=== PATIENT | female | born 1935 | race Caucasian/White ===

== ENCOUNTER → 2016-08-14 | Outpatient (CLI) | payer BC ==
[~2016-08-14] MED LIST: AMLH/550 PO; ASPEC81 PO; ATEN-173 PO; ATOR-22 PO; CYNI1000 IM; ENAL10TA88 PO; FLV1 PO; MAGN400C3 PO; OMEP10CA2 PO; PRM/625 PO
[2016-08-14 10:45] LABS: BASO % 0.5 %; BASO ABS # 0.03 K/uL (0-0.2); COMPLETE YES; HEMATOCRIT 36.3 % (37-47); IG% 0.9 %; LYMPH % 26.2 %; LYMPH ABS # 1.66 K/uL (1.2-3.4); MEAN CELL VOLUME 97.1 fL (80-100); MEAN CORPUSCULAR HEMOGLOBIN 34.2 pg (25-34); MEAN CORPUSCULAR HGB CONC 35.3 g/dl (32-36); MEAN PLATELET VOLUME 8.7 fL (7.4-10.4); MONO % 8.5 %; NEUT % 60.9 %; PLATELET COUNT 318 K/uL (130-400); RED BLOOD COUNT 3.74 M/uL (4.2-5.4); WHITE BLOOD COUNT 6.33 K/uL (4.8-10.8)
[2016-08-14 11:29] LABS: CHOLESTEROL/HDL RATIO 1.7
== END | disposition home or self-care (01) ==
LOC: C.LAB1850 09:52
PROVIDERS: ATTEND Internal Medicine
DX: G30.0 Alzheimer's disease with early onset (principal)

== ENCOUNTER → 2016-12-11 | Outpatient (CLI) | payer BC ==
[2016-12-11 09:39] LABS: BASO % 0.6 %; BASO ABS # 0.03 K/uL (0-0.2); COMPLETE YES; EOS % 6.3 %; HEMATOCRIT 34.9 % (37-47); IG% 0.4 %; LYMPH % 35.3 %; LYMPH ABS # 1.79 K/uL (1.2-3.4); MEAN CELL VOLUME 95.1 fL (80-100); MEAN CORPUSCULAR HEMOGLOBIN 32.7 pg (25-34); MEAN CORPUSCULAR HGB CONC 34.4 g/dl (32-36); MEAN PLATELET VOLUME 8.7 fL (7.4-10.4); MONO % 9.1 %; NEUT % 48.3 %; PLATELET COUNT 321 K/uL (130-400); RED BLOOD COUNT 3.67 M/uL (4.2-5.4); WHITE BLOOD COUNT 5.07 K/uL (4.8-10.8)
[2016-12-11 10:05] LABS: ESTIMATED AVERAGE GLUCOSE 111 mg/dl; HA1C FLAG Normal (Normal)
[2016-12-11 10:43] LABS: ALT/SGPT 18 U/L (12-78); AST/SGOT 16 U/L (15-37); BLOOD UREA NITROGEN 24 mg/dl (7-18); BUN/CREATININE RATIO 19.9 (10-20); CALCIUM 9.1 mg/dl (8.5-10.1); CARBON DIOXIDE 23 mmol/L (21-32); CHLORIDE 103 mmol/L (98-107); CHOLESTEROL 201 mg/dl (0-200); CHOLESTEROL/HDL RATIO 2.5; GLUCOSE 92 mg/dl (70-99); HDL CHOLESTEROL 80 mg/dl; LDL CHOLESTEROL CALCULATED 82 mg/dl; POTASSIUM 4.2 mmol/L (3.5-5.1); SODIUM 135 mmol/L (136-145); TRIGLYCERIDES 197 mg/dl (0-150); VERY LOW DENSITY LIPOPROT CALC 39 mg/dl
--- NOTE | 2016-12-16 12:14 | CODING QUERY MEDICAL NECESSITY ---
CQSUPPORTING DIAGNOSIS NEEDED A supporting diagnosis is required for the test/procedure performed on this patient in order for us to be reimbursed by the patient's insurance. Please provide a supporting diagnosis for the following test/procedure listed below next to the test name along with your signature. *If there is no additional diagnosis for this patient that would support the following test/procedure please document that below next to the test/procedure. Test(s)/Procedure(s) that require a supporting diagnosis: DOS 12/11/16 GLYCATED HEMOGLOBIN Provider Signature: Date: Thank you Diana Auguste [employer] Once completed, please kindly fax back to [phone] For questions please call [phone]
== END | disposition home or self-care (01) ==
LOC: C.LAB1850 07:16
PROVIDERS: ATTEND Internal Medicine
DX: E78.00 Pure hypercholesterolemia, unspecified (principal); E74.39 Other disorders of intestinal carbohydrate absorption

== ENCOUNTER 2017-02-07 09:30 | Inpatient (IN) | payer BC, OTHER ==
[~2017-02-07] VITALS: Ht 160 cm; Wt 54.2 kg
[~2017-02-07 09:30] MED LIST changes: -ASPEC81 PO; -ATOR-22 PO; -CYNI1000 IM; -FLV1 PO; -MAGN400C3 PO
[2017-02-07] MEDS ORDERED: SODIUM CHLORIDE 0.9% 1000ML 1,000 ML IV STA (09:40)
[2017-02-07 10:05] LABS: BASO % 0.5 %; BASO ABS # 0.02 K/uL (0-0.2); COMPLETE YES; EOS % 2.3 %; HEMATOCRIT 37.8 % (37-47); IG% 0.5 %; LYMPH % 31.4 %; LYMPH ABS # 1.25 K/uL (1.2-3.4); MEAN CELL VOLUME 89.2 fL (80-100); MEAN CORPUSCULAR HEMOGLOBIN 31.4 pg (25-34); MEAN CORPUSCULAR HGB CONC 35.2 g/dl (32-36); MEAN PLATELET VOLUME 8.6 fL (7.4-10.4); NEUT % 58.3 %; PLATELET COUNT 306 K/uL (130-400); RED BLOOD COUNT 4.24 M/uL (4.2-5.4); WHITE BLOOD COUNT 3.98 K/uL (4.8-10.8)
[2017-02-07] MEDS ORDERED: ATOR-22 PO (10:09)
--- NOTE | 2017-02-07 10:10 | DIAGNOSTIC IMAGING REPORT ---
CHEST ONE VIEW PORTABLE HISTORY:81 yearsFemaleEVALUATE ALTERED MENTAL STATUS/WEAKNESS COMPARISON: None available. TECHNIQUE: Portable upright AP view of the chest. FINDINGS: Cardiomediastinal and hilar silhouettes are within normal limits. There is no pneumothorax, pleural effusion or focal airspace consolidation. No overt pulmonary edema. Bones are grossly intact. IMPRESSION: No acute cardiopulmonary process. The above report was generated using voice recognition software. It may contain grammatical, syntax or spelling errors. Electronically signed by: Aron Mejia 02/07/2017 10:09 AM Dictated Date/Time: 02/07/2017 10:08 AM
[2017-02-07 10:14] LABS: INR 0.9 (0.9-1.1); PARTIAL THROMBOPLASTIN RATIO 0.9; PROTHROMBIN TIME (PATIENT) 9.8 SECONDS (9.0-12.0)
[2017-02-07 10:17] LABS: URINE APPEARANCE CLEAR (CLEAR); URINE BILIRUBIN NEG (NEG); URINE COLOR YELLOW; URINE EPITHELIAL CELL AUTO >30 /lpf (0-5); URINE NITRITE NEG (NEG); URINE SPECIFIC GRAVITY 1.023 (1.000-1.030); UROBILINOGEN NEG (NEG); ZZURINE CULT IF INDIC CATH NO
[2017-02-07 10:18] LABS: ALT/SGPT 18 U/L (12-78); BLOOD UREA NITROGEN 29 mg/dl (7-18); BUN/CREATININE RATIO 22.3 (10-20); CALCIUM 9.3 mg/dl (8.5-10.1); CARBON DIOXIDE 23 mmol/L (21-32); CHLORIDE 104 mmol/L (98-107); GLUCOSE 92 mg/dl (70-99); MAGNESIUM 1.6 mg/dl (1.8-2.4); POTASSIUM 3.7 mmol/L (3.5-5.1); SODIUM 136 mmol/L (136-145)
[2017-02-07 10:18] LABS: MANUAL MICROSCOPIC REQUIRED? NO; REVIEW REQ? YES
[2017-02-07 10:26] LABS: ALKALINE PHOSPHATASE 92 U/L (45-117); AST/SGOT 15 U/L (15-37); CKMB/CK RATIO 2.9 (0-3.0)
--- NOTE | 2017-02-07 10:28 | DIAGNOSTIC IMAGING REPORT ---
HEAD CT NONCONTRAST CT DOSE: 537.48 mGy.cm HISTORY: Mental status change EVALUATE ALTERED MENTAL STATUS/WEAKNESS TECHNIQUE: Multiaxial CT images of the head were performed without the use of intravenous contrast. Comparison: 02/04/2016 Findings: The paranasal sinuses and mastoid air cells are clear. The calvarium and skull base are intact. The ventricles and sulci are within normal limits. There is no mass, hematoma, midline shift, or acute infarct. Age-related atrophy. Mild chronic small vessel change. Impression: No acute intracranial abnormality. Age-related change Electronically signed by: Pavan Schulz M.D. 02/07/2017 10:26 AM Dictated Date/Time: 02/07/2017 10:25 AM
--- NOTE | 2017-02-07 12:14 | EMERGENCY ROOM VISIT NOTE ---
History Report prepared by Yaelibmarcel: Karen Vargas Under the Supervision of: Dr. eVrnon Azevedo D.O. First contact with patient: 09:34 Stated Complaint: UNRESPONSIVE History of Present Illness The patient is a 77 year old who presents to the Emergency Room with complaints of resolved unresponsiveness occurring about an hour and a half ago. The patient woke up at 4 am and had a conversation as normal with her . Around 8 am, the patient normally wakes up but kept on sleeping which was unusual for her. She was unresponsive for her . As per EMS, the patient continued to not respond to questions that were asked in route to the Emergency Room. Her blood sugar was 93. A few minutes ago, the patient started responding to questions again. She denies any pain but complains of generalized weakness. As per , the patient has been complaining of confusion occurring for the past few days. She does not have a history of diabetes or stroke. She denies any recent illnesses, headache, fevers, chills, chest pain, nausea, vomiting, abdominal pain, or any other complaints. Source of History: patient, spouse/significant other Onset: about an hour and a half ago Position: other (global) Symptom Intensity: No pain Quality: other (unresponsiveness) Timing: resolved Associated Symptoms: + weakness, No fevers, No chills, No headache, No chest pain, No nausea, No vomiting, No abdominal pain Review of Systems See HPI for pertinent positives & negatives. A total of 10 systems reviewed and were otherwise negative. Past Medical & Surgical Medical Problems: (1) Rheumatoid arthritis Family History Patient reports no known family medical history. Social History Smoking Status: Never Smoker Drug Use: none Marital Status: Housing Status: lives with significant other Current/Historical Medications Scheduled Amiloride/Hctz (Amiloride/Hydrochlorothia 5-50 mg), 1 TAB PO DAILY Atenolol (Tenormin), 25 MG PO DAILY Atorvastatin (Lipitor), 20 MG PO DAILY Enalapril (Vasotec), 10 MG PO DAILY Estrogens, Conjugated (Premarin), 0.625 MG PO DAILY Omeprazole (Prilosec), Unknown Dose PO DAILY Allergies Coded Allergies: No Known Allergies (Unverified , 02/09/16) Physical Exam Vital Signs Date Time Temp Pulse Resp B/P (MAP) Pulse Ox O2 Delivery O2 Flow Rate FiO2 02/07/17 11:35 69 16 122/80 97 Room Air 02/07/17 10:23 72 16 124/79 100 Room Air 02/07/17 09:38 79 02/07/17 09:38 36.6 80 16 128/81 100 Room Air Physical Exam CONSTITUTIONAL/VITAL SIGNS: Reviewed / noted above. GENERAL: Non-toxic in appearance. INTEGUMENTARY: Warm, dry, and [place]. HEAD: Normocephalic. EYES: without scleral icterus or trauma. ENT/OROPHARYNX: clear and moist. LYMPHADENOPATHY/NECK: Is supple without lymphadenopathy or meningismus. RESPIRATORY: Lungs clear and equal. CARDIOVASCULAR: Regular rate and rhythm. GI/ABDOMEN: Soft and nontender. No organomegaly or pulsatile mass. No rebound or guarding. Normal bowel sounds. EXTREMITIES: Warm and well perfused. BACK: No CVA tenderness. NEUROLOGICAL: Intact without focal deficits. PSYCHIATRIC: normal affect. MUSCULOSKELETAL: Normally developed with good muscle tone. Medical Decision & Procedures ER Provider Diagnostic Interpretation: X ray results and stated below per my interpretation and radiology interpretation. CHEST ONE VIEW PORTABLE HISTORY:81 yearsFemaleEVALUATE ALTERED MENTAL STATUS/WEAKNESS COMPARISON: None available. TECHNIQUE: Portable upright AP view of the chest. FINDINGS: Cardiomediastinal and hilar silhouettes are within normal limits. There is no pneumothorax, pleural effusion or focal airspace consolidation. No overt pulmonary edema. Bones are grossly intact. IMPRESSION: No acute cardiopulmonary process. The above report was generated using voice recognition software. It may contain grammatical, syntax or spelling errors. Electronically signed by: Aron Mejia 02/07/2017 10:09 AM Dictated Date/Time: 02/07/2017 10:[address] results as stated below per my review and radiologist interpretation: HEAD CT NONCONTRAST CT DOSE: 537.48 mGy.cm HISTORY: Mental status change EVALUATE ALTERED MENTAL STATUS/WEAKNESS TECHNIQUE: Multiaxial CT images of the head were performed without the use of intravenous contrast. Comparison: 02/04/2016 Findings: The paranasal sinuses and mastoid air cells are clear. The calvarium and skull base are intact. The ventricles and sulci are within normal limits. There is no mass, hematoma, midline shift, or acute infarct. Age-related atrophy. Mild chronic small vessel change. Impression: No acute intracranial abnormality. Age-related change Electronically signed by: Pavan Schulz M.D. 02/07/2017 10:26 AM Dictated Date/Time: 02/07/2017 10:25 AM Laboratory Results 02/07/17 09:45 Red Blood Count 4.24, Mean Corpuscular Volume 89.2, Mean Corpuscular Hemoglobin 31.4, Mean Corpuscular Hemoglobin Concent 35.2, Mean Platelet Volume 8.6, Neutrophils (%) (Auto) 58.3, Lymphocytes (%) (Auto) 31.4, Monocytes (%) (Auto) 7.0, Eosinophils (%) (Auto) 2.3, Basophils (%) (Auto) 0.5, Neutrophils # (Auto) 2.32, Lymphocytes # (Auto) 1.25, Monocytes # (Auto) 0.28, Eosinophils # (Auto) 0.09, Basophils # (Auto) 0.02 02/07/17 09:45 Test 02/07/17 09:45 02/07/17 10:00 White Blood Count 3.98 K/uL (4.8-10.8) Red Blood Count 4.24 M/uL (4.2-5.4) Hemoglobin 13.3 g/dL (12.0-16.0) Hematocrit 37.8 % (37-47) Mean Corpuscular Volume 89.2 fL (80-100) Mean Corpuscular Hemoglobin 31.4 pg (25-34) Mean Corpuscular Hemoglobin Concent 35.2 g/dl (32-36) Platelet Count 306 K/uL (130-400) Mean Platelet Volume 8.6 fL (7.4-10.4) Neutrophils (%) (Auto) 58.3 % Lymphocytes (%) (Auto) 31.4 % Monocytes (%) (Auto) 7.0 % Eosinophils (%) (Auto) 2.3 % Basophils (%) (Auto) 0.5 % Neutrophils # (Auto) 2.32 K/uL (1.4-6.5) Lymphocytes # (Auto) 1.25 K/uL (1.2-3.4) Monocytes # (Auto) 0.28 K/uL (0.11-0.59) Eosinophils # (Auto) 0.09 K/uL (0-0.5) Basophils # (Auto) 0.02 K/uL (0-0.2) RDW Standard Deviation 39.2 fL (36.4-46.3) RDW Coefficient of Variation 12.1 % (11.5-14.5) Immature Granulocyte % (Auto) 0.5 % Immature Granulocyte # (Auto) 0.02 K/uL (0.00-0.02) Prothrombin Time 9.8 SECONDS (9.0-12.0) Prothromb Time International Ratio 0.9 (0.9-1.1) Activated Partial Thromboplast Time 22.8 SECONDS (21.0-31.0) Partial Thromboplastin Ratio 0.9 Anion Gap 9.0 mmol/L (3-11) Est Creatinine Clear Calc Drug Dose 28.8 ml/min Estimated GFR () 45.2 Estimated GFR (Non- 39.0 BUN/Creatinine Ratio 22.3 (10-20) Calcium Level 9.3 mg/dl (8.5-10.1) Magnesium Level 1.6 mg/dl (1.8-2.4) Total Bilirubin 0.4 mg/dl (0.2-1) Direct Bilirubin 0.1 mg/dl (0-0.2) Aspartate Amino Transf (AST/SGOT) 15 U/L (15-37) Alanine Aminotransferase (ALT/SGPT) 18 U/L (12-78) Alkaline Phosphatase 92 U/L (45-117) Total Creatine Kinase 24 U/L (26-192) Creatine Kinase MB 0.7 ng/ml (0.5-3.6) Creatine Kinase MB Ratio 2.9 (0-3.0) Troponin I < 0.015 ng/ml (0-0.045) Total Protein 7.5 gm/dl (6.4-8.2) Albumin 3.4 gm/dl (3.4-5.0) Lipase 466 U/L (73-393) Thyroid Stimulating Hormone (TSH) 1.810 uIu/ml (0.300-4.500) Urine Color YELLOW Urine Appearance CLEAR (CLEAR) Urine pH 5.0 (4.5-7.5) Urine Specific [place] 1.023 (1.000-1.030) Urine Protein NEG (NEG) Urine Glucose (UA) NEG (NEG) Urine Ketones NEG (NEG) Urine Occult Blood NEG (NEG) Urine Nitrite NEG (NEG) Urine Bilirubin NEG (NEG) Urine Urobilinogen NEG (NEG) Urine Leukocyte Esterase NEG (NEG) Urine WBC (Auto) 1-5 /hpf (0-5) Urine RBC (Auto) 0-4 /hpf (0-4) Urine Epithelial Cells (Auto) >30 /lpf (0-5) Urine Bacteria (Auto) NEG (NEG) Urine Pathogenic Casts /lpf (0) Laboratory results as stated above per my review. Medications Administered Medications (Trade) Dose Ordered Sig/Carroll Route Start Time Stop Time Status Last Admin Dose Admin Sodium Chloride 1,000 ml @ 250 mls/hr Q4H STAT IV 02/07/17 09:40 02/07/17 13:39 02/07/17 10:20 250 MLS/HR ECG Indication: other (Unresponsive) Rate (beats per minute): 80 Rhythm: normal sinus Findings: T-wave inversion (anterior, lateral) Comparison ECG Date: no prior available ED Course 0934: Previous medical records were reviewed. The patient was evaluated in room A12B. A complete history and physical examination was performed. 0940: Sodium Chloride 1000 ml @ 250 mls/hr IV 1144: On reevaluation, the patient is resting comfortably. I discussed the results and findings with the patient and her . They verbalized agreement of the treatment plan. The patient will be evaluated for further management and care by [facility]. 1159: I discussed the patient's case with Dr. Garrett, medical transcription supervisor with [facility]. Medical Decision Medication Reconciliation: I attest that I have personally reviewed the patient' s current medication list. Blood pressure Screening: Patient was found to have normal blood pressure on screening and does not require follow-up. Differential includes acute coronary syndrome, myocardial infarction, CVA, TIA, anemia, infection, pneumonia, UTI, pyelonephritis, poor nutrition, dehydration, electrolyte disturbance,hypoglycemia. This a 81-year-old female who presents to the ED with a chief complaint of fatigue and an unresponsive episode this morning. The patient's reports that she was unable to arouse this morning. EMS found her to have a blood sugar of 93. She did not verbally respond to them but seemed to be somewhat aware of her surroundings. Her vital signs were normal. Her physical exam for me revealed a fatigued-appearing female who was answering questions although she was somewhat slow to respond. She did respond to questions appropriately and follows basic commands. She denied any specific complaint other than feeling fatigued and tired. Her EKG shows a normal sinus rhythm at a rate of 80 with some T-wave inversions anterolateral. CT scan of the brain and chest x-ray were negative for acute disease. CBC was normal. The BUN is 29 and the creatinine is 1.3. Magnesium was 1.6. TSH was normal. Urine did not show infection. Troponin was negative. The patient was hydrated with IV fluids. Because of her continuance of symptoms, she will be seen by the hospitalist for further observation. I did speak with Dr. Garrett and the hospitalist about this patient. Consults Time Called: 1155 Consulting Physician: Dr. Garrett, medical transcription supervisor with [facility] Returned Call: [phone] I discussed the patient's case with Dr. Garrett, medical transcription supervisor with [facility]. Impression Primary Impression: Unresponsive episode Additional Impressions: Dehydration Weak Abnormal EKG Scribe Attestation The scribe's documentation has been prepared under my direction and personally reviewed by me in its entirety. I confirm that the note above accurately reflects all work, treatment, procedures, and medical decision making performed by me. Departure Information Dispostion Being Evaluated By Hospitalist Gurjit Quick M.D. (PCP) Problem Qualifiers
[2017-02-07 13:49] VITALS: O2SAT 99; Ht 160 cm; Wt 54.2 kg
[2017-02-07] MEDS ORDERED: ONDANSETRON INJ 2 MG/ML 2 ML VIAL IV PRN (14:00)
[2017-02-07] MEDS ORDERED: NITROGLYCERIN 0.4 MG SL PER TAB CHARGE SL PRN (14:00)
[2017-02-07] MEDS ORDERED: PHARMACIST DISCHARGE MED REC CONSULT PRN (14:00)
--- NOTE | 2017-02-07 14:50 | Medical Student: [facility] ---
Med Student History & Physical Date & Time of Service: Feb 07, 2017 at 14:23 Chief Complaint: Unresponsive Primary Care Physician: Gurjit Garrett M.D. History of Present Illness Source: patient, family ( ) Mrs. Dudley is a 81 year old female with a PMH significant for RA, OA, macular degeneration, dementia of unknown etiology, HTN, and hypercholesterolemia who presents today with altered mental status/unresponsiveness. This morning her woke up at 8 am and could not wake up the patient. He denies observing any jerking movements, incontinence, or diaphoresis. He notes that at 4 am, he woke up and had a coherent conversation with the patient. Patient denies fevers , chills, ROSS, chest pain, SOB, or abdominal pain last night or this morning. She has no recent history of changes to medications or recent illnesses. According to the , the patient has generalized weakness and confusion/ short term-memory loss. Her memory loss began about 6 months ago, but significantly worsened within the last week. Her confusion at bedside is no worse than this past week. Additionally, the patient has had decreased appetite over the past couple months with no weight loss. Her vision has been worsening over the past couple months as well and her 's history indicates she has illusions of shadows on the wall, believing they are hands. He attributes her worsening visions to progressive macular degeneration. She follows with Dr. Herrera and Dr. Guzman for her macular degeneration. She has abnormal gait, but does not use any assistance walking. She has osteoarthritis and severe pain in her right hip and knee. Orthopedics follows with her, but patient desires no intervention. She was in the ED about a year ago for a fall. At the time, head CT was negative. On arrival to the ED today, she was afebrile, normal HR of 80 , normotensive at 128/81 and sating well at 100% on RA. Cr was elevated at 1.3 and she was thus given an 250 cc NS. Past Medical/Surgical History 1) Macular Degeneration 2) Dementia of unknown etiology 3) RA 4) OA 5) HTN 6) Hypercholesterolemia Family History Father: at 64 of [place] Mother: at 90, kidney problem Brother: at 50 of [place] Social History Smoking Status: Former Smoker (3 cigarettes/week ) Alcohol Use: none Drug Use: none Marital Status: Housing status: lives with family ( ) Allergies Coded Allergies: No Known Allergies (Unverified , 02/09/16) Medications Amiloride/Hctz (Amiloride/Hydrochlorothia 5-50 mg), 1 TAB PO DAILY Atenolol (Tenormin), 25 MG PO DAILY Atorvastatin (Lipitor), 20 MG PO DAILY Enalapril (Vasotec), 10 MG PO DAILY Estrogens, Conjugated (Premarin), 0.625 MG PO DAILY Omeprazole (Prilosec), Unknown Dose PO DAILY Review of Systems Constitutional: No fever, No chills, No weight loss Eyes: + worsening of vision ENT: No hearing loss Respiratory: No cough, No sputum, No wheezing, No shortness of breath Cardiovascular: No chest pain, No edema, No palpitations Abdomen: No pain, No nausea, No vomiting, No diarrhea, No constipation Musculoskeletal: + joint pain (right hip and right knee ) Genitourinary - Female: No dysuria, No urinary frequency, No urinary urgency, No urinary incontinence Neurologic: + memory loss (short term ), + weakness (generalized ) Endocrine: + fatigue Physical Exam Vital Signs (24 Hours) Date Time Temp Pulse Resp B/P (MAP) Pulse Ox O2 Delivery O2 Flow Rate FiO2 02/07/17 13:49 99 Room Air 02/07/17 13:34 74 16 125/76 99 Room Air 02/07/17 13:01 68 02/07/17 11:35 69 16 122/80 97 Room Air 02/07/17 10:23 72 16 124/79 100 Room Air 02/07/17 09:38 79 02/07/17 09:38 36.6 80 16 128/81 100 Room Air General Appearance: WD/WN, no apparent distress Head: normocephalic, atraumatic Eyes: PERRL, EOMI ENT: normal ENT inspection, pharynx normal Neck: supple, no adenopathy, thyroid normal, no JVD Respiratory/Chest: chest non-tender, lungs clear, normal breath sounds, no respiratory distress Cardiovascular: regular rate, rhythm, no edema, no gallop, no JVD, no murmur Abdomen/GI: normal bowel sounds, non tender, soft, no organomegaly Extremities/Musculoskelatal: no calf tenderness, normal capillary refill, no pedal edema, + pertinent finding (severe degenerative changes in right wrist, ulnar deviation b/l ) Neurologic/Psych: alert, + abnormal spice mixer II-XII (CN II-IV & V-XII intact, CN V2 & V3 decreased sensation left side ), + sensory deficit (decreased sensation of left lower extremity ), + pertinent finding (strength 5/5 b/l upper and lower extremities ) Skin: normal color, warm/dry Lymphatic: no adenopathy Diagnostics Laboratory Results Results Past 24 Hours Test 02/07/17 09:45 02/07/17 10:00 02/07/17 13:50 Range/Units White Blood Count 3.98 4.8-10.8 K/uL Red Blood Count 4.24 4.2-5.4 M/uL Hemoglobin 13.3 12.0-16.0 g/dL Hematocrit 37.8 37-47 % Mean Corpuscular Volume 89.2 80-100 fL Mean Corpuscular Hemoglobin 31.4 25-34 pg Mean Corpuscular Hemoglobin Concent 35.2 32-36 g/dl Platelet Count 306 130-400 K/uL Mean Platelet Volume 8.6 7.4-10.4 fL Neutrophils (%) (Auto) 58.3 % Lymphocytes (%) (Auto) 31.4 % Monocytes (%) (Auto) 7.0 % Eosinophils (%) (Auto) 2.3 % Basophils (%) (Auto) 0.5 % Neutrophils # (Auto) 2.32 1.4-6.5 K/uL Lymphocytes # (Auto) 1.25 1.2-3.4 K/uL Monocytes # (Auto) 0.28 0.11-0.59 K/uL Eosinophils # (Auto) 0.09 0-0.5 K/uL Basophils # (Auto) 0.02 0-0.2 K/uL RDW Standard Deviation 39.2 36.4-46.3 fL RDW Coefficient of Variation 12.1 11.5-14.5 % Immature Granulocyte % (Auto) 0.5 % Immature Granulocyte # (Auto) 0.02 0.00-0.02 K/uL Prothrombin Time 9.8 9.0-12.0 SECONDS Prothromb Time International Ratio 0.9 0.9-1.1 Activated Partial Thromboplast Time 22.8 21.0-31.0 SECONDS Partial Thromboplastin Ratio 0.9 Sodium Level 136 136-145 mmol/L Potassium Level 3.7 3.5-5.1 mmol/L Chloride Level 104 98-107 mmol/L Carbon Dioxide Level 23 21-32 mmol/L Anion Gap 9.0 3-11 mmol/L Blood Urea Nitrogen 29 7-18 mg/dl Creatinine 1.30 0.60-1.20 mg/dl Est Creatinine Clear Calc Drug Dose 28.8 ml/min Estimated GFR () 45.2 Estimated GFR (Non- 39.0 BUN/Creatinine Ratio 22.3 10-20 Random Glucose 92 70-99 mg/dl Calcium Level 9.3 8.5-10.1 mg/dl Magnesium Level 1.6 1.8-2.4 mg/dl Total Bilirubin 0.4 0.2-1 mg/dl Direct Bilirubin 0.1 0-0.2 mg/dl Aspartate Amino Transf (AST/SGOT) 15 15-37 U/L Alanine Aminotransferase (ALT/SGPT) 18 12-78 U/L Alkaline Phosphatase 92 45-117 U/L Total Creatine Kinase 24 26-192 U/L Creatine Kinase MB 0.7 0.5-3.6 ng/ml Creatine Kinase MB Ratio 2.9 0-3.0 Troponin I < 0.015 0-0.045 ng/ml Total Protein 7.5 6.4-8.2 gm/dl Albumin 3.4 3.4-5.0 gm/dl Lipase 466 73-393 U/L Thyroid Stimulating Hormone (TSH) 1.810 0.300-4.500 uIu/ml Urine Color YELLOW Urine Appearance CLEAR CLEAR Urine pH 5.0 4.5-7.5 Urine Specific [place] 1.023 1.000-1.030 Urine Protein NEG NEG Urine Glucose (UA) NEG NEG Urine Ketones NEG NEG Urine Occult Blood NEG NEG Urine Nitrite NEG NEG Urine Bilirubin NEG NEG Urine Urobilinogen NEG NEG Urine Leukocyte Esterase NEG NEG Urine WBC (Auto) 1-5 0-5 /hpf Urine RBC (Auto) 0-4 0-4 /hpf Urine Epithelial Cells (Auto) >30 0-5 /lpf Urine Bacteria (Auto) NEG NEG Urine Pathogenic Casts 0 /lpf Diagnostic Radiology Head CT 02/07/[address] DOSE: 537.48 mGy.cm HISTORY: Mental status change EVALUATE ALTERED MENTAL STATUS/WEAKNESS TECHNIQUE: Multiaxial CT images of the head were performed without the use of intravenous contrast. Comparison: 02/04/2016 Findings: The paranasal sinuses and mastoid air cells are clear. The calvarium and skull base are intact. The ventricles and sulci are within normal limits. There is no mass, hematoma, midline shift, or acute infarct. Age-related atrophy. Mild chronic small vessel change. Impression: No acute intracranial abnormality. Age-related change CXR 02/07/2017 CHEST ONE VIEW PORTABLE HISTORY:81 yearsFemaleEVALUATE ALTERED MENTAL STATUS/WEAKNESS COMPARISON: None available. TECHNIQUE: Portable upright AP view of the chest. FINDINGS: Cardiomediastinal and hilar silhouettes are within normal limits. There is no pneumothorax, pleural effusion or focal airspace consolidation. No overt pulmonary edema. Bones are grossly intact. IMPRESSION: No acute cardiopulmonary process. The above report was generated using voice recognition software. It may contain grammatical, syntax or spelling errors. Impression Assessment and Plan Assessment: Mrs. Dudley is a 81 year old female with a PMH significant for RA, OA , macular degeneration, dementia of unknown etiology, HTN, and hypercholesterolemia who presents today with altered mental status/ unresponsiveness. She was not arousable to wake around 0800 this morning. Differential diagnosis for unresponsiveness of this nature includes OH, arrhythmia, TIA, stroke, or seizure. Head CT was negative for acute intracranial pathology. Initial EKG at [address] depressions in the anterolateral leads with T wave inversions, but repeat EKG at 1214 showed improving depressions. Troponin was negative. CXR was negative. UA was negative for infection. Blood sugar was 93. Cr was elevated at 1.3 (baseline 1.1-1.2). OH or arrhythmia is unlikely the cause as EKG findings are improving, cardiac enzymes are normal, and the patient has no complains or palpitations or chest pain. Stroke or TIA is more likely considering recent hx of dementia (possibly vascular dementia), acute unresponsiveness, and left-sided hypoesthesia. Lipase was also found to be elevated at 466. Plan: Altered mental status/unresponsiveness/hx of dementia of unknown etiology - patient has recent hx (6 months) of short term memory loss which may be vascular in nature. Patient certainly has risk factors (HTN, hypercholesterolemia, hx of smoking). Also patient is taking Premarin, which could attribute to hypercoagulable state. -Head CT negative for intracranial pathology -MRA head & neck -brain MRI -echo -arterial hypercoagulable workup: homocysteine, B2 glycoprotein, microglobulin, lupus anticoagulant, antiphospholipid antibodies -fasting lipids -track cardiac enzymes -physical & occupational therapy evaluation -speech evaluation -consult neurology Dehydration - Cr elevated at 1.3 and notes patient does not drink enough at home -received 250 cc NS on arrival -maintain with KCl/NS @ 100 cc/hr -renal profile AM Elevated Lipase - likely 2/2 to acute kidney compensation from dehydration. Pancreatitis not considered as patient is not having abdominal pain HTN -continue amiloride/HCTZ 5-50 mg PO daily -continue atenolol 25 mg PO daily -continue enalapril 10 mg PO daily Hypercholesterolemia -continue atorvastatin 20 mg PO daily Post-menopausal sxs -continue Premarin 0.625 mg PO daily Level of Care Telemetry Advanced Directives Existing Living Will: Yes Existing Power of Supervisor Nuclear Medicine: Yes
[2017-02-07 15:58] VITALS: BP 133/92; PULSE 85; TEMP 36.4; O2SAT 100
[2017-02-07 16:00] VITALS: O2SAT 100
[2017-02-07] MEDS ORDERED: GADAVIST IV PRN (16:00)
--- NOTE | 2017-02-07 16:02 | DIAGNOSTIC IMAGING REPORT ---
MR ANGIOGRAPHY OF THE [place] NO CONTRAST CLINICAL HISTORY: Change in mental status. Disorientation. Possible stroke. COMPARISON STUDY: None. A 3-D sgig-to-cxtata MR angiographic sequence of the [place] was performed. Both the source and projection images were reviewed. There is no evidence of major intracranial branch occlusion. There is no evidence of intracranial stenosis. There are no lesions suspicious for aneurysm. IMPRESSION: Unremarkable MR angiography of the [place]. Electronically signed by: Willy Holliday M.D. 02/07/2017 4:01 PM Dictated Date/Time: 02/07/2017 3:59 PM
--- NOTE | 2017-02-07 16:08 | DIAGNOSTIC IMAGING REPORT ---
MRI OF THE BRAIN COMBO CLINICAL HISTORY: Change in mental status. COMPARISON STUDY: CT of the brain dated 02/07/2017. TECHNIQUE: MRI of the brain was performed utilizing various T1 and T2-weighted sequences in the axial, sagittal, and coronal planes. Contrast-enhanced sequences were acquired following the administration of 5 cc of Gadavist. FINDINGS: Brain parenchyma: There are age-related involutional changes noting mild patchy subcortical and periventricular microangiopathic disease. There is no hemorrhage or mass effect. There is no restricted diffusion to suggest acute ischemia. No enhancing mass lesion is identified on the postcontrast images. Mackay-white matter differentiation is preserved. No extra-axial fluid collection is seen. The cerebellar tonsils are normal in configuration. Ventricles, sulci, and cisterns: Prominent secondary to involutional change. Pituitary and sella: Unremarkable. Intracranial vasculature: Normal flow voids are maintained at the skull base. Orbits: The bony orbits are grossly intact. Orbital contents are normal in appearance noting bilateral ocular lens implants. Sinuses and mastoids: Clear. Calvarium: Unremarkable. Cervical cord: Partially visualized cervical spinal cord is normal in morphology and signal intensity. IMPRESSION: No acute intracranial abnormality. Electronically signed by: Javon Pearson M.D. 02/07/2017 4:07 PM Dictated Date/Time: 02/07/2017 4:02 PM
--- NOTE | 2017-02-07 16:13 | DIAGNOSTIC IMAGING REPORT ---
MR ANGIOGRAM OF THE NECK COMBO CLINICAL HISTORY: Change in mental status. COMPARISON STUDY: No priors. TECHNIQUE: Axial 3-D [id number] MR angiography of the neck is performed. Subsequently, following the IV administration of 5 cc of Gadavist. Coronal MR angiogram of the neck was performed to corroborate the findings. 3-D reformats are created and assessed. Subtraction imaging was utilized. All measurements were calculated based on NASCET criteria. FINDINGS: Visualized portions of the thoracic aorta are normal in caliber. The aortic arch demonstrates standard 3-vessel anatomy. The subclavian arteries are widely patent bilaterally. The right common carotid artery is widely patent. There is approximately 50% stenosis at the origin of the right internal carotid artery. The remainder of the right internal carotid artery and the right external carotid artery are patent. The left common carotid artery is widely patent, as are the left internal and external carotid arteries. The vertebral arteries are widely patent. The left vertebral artery is dominant. The visualized intracranial vessels at the skull base appear patent. The jugular veins are patent. IMPRESSION: 1. There is approximately 50% stenosis of the origin of the right internal carotid artery. 2. The remainder of the right carotid arterial system as well as the left carotid arterial system are widely patent. 3. The vertebral arteries are patent. Electronically signed by: Javon Pearson M.D. 02/07/2017 4:12 PM Dictated Date/Time: 02/07/2017 4:07 PM
[2017-02-07] MEDS: NITROGLYCERIN OINT 2% 1GM PACKET EXT SCH ×2 (16:28→23:44)
[2017-02-07] MEDS: NSS + 20MEQ KCL 1000ML 1,000 ML IV SCH (16:57)
--- NOTE | 2017-02-07 18:28 | History and Physical ---
History & Physical Date & Time of Service: Feb 07, 2017 at 18:12 Chief Complaint: Abnormal Ekg, Unresponsive Episode Primary Care Physician: Gurjit Garrett M.D. History of Present Illness Source: patient, spouse This patient is a 77-year-old female with a past medical history of rheumatoid arthritis, dementia, hypertension, hyperlipidemia, GERD , who first woke up this morning around 4 AM and had a normal conversation with her . She then went back to sleep and around 8 a.m. she was still asleep, which was unusual for her and her was unable to wake her up. He became concerned and called emergency services, who reported that she was still not able to respond to questions at her home and in route to the emergency department. Then , a few minutes prior to arrival, the patient started to respond to questions again. She denied have any local or generalized pain, but did report generalized weakness. Her reports that she had been confused for the past few days. She's not had any recent falls, she has not had recent travel, or sick exposures. Family History Patient reports no known family medical history. Noncontributory Social History Smoking Status: Former Smoker (3 cigarettes/week ) Smokeless Tobacco Use: No Alcohol Use: none Drug Use: none Marital Status: Housing status: lives with family ( ) Occupational Status: retired Multi-Drug Resistant Organisms History of MDRO: No Allergies Coded Allergies: No Known Allergies (Unverified , 02/09/16) Home Medications Scheduled Amiloride/Hctz (Amiloride/Hydrochlorothia 5-50 mg), 1 TAB PO DAILY Atenolol (Tenormin), 25 MG PO DAILY Atorvastatin (Lipitor), 20 MG PO DAILY Enalapril (Vasotec), 10 MG PO DAILY Estrogens, Conjugated (Premarin), 0.625 MG PO DAILY Omeprazole (Prilosec), Unknown Dose PO DAILY Review of Systems The patient denies chest pain, palpitations, shortness of breath, cough, lower extremity swelling, vision change, hearing change, sore throat, fevers, chills, sweats, weight change, nausea, vomiting, abdominal pain, pelvic pain, blood in urine or stool, dysuria, urinary frequency or urgency, lightheadedness, dizziness, headache, rash, abnormal bruising or bleeding, imbalance, focal weakness, numbness or tingling in arms or legs, arthralgias or myalgias, back or neck pain, night sweats, or allergy symptoms. The review of systems is otherwise negative other than for that already noted above, and at least 10 systems have been reviewed. Physical Exam Vital Signs Date Time Temp Pulse Resp B/P (MAP) Pulse Ox O2 Delivery O2 Flow Rate FiO2 02/07/17 16:00 100 Room Air 02/07/17 15:58 36.4 85 16 133/92 (106) 100 Room Air 02/07/17 13:49 99 Room Air 02/07/17 13:34 74 16 125/76 99 Room Air 02/07/17 13:01 68 02/07/17 11:35 69 16 122/80 97 Room Air 02/07/17 10:23 72 16 124/79 100 Room Air 02/07/17 09:38 79 02/07/17 09:38 36.6 80 16 128/81 100 Room Air The patient is awake, well-developed and adequately nourished, alert and oriented 3, normocephalic and atraumatic, lying in bed and in no acute distress. HEENT--PERRL, EOMI, mucous membranes and oropharynx Neck--supple, no JVD or bruits, thyroid normal, trachea midline, no adenopathy. Heart--normal S1 and S2, no extra beats, no murmurs, rubs or gallops. Lungs--clear bilaterally with good air movement, no respiratory distress, no accessory muscle use. Abdomen--normal bowel sounds and soft, nontender and nondistended, no hernias or masses, no organomegaly. Extremities--no cyanosis, clubbing or edema. There are good distal pulses b/l. Dermatologic--normal skin turgor, normal color, warm and dry, no abnormal lymph nodes, no rash. Neurologic--cranial nerves II through XII grossly intact, motor and sensory examination normal. Rheumatologic--normal range of motion, nontender, muscles and joints. Psychiatric--normal affect. Diagnostics Laboratory Results Results Past 24 Hours Test 02/07/17 09:45 02/07/17 10:00 02/07/17 13:50 Range/Units White Blood Count 3.98 4.8-10.8 K/uL Red Blood Count 4.24 4.2-5.4 M/uL Hemoglobin 13.3 12.0-16.0 g/dL Hematocrit 37.8 37-47 % Mean Corpuscular Volume 89.2 80-100 fL Mean Corpuscular Hemoglobin 31.4 25-34 pg Mean Corpuscular Hemoglobin Concent 35.2 32-36 g/dl Platelet Count 306 130-400 K/uL Mean Platelet Volume 8.6 7.4-10.4 fL Neutrophils (%) (Auto) 58.3 % Lymphocytes (%) (Auto) 31.4 % Monocytes (%) (Auto) 7.0 % Eosinophils (%) (Auto) 2.3 % Basophils (%) (Auto) 0.5 % Neutrophils # (Auto) 2.32 1.4-6.5 K/uL Lymphocytes # (Auto) 1.25 1.2-3.4 K/uL Monocytes # (Auto) 0.28 0.11-0.59 K/uL Eosinophils # (Auto) 0.09 0-0.5 K/uL Basophils # (Auto) 0.02 0-0.2 K/uL RDW Standard Deviation 39.2 36.4-46.3 fL RDW Coefficient of Variation 12.1 11.5-14.5 % Immature Granulocyte % (Auto) 0.5 % Immature Granulocyte # (Auto) 0.02 0.00-0.02 K/uL Prothrombin Time 9.8 9.0-12.0 SECONDS Prothromb Time International Ratio 0.9 0.9-1.1 Activated Partial Thromboplast Time 22.8 21.0-31.0 SECONDS Partial Thromboplastin Ratio 0.9 Sodium Level 136 136-145 mmol/L Potassium Level 3.7 3.5-5.1 mmol/L Chloride Level 104 98-107 mmol/L Carbon Dioxide Level 23 21-32 mmol/L Anion Gap 9.0 3-11 mmol/L Blood Urea Nitrogen 29 7-18 mg/dl Creatinine 1.30 0.60-1.20 mg/dl Est Creatinine Clear Calc Drug Dose 28.8 ml/min Estimated GFR () 45.2 Estimated GFR (Non- 39.0 BUN/Creatinine Ratio 22.3 10-20 Random Glucose 92 70-99 mg/dl Calcium Level 9.3 8.5-10.1 mg/dl Magnesium Level 1.6 1.8-2.4 mg/dl Total Bilirubin 0.4 0.2-1 mg/dl Direct Bilirubin 0.1 0-0.2 mg/dl Aspartate Amino Transf (AST/SGOT) 15 15-37 U/L Alanine Aminotransferase (ALT/SGPT) 18 12-78 U/L Alkaline Phosphatase 92 45-117 U/L Total Creatine Kinase 24 26-192 U/L Creatine Kinase MB 0.7 0.5-3.6 ng/ml Creatine Kinase MB Ratio 2.9 0-3.0 Troponin I < 0.015 0-0.045 ng/ml Total Protein 7.5 6.4-8.2 gm/dl Albumin 3.4 3.4-5.0 gm/dl Lipase 466 73-393 U/L Thyroid Stimulating Hormone (TSH) 1.810 0.300-4.500 uIu/ml Urine Color YELLOW Urine Appearance CLEAR CLEAR Urine pH 5.0 4.5-7.5 Urine Specific [place] 1.023 1.000-1.030 Urine Protein NEG NEG Urine Glucose (UA) NEG NEG Urine Ketones NEG NEG Urine Occult Blood NEG NEG Urine Nitrite NEG NEG Urine Bilirubin NEG NEG Urine Urobilinogen NEG NEG Urine Leukocyte Esterase NEG NEG Urine WBC (Auto) 1-5 0-5 /hpf Urine RBC (Auto) 0-4 0-4 /hpf Urine Hyaline Casts (Auto) 10-30 0-5 /lpf Urine Epithelial Cells (Auto) >30 0-5 /lpf Urine Bacteria (Auto) NEG NEG Urine Pathogenic Casts 0 /lpf Diagnostic Radiology Patient Name: NUBIA IRAHETA Unit Number: [id number] Dictated: 02/07/171024 Transcribed: 02/07/17 102 MS Printed Date/Time: [~ rep prt dt]/[~ rep prt tm] [~ rep ct labl] - [~ rep ct ivnm] [facility] [place] [address] Dictated: 02/07/171024 Transcribed: 02/07/17 1025 MS Printed Date/Time: [~ rep prt dt]/[~ rep prt tm] [~ rep ct labl] - [~ rep ct ivnm] [~ rep ct add3]] HEAD CT NONCONTRAST CT DOSE: 537.48 mGy.cm HISTORY: Mental status change EVALUATE ALTERED MENTAL STATUS/WEAKNESS TECHNIQUE: Multiaxial CT images of the head were performed without the use of intravenous contrast. Comparison: 02/04/2016 Findings: The paranasal sinuses and mastoid air cells are clear. The calvarium and skull base are intact. The ventricles and sulci are within normal limits. There is no mass, hematoma, midline shift, or acute infarct. Age-related atrophy. Mild chronic small vessel change. Impression: No acute intracranial abnormality. Age-related change Electronically signed by: Pavan Schulz M.D. 02/07/2017 10:26 AM Dictated Date/Time: 02/07/2017 10:25 AM The status of this report is Signed. Draft = Not yet reviewed or approved by Radiologist. Signed = Reviewed and approved by Radiologist. <AttendingPhy></AttendingPhy> <FamilyPhy>Gurjit Garrett M.D.</FamilyPhy> < PrimaryPhy>Gurjit Garrett M.D.</PrimaryPhy> <UnitNumber>[id number]</UnitNumber > <VisitNumber>[id number]</VisitNumber> <PatientName>NUBIA IRAHETA</ PatientName> <DateOfBirth>1935</DateOfBirth> <Location>[facility]</Location> < ServiceDate>02/07/17</ServiceDate> <MNE>ESINDI</MNE> <OrderingPhy>Vernon Azevedo D.O.</OrderingPhy> <OrderingPhyMNE>f rep ord dr soto</OrderingPhyMNE> < DictatingPhyMNE>f rep dict dr soto</DictatingPhyMNE> <CCListMNE>f rep ct rohite</ CCListMNE> <AdmittingPhyMNE>f pt admit dr soto</AdmittingPhyMNE> <AttendingPhyMNE >f pt attend dr soto</AttendingPhyMNE> <ConsultingPhyMNE>f pt consult dr soto</ConsultingPhyMNE> <FamilyPhyMNE>f pt fam dr soto</FamilyPhyMNE> <OtherPhyMNE>f pt other dr soto</OtherPhyMNE> < PrimaryPhyMNE>f pt prim care dr soto</PrimaryPhyMNE> <ReferringPhyMNE>f pt referring dr soto</ReferringPhyMNE> Patient Name: NUBIA IRAHETA Unit Number: [id number] Dictated: 02/07/171007 Transcribed: 02/07/171007 JRB Printed Date/Time: [~ rep prt dt]/[~ rep prt tm] [~ rep ct labl] - [~ rep ct ivnm] [facility] [place] [address] Dictated: 02/07/171007 Transcribed: 02/07/17 100 JRB Printed Date/Time: [~ rep prt dt]/[~ rep prt tm] [~ rep ct labl] - [~ rep ct ivnm] CHEST ONE VIEW PORTABLE HISTORY:81 yearsFemaleEVALUATE ALTERED MENTAL STATUS/WEAKNESS COMPARISON: None available. TECHNIQUE: Portable upright AP view of the chest. FINDINGS: Cardiomediastinal and hilar silhouettes are within normal limits. There is no pneumothorax, pleural effusion or focal airspace consolidation. No overt pulmonary edema. Bones are grossly intact. IMPRESSION: No acute cardiopulmonary process. The above report was generated using voice recognition software. It may contain grammatical, syntax or spelling errors. Electronically signed by: Aron Mejia 02/07/2017 10:09 AM Dictated Date/Time: 02/07/2017 10:08 AM The status of this report is Signed. Draft = Not yet reviewed or approved by Radiologist. Signed = Reviewed and approved by Radiologist. <AttendingPhy></AttendingPhy> <FamilyPhy>Gurjit Garrett M.D.</FamilyPhy> < PrimaryPhy>Gurjit Garrett M.D.</PrimaryPhy> <UnitNumber>[id number]</UnitNumber > <VisitNumber>[id number]</VisitNumber> <PatientName>NUBIA IRAHETA</ PatientName> <DateOfBirth>1935</DateOfBirth> <Location>[facility]</Location> < ServiceDate>02/07/17</ServiceDate> <MNE>ESINDI</MNE> <OrderingPhy>Vernon Azevedo D.O.</OrderingPhy> <OrderingPhyMNE>f rep ord dr soto</OrderingPhyMNE> < DictatingPhyMNE>f rep dict dr soto</DictatingPhyMNE> <CCListMNE>f rep ct mne</ CCListMNE> <AdmittingPhyMNE>f pt admit dr soto</AdmittingPhyMNE> <AttendingPhyMNE >f pt attend dr soto</AttendingPhyMNE> <ConsultingPhyMNE>f pt consult dr soto</ConsultingPhyMNE> <FamilyPhyMNE>f pt fam dr soto</FamilyPhyMNE> <OtherPhyMNE>f pt other dr soto</OtherPhyMNE> < PrimaryPhyMNE>f pt prim care dr soto</PrimaryPhyMNE> <ReferringPhyMNE>f pt referring dr soto</ReferringPhyMNE> EKG EKG #1 showed normal sinus rhythm at 80 bpm, with ST-T changes in leads V2 through V6, suggestive of anterior ischemia. EKG #2 shows normal sinus rhythm at 73 bpm, with improvement in above changes suggestive of nonspecific ST and T wave abnormality. Impression Assessment and Plan Unresponsive episode with persistent altered but improving mental state/dementia -like the patient will be admitted to the telemetry unit for serial cardiac enzymes, cardiac rhythm monitoring and a 2-D echocardiogram with Dopplers. Initial CT of the head did not show any new abnormalities. She will get an MRI of the brain combo, an MRA of the neck combo, an MRA of the head without contrast. Place on aspirin 81 mg by mouth daily. We'll hold Premarin 0.6 mg by mouth daily for now. We'll order an arterial hypercoagulable workup. Hypertension--continue atenolol 25 mg by mouth daily, enalapril 10 mg by mouth daily, and amiloride/HCTZ 5/50 one by mouth daily. Hyperlipidemia--continue atorvastatin 20 mg by mouth daily. His GERD--change omeprazole 20 mg by mouth daily to pantoprazole 40 mg by mouth daily. HRT-- for now hold Premarin. Advanced Directives Existing Advance Directive: No Existing Living Will: Yes Existing Power of Cementer Helper: Yes Resuscitation Status FULL RESUSCITATION VTE Prophylaxis VTE Risk Assessment Done? Y/N: Yes Risk Level: Moderate Given or contraindicated: SCD's
[2017-02-07 19:30] VITALS: BP 96/60; PULSE 87; TEMP 36.4; O2SAT 97
[2017-02-07 20:47] LABS: CKMB/CK RATIO 2.8 (0-3.0)
[2017-02-08] VITALS (9 sets, daily range): BP systolic 88–119; BP diastolic 50–73; PULSE 71–97; TEMP 36.3–36.9; O2SAT 95–100
[2017-02-08] MEDS: NSS + 20MEQ KCL 1000ML 1,000 ML IV SCH ×2 (02:02→12:06)
[2017-02-08 04:02] LABS: INR 0.9 (0.9-1.1); PROTHROMBIN TIME (PATIENT) 10.1 SECONDS (9.0-12.0)
[2017-02-08 04:05] LABS: BASO % 0.4 %; BASO ABS # 0.02 K/uL (0-0.2); COMPLETE YES; EOS % 2.8 %; HEMATOCRIT 28.9 % (37-47); IG% 0.2 %; LYMPH % 26.2 %; LYMPH ABS # 1.22 K/uL (1.2-3.4); MEAN CELL VOLUME 89.5 fL (80-100); MEAN CORPUSCULAR HEMOGLOBIN 30.3 pg (25-34); MEAN CORPUSCULAR HGB CONC 33.9 g/dl (32-36); MEAN PLATELET VOLUME 8.3 fL (7.4-10.4); MONO % 8.2 %; NEUT % 62.2 %; PLATELET COUNT 255 K/uL (130-400); RED BLOOD COUNT 3.23 M/uL (4.2-5.4); WHITE BLOOD COUNT 4.66 K/uL (4.8-10.8)
[2017-02-08 04:15] LABS: BLOOD UREA NITROGEN 21 mg/dl (7-18); BUN/CREATININE RATIO 22.8 (10-20); CALCIUM 8.1 mg/dl (8.5-10.1); CARBON DIOXIDE 23 mmol/L (21-32); CHLORIDE 111 mmol/L (98-107); CREATININE 0.91 mg/dl (0.60-1.20); GLUCOSE 75 mg/dl (70-99); POTASSIUM 3.7 mmol/L (3.5-5.1); SODIUM 140 mmol/L (136-145)
[2017-02-08 04:25] LABS: CHOLESTEROL 163 mg/dl (0-200); CKMB/CK RATIO 3.5 (0-3.0); HDL CHOLESTEROL 54 mg/dl; LDL CHOLESTEROL CALCULATED 78 mg/dl; TRIGLYCERIDES 153 mg/dl (0-150); VERY LOW DENSITY LIPOPROT CALC 31 mg/dl
[2017-02-08] MEDS: NITROGLYCERIN OINT 2% 1GM PACKET EXT SCH ×2 (05:10→12:00)
[2017-02-08] MEDS: ASPIRIN 81 MG ECTAB PO SCH (07:54)
[2017-02-08] MEDS: PANTOprazole SOD 40 MG TAB PO SCH (07:54)
[2017-02-08] MEDS: ATORVASTATIN 40 MG TAB PO SCH (07:54)
[2017-02-08 08:00] LABS: ESTIMATED AVERAGE GLUCOSE 120 mg/dl; HA1C FLAG Normal (Normal)
[2017-02-08] MEDS ORDERED: MAGNESIUM SULFATE 1GM / D5W 1 GM in PREMIXED IN D5W 100 ML IV ONE (08:30)
[2017-02-08] MEDS: ENALAPRIL MALEATE 10 MG TAB PO SCH ×2 (08:59→12:36)
[2017-02-08] MEDS: AMILORIDE/HCTZ 5-50 MG TAB PO SCH ×2 (09:00→12:38)
--- NOTE | 2017-02-08 10:01 | Neurology Consultation ---
Neurology Consultation Date of Consultation: Feb 08, 2017. Attending Physician: Lulu Colorado DO Primary Care Physician: Gurjit Garrett M.D. Reason for Consultation: Episode of altered consciousness History of Present Illness Source: hospital records The patient is a 81-year-old female who was brought to the emergency department yesterday for further evaluation of an episode of altered consciousness. The patient has very poor recollection of the episode and appears to have a mild dementia according to records. Her had indicated that he was unable to awaken her from sleep yesterday morning at around 8 AM She had apparently slept in late, past her usual awakening time. However, she had apparently awoken at around 4 in the morning and had a conversation with her . The patient does not really recall any specific details regarding this conversation. The emergency department record suggests that the patient awoke for EMS although she seemed to have an altered mental status as she was not responding verbally. The patient's mental status apparently improved by the time she was evaluated in the emergency department. The patient does have a vague recollection of her interactions with EMS including some police officers as well. She also recalls being brought down the steps on a gurney prior to being taken to the hospital. Currently, the patient does not really have any specific complaints. She indicates that she feels okay and seems to be a bit confused as to why she is here in the hospital. She denies headache, dizziness, vision changes, weakness, or sensory loss. She does recall an episode where she fell about 1 year ago and may have had a minor head injury. Electrocardiogram reveals a normal sinus rhythm, 80 bpm. CBC unremarkable. Comprehensive metabolic panel initially revealed elevated BUN/ creatinine. LFTs normal. TSH normal. CK normal. Glucose 92. CT of the head unremarkable. No hemorrhage or acute process. Brain MRI reveals generalized atrophy and chronic microangiopathic disease. I reviewed the images as well as radiologist's interpretation of this test and agree with his findings. MRA of the head unremarkable MRA of the neck reveals a 50% stenosis of the right internal carotid artery at its origin Past Medical/Surgical History Medical Problems: (1) Abnormal EKG Status: Acute (2) CHI (closed head injury) Status: Acute (3) Contusion of right hand Status: Acute (4) Dehydration Status: Acute (5) Facial laceration Status: Acute (6) Fall Status: Acute (7) Unresponsive episode Status: Acute (8) Weak Status: Acute Family History There is no pertinent family history that would affect this patient's neurological evaluation and management at this time Social History Smokeless Tobacco Use: No Alcohol Use: none Drug Use: none Marital Status: Housing Status: lives with significant other Occupation Status: retired Allergies Coded Allergies: No Known Allergies (Unverified , 02/09/16) Current Inpatient Medications Current Inpatient Medications Medications (Trade) Dose Ordered Sig/Carroll Route Start Time Stop Time Status Last Admin Dose Admin Atorvastatin Calcium (Lipitor Tab) 40 mg QAM PO 02/08/17 09:00 03/10/17 08:59 02/08/17 07:54 40 MG Aspirin (Ecotrin Tab) 81 mg QAM PO 02/08/17 09:00 03/10/17 08:59 02/08/17 07:54 81 MG Miscellaneous Information (Pharmacist Discharge Med Rec Consult) 1 ea UD PRN N/A 02/07/17 14:00 03/09/17 13:59 Acetaminophen (Tylenol Tab) 650 mg Q4H PRN PO 02/07/17 14:00 03/09/17 13:59 Nitroglycerin (Nitrostat Tab) 0.4 mg UD PRN SL 02/07/17 14:00 03/09/17 13:59 Nitroglycerin (Nitroglycerin 2% Oint) 1 inch Q6H EXT 02/07/17 16:00 03/09/17 15:59 02/07/17 16:28 1 INCH Ondansetron HCl (Zofran Inj) 4 mg Q6H PRN IV 02/07/17 14:00 03/09/17 13:59 Atenolol (Tenormin Tab) 25 mg DAILY PO 02/08/17 09:00 03/10/17 08:59 Enalapril Maleate (Vasotec Tab) 10 mg DAILY PO 02/08/17 09:00 03/10/17 08:59 Pantoprazole Sodium (Protonix Tab) 40 mg QAM PO 02/08/17 09:00 03/10/17 08:59 02/08/17 07:54 40 MG Potassium Chloride/Sodium Chloride 1,000 ml @ 100 mls/hr Q10H IV 02/07/17 16:00 03/09/17 13:59 7/8/17 02:02 100 MLS/HR Gadobutrol (Gadavist) 5 mmol UD PRN IV 02/07/17 16:00 02/11/17 15:59 Amiloride/HCTZ (Moduretic 5-50MG Tab) 1 tab DAILY PO 02/08/17 09:00 03/10/17 08:59 Magnesium Sulfate 1 gm/Prmx 100 ml @ 100 mls/hr 0830 ONCE IV 02/08/17 08:30 02/08/17 09:29 02/08/17 08:59 100 MLS/HR Review of Systems A full 10 point review of systems was obtained from this patient with pertinent positives and negatives described in the history of present illness. All other systems reviewed and are negative. Physical Exam Vital Signs (Past 24 Hrs): Date Time Temp Pulse Resp B/P (MAP) Pulse Ox O2 Delivery O2 Flow Rate FiO2 02/08/17 09:11 97 114/68 (83) 02/08/17 08:00 Room Air 02/08/17 07:52 36.9 85 16 116/68 (84) 96 Room Air 02/08/17 04:00 Room Air 02/08/17 03:31 36.6 88 18 104/57 (73) 95 Room Air 02/08/17 00:00 36.9 89 18 88/50 (63) 95 Room Air 02/07/17 23:59 Room Air 02/07/17 20:00 Room Air 02/07/17 19:30 36.4 87 20 96/60 (72) 97 Room Air 02/07/17 16:00 100 Room Air 02/07/17 15:58 36.4 85 16 133/92 (106) 100 Room Air 02/07/17 13:49 99 Room Air 02/07/17 13:34 74 16 125/76 99 Room Air 02/07/17 13:01 68 02/07/17 11:35 69 16 122/80 97 Room Air 02/07/17 10:23 72 16 124/79 100 Room Air 02/07/17 09:38 79 02/07/17 09:38 36.6 80 16 128/81 100 Room Air The patient is a well-developed elderly female, no acute distress. She is alert and oriented to person and place. She missed the exact date. Attention span normal. Mild impairment of concentration noted with difficulty spelling world backwards. Spontaneous speech pattern normal. Patient is able to name objects and repeat phrases. Vocabulary normal. Limited fund of knowledge pertaining to overall medical status including history of present illness. Visual everett full to confrontation. Visual acuity normal. Pupils equal round reactive to light and accommodation. Eye movements normal. Facial sensation intact. There is no facial droop or facial asymmetry. Hearing intact to finger rub bilaterally. Palate elevates to midline. Shoulder shrug intact. Tongue protrudes to midline. Sensation intact to light touch, temperature, vibration, and proprioception in all 4 limbs. Deep tendon reflexes are 2+ for the upper and lower limbs bilaterally. Plantar responses downgoing bilaterally. There is no dysdiadochokinesia or dysmetria with finger to nose or heel to travis. The optic nerves and posterior segments cannot be adequately visualized with direct ophthalmoscopic examination. Carotid pulses normal bilaterally, no bruits. Gait and station not tested due to safety concerns. Muscle strength and tone normal throughout. No atrophy. No abnormal movements observed. Laboratory Results Past 24 Hours: 02/08/17 03:38 Red Blood Count 3.23, Mean Corpuscular Volume 89.5, Mean Corpuscular Hemoglobin 30.3, Mean Corpuscular Hemoglobin Concent 33.9, Mean Platelet Volume 8.3, Neutrophils (%) (Auto) 62.2, Lymphocytes (%) (Auto) 26.2, Monocytes (%) (Auto) 8.2, Eosinophils (%) (Auto) 2.8, Basophils (%) (Auto) 0.4, Neutrophils # (Auto) 2.90, Lymphocytes # (Auto) 1.22, Monocytes # (Auto) 0.38, Eosinophils # (Auto) 0.13, Basophils # (Auto) 0.02 02/08/17 03:38 Test 02/07/17 09:45 02/07/17 10:00 02/07/17 19:53 02/08/17 03:38 Activated Partial Thromboplast Time 22.8 SECONDS (21.0-31.0) Partial Thromboplastin Ratio 0.9 Estimated Average Glucose 120 mg/dl Hemoglobin A1c 5.8 % (4.5-5.6) Magnesium Level 1.6 mg/dl (1.8-2.4) Total Bilirubin 0.4 mg/dl (0.2-1) Direct Bilirubin 0.1 mg/dl (0-0.2) Aspartate Amino Transf (AST/SGOT) 15 U/L (15-37) Alanine Aminotransferase (ALT/SGPT) 18 U/L (12-78) Alkaline Phosphatase 92 U/L (45-117) Total Protein 7.5 gm/dl (6.4-8.2) Albumin 3.4 gm/dl (3.4-5.0) Lipase 466 U/L (73-393) Thyroid Stimulating Hormone (TSH) 1.810 uIu/ml (0.300-4.500) Urine Color YELLOW Urine Appearance CLEAR (CLEAR) Urine pH 5.0 (4.5-7.5) Urine Specific [place] 1.023 (1.000-1.030) Urine Protein NEG (NEG) Urine Glucose (UA) NEG (NEG) Urine Ketones NEG (NEG) Urine Occult Blood NEG (NEG) Urine Nitrite NEG (NEG) Urine Bilirubin NEG (NEG) Urine Urobilinogen NEG (NEG) Urine Leukocyte Esterase NEG (NEG) Urine WBC (Auto) 1-5 /hpf (0-5) Urine RBC (Auto) 0-4 /hpf (0-4) Urine Hyaline Casts (Auto) 10-30 /lpf (0-5) Urine Epithelial Cells (Auto) >30 /lpf (0-5) Urine Bacteria (Auto) NEG (NEG) Urine Pathogenic Casts /lpf (0) White Blood Count 4.66 K/uL (4.8-10.8) Red Blood Count 3.23 M/uL (4.2-5.4) Hemoglobin 9.8 g/dL (12.0-16.0) Hematocrit 28.9 % (37-47) Mean Corpuscular Volume 89.5 fL (80-100) Mean Corpuscular Hemoglobin 30.3 pg (25-34) Mean Corpuscular Hemoglobin Concent 33.9 g/dl (32-36) Platelet Count 255 K/uL (130-400) Mean Platelet Volume 8.3 fL (7.4-10.4) Neutrophils (%) (Auto) 62.2 % Lymphocytes (%) (Auto) 26.2 % Monocytes (%) (Auto) 8.2 % Eosinophils (%) (Auto) 2.8 % Basophils (%) (Auto) 0.4 % Neutrophils # (Auto) 2.90 K/uL (1.4-6.5) Lymphocytes # (Auto) 1.22 K/uL (1.2-3.4) Monocytes # (Auto) 0.38 K/uL (0.11-0.59) Eosinophils # (Auto) 0.13 K/uL (0-0.5) Basophils # (Auto) 0.02 K/uL (0-0.2) RDW Standard Deviation 39.9 fL (36.4-46.3) RDW Coefficient of Variation 12.2 % (11.5-14.5) Immature Granulocyte % (Auto) 0.2 % Immature Granulocyte # (Auto) 0.01 K/uL (0.00-0.02) Prothrombin Time 10.1 SECONDS (9.0-12.0) Prothromb Time International Ratio 0.9 (0.9-1.1) Anion Gap 6.0 mmol/L (3-11) Est Creatinine Clear Calc Drug Dose 41.2 ml/min Estimated GFR () 69.5 Estimated GFR (Non- 60.0 BUN/Creatinine Ratio 22.8 (10-20) Calcium Level 8.1 mg/dl (8.5-10.1) Total Creatine Kinase 40 U/L (26-192) Creatine Kinase MB 1.4 ng/ml (0.5-3.6) Creatine Kinase MB Ratio 3.5 (0-3.0) Troponin I < 0.015 ng/ml (0-0.045) Triglycerides Level 153 mg/dl (0-150) Cholesterol Level 163 mg/dl (0-200) HDL Cholesterol 54 mg/dl LDL Cholesterol, Calculated 78 mg/dl VLDL Cholesterol, Calculated 31 mg/dl Cholesterol/HDL Ratio 3.0 Imaging Imaging is been reviewed and is as described in the history of present illness Impression This is a 81-year-old female who was difficult to arouse from sleep yesterday morning. Upon awakening, she was not responding verbally and considered to have a significant alteration in her mental status. These symptoms significantly improved by the time she was evaluated in the emergency department. The patient is fairly amnestic for these events. She does appear to have a mild dementia at baseline. There is no evidence of acute or subacute stroke or significant vascular lesion on the recently completed imaging evaluation. It is interesting that she had awoken at around 4 AM and reportedly had a conversation with her at that time that she does not recall. I wonder if this patient may have a REM behavior disorder that could account for her symptoms. There does not appear to be any indication that she has been having seizures. Plan Would consider obtaining an outpatient sleep medicine consultation. If patient were to have another observed lapse in awareness or confusional episode it would be reasonable to obtain an outpatient EEG as well. Would consider further outpatient evaluation of patient's chronic mild dementia. Would not recommend starting treatment in the context of her current hospitalization. No further neurological recommendations.
--- NOTE | 2017-02-08 13:21 | ECHOCARDIOGRAM REPORT ---
*NOTICE TO RECEIVING REPUBLICAN AGENCY This information is strictly Confidential and protected under [place] law. [place] law prohibits you from making any further disclosure of this information unless further disclosure is expressly permitted by the written consent of the person to whom it pertains or is authorized by law. A general authorization for the release of medical or other information is not sufficient for this purpose. Hospital accepts no responsibility if the information is made available to any other person, INCLUDING THE PATIENT. Interpretation Summary * Name: NUBIA IRAHETA Study Date: 02/08/2017 10:08 AM BP: 113/70 mmHg * Patient Location: C.2T\S\E217\S\1 HR: 90 * : 1935 (M/d/yyyy) Gender: Female Height: 63 in * Age: 81 yrs Ethnicity: CA Weight: 114 lb * Ordering Physician: Charles Matthew * Referring Physician: Self, Referred * Performed By: Cody Haskins RDCS * * Reason For Study: Cerebral ischemia/embolus * BSA: 1.5 m2 * -- Conclusions -- * Normal LV chamber size and wall thickness. * Normal LV systolic function, EF 65-70%. * No segmental left ventricular wall motion abnormalities are noted. * Grade I diastolic dysfunction. * Aortic valve sclerosis moderate, without significant aortic valvular stenosis. Procedure Details * A complete two-dimensional transthoracic echocardiogram was performed (2D, M-mode, Doppler and color flow Doppler). * The study was diagnostic quality. Left Ventricle * The left ventricle is normal in size. * There is normal left ventricular wall thickness. * Left ventricular systolic function is normal. * No segmental left ventricular wall motion abnormalities are noted. * Ejection Fraction = 65-70%. * The left ventricular wall motion is normal. Right Ventricle * The right ventricular cavity size is normal (basal dimension <4.2 cm in right ventricular apical 4-chamber view). * The right ventricular systolic function is normal as assessed by tricuspid annular plane systolic excursion (TAPSE) (normal >1.5 cm). Atria * The left atrial size is normal. * Right atrial size is normal. * No ASD detected; PFO is not assessed. Aortic Valve * The aortic valve is trileaflet. * Aortic valve sclerosis moderate, without significant aortic valvular stenosis. * There is no significant aortic regurgitation. Pericardium/Pleural * Small pericardial effusion. * A loculated pericardial effusion is noted. Left Ventricular Diastolic Function * Grade I diastolic dysfunction, (abnormal relaxation pattern). MMode 2D Measurements and Calculations IVSd 1.0 cm IVSs 1.4 cm LVIDd 4.6 cm LVIDs 3.5 cm LVPWd 0.89 cm LVPWs 1.3 cm IVS/LVPW 1.2 FS 22.5 % EDV(Teich) 95.6 ml ESV(Teich) 52.2 ml EF(Teich) 45.4 % EDV(cubed) 95.1 ml ESV(cubed) 44.3 ml EF(cubed) 53.4 % % IVS thick 35.5 % % LVPW thick 49.0 % LV mass(C)d 148.2 grams LV mass(C)dI 97.3 grams/m\S\2 LV mass(C)s 167.7 grams LV mass(C)sI 110.1 grams/m\S\2 SV(Teich) 43.4 ml SI(Teich) 28.5 ml/m\S\2 SV(cubed) 50.8 ml SI(cubed) 33.4 ml/m\S\2 EPSS 0.56 cm Ao root diam 3.1 cm Ao root area 7.5 cm\S\2 ACS 1.2 cm LA dimension 3.3 cm asc Aorta Diam 3.5 cm LA/Ao 1.1 LVOT diam 2.0 cm LVOT area 3.3 cm\S\2 LVAd ap4 16.8 cm\S\2 LVLd ap4 6.4 cm EDV(MOD-sp4) 36.9 ml LVAs ap4 7.6 cm\S\2 LVLs ap4 4.4 cm ESV(MOD-sp4) 11.6 ml EF(MOD-sp4) 68.6 % LVAd ap2 16.8 cm\S\2 LVLd ap2 6.5 cm EDV(MOD-sp2) 36.5 ml LVAs ap2 8.3 cm\S\2 LVLs ap2 4.9 cm ESV(MOD-sp2) 11.4 ml EF(MOD-sp2) 68.8 % SV(MOD-sp4) 25.3 ml SI(MOD-sp4) 16.6 ml/m\S\2 SV(MOD-sp2) 25.1 ml SI(MOD-sp2) 16.5 ml/m\S\2 Doppler Measurements and Calculations MV E max antionette 76.6 cm/sec MV A max antionette 100.9 cm/sec MV E/A 0.76 MV dec time 0.18 sec Ao V2 max 213.1 cm/sec Ao max PG 18.2 mmHg Ao max PG (full) 10.8 mmHg VENKAT(V,A) 2.1 cm\S\2 VENKAT(V,D) 2.1 cm\S\2 LV V1 max PG 7.3 mmHg LV V1 max 135.3 cm/sec PA V2 max 101.8 cm/sec PA max PG 4.1 mmHg TR max antionette 267.0 cm/sec
--- NOTE | 2017-02-08 14:17 | Hospitalist Progress Note ---
Hospitalist Progress Note Date of Service Feb 08, 2017. (Silverio Lunsford,P.A.) Subjective Pt evaluation today including: conversation w/ patient, conversation w/ family , physical exam, chart review, lab review, review of studies, review of inpatient medication list Mrs. Dudley is a very pleasant 81-year-old white female with a history of Rheumatoid Arthritis, probable Dementia, Hypertension, Dyslipidemia, and GERD who was admitted acutely on 02/07/2017 following an episode of unresponsiveness , altered mental status. The patient was apparently in her usual state of health leading up to this event, but does not recall any of the details at this point. Patient apparently awakened at 0400 on the day of admission and had a normal conversation with her . Her tried to wake her up at approximately 0800, but the patient would not awaken and was unarousable. Her contacted EMS, and patient ultimately began responding in route to the hospital. This has never happened to the patient before. She denies feeling poorly in any way leading up to this event, no recent illnesses, fevers, headaches, or chills. She denies any new medications or radical changes in her diet. Her states that she does not drink enough fluids during the day although she is conscientiously trying to drink more water throughout the day. The us far, her workup has revealed negative cardiac enzymes, chronically abnormal EKG, stable cardiac rhythm, normal chest x-ray, normal MRA of the brain and [place] of [place], 50% YARELI stenosis, and generalized cerebral atrophy and microangiopathic changes (but no acute findings). Patient offers no complaints at this time. She is feeling well, and has not had any further alterations of mental status or decreased responsiveness since being admitted. Her states that she is not back to her baseline yet. (Silverio Lunsford,P.A.) Medications Current Inpatient Medications Medications (Trade) Dose Ordered Sig/Carroll Route Start Time Stop Time Status Last Admin Dose Admin Atorvastatin Calcium (Lipitor Tab) 40 mg QAM PO 02/08/17 09:00 03/10/17 08:59 02/08/17 07:54 40 MG Aspirin (Ecotrin Tab) 81 mg QAM PO 02/08/17 09:00 03/10/17 08:59 02/08/17 07:54 81 MG Miscellaneous Information (Pharmacist Discharge Med Rec Consult) 1 ea UD PRN N/A 02/07/17 14:00 03/09/17 13:59 Acetaminophen (Tylenol Tab) 650 mg Q4H PRN PO 02/07/17 14:00 03/09/17 13:59 Nitroglycerin (Nitrostat Tab) 0.4 mg UD PRN SL 02/07/17 14:00 03/09/17 13:59 Ondansetron HCl (Zofran Inj) 4 mg Q6H PRN IV 02/07/17 14:00 03/09/17 13:59 Atenolol (Tenormin Tab) 25 mg DAILY PO 02/08/17 09:00 03/10/17 08:59 02/08/17 12:36 25 MG Enalapril Maleate (Vasotec Tab) 10 mg DAILY PO 02/08/17 09:00 03/10/17 08:59 02/08/17 12:36 10 MG Pantoprazole Sodium (Protonix Tab) 40 mg QAM PO 02/08/17 09:00 03/10/17 08:59 02/08/17 07:54 40 MG Potassium Chloride/Sodium Chloride 1,000 ml @ 100 mls/hr Q10H IV 02/07/17 16:00 03/09/17 13:59 02/08/17 12:06 100 MLS/HR Gadobutrol (Gadavist) 5 mmol UD PRN IV 02/07/17 16:00 02/11/17 15:59 Amiloride/HCTZ (Moduretic 5-50MG Tab) 1 tab DAILY PO 02/08/17 09:00 03/10/17 08:59 (Silverio Lunsford.,P.A.) Objective Vital Signs Date Time Temp Pulse Resp B/P (MAP) Pulse Ox O2 Delivery O2 Flow Rate FiO2 02/08/17 13:01 88 96 02/08/17 12:00 Room Air 02/08/17 11:23 36.9 82 16 113/70 (84) 97 Room Air 02/08/17 09:11 97 114/68 (83) 02/08/17 08:00 Room Air 02/08/17 07:52 36.9 85 16 116/68 (84) 96 Room Air 02/08/17 04:00 Room Air 02/08/17 03:31 36.6 88 18 104/57 (73) 95 Room Air 02/08/17 00:00 36.9 89 18 88/50 (63) 95 Room Air 02/07/17 23:59 Room Air 02/07/17 20:00 Room Air 02/07/17 19:30 36.4 87 20 96/60 (72) 97 Room Air 02/07/17 16:00 100 Room Air 02/07/17 15:58 36.4 85 16 133/92 (106) 100 Room Air (Silverio Lunsford.,P.A.) Physical Exam Notes: General: Patient in no acute distress. HEENT: Head is atraumatic, normocephalic. EOMs intact. Sclerae anicteric. Facies symmetric. No perioral cyanosis. Neck: No thyromegaly, adenopathy, or JVD. Carotid upstrokes +2 bilaterally without obvious bruits. JVP is at the level of the clavicle sitting upright. Chest and Lungs: Clear to auscultation throughout all lung [place], no wheezes, rales, or rhonchi. CVS: S1 and S2 are regular with a grade 1/6 basal systolic murmur. No gallops or rubs. PMI is nondisplaced. No lifts, heaves, or thrills. No abdominal aortic or renal bruits. Abdominal Exam: Bowel sounds present. No masses, organomegaly, or tenderness. Extremities: No clubbing, cyanosis, or edema. Intact posterior tibial and radial pulses bilaterally. Marked arthritic deformity of right wrist and hand. Neurologic Exam: Patient is awake, alert, and interactive. Pleasant and cooperative. Answers questions appropriately. Speech is clear. Gait pattern not assessed. (Silverio Lunsford.,P.A.) Laboratory Results Last 24 Hours Test 02/07/17 19:53 02/08/17 03:38 Total Creatine Kinase 53 U/L 40 U/L Creatine Kinase MB 1.5 ng/ml 1.4 ng/ml Creatine Kinase MB Ratio 2.8 3.5 Troponin I < 0.015 ng/ml < 0.015 ng/ml White Blood Count 4.66 K/uL Red Blood Count 3.23 M/uL Hemoglobin 9.8 g/dL Hematocrit 28.9 % Mean Corpuscular Volume 89.5 fL Mean Corpuscular Hemoglobin 30.3 pg Mean Corpuscular Hemoglobin Concent 33.9 g/dl Platelet Count 255 K/uL Mean Platelet Volume 8.3 fL Neutrophils (%) (Auto) 62.2 % Lymphocytes (%) (Auto) 26.2 % Monocytes (%) (Auto) 8.2 % Eosinophils (%) (Auto) 2.8 % Basophils (%) (Auto) 0.4 % Neutrophils # (Auto) 2.90 K/uL Lymphocytes # (Auto) 1.22 K/uL Monocytes # (Auto) 0.38 K/uL Eosinophils # (Auto) 0.13 K/uL Basophils # (Auto) 0.02 K/uL RDW Standard Deviation 39.9 fL RDW Coefficient of Variation 12.2 % Immature Granulocyte % (Auto) 0.2 % Immature Granulocyte # (Auto) 0.01 K/uL Prothrombin Time 10.1 SECONDS Prothromb Time International Ratio 0.9 Sodium Level 140 mmol/L Potassium Level 3.7 mmol/L Chloride Level 111 mmol/L Carbon Dioxide Level 23 mmol/L Anion Gap 6.0 mmol/L Blood Urea Nitrogen 21 mg/dl Creatinine 0.91 mg/dl Est Creatinine Clear Calc Drug Dose 41.2 ml/min Estimated GFR () 69.5 Estimated GFR (Non- 60.0 BUN/Creatinine Ratio 22.8 Random Glucose 75 mg/dl Calcium Level 8.1 mg/dl Triglycerides Level 153 mg/dl Cholesterol Level 163 mg/dl HDL Cholesterol 54 mg/dl LDL Cholesterol, Calculated 78 mg/dl VLDL Cholesterol, Calculated 31 mg/dl Cholesterol/HDL Ratio 3.0 (Silverio Lunsford.,P.A.) Assessment and Plan Unresponsive Episode / Altered Mental Status: -- No recurrence since being admitted. -- Cardiac and Neurologic workups have been largely unremarkable. -- Neurology consultation appreciated -- consider outpatient sleep study and EEG. -- Continue IV fluids. -- Ongoing DVT prophylaxis. Hypertension: -- BP's have been controlled overall and has had a few hypotensive readings. -- Continue Atenolol 25 mg daily. -- Continue Enalapril 10 mg daily with hold parameters. -- Continue Amiloride/HCTZ 5/50 daily with hold parameters. -- As BP has been low at times and patient has no evidence or symptoms of an acute cardiac event -- D/C Nitropaste. Dyslipidemia: -- Continue Lipitor 40 mg daily. Carotid Artery Stenosis: -- Aspirin 81 mg daily. -- Continue [employer] statin. Abnormal EKG, chronic: -- Echocardiogram performed - no significant findings. GERD: -- Protonix 40 mg daily while hospitalized. Continued [facility] stay due to: abnormal vital signs (Silverio Lunsford,P.A.) Reviewed: Pt Seen/Exam by Me (Lulu Colorado, ) History Pt is feeling improved. She has had no further unresponsive episodes. She states she feels stronger today, but not at her usual. is present and states that the confusion from the last few days is improved but still not quite at her usual. Tolerated PO without issue. No chest pain or SOB. Agree with HPI/ROS as noted above. Nursing states that they had to hold one of her home meds this AM due to low BP. (Lulu Colorado, ) General Appearance: WD/WN, no apparent distress Eye Exam: bilateral eye normal inspection, bilateral eye EOMI Respiratory: normal breath sounds, no respiratory distress Cardiovascular: normal peripheral pulses, regular rate, rhythm Gastrointestinal: non tender, soft Extremities: non-tender, no pedal edema Neurologic/Psychiatric: alert, normal mood/affect Skin Characteristics: normal color, warm/dry (Lulu Colorado, ) Assessment/Plan Agree with plan as outlined above. Unresponsive episode with uncertain etiology ? KRISTA, will have overnight pulse ox Do note some stenosis of R ICA at 50%, non-surgical level, but may have been an issue positionally Neuro c/s noted Advises for outpt dementia eval ARF on admission, improved on IVF d/c IVF given tolerance to PO HypoMg: replace and monitor Hb drop s/p IVF, monitor, likely dilutional Monitor BP PT recs for HH, OT recs for rehab, CM is aware and will discuss with (Lulu Colorado, )
[2017-02-08] MEDS ORDERED: NURSING VERBAL MED ORDER ONE (14:45)
[2017-02-09] VITALS (9 sets, daily range): BP systolic 96–135; BP diastolic 51–89; PULSE 64–96; TEMP 36.3–37.2; O2SAT 94–100
[2017-02-09 06:24] LABS: BASO % 0.3 %; BASO ABS # 0.02 K/uL (0-0.2); COMPLETE YES; HEMATOCRIT 31.9 % (37-47); IG% 0.2 %; LYMPH % 23.3 %; LYMPH ABS # 1.41 K/uL (1.2-3.4); MEAN CELL VOLUME 87.6 fL (80-100); MEAN CORPUSCULAR HEMOGLOBIN 29.4 pg (25-34); MEAN CORPUSCULAR HGB CONC 33.5 g/dl (32-36); MEAN PLATELET VOLUME 8.2 fL (7.4-10.4); MONO % 10.1 %; NEUT % 63.1 %; PLATELET COUNT 257 K/uL (130-400); RED BLOOD COUNT 3.64 M/uL (4.2-5.4); WHITE BLOOD COUNT 6.05 K/uL (4.8-10.8)
[2017-02-09 06:59] LABS: BUN/CREATININE RATIO 14.3 (10-20); CALCIUM 8.5 mg/dl (8.5-10.1); MAGNESIUM 1.6 mg/dl (1.8-2.4); POTASSIUM 3.6 mmol/L (3.5-5.1)
[2017-02-09] MEDS: AMILORIDE/HCTZ 5-50 MG TAB PO SCH (08:44)
[2017-02-09] MEDS: PANTOprazole SOD 40 MG TAB PO SCH (08:45)
[2017-02-09] MEDS ORDERED: MAGNESIUM SULFATE 1GM / D5W 1 GM in PREMIXED IN D5W 100 ML IV ONE (08:45)
[2017-02-09] MEDS: ATORVASTATIN 40 MG TAB PO SCH (08:45)
[2017-02-09] MEDS: ASPIRIN 81 MG ECTAB PO SCH (08:45)
[2017-02-09] MEDS: ENALAPRIL MALEATE 10 MG TAB PO SCH (08:45)
[2017-02-09] MEDS: CYANOCOBALAMIN 1000 MCG/ML VIAL IM SCH (14:26)
--- NOTE | 2017-02-09 15:11 | Progress Note ---
Subjective Date of Service: Feb 09, 2017. Subjective Pt evaluation today including: conversation w/ patient, conversation w/ family , chart review, conversation w/ netsuite consultant Called by nursing around 11am stating that pt is unresponsive in her room. Nursing was able to arouse pt earlier this AM to take her medications and have a bit of breakfast, but was quite drowsy through this and was put back in bed. VSS and no signs of seizure activity. 100% on RA. Advised nursing to place pt on O2 via face mask and came to see pt. Pt is unresponsive. See exam and plan for further findings. There were no unusual events overnight. had not been in yet to see pt. Nursing informed me later that was present. Pt still not interacting, still on face mask O2. No change in VS. I discussed with and he states this is similar to the behavior she exhibited [employer]. Nursing reports that pt exclaimed "ouch" on attempt to obtain ABG, however unable to draw. Nursing reports that pt appeared to begin waking up towards the end of the EEG and has been awake and interacting since its completion. Tech reported no abnormalities on EEG, awaiting neuro final read. Pt now tells me she has no memory of events this AM. She would like to eat. Pt denies fever, SOB, chest pain, abd pain, n/v/c/d, LE pain or swelling. Problem List Medical Problems: (1) Abnormal EKG Status: Acute (2) CHI (closed head injury) Status: Acute (3) Contusion of right hand Status: Acute (4) Dehydration Status: Acute (5) Facial laceration Status: Acute (6) Fall Status: Acute (7) Unresponsive episode Status: Acute (8) Weak Status: Acute Review of Systems All Other Systems: Reviewed and Negative Objective Vital Signs Date Time Temp Pulse Resp B/P (MAP) Pulse Ox O2 Delivery O2 Flow Rate FiO2 02/09/17 12:00 100 Oxymask 3.0 02/09/17 11:36 37.2 64 16 111/69 (83) 100 Mask 02/09/17 08:00 99 Room Air 02/09/17 07:40 37.0 72 16 109/69 (82) 99 Room Air 02/09/17 04:00 36.7 96 16 111/66 (81) 99 Room Air 02/09/17 04:00 Room Air 02/09/17 00:02 Room Air 02/08/17 23:27 36.7 82 20 100/65 (77) 96 Room Air 02/08/17 20:00 Room Air 02/08/17 19:25 36.3 78 20 112/64 (80) 99 Room Air 02/08/17 16:00 Room Air 02/08/17 15:51 36.5 71 18 113/73 (86) 100 Room Air Physical Exam General Appearance: WD/WN, no apparent distress Eyes: normal inspection, + pertinent finding (see note below) Neck: supple Respiratory/Chest: lungs clear, normal breath sounds, no respiratory distress Cardiovascular: regular rate, rhythm, no edema Abdomen: non tender, soft Extremities: non-tender, no pedal edema Neurologic/Psychiatric: + pertinent finding (see note below) Skin: normal color, warm/dry Comments: Upon initial exam, pt does not respond to verbal stimulation but does withdraw somewhat to finger bed pressure and sternal rub. She also swallows as needed and holds her eyelids closed when nursing attempts to open them. Pt also avoids her arm touching her face when her arm is dropped over her face on multiple attempts. Re-exam after arrives shows pt furrowing her brow, squeezing her eyes closed, and moving her head away from him when he is speaking to her at close proximity in a loud voice in effort to interact Upon re-exam after EEG, pt is of same mentation as she was yesterday afternoon. Laboratory Results Last 24 Hours Test 02/09/17 06:14 02/09/17 10:45 02/09/17 12:28 White Blood Count 6.05 K/uL Red Blood Count 3.64 M/uL Hemoglobin 10.7 g/dL Hematocrit 31.9 % Mean Corpuscular Volume 87.6 fL Mean Corpuscular Hemoglobin 29.4 pg Mean Corpuscular Hemoglobin Concent 33.5 g/dl Platelet Count 257 K/uL Mean Platelet Volume 8.2 fL Neutrophils (%) (Auto) 63.1 % Lymphocytes (%) (Auto) 23.3 % Monocytes (%) (Auto) 10.1 % Eosinophils (%) (Auto) 3.0 % Basophils (%) (Auto) 0.3 % Neutrophils # (Auto) 3.82 K/uL Lymphocytes # (Auto) 1.41 K/uL Monocytes # (Auto) 0.61 K/uL Eosinophils # (Auto) 0.18 K/uL Basophils # (Auto) 0.02 K/uL RDW Standard Deviation 39.0 fL RDW Coefficient of Variation 12.1 % Immature Granulocyte % (Auto) 0.2 % Immature Granulocyte # (Auto) 0.01 K/uL Sodium Level 138 mmol/L Potassium Level 3.6 mmol/L Chloride Level 108 mmol/L Carbon Dioxide Level 20 mmol/L Anion Gap 10.0 mmol/L Blood Urea Nitrogen 14 mg/dl Creatinine 1.00 mg/dl Est Creatinine Clear Calc Drug Dose 36.6 ml/min Estimated GFR () 62.1 Estimated GFR (Non- 53.5 BUN/Creatinine Ratio 14.3 Random Glucose 96 mg/dl Calcium Level 8.5 mg/dl Magnesium Level 1.6 mg/dl Bedside Glucose 89 mg/dl Vitamin B12 Level 223 pg/mL Folate 3.83 ng/mL Assessment and Plan Unresponsive Episode / Altered Mental Status: -- Pt was admitted in the afternoon on 02/07 and did not have any episodes throughout the day on 02/08 Pt is still cognizant as she is swallowing regularly, holding eyes shut tight, and protecting her face from her arm No seizure like activity and VSS, no tele events - overnight pulse ox shows multiple episodes of desaturation, suggesting KRISTA, which could be causing mentation issues --CO2 on PRP is actually low/borderline low and unable to obtain ABG ECHO with EF 65-70% with moderate aortic sclerosis but no stenosis, otherwise unremarkable EEG pending formal read but no major abnormalities noted by machine operator slitter technician B12 and folate are low, will give PO folic acid and daily B12 injections x5 ( first on 02/09) and should move to qweekly x4 weeks, then recommend daily sublingual B complex--this may be playing a role in pt's dementia Some stenosis of R ICA at 50%, non-surgical level, but may have been an issue positionally MRA head/neck and CT/MRI of brain otherwise neg for acute issues ?? untreated KRISTA leading to mentation issues vs other sleep cycle disturbance?? pt will need formal sleep study as outpt ARF: on admission, improved on IVF d/c IVF given tolerance to PO HypoMg: replace and monitor Hb drop s/p IVF, monitor, likely dilutional given improvement overnight Monitor BP Hypertension: -- BP's have been controlled overall and has had a few hypotensive readings. -- Continue Atenolol 25 mg daily. -- Continue Enalapril 10 mg daily with hold parameters. -- Continue Amiloride/HCTZ 5/50 daily with hold parameters. -- As BP has been low at times and patient has no evidence or symptoms of an acute cardiac event -- D/C Nitropaste. Dyslipidemia: -- Continue Lipitor 40 mg daily. Carotid Artery Stenosis: -- Aspirin 81 mg daily. -- Continue residential statin. Abnormal EKG, chronic: -- Echocardiogram performed - no significant findings. GERD: -- Protonix 40 mg daily while hospitalized. PT recs for HH, OT recs for rehab, CM is aware and will discuss with Continued [facility] stay due to: abnormal vital signs
--- NOTE | 2017-02-09 18:05 | EEG Procedure Note ---
EEG Procedure Note Date of Service Feb 09, 2017. Start / End Times Start Time: 1:20 PM End Time: 1:[address] [place] History unresponsive episode, change in mental status Home Medication List Scheduled Amiloride/Hctz (Amiloride/Hydrochlorothia 5-50 mg), 1 TAB PO DAILY Atenolol (Tenormin), 25 MG PO DAILY Atorvastatin (Lipitor), 20 MG PO DAILY Enalapril (Vasotec), 10 MG PO DAILY Estrogens, Conjugated (Premarin), 0.625 MG PO DAILY Omeprazole (Prilosec), Unknown Dose PO DAILY Inpatient Medication List Current Inpatient Medications Medications (Trade) Dose Ordered Sig/Carroll Route Start Time Stop Time Status Last Admin Dose Admin Atorvastatin Calcium (Lipitor Tab) 40 mg QAM PO 02/08/17 09:00 03/10/17 08:59 02/09/17 08:45 40 MG Aspirin (Ecotrin Tab) 81 mg QAM PO 02/08/17 09:00 03/10/17 08:59 02/09/17 08:45 81 MG Miscellaneous Information (Pharmacist Discharge Med Rec Consult) 1 ea UD PRN N/A 02/07/17 14:00 03/09/17 13:59 Acetaminophen (Tylenol Tab) 650 mg Q4H PRN PO 02/07/17 14:00 03/09/17 13:59 Nitroglycerin (Nitrostat Tab) 0.4 mg UD PRN SL 02/07/17 14:00 03/09/17 13:59 Ondansetron HCl (Zofran Inj) 4 mg Q6H PRN IV 02/07/17 14:00 03/09/17 13:59 Atenolol (Tenormin Tab) 25 mg DAILY PO 02/08/17 09:00 03/10/17 08:59 02/09/17 08:45 25 MG Enalapril Maleate (Vasotec Tab) 10 mg DAILY PO 02/08/17 09:00 03/10/17 08:59 02/09/17 08:45 10 MG Pantoprazole Sodium (Protonix Tab) 40 mg QAM PO 02/08/17 09:00 03/10/17 08:59 02/09/17 08:45 40 MG Gadobutrol (Gadavist) 5 mmol UD PRN IV 02/07/17 16:00 02/11/17 15:59 Amiloride/HCTZ (Moduretic 5-50MG Tab) 1 tab DAILY PO 02/08/17 09:00 03/10/17 08:59 Cyanocobalamin (Vitamin B-12 Inj) 1,000 mcg DAILY IM 02/09/17 14:00 03/11/17 13:59 02/09/17 14:26 1,000 MCG Folic Acid (Folvite Tab) 1 mg QAM PO 02/10/17 09:00 03/12/17 08:59 Description This is a 21 electrode EEG with a single channel dedicated to limited EKG. The electrodes were placed in accordance with the International 10-20 system. This is a bedside EEG done in the telemetry unit. There is a posterior dominant rhythm of 9 Hz which appears symmetrically distributed and of maximal amplitude in the posterior head regions. There is fairly continuous left hemispheric theta slowing of maximal amplitude in the temporal area. Generalized background slowing is also seen for a significant portion of the study. Photic stimulation is unremarkable. Interpretation This is an abnormal appearing EEG revealing both focal (left fronto-temporal) and generalized cerebral dysfunction. Epileptiform abnormalities are not definitively seen. Clinical Correlation This EEG suggests a generalized encephalopathy as well as left hemispheric dysfunction. These findings may be consistent with this patient's h/o dementia. Other dementia subtypes, such as behavioral variant frontotemporal dementia could be considered in this patient's case. Please see this patient's neurology consult for additional details.
[2017-02-09] MEDS: ACETAMINOPHEN 325 MG TAB PO PRN (19:51)
[2017-02-10 04:00] VITALS: BP 102/59; PULSE 65; TEMP 36.8; O2SAT 98
[2017-02-10 06:59] LABS: BASO % 0.2 %; BASO ABS # 0.01 K/uL (0-0.2); COMPLETE YES; EOS % 3.9 %; HEMATOCRIT 28.5 % (37-47); IG% 0.4 %; LYMPH % 25.3 %; LYMPH ABS # 1.36 K/uL (1.2-3.4); MEAN CELL VOLUME 87.4 fL (80-100); MEAN CORPUSCULAR HEMOGLOBIN 29.4 pg (25-34); MEAN CORPUSCULAR HGB CONC 33.7 g/dl (32-36); MEAN PLATELET VOLUME 8.4 fL (7.4-10.4); NEUT % 60.2 %; PLATELET COUNT 236 K/uL (130-400); RED BLOOD COUNT 3.26 M/uL (4.2-5.4); WHITE BLOOD COUNT 5.38 K/uL (4.8-10.8)
[2017-02-10 07:22] VITALS: BP 102/62; PULSE 74; TEMP 36.8; O2SAT 97
[2017-02-10 07:34] LABS: BUN/CREATININE RATIO 14.3 (10-20); CALCIUM 8.2 mg/dl (8.5-10.1); CREATININE 0.96 mg/dl (0.60-1.20); MAGNESIUM 1.7 mg/dl (1.8-2.4); POTASSIUM 3.6 mmol/L (3.5-5.1)
[2017-02-10] MEDS: ATORVASTATIN 40 MG TAB PO SCH (08:20)
[2017-02-10] MEDS: ASPIRIN 81 MG ECTAB PO SCH (08:20)
[2017-02-10] MEDS: PANTOprazole SOD 40 MG TAB PO SCH (08:20)
[2017-02-10] MEDS ORDERED: MAGNESIUM SULFATE 1GM / D5W 1 GM in PREMIXED IN D5W 100 ML IV ONE (08:30)
[2017-02-10] MEDS: CYANOCOBALAMIN 1000 MCG/ML VIAL IM SCH (08:50)
[2017-02-10] MEDS: AMILORIDE/HCTZ 5-50 MG TAB PO SCH (09:00)
[2017-02-10] MEDS: ENALAPRIL MALEATE 10 MG TAB PO SCH (09:00)
--- NOTE | 2017-02-10 10:55 | Hospitalist Progress Note ---
Hospitalist Progress Note Date of Service Feb 10, 2017. (Kamala Clement .MOOK) Subjective Pt evaluation today including: conversation w/ patient, physical exam, chart review, lab review, review of inpatient medication list Pain: None PO Intake: Tolerating PO diet Voiding: no voiding problems Patient reports feeling well. She states she feels somewhat groggy but otherwise denies complaints. She does not recall her unresponsive episode yesterday. No acute events overnight. The patient denies fevers, chills, sweats, chest pain, palpitations, claudication, cough, wheezing, shortness of breath, nausea, vomiting, abdominal pain, dysuria, hematuria, urinary retention , paralysis, weakness, numbness and tingling. Additional Comments: See HPI for pertinent positives and negatives. All other systems reviewed and negative. (Kamala Clement ., MERLINC) Objective Vital Signs Date Time Temp Pulse Resp B/P (MAP) Pulse Ox O2 Delivery O2 Flow Rate FiO2 02/10/17 08:00 Room Air 02/10/17 07:22 36.8 74 18 102/62 (75) 97 Room Air 02/10/17 04:00 Room Air 02/10/17 04:00 36.8 65 16 102/59 (73) 98 Room Air 02/10/17 00:02 Room Air 02/09/17 23:55 36.8 67 16 100/62 (75) 99 Room Air 02/09/17 20:00 Room Air 02/09/17 19:42 36.5 74 18 101/67 (78) 96 Room Air 02/09/17 16:00 Room Air 02/09/17 15:34 36.5 80 18 96/51 (66) 98 Room Air 02/09/17 12:00 100 Oxymask 3.0 02/09/17 11:36 37.2 64 16 111/69 (83) 100 Mask (Kamala Clement PA-C) Physical Exam Notes: General appearance: Well-developed, well-nourished, no apparent distress Head: Normocephalic, atraumatic Eyes: Normal inspection, PERRL, EOMI ENT: Normal ENT inspection, hearing grossly normal, pharynx normal Neck: Supple, no JVD, trachea midline Respiratory/Chest: Lungs clear to auscultation, normal breath sounds, no respiratory distress Cardiovascular: +Systolic murmur. Regular rate & rhythm, no gallop Abdomen/GI: Normal bowel sounds, non-tender, soft Extremities/Musculoskeletal: Normal inspection, no calf tenderness, no pedal edema Neurological/Psych: Alert, normal mood/affect, oriented x 3, answers questions appropriately Skin: Normal color, warm/dry, no rash (Kaamla Clement ., TERELL-C) Laboratory Results Last 24 Hours Test 02/09/17 10:45 02/09/17 12:28 02/10/17 06:28 Bedside Glucose 89 mg/dl Vitamin B12 Level 223 pg/mL Folate 3.83 ng/mL White Blood Count 5.38 K/uL Red Blood Count 3.26 M/uL Hemoglobin 9.6 g/dL Hematocrit 28.5 % Mean Corpuscular Volume 87.4 fL Mean Corpuscular Hemoglobin 29.4 pg Mean Corpuscular Hemoglobin Concent 33.7 g/dl Platelet Count 236 K/uL Mean Platelet Volume 8.4 fL Neutrophils (%) (Auto) 60.2 % Lymphocytes (%) (Auto) 25.3 % Monocytes (%) (Auto) 10.0 % Eosinophils (%) (Auto) 3.9 % Basophils (%) (Auto) 0.2 % Neutrophils # (Auto) 3.24 K/uL Lymphocytes # (Auto) 1.36 K/uL Monocytes # (Auto) 0.54 K/uL Eosinophils # (Auto) 0.21 K/uL Basophils # (Auto) 0.01 K/uL RDW Standard Deviation 38.7 fL RDW Coefficient of Variation 12.0 % Immature Granulocyte % (Auto) 0.4 % Immature Granulocyte # (Auto) 0.02 K/uL Sodium Level 137 mmol/L Potassium Level 3.6 mmol/L Chloride Level 107 mmol/L Carbon Dioxide Level 23 mmol/L Anion Gap 7.0 mmol/L Blood Urea Nitrogen 14 mg/dl Creatinine 0.96 mg/dl Est Creatinine Clear Calc Drug Dose 39.3 ml/min Estimated GFR () 65.2 Estimated GFR (Non- 56.2 BUN/Creatinine Ratio 14.3 Random Glucose 84 mg/dl Calcium Level 8.2 mg/dl Magnesium Level 1.7 mg/dl (Kamala Clement ., PA-C) Diagnostic Results EEG: Description This is a 21 electrode EEG with a single channel dedicated to limited EKG. The electrodes were placed in accordance with the International 10-20 system. This is a bedside EEG done in the telemetry unit. There is a posterior dominant rhythm of 9 Hz which appears symmetrically distributed and of maximal amplitude in the posterior head regions. There is fairly continuous left hemispheric theta slowing of maximal amplitude in the temporal area. Generalized background slowing is also seen for a significant portion of the study. Photic stimulation is unremarkable. Interpretation This is an abnormal appearing EEG revealing both focal (left fronto-temporal) and generalized cerebral dysfunction. Epileptiform abnormalities are not definitively seen. Clinical Correlation This EEG suggests a generalized encephalopathy as well as left hemispheric dysfunction. These findings may be consistent with this patient's h/o dementia. Other dementia subtypes, such as behavioral variant frontotemporal dementia could be considered in this patient's case. Please see this patient's neurology consult for additional details. (Kamala Clement ., MOOK) Assessment and Plan 81-year-old female with a past medical history of rheumatoid arthritis, dementia , hypertension, hyperlipidemia, GERD who presents following an unresponsive episode/altered mental status. Unresponsive Episode / Altered Mental Status--ongoing. Pt had another episode -Admit to telemetry. No acute events overnight, pt remained in sinus rhythm with HR 60s-70s. Stable, will transfer to med/surg 02/10 -No recurrence of AMS on 02/08, but did have an episode on 02/09. Pt had been still swallowing herself, was holding her eyes shut when nursing attempted to open, protected face, etc. -Neurology consulted, appreciate recs: recommend outpatient sleep medicine consultation and outpatient evaluation of chronic dementia -Overnight oximetry with multiple episodes of desaturation <88%, max single episode 28 sec--suggesting KRISTA, which could be causing mentation issues -CO2 on PRP is actually low/borderline low and unable to obtain ABG -ECHO with EF 65-70% with moderate aortic sclerosis but no stenosis and grade 1 diastolic dysfunction, otherwise unremarkable -EEG shows generalized encephalopathy and left hemispheric dysfunction which may be consistent with dementia -Vitamin B12 and folate low, continue supplementation. Daily B12 injections IM x 5 days (first day 02/09) and then weekly x 4 weeks -Head CTA, MRA head and MRI brain negative -MRA neck shows approximately 50% stenosis of the origin of the right internal carotid artery. No surgical intervention now. LIA--resolved -Creatinine 1.3 on admission -Resolved with IVF -Creatinine remains stable, <1 Hypomagnesemia--ongoing -Magnesium 1.7 on 02/10 -Mag sulfate 1 gm IV x 1 -Continue to monitor Acute anemia, likely dilutional as improving after IVF d/c'd -Hgb 9.6 on 02/10, continue to monitor HTN--stable -Continue atenolol 25 mg PO qd, enalapril 10 mg PO qd, and amiloride/HCTZ 5/50 mg PO qd with hold parameters -As BP has been low at times and patient has no evidence or symptoms of an acute cardiac event, D/C Nitropaste. Dyslipidemia -Continue Lipitor 40 mg PO qd Carotid Artery Stenosis -Aspirin 81 mg PO qd -Continue statin as above Abnormal EKG, chronic -Echo as reviewed above, no WMA GERD -Protonix 40 mg PO qd while inpt Code Status -Level I, FULL RESUSCITATION STATUS Dispo -Pt from home -PT rec HHPT and OT rec rehab -Referral placed to [facility] (Kamala Clement ., PA-C) I agree with TERELL assessment and plan and have seen and examined pt Pt in no distress Labs and vitals reviewed No neuro deficits noted No altered episodes today Likely from dementia and acute on chronic anemia Will need sleep study as OP Will await rehab at this time (Devon Ryder D.O.)
[2017-02-10 11:12] VITALS: BP 95/62; PULSE 79; TEMP 37; O2SAT 99
--- NOTE | 2017-02-10 12:02 | Medical Student: [facility] ---
Med Student Progress Note Date of Service Feb 10, 2017. 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 She states that she is feeling fine and waiting for her to get here today to discuss her treatment plan. Patient denies any current complaints at this time. Patient states she does not remember why she is in the hospital or unresponsive episodes while in the hospital. No acute events overnight. Review of Systems Constitutional: + see HPI, + problem reported ("groggy") Eyes: No problem reported ENT: No problem reported Respiratory: No cough Cardiac: No problem reported Abdomen: No problem reported Musculoskeletal: No problem reported Female : No problem reported Neurologic: + see HPI, + memory loss Psychiatric: No problem reported Skin: No problem reported All Other Systems: Reviewed and Negative Objective Vital Signs Date Time Temp Pulse Resp B/P (MAP) Pulse Ox O2 Delivery O2 Flow Rate FiO2 02/10/17 11:12 37.0 79 18 95/62 (73) 99 Room Air 02/10/17 08:00 Room Air 02/10/17 07:22 36.8 74 18 102/62 (75) 97 Room Air 02/10/17 04:00 Room Air 02/10/17 04:00 36.8 65 16 102/59 (73) 98 Room Air 02/10/17 00:02 Room Air 02/09/17 23:55 36.8 67 16 100/62 (75) 99 Room Air 02/09/17 20:00 Room Air 02/09/17 19:42 36.5 74 18 101/67 (78) 96 Room Air 02/09/17 16:00 Room Air 02/09/17 15:34 36.5 80 18 96/51 (66) 98 Room Air 02/09/17 12:00 100 Oxymask 3.0 Physical Exam General Appearance: + mild distress (patient seems hesitant to answer further questions until her arrives), + thin Respiratory/Chest: chest non-tender, lungs clear, normal breath sounds, no respiratory distress, no accessory muscle use Cardiovascular: regular rate, rhythm (distant) Neurologic/Psychiatric: alert, normal mood/affect (answers questions appropriately, but seems not interested in talking much), oriented x 3 Skin: warm/dry Laboratory Results Last 24 Hours Test 02/09/17 12:28 02/10/17 06:28 Vitamin B12 Level 223 pg/mL Folate 3.83 ng/mL White Blood Count 5.38 K/uL Red Blood Count 3.26 M/uL Hemoglobin 9.6 g/dL Hematocrit 28.5 % Mean Corpuscular Volume 87.4 fL Mean Corpuscular Hemoglobin 29.4 pg Mean Corpuscular Hemoglobin Concent 33.7 g/dl Platelet Count 236 K/uL Mean Platelet Volume 8.4 fL Neutrophils (%) (Auto) 60.2 % Lymphocytes (%) (Auto) 25.3 % Monocytes (%) (Auto) 10.0 % Eosinophils (%) (Auto) 3.9 % Basophils (%) (Auto) 0.2 % Neutrophils # (Auto) 3.24 K/uL Lymphocytes # (Auto) 1.36 K/uL Monocytes # (Auto) 0.54 K/uL Eosinophils # (Auto) 0.21 K/uL Basophils # (Auto) 0.01 K/uL RDW Standard Deviation 38.7 fL RDW Coefficient of Variation 12.0 % Immature Granulocyte % (Auto) 0.4 % Immature Granulocyte # (Auto) 0.02 K/uL Sodium Level 137 mmol/L Potassium Level 3.6 mmol/L Chloride Level 107 mmol/L Carbon Dioxide Level 23 mmol/L Anion Gap 7.0 mmol/L Blood Urea Nitrogen 14 mg/dl Creatinine 0.96 mg/dl Est Creatinine Clear Calc Drug Dose 39.3 ml/min Estimated GFR () 65.2 Estimated GFR (Non- 56.2 BUN/Creatinine Ratio 14.3 Random Glucose 84 mg/dl Calcium Level 8.2 mg/dl Magnesium Level 1.7 mg/dl Medications Current Inpatient Medications Medications (Trade) Dose Ordered Sig/Carroll Route Start Time Stop Time Status Last Admin Dose Admin Atorvastatin Calcium (Lipitor Tab) 40 mg QAM PO 02/08/17 09:00 03/10/17 08:59 02/10/17 08:20 40 MG Aspirin (Ecotrin Tab) 81 mg QAM PO 02/08/17 09:00 03/10/17 08:59 02/10/17 08:20 81 MG Acetaminophen (Tylenol Tab) 650 mg Q4H PRN PO 02/07/17 14:00 03/09/17 13:59 02/09/17 19:51 650 MG Nitroglycerin (Nitrostat Tab) 0.4 mg UD PRN SL 02/07/17 14:00 03/09/17 13:59 Ondansetron HCl (Zofran Inj) 4 mg Q6H PRN IV 02/07/17 14:00 03/09/17 13:59 Atenolol (Tenormin Tab) 25 mg DAILY PO 02/08/17 09:00 03/10/17 08:59 02/09/17 08:45 25 MG Enalapril Maleate (Vasotec Tab) 10 mg DAILY PO 02/08/17 09:00 03/10/17 08:59 02/09/17 08:45 10 MG Pantoprazole Sodium (Protonix Tab) 40 mg QAM PO 02/08/17 09:00 03/10/17 08:59 02/10/17 08:20 40 MG Gadobutrol (Gadavist) 5 mmol UD PRN IV 02/07/17 16:00 02/11/17 15:59 Amiloride/HCTZ (Moduretic 5-50MG Tab) 1 tab DAILY PO 02/08/17 09:00 03/10/17 08:59 Cyanocobalamin (Vitamin B-12 Inj) 1,000 mcg DAILY IM 02/09/17 14:00 03/11/17 13:59 02/10/17 08:50 1,000 MCG Folic Acid (Folvite Tab) 1 mg QAM PO 02/10/17 09:00 03/12/17 08:59 02/10/17 08:50 1 MG Assessment and Plan Assessment and Plan: Assessment: Mrs. Dudley is a 81 year old female with a [facility] dementia of unknown etiology, HTN, RA, GERD, and hypercholesterolemia who presented to the ED on with altered mental status/unresponsiveness. Since admission she had several episodes of possible unresponsiveness, where she refused to talk, but was able to swallow and not hit herself with her hand when her arm was held and dropped over her forehead. Her differential diagnosis includes ID, arrhythmia, TIA, stroke, or seizure. Testing in the ED showed: negative head CT for acute intracranial pathology, initially abnormal EKG with possible ST depressions in the anterolateral leads with T wave inversions, but repeat EKG showed improving depressions, and negative troponin. CXR and UA were both negative. These results in the ED make a diagnosis of ID/arrhythmia less likely. While in-patient, additionally testing showed: echo with ejection fraction of 65-75% with moderate aortic sclerosis but no stenosis, EEG with focal (L frontal temporal), generalized encephalopathy, and generalized cerebral dysfunction, MRA of head/neck with no acute findings, and MRI/CT of brain with generalized atrophy and chronic microangiopathic disease but no acute changes. History of dementia of unknown etiology with possible vascular origin suggests a more likely diagnosis of acute on chronic anemia (downward trend from 13.3 admission to 9.6 today), TIA, or KRISTA (multiple desaturations <88% during night). Plan: Hx of dementia of unknown etiology/AMS/unresponsiveness secondary to anemia vs. KRISTA vs. TIA - patient's step-estevez deterioration in her short term memory loss and PMHx of HTN suggest dementia may be vascular in nature. - Sleep study follow-up as out-patient - Repeat hemoglobin to continue following trend - Stool occult test to check for GI bleed Borderline low B12 and low folate levels - Continue supplementation; daily B12 injections IM x 5 days (02/09-02/13), then weekly for following 4 weeks. Hypomagnesemia -Low magnesium (1.7) on 02/10 -Mag sulfate 1 gm IV x 1 and continue to monitor Acute kidney injury - Cr elevated at 1.3 upon admission but with IV fluids has resolved. Cr now stable, <1 HTN Continue home medications below, with hold criteria -Amiloride/Hydrochlorothia 5-50 mg (Amiloride/HCTZ) 1 Ea Tab 1 Tab PO DAILY -Tenormin (Atenolol) 25 Mg Tab 25 Mg PO DAILY -Vasotec (Enalapril Maleate) 10 Mg Tab 10 Mg PO DAILY Hold patient's nitropaste, since patient's BP has been low and patient has not complained of chest pain/symptoms of acute coronary event. Hypercholesterolemia -continue Lipitor (Atorvastatin Calcium) 20 Mg Tab 20 Mg PO DAILY CAD -Continue Aspirin 81mg PO qd -Continue atorvastatin as above GERD -Protonix 40 mg PO qd while inpt Post-menopausal sxs -Continue Premarin 0.625 mg PO daily Discharge planning: home (patient refused rehab, so with d/c home with home nursing)
[2017-02-10] MEDS ORDERED: FLV1 PO (13:05)
[2017-02-10] MEDS ORDERED: ASPEC81 PO (13:05)
[2017-02-10] MEDS ORDERED: CYNI1000 IM (13:05)
[2017-02-10] MEDS ORDERED: MAGN400C3 PO (13:05)
--- NOTE | 2017-02-10 13:25 | Discharge Instructions ---
Discharge Instructions Date of Service Feb 10, 2017. Admission Reason for Admission: Abnormal Ekg, Unresponsive Episode Discharge Discharge Diagnosis / Problem: Altered mental status, dementia Discharge Goals Goal(s): Decrease discomfort, Diagnostic testing, Therapeutic intervention Activity Recommendations Activity Limitations: resume your previous activity (as tolerated) . Instructions / Follow-Up Instructions / Follow-Up You were admitted to the hospital after presenting with an episode of altered mental status/unresponsiveness at home. A head CT scan and MRI of the brain were both negative for acute findings. Imaging of the arteries of the head was also normal. 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 This does not currently warrant surgical intervention , but should be monitored as it could be problematic down the line. An echocardiogram, or ultrasound of the heart, was grossly normal. An overnight oximetry test was down to check your oxygenation while sleeping, and you did have multiple brief episodes of desaturation overnight. You will need to be seen by sleep medicine as an outpatient for further evaluation of this. An EEG to evaluate for seizures was also performed. It did not show any seizure activity and the findings were more consistent with dementia. Your vitamin B12 and folate were both low, so you have been given supplementation to continue as an outpatient, as this may be contributing to your mental status. Medications: *Please take aspirin 81 mg by mouth daily *Please take vitamin B12 1000 micrograms by intramuscular injection weekly. *Please take folic acid 1 mg by mouth daily and magnesium oxide 400 mg by mouth twice a day. *STOP your Premarin cream for now until you follow up with your primary care provider. *HOLD your amiloride/HCTZ and enalapril for now until you follow up with your primary care provider's office on Friday as your blood pressure has been too low. If your blood pressure becomes more stable, you may resume these medications when okay with your primary care provider. *Continue your other home medications as prescribed. Follow up: *You have been scheduled to follow up at Dr. Garrett's office on February 14 at 10:30 am with Jada Anguiano PA-C. *You have also been scheduled to follow up with sleep medicine on March 27 at 11:[address] Ponce. Please seek medical attention if you experience fevers, chills, sweats, dizziness/lightheadedness, loss of consciousness, chest pain, shortness of breath, nausea, vomiting, numbness or tingling. Current Hospital Diet Patient's current hospital diet: AHA Diet (Heart Healthy) Discharge Diet Recommended Diet: AHA Diet (Heart Healthy) Procedures Procedures Performed: Echocardiogram, electroencephalogram Pending Studies Studies pending at discharge: no Laboratory Results Hemoglobin A1c Test 02/07/17 09:45 Range/Units Estimated Average Glucose 120 mg/dl Hemoglobin A1c 5.8 H 4.5-5.6 % Lipid Panel Test 02/08/17 03:38 Range/Units Triglycerides Level 153 H 0-150 mg/dl Cholesterol Level 163 0-200 mg/dl HDL Cholesterol 54 mg/dl Cholesterol/HDL Ratio 3.0 LDL Cholesterol, Calculated 78 mg/dl Medical Emergencies . Who to Call and When: Medical Emergencies: If at any time you feel your situation is an emergency, please call 911 immediately. . Non-Emergent Contact Non-Emergency issues call your: Primary Care Provider Call Non-Emergent contact if: you have a fever, you have any medication questions . Past History Medical & Surgical History: (1) Altered mental status (2) Weak . "Provider Documentation" section prepared by Kamala Clement. . VTE Core Measure Inpt VTE Proph given/why not?: SCD's
[2017-02-10 14:15] VITALS: BP 95/62; PULSE 79; TEMP 37; O2SAT 99
[2017-02-10 16:02] VITALS: BP 112/67; PULSE 87; TEMP 37; O2SAT 98
[2017-02-10 23:47] VITALS: BP 118/79; PULSE 95; TEMP 36.5; O2SAT 97
[2017-02-11] MEDS: ACETAMINOPHEN 325 MG TAB PO PRN (02:36)
[2017-02-11 05:30] LABS: B2 GLYCOPROTEIN IGA <9 SAU (<=20); B2 GLYCOPROTEIN IGG <9 SGU (<=20); B2 GLYCOPROTEIN IGM <9 SMU (<=20); LUPUS ANTICOAGULANT** TC36573X Negative (Negative)
[2017-02-11 06:57] LABS: HEMATOCRIT 26.6 % (37-47); MEAN CELL VOLUME 86.6 fL (80-100); MEAN CORPUSCULAR HEMOGLOBIN 30.6 pg (25-34); MEAN CORPUSCULAR HGB CONC 35.3 g/dl (32-36); MEAN PLATELET VOLUME 8.3 fL (7.4-10.4); PLATELET COUNT 257 K/uL (130-400); RED BLOOD COUNT 3.07 M/uL (4.2-5.4); WHITE BLOOD COUNT 5.49 K/uL (4.8-10.8)
[2017-02-11 07:14] LABS: BUN/CREATININE RATIO 10.2 (10-20); CALCIUM 8.4 mg/dl (8.5-10.1); CREATININE 0.97 mg/dl (0.60-1.20); MAGNESIUM 1.7 mg/dl (1.8-2.4); POTASSIUM 3.7 mmol/L (3.5-5.1)
[2017-02-11] MEDS: ENALAPRIL MALEATE 10 MG TAB PO SCH (07:44)
[2017-02-11] MEDS: ASPIRIN 81 MG ECTAB PO SCH (07:44)
[2017-02-11] MEDS: ATORVASTATIN 40 MG TAB PO SCH (07:44)
[2017-02-11] MEDS: PANTOprazole SOD 40 MG TAB PO SCH (07:44)
[2017-02-11] MEDS: CYANOCOBALAMIN 1000 MCG/ML VIAL IM SCH (07:44)
[2017-02-11 07:45] VITALS: BP 119/80; PULSE 79; TEMP 36.7; O2SAT 96
[2017-02-11] MEDS: AMILORIDE/HCTZ 5-50 MG TAB PO SCH (07:45)
[2017-02-11 08:00] VITALS: O2SAT 96
[2017-02-11] MEDS ORDERED: MAGNESIUM OXIDE 400 MG TAB PO SCH (08:00)
[2017-02-11] MEDS ORDERED: MAGNESIUM SULFATE 1GM / D5W 1 GM in PREMIXED IN D5W 100 ML IV ONE (08:00)
--- NOTE | 2017-02-11 10:38 | Medical Student: [facility] ---
Med Student Progress Note Date of Service Feb 11, 2017. 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 She states that she is waiting to be transferred to the [facility] for rehab, "if the plan has not changed from yesterday." She reports that her should be visiting her later today, who has more information about the [facility]. Patient and were initially refusing outpatient rehab and was supposed to be discharged home yesterday, but they have agreed to transfer to [facility]. No acute events overnight. Patient denies any symptoms of fever, chills, nausea, weakness, or any pain. Review of Systems Constitutional: + fatigue ("groggy" this morning), No fever, No chills Respiratory: No shortness of breath Cardiac: No chest pain Abdomen: No pain, No nausea Musculoskeletal: No joint pain, No muscle pain Female : No incontinence Neurologic: + memory loss (dementia of unknown etiology), No weakness Heme: No abnormal bleeding/bruising Endo: + fatigue Skin: No rash Objective Vital Signs Date Time Temp Pulse Resp B/P (MAP) Pulse Ox O2 Delivery O2 Flow Rate FiO2 02/11/17 08:00 96 Room Air 02/11/17 07:45 36.7 79 18 119/80 (93) 96 Room Air 02/11/17 01:12 Room Air 02/10/17 23:47 36.5 95 18 118/79 (92) 97 Room Air 02/10/17 16:02 37.0 87 20 112/67 (82) 98 Room Air 02/10/17 16:00 Room Air 02/10/17 14:15 37.0 79 18 99 3.0 02/10/17 12:00 Room Air 02/10/17 11:12 37.0 79 18 95/62 (73) 99 Room Air Physical Exam General Appearance: WD/WN, no apparent distress ENT: normal ENT inspection Neck: supple Respiratory/Chest: chest non-tender, lungs clear, normal breath sounds, no respiratory distress, no accessory muscle use Cardiovascular: regular rate, rhythm, no edema, no murmur Abdomen: normal bowel sounds, non tender, soft, no pulsatile mass Extremities: non-tender, normal inspection, no pedal edema, no calf tenderness Neurologic/Psychiatric: + disoriented (Alert and oriented only to self and place. She was two days off on day of the week.) Skin: normal color, warm/dry, no rash Laboratory Results Last 24 Hours Test 02/11/17 06:32 White Blood Count 5.49 K/uL Red Blood Count 3.07 M/uL Hemoglobin 9.4 g/dL Hematocrit 26.6 % Mean Corpuscular Volume 86.6 fL Mean Corpuscular Hemoglobin 30.6 pg Mean Corpuscular Hemoglobin Concent 35.3 g/dl RDW Standard Deviation 38.1 fL RDW Coefficient of Variation 12.0 % Platelet Count 257 K/uL Mean Platelet Volume 8.3 fL Sodium Level 138 mmol/L Potassium Level 3.7 mmol/L Chloride Level 106 mmol/L Carbon Dioxide Level 22 mmol/L Anion Gap 10.0 mmol/L Blood Urea Nitrogen 10 mg/dl Creatinine 0.97 mg/dl Est Creatinine Clear Calc Drug Dose 38.9 ml/min Estimated GFR () 64.4 Estimated GFR (Non- 55.5 BUN/Creatinine Ratio 10.2 Random Glucose 83 mg/dl Calcium Level 8.4 mg/dl Magnesium Level 1.7 mg/dl Medications Medications Administered Medications (Trade) Dose Ordered Sig/Carroll Route Start Time Stop Time Status Last Admin Dose Admin Sodium Chloride 1,000 ml @ 250 mls/hr Q4H STAT IV 02/07/17 09:40 02/07/17 13:39 DC 02/07/17 10:20 250 MLS/HR Atorvastatin Calcium (Lipitor Tab) 40 mg QAM PO 02/08/17 09:00 03/10/17 08:59 02/11/17 07:44 40 MG Aspirin (Ecotrin Tab) 81 mg QAM PO 02/08/17 09:00 03/10/17 08:59 02/11/17 07:44 81 MG Acetaminophen (Tylenol Tab) 650 mg Q4H PRN PO 02/07/17 14:00 03/09/17 13:59 02/11/17 02:36 650 MG Nitroglycerin (Nitroglycerin 2% Oint) 1 inch Q6H EXT 02/07/17 16:00 02/08/17 12:40 DC 02/07/17 16:28 1 INCH Atenolol (Tenormin Tab) 25 mg DAILY PO 02/08/17 09:00 03/10/17 08:59 02/11/17 07:44 25 MG Enalapril Maleate (Vasotec Tab) 10 mg DAILY PO 02/08/17 09:00 03/10/17 08:59 02/11/17 07:44 10 MG Pantoprazole Sodium (Protonix Tab) 40 mg QAM PO 02/08/17 09:00 03/10/17 08:59 02/11/17 07:44 40 MG Potassium Chloride/Sodium Chloride 1,000 ml @ 100 mls/hr Q10H IV 02/07/17 16:00 02/08/17 14:56 DC 02/08/17 12:06 100 MLS/HR Amiloride/HCTZ (Moduretic 5-50MG Tab) 1 tab DAILY PO 02/08/17 09:00 03/10/17 08:59 02/11/17 07:45 1 TAB Magnesium Sulfate 1 gm/Prmx 100 ml @ 100 mls/hr 0830 ONCE IV 02/08/17 08:30 02/08/17 09:29 DC 02/08/17 08:59 100 MLS/HR Magnesium Sulfate 1 gm/Prmx 100 ml @ 100 mls/hr 0845 ONCE IV 02/09/17 08:45 02/09/17 09:44 DC 02/09/17 08:56 100 MLS/HR Cyanocobalamin (Vitamin B-12 Inj) 1,000 mcg DAILY IM 02/09/17 14:00 03/11/17 13:59 02/11/17 07:44 1,000 MCG Folic Acid (Folvite Tab) 1 mg QAM PO 02/10/17 09:00 03/12/17 08:59 02/11/17 07:45 1 MG Magnesium Sulfate 1 gm/Prmx 100 ml @ 100 mls/hr 0830 ONCE IV 02/10/17 08:30 02/10/17 09:29 DC 02/10/17 08:50 100 MLS/HR Magnesium Sulfate 1 gm/Prmx 100 ml @ 100 mls/hr 0800 ONCE IV 02/11/17 08:00 02/11/17 08:59 DC 02/11/17 09:21 100 MLS/HR Magnesium Oxide (Mag-Ox Tab) 400 mg QAM PO 02/11/17 08:00 03/13/17 07:59 02/11/17 09:21 400 MG Assessment and Plan Assessment and Plan: Assessment and Plan: Assessment: Mrs. Dudley is a 81 year old female with a PMH dementia of unknown etiology, HTN, RA, GERD, and hypercholesterolemia who presented to the ED on with altered mental status/unresponsiveness. Since admission she had several episodes of possible unresponsiveness, but has had no acute problems overnight. She has agreed to transfer her care to rehab at the [facility]. During her stay she was worked-up for a differential of [place], arrhythmia, stroke, or seizure with EKG, CXR, UA, EEG, MRA of head/neck, and MRI/CT of brain with no acute findings/ explanation of current symptoms. History of dementia of unknown etiology with possible vascular origin suggests a more likely diagnosis of acute on chronic anemia (downward trend from 13.3 admission to 9.4 today), TIA, or KRISTA (multiple desaturations <88% during night two nights ago). Plan: Hx of dementia of unknown etiology/AMS/unresponsiveness secondary to anemia vs. KRISTA vs. TIA - patient's step-estevez deterioration in her short term memory loss and PMHx of HTN suggest dementia may be vascular in nature. - Sleep study follow-up as out-patient - Repeat hemoglobin to continue following trend - Stool occult test to check for GI bleed Borderline low B12 and low folate levels - Continue supplementation; daily B12 injections IM x 5 days (02/09-02/13), then weekly for following 4 weeks. Hypomagnesemia -Low magnesium (1.7) on 02/10 and 02/11 -Gave mag sulfate 1 gm IV x 1 on 02/10 and will continue to monitor Acute kidney injury - Cr elevated at 1.3 upon admission but with IV fluids has resolved. Cr now stable, <1(0.98 on 02/10 and 0.97 on 02/11) HTN Continue home medications below, with hold criteria -Amiloride/Hydrochlorothia 5-50 mg (Amiloride/HCTZ) 1 Ea Tab 1 Tab PO DAILY -Tenormin (Atenolol) 25 Mg Tab 25 Mg PO DAILY -Vasotec (Enalapril Maleate) 10 Mg Tab 10 Mg PO DAILY Hold patient's nitropaste, since patient's BP has been low and patient has not complained of chest pain/symptoms of acute coronary event. Hypercholesterolemia -continue Lipitor (Atorvastatin Calcium) 20 Mg Tab 20 Mg PO DAILY CAD -Continue Aspirin 81mg PO qd -Continue atorvastatin as above GERD -Protonix 40 mg PO qd while in-patient Post-menopausal sxs -Continue Premarin 0.625 mg PO daily Discharge planning: rehab hospital ([facility])
[2017-02-11 11:52] VITALS: BP 119/80; PULSE 79; TEMP 36.7; O2SAT 96
--- NOTE | 2017-02-11 12:46 | Discharge Instructions ---
Discharge Instructions Date of Service Feb 11, 2017. Admission Reason for Admission: Abnormal Ekg, Unresponsive Episode Discharge Discharge Diagnosis / Problem: Altered mental status, dementia Discharge Goals Goal(s): Decrease discomfort, Diagnostic testing, Therapeutic intervention Activity Recommendations Activity Level: Assistance Required Therapies: Physical Therapy, Occupational Therapy Exercise/Sports Limitations: as tolerated Shower/Bathe: no limitations . Additional Information Patient informed of condition: Yes Advance Directives: Yes DNR: No Level of Care: Skilled Communicable Disease: No Prognosis: Stable Cruz Catheter: No Instructions / Follow-Up Instructions / Follow-Up You were admitted to the hospital after presenting with an episode of altered mental status/unresponsiveness at home. A head CT scan and MRI of the brain were both negative for acute findings. Imaging of the arteries of the head was also normal. 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 This does not currently warrant surgical intervention , but should be monitored as it could be problematic down the line. An echocardiogram, or ultrasound of the heart, was grossly normal. An overnight oximetry test was down to check your oxygenation while sleeping, and you did have multiple brief episodes of desaturation overnight. You will need to be seen by sleep medicine as an outpatient for further evaluation of this. An EEG to evaluate for seizures was also performed. It did not show any seizure activity and the findings were more consistent with dementia. Your vitamin B12 and folate were both low, so you have been given supplementation to continue as an outpatient, as this may be contributing to your mental status. Medications: *Please take aspirin 81 mg by mouth daily *Please take vitamin B12 1000 micrograms by intramuscular injection weekly. *Please take folic acid 1 mg by mouth daily and magnesium oxide 400 mg by mouth twice a day. *STOP your Premarin cream for now until you follow up with your primary care provider. *HOLD your amiloride/HCTZ for now until you follow up with your primary care provider's office or with a medical provider at the [facility] as your blood pressure has been too low. If your blood pressure becomes more stable, you may resume this medication when okay with your primary care provider. *Continue your other home medications as prescribed. Follow up: *You have been scheduled to follow up at Dr. Garrett's office on February 14 at 10:30 am with Jada Anguiano PA-C. *You have also been scheduled to follow up with sleep medicine on March 27 at 11:[address] Ponce. Please seek medical attention if you experience fevers, chills, sweats, dizziness/lightheadedness, loss of consciousness, chest pain, shortness of breath, nausea, vomiting, numbness or tingling. Current Hospital Diet Patient's current hospital diet: AHA Diet (Heart Healthy) Discharge Diet Recommended Diet: AHA Diet (Heart Healthy) Procedures Procedures Performed: Echocardiogram, electroencephalogram Pending Studies Studies pending at discharge: no Physician Orders On Transfer Special Precautions: Fall precautions Vital Signs: Routine Additional Orders: Medication changes as above in instructions Laboratory Results Hemoglobin A1c Test 02/07/17 09:45 Range/Units Estimated Average Glucose 120 mg/dl Hemoglobin A1c 5.8 H 4.5-5.6 % Lipid Panel Test 02/08/17 03:38 Range/Units Triglycerides Level 153 H 0-150 mg/dl Cholesterol Level 163 0-200 mg/dl HDL Cholesterol 54 mg/dl Cholesterol/HDL Ratio 3.0 LDL Cholesterol, Calculated 78 mg/dl Medical Emergencies . Who to Call and When: Medical Emergencies: If at any time you feel your situation is an emergency, please call 911 immediately. . Non-Emergent Contact Non-Emergency issues call your: Primary Care Provider Call Non-Emergent contact if: you have a fever, you have any medication questions . Past History Medical & Surgical History: (1) Altered mental status . "Provider Documentation" section prepared by Kamala Clement. . Core Measure Problem Core Measures: None
--- NOTE | 2017-02-11 16:00 | Discharge Summary ---
Discharge Summary Date of Service Feb 11, 2017. (Kamala Clement, MOOK) Discharge Summary Admission Date: Feb 07, 2017 at 13:58 Discharge Date: Feb 11, 2017 Discharge Disposition: care home facility Principal Diagnosis: Altered mental status, dementia Procedures: Head CT: Findings: The paranasal sinuses and mastoid air cells are clear. The calvarium and skull base are intact. The ventricles and sulci are within normal limits. There is no mass, hematoma, midline shift, or acute infarct. Age-related atrophy. Mild chronic small vessel change. Impression: No acute intracranial abnormality. Age-related change CXR portable: FINDINGS: Cardiomediastinal and hilar silhouettes are within normal limits. There is no pneumothorax, pleural effusion or focal airspace consolidation. No overt pulmonary edema. Bones are grossly intact. IMPRESSION: No acute cardiopulmonary process. MRI OF THE BRAIN COMBO FINDINGS: Brain parenchyma: There are age-related involutional changes noting mild patchy subcortical and periventricular microangiopathic disease. There is no hemorrhage or mass effect. There is no restricted diffusion to suggest acute ischemia. No enhancing mass lesion is identified on the postcontrast images. Mackay-white matter differentiation is preserved. No extra-axial fluid collection is seen. The cerebellar tonsils are normal in configuration. Ventricles, sulci, and cisterns: Prominent secondary to involutional change. Pituitary and sella: Unremarkable. Intracranial vasculature: Normal flow voids are maintained at the skull base. Orbits: The bony orbits are grossly intact. Orbital contents are normal in appearance noting bilateral ocular lens implants. Sinuses and mastoids: Clear. Calvarium: Unremarkable. Cervical cord: Partially visualized cervical spinal cord is normal in morphology and signal intensity. IMPRESSION: No acute intracranial abnormality. Head MRA: A 3-D [id number] MR angiographic sequence of the [place] was performed. Both the source and projection images were reviewed. There is no evidence of major intracranial branch occlusion. There is no evidence of intracranial stenosis. There are no lesions suspicious for aneurysm. IMPRESSION: Unremarkable MR angiography of the [place]. Neck MRA: FINDINGS: Visualized portions of the thoracic aorta are normal in caliber. The aortic arch demonstrates standard 3-vessel anatomy. The subclavian arteries are widely patent bilaterally. The right common carotid artery is widely patent. There is approximately 50% stenosis at the origin of the right internal carotid artery. The remainder of the right internal carotid artery and the right external carotid artery are patent. The left common carotid artery is widely patent, as are the left internal and external carotid arteries. The vertebral arteries are widely patent. The left vertebral artery is dominant. The visualized intracranial vessels at the skull base appear patent. The jugular veins are patent. IMPRESSION: 1. There is approximately 50% stenosis of the origin of the right internal carotid artery. 2. The remainder of the right carotid arterial system as well as the left carotid arterial system are widely patent. 3. The vertebral arteries are patent. Echocardiogram: * -- Conclusions -- * Normal LV chamber size and wall thickness. * Normal LV systolic function, EF 65-70%. * No segmental left ventricular wall motion abnormalities are noted. * Grade I diastolic dysfunction. * Aortic valve sclerosis moderate, without significant aortic valvular stenosis. Consultations: Neurology--Dr. Garibay (Kamala Clement ., PA-C) Medication Reconciliation New Medications: Magnesium Oxide (mg Supplement (Magnesium Oxide) 400 Mg Cap 400 MG PO BID for 30 Days, #60 CAP Take 1 capsule by mouth twice daily. Aspirin (Aspirin EC Low Dose) 81 Mg Ectab 81 MG PO QAM for 30 Days, #30 TABS Cyanocobalamin (Cyanocobalamin) 1,000 Mcg/Ml Inj 1000 MCG IM WK for 28 Days, #4 DOSE Inject 1000 mcg intramuscularly once weekly. Folic Acid (Folic Acid) 1 Mg Tab 1 MG PO QAM for 30 Days, #30 TAB Continued Medications: Amiloride/Hctz (Amiloride/Hydrochlorothia 5-50 mg) 1 Ea Tab 1 TAB PO DAILY Atenolol (Tenormin) 25 Mg Tab 25 MG PO DAILY Atorvastatin (Lipitor) 20 Mg Tab 20 MG PO DAILY, TAB Enalapril (Vasotec) 10 Mg Tab 10 MG PO DAILY Omeprazole (Prilosec) 10 Mg Capcr Unknown Dose PO DAILY, CAP Discontinued Medications: Estrogens, Conjugated (Premarin) 0.625 Mg Tab 0.625 MG PO DAILY Discharge Exam Patient reports feeling well. No recurrence of altered mental status or decreased responsiveness. The patient denies fevers, chills, sweats, chest pain , palpitations, claudication, cough, wheezing, shortness of breath, nausea, vomiting, abdominal pain, dysuria, hematuria, urinary retention, paralysis, weakness, numbness and tingling. Review of Systems: Constitutional: No fever, No chills, No sweats, No weakness, No fatigue Eyes: No worsening of vision, No eye pain, No diplopia ENT: No hearing loss, No sore throat, No trouble swallowing Respiratory: No cough, No wheezing, No shortness of breath Cardiovascular: No chest pain, No claudication, No palpitations Abdomen: No pain, No nausea, No vomiting Musculoskeletal: No joint pain, No muscle pain, No calf pain Genitourinary - Female: No dysuria, No urinary retention, No hematuria Neurologic: No paralysis, No weakness, No numbness/tingling Integumentary: No rash, No itch, No color change Physical Exam: General Appearance: WD/WN, no apparent distress Eyes: normal inspection, PERRL, EOMI ENT: normal ENT inspection, hearing grossly normal, pharynx normal Neck: supple, no JVD, trachea midline Respiratory/Chest: lungs clear, normal breath sounds, no respiratory distress Cardiovascular: regular rate, rhythm, no gallop, + systolic murmur Abdomen / GI: normal bowel sounds, non tender, soft Extremities: normal inspection, no calf tenderness, no pedal edema Neurologic/Psychiatric: alert, normal mood/affect, oriented x 3 (Kamala Clement ., PA-C) Hospital Course 81-year-old female with a past medical history of rheumatoid arthritis, dementia , hypertension, hyperlipidemia, GERD who presents following an unresponsive episode/altered mental status. Unresponsive Episode / Altered Mental Status--ongoing. Pt had another episode . This appears to be due to her chronic dementia which will require further follow up as an outpt -Admit to telemetry. No acute events overnight, pt remained in sinus rhythm with HR 60s-70s. Stable, will transfer to med/surg 02/10 -No recurrence of AMS on 02/08, but did have an episode on 02/09. Pt had been still swallowing herself, was holding her eyes shut when nursing attempted to open, protected face, etc. -Neurology consulted, appreciate recs: recommend outpatient sleep medicine consultation and outpatient evaluation of chronic dementia -Overnight oximetry with multiple episodes of desaturation <88%, max single episode 28 sec--suggesting KRISTA, which could be causing mentation issues -Pt scheduled for sleep medicine consultation in March -CO2 on PRP is actually low/borderline low and unable to obtain ABG -ECHO with EF 65-70% with moderate aortic sclerosis but no stenosis and grade 1 diastolic dysfunction, otherwise unremarkable -EEG shows generalized encephalopathy and left hemispheric dysfunction which may be consistent with dementia -Vitamin B12 and folate low, continue supplementation. Discharged with daily folic acid and weekly B12 injections -Head CTA, MRA head and MRI brain negative -MRA neck shows approximately 50% stenosis of the origin of the right internal carotid artery. No surgical intervention now. Discharge with aspirin. LIA--resolved -Creatinine 1.3 on admission -Resolved with IVF -Creatinine remains stable, <1 Hypomagnesemia--ongoing -Magnesium 1.7 on 02/11 -Mag sulfate 1 gm IV x 1 -Continue to monitor, discharge on oral magnesium Acute anemia, likely dilutional as improving after IVF d/c'd -Hgb 9.4 on 02/11, continue to monitor HTN--stable -Continue atenolol 25 mg PO qd, enalapril 10 mg PO qd, and amiloride/HCTZ 5/50 mg PO qd with hold parameters -At discharge, recommend holding amiloride/HCTZ until follows up with medical provider due to hypotension -As BP has been low at times and patient has no evidence or symptoms of an acute cardiac event, D/C Nitropaste. Dyslipidemia -Continue Lipitor 40 mg PO qd Carotid Artery Stenosis -Aspirin 81 mg PO qd -Continue statin as above Abnormal EKG, chronic -Echo as reviewed above, no WMA GERD -Protonix 40 mg PO qd while inpt Code Status -Level I, FULL RESUSCITATION STATUS Dispo -Pt from home -PT rec HHPT and OT rec rehab -Accepted to the [facility] Total Time Spent: Greater than 30 minutes This includes examination of the patient, discharge planning, medication reconciliation, and communication with other providers. (Kamala Clement ., PA-C) I agree with PA assessment and plan and have seen and examined pt myself Pt resting comfortably in bed No complaints at this time Scheduled for sleep consultation as OP Labs and vitals reviewed OK for discharge (Devon Ryder, D.O.) Discharge Instructions Please refer to the electronic Patient Visit Report (Discharge Instructions) for additional information. (Kamala Clement ., PA-C) Additional Copies To Gurjit Garrett M.D.
== END 2017-02-11 13:44 | DRG 884 ==
LOC: EDBD 09:30 → C.EDA 09:35 → C.2T 13:58 → ENRESERV 14:11 → CANRESERV 14:11 → ENRESERV 14:39 → EDBEDREQ 02-10 13:47 → ENRESERV 02-10 14:06 → C.MS4W 02-10 15:20
PROVIDERS: ADMIT Hospitalist; ATTEND Hospitalist
DX: F03.90 Unspecified dementia, unspecified severity, without behavioral disturbance, psychotic disturbance, mood disturbance, and anxiety (principal); N17.9 Acute kidney failure, unspecified; M06.9 Rheumatoid arthritis, unspecified; I10 Essential (primary) hypertension; E78.5 Hyperlipidemia, unspecified; K21.9 Gastro-esophageal reflux disease without esophagitis; R94.31 Abnormal electrocardiogram [ECG] [EKG]; I65.21 Occlusion and stenosis of right carotid artery; G47.33 Obstructive sleep apnea (adult) (pediatric); E83.42 Hypomagnesemia; D64.9 Anemia, unspecified; Z79.899 Other long term (current) drug therapy; Z87.891 Personal history of nicotine dependence

== ENCOUNTER → 2017-02-11 | Outpatient (CLI) | payer BC ==
[~2017-02-11] MED LIST changes: +ASPEC81 PO; +ATOR-22 PO; +CYNI1000 IM; +FLV1 PO; +MAGN400C3 PO; -PRM/625 PO
== END | disposition home or self-care (01) ==
LOC: C.LABVPSUA 08:31
PROVIDERS: ATTEND Internal Medicine Critical Care Medicine
DX: D64.9 Anemia, unspecified (principal)

== ENCOUNTER → 2017-02-13 | Outpatient (CLI) | payer BC | END | disposition home or self-care (01) | LOC: C.LABVPSUA 16:15 | PROVIDERS: ATTEND Internal Medicine Critical Care Medicine | DX: E16.9 Disorder of pancreatic internal secretion, unspecified (principal) ==

== ENCOUNTER → 2017-03-27 | Outpatient (CLI) | payer BC ==
[~2017-03-27] VITALS: Ht 154.9 cm; Wt 53.1 kg
[2017-03-27 12:25] VITALS: BP 125/78; PULSE 114; Ht 154.9 cm; Wt 53.1 kg
== END | disposition home or self-care (01) ==
LOC: C.NEUR 10:50
PROVIDERS: ATTEND Internal Medicine Pulmonary Disease
DX: G47.33 Obstructive sleep apnea (adult) (pediatric) (principal); G30.0 Alzheimer's disease with early onset; F02.80 Dementia in other diseases classified elsewhere, unspecified severity, without behavioral disturbance, psychotic disturbance, mood disturbance, and anxiety

== ENCOUNTER → 2017-06-17 | Outpatient (CLI) | payer BC ==
[2017-06-17 09:34] LABS: BASO % 0.6 %; BASO ABS # 0.04 K/uL (0-0.2); COMPLETE YES; EOS % 7.3 %; IG% 0.3 %; LYMPH ABS # 2.33 K/uL (1.2-3.4); MEAN CORPUSCULAR HEMOGLOBIN 28.3 pg (25-34); MEAN CORPUSCULAR HGB CONC 34.1 g/dl (32-36); MEAN PLATELET VOLUME 8.8 fL (7.4-10.4); MONO % 12.1 %; NEUT % 43.7 %; PLATELET COUNT 359 K/uL (130-400); RED BLOOD COUNT 4.46 M/uL (4.2-5.4); WHITE BLOOD COUNT 6.47 K/uL (4.8-10.8)
[2017-06-17 10:06] LABS: ALT/SGPT 24 U/L (12-78); AST/SGOT 19 U/L (15-37); BLOOD UREA NITROGEN 19 mg/dl (7-18); BUN/CREATININE RATIO 20.2 (10-20); CARBON DIOXIDE 26 mmol/L (21-32); CHLORIDE 93 mmol/L (98-107); CREATININE 0.92 mg/dl (0.60-1.20); GLUCOSE 92 mg/dl (70-99); POTASSIUM 3.8 mmol/L (3.5-5.1); SODIUM 128 mmol/L (136-145)
[2017-06-17 10:09] LABS: CHOLESTEROL 186 mg/dl (0-200); CHOLESTEROL/HDL RATIO 2.1; HDL CHOLESTEROL 87 mg/dl; LDL CHOLESTEROL CALCULATED 72 mg/dl; TRIGLYCERIDES 135 mg/dl (0-150); VERY LOW DENSITY LIPOPROT CALC 27 mg/dl
== END | disposition home or self-care (01) ==
LOC: C.LAB1850 08:20
PROVIDERS: ATTEND Internal Medicine
DX: H35.30 Unspecified macular degeneration (principal)

== ENCOUNTER → 2017-10-24 | Outpatient (CLI) | payer BC ==
--- NOTE | 2017-10-24 08:55 | DIAGNOSTIC IMAGING REPORT ---
R KNEE 3 VIEWS HISTORY: 81 years-old Female B/L KNEE PAIN acute bilateral knee pain COMPARISON: None available TECHNIQUE: Bilateral AP, sunrise, crosstable lateral and AP axial views of the knees FINDINGS: RIGHT: Osteopenia. Tricompartmental osteoarthritis, mild within the lateral compartment, mild to moderate medial compartment and at least moderate patellofemoral disease. Small joint effusion. Corticated bone fragments are seen adjacent to the superior patella suggesting fragmented osteophytes. Mild spurring of the tibial spines. No acute fracture or dislocation. LEFT: Osteopenia. Tricompartmental osteoarthritis, severe within the medial compartment, moderate to severe patellofemoral and mild lateral compartment disease. No acute fracture or dislocation. Peripheral vascular disease. Small joint effusion. 2.0 x 1.3 cm ossification posterior to the lateral proximal tibia suggest loose body. Additional soft tissue ossifications are noted measuring up to 10 mm adjacent to the distal femoral diaphysis and medial aspect of the proximal tibia. IMPRESSION: 1. No acute fracture or dislocation. 2. Osteopenic appearance of the bones with tricompartmental osteoarthritis, most pronounced on the left with severe medial compartment disease. 3. 2.0 cm ossification adjacent to the posterior aspect of the lateral proximal tibia suggests loose body. 4. Small bilateral joint effusions. The above report was generated using voice recognition software. It may contain grammatical, syntax or spelling errors. Electronically signed by: Aron Mejia M.D. 10/24/2017 8:53 AM Dictated Date/Time: 10/24/2017 8:49 AM
== END | disposition home or self-care (01) ==
LOC: C.RDSM 12:41
PROVIDERS: ATTEND Physician Assistant
DX: M25.561 Pain in right knee (principal); M25.562 Pain in left knee; M25.461 Effusion, right knee; M25.462 Effusion, left knee; M17.12 Unilateral primary osteoarthritis, left knee

== ENCOUNTER 2020-03-08 17:52 | Inpatient (IN) ==
[2020-03-08] MEDS ORDERED: SODIUM CHLORIDE 0.9% 500 ML IV SCH (18:15)
--- NOTE | 2020-03-08 18:19 | Emergency Department Note ---
History of Present Illness General Chief complaint: Fall Stated complaint: FALL Time Seen by Provider: 03/08/20 18:00 Source: patient and family ( who is at the bedside) Limitations: other (She answers most questions appropriately but vaguely and according to her record she does have some mild dementia) History of Present Illness This patient comes in after falling around 11:00 it was unwitnessed although her heard her fall and ran up. She said she was walking to the bathroom. She is not sure if she passed out. She has pain in the left lower back going down her left leg which causes some tingling. She does not think she hit her head denies any headache or neck pain. No facial trauma or malocclusion of her teeth or jaw. No change in vision. Denies chest pain palpitations or shortness of breath. No pleurisy. No heart racing. Denies abdominal pain. She complains of lower back pain. She denies any recent illness or exposure to C OVID. No fever or flulike symptoms recently. No cough. She denies that she is on any blood thinners. Home Medications Home Medications Medication Instructions Recorded Confirmed Type cyanocobalamin (vitamin B-12) 100 50 mcg PO DAILY tab 03/30/19 03/08/20 History mcg tablet omeprazole 40 mg capsule,delayed 40 mg PO DAILY cap 03/30/19 03/08/20 History release atenolol 25 mg tablet 25 mg PO DAILY #90 tab 05/19/19 03/08/20 Rx escitalopram oxalate 10 mg tablet 10 mg PO DAILY #90 tab 05/19/19 03/08/20 Rx atorvastatin 20 mg tablet 20 mg PO QPM #90 tab 09/27/19 03/08/20 Rx alprazolam 0.25 mg tablet 0.25 mg PO DAILY #50 tab 02/15/20 03/08/20 Rx aspirin [Aspir-81] 81 mg PO DAILY 03/08/20 03/08/20 History hydrochlorothiazide 50 mg PO DAILY 03/08/20 03/08/20 History Allergies Allergy/AdvReac Type Severity Reaction Status Date / Time No Known Allergies Allergy Unverified 03/08/20 21:11 Past Med/Surg History Medical History Dementia of the Alzheimer's type, with early onset, uncomplicated (Chronic) Familial hypercholesteremia (Chronic) Hyperglycemia (Chronic) Hypertension (Chronic) Macular degeneration (Chronic) Obstructive sleep apnea of adult (Chronic) Osteoarthritis (Chronic) Osteoporosis (Chronic) Pain and swelling of right wrist (Chronic) Pain in right knee (Chronic) Right hip pain (Chronic) Social History Smoking Status: Former smoker Second Hand Exposure: No; Do You Dip or Chew Tobacco: No; Tobacco Cessation Education Requested by Patient: No Hx Alcohol Use: Yes Alcohol type: wine Hx Substance Use: No Preferred Language: Namibian Communication Ability: Effective Rod Puller Required: No Beliefs That Will Affect Care: None Current Living Situation: Spouse Other Information That Helps Us Care for You: No Feels Safe at Home: Yes Safety Concerns: Feels Safe At This Time Review of Systems A total of 10 systems reviewed and were otherwise negative Physical Exam Vital Signs Vital Signs - 24 hr 03/08/20 18:02 03/08/20 18:30 03/08/20 19:00 Temperature 37.4 C Temperature Source Oral Pulse Rate 116 H 107 H 101 H Pulse Rate from SpO2 Sensor 107 H 102 H Respiratory Rate 24 21 24 Respiratory Effort / Characteristics Non-Labored Spontaneous Respiratory Depth Normal Blood Pressure 193/96 H Blood Pressure Mean 128 Pulse Oximetry 93 89 L 100 Oxygen Delivery Method Room Air Room Air Nasal Cannula Oxygen Flow Rate 0 2 Sepsis Recent Fever Within 48 Hours No Sepsis New/Unexplained Change in Mental Status No Sepsis Action Taken by Nursing Physician Notified Oxygen Flow Rate - Titration 2 Pulse Oximetry Post Tiitration 99 03/08/20 19:53 03/08/20 20:00 03/08/20 20:30 Temperature Temperature Source Pulse Rate 105 H 107 H 101 H Pulse Rate from SpO2 Sensor 105 H 107 H 101 H Respiratory Rate 24 21 19 Respiratory Effort / Characteristics Respiratory Depth Blood Pressure 161/91 H 159/87 H 149/88 H Blood Pressure Mean 117 117 105 Pulse Oximetry 100 100 99 Oxygen Delivery Method Nasal Cannula Nasal Cannula Nasal Cannula Oxygen Flow Rate 2 2 2 Sepsis Recent Fever Within 48 Hours Sepsis New/Unexplained Change in Mental Status Sepsis Action Taken by Nursing Oxygen Flow Rate - Titration Pulse Oximetry Post Tiitration 03/08/20 21:12 03/08/20 21:30 Temperature Temperature Source Pulse Rate 112 H 102 H Pulse Rate from SpO2 Sensor 111 H 102 H Respiratory Rate 22 21 Respiratory Effort / Characteristics Respiratory Depth Blood Pressure 178/104 H 161/91 H Blood Pressure Mean 114 116 Pulse Oximetry 92 91 Oxygen Delivery Method Room Air Room Air Oxygen Flow Rate Sepsis Recent Fever Within 48 Hours Sepsis New/Unexplained Change in Mental Status Sepsis Action Taken by Nursing Oxygen Flow Rate - Titration Pulse Oximetry Post Tiitration General: Well developed well nourished older female who appears in no acute distress, breathing comfortably on room air. Normal speech HEENT: Normal cephalic atraumatic. Pupils are equal round and reactive to ligh t. Extraocular movements are intact. Oropharynx is pink with moist mucous membranes. No swelling of the mouth lips or tongue. Neck: Supple with a midline trachea. No meningeal signs or stiffness, no JVD or bruits. No Stridor. Chest: Clear to auscultation bilaterally. No wheezes or rhonchi. No increased work of breathing. Heart: Regular rate and rhythm, mildly tachycardic. Without murmurs or gallops. Abdomen: Soft nontender, nondistended without rebound guarding or rigidity. Extremities: No cyanosis clubbing or edema. No calf tenderness or assymetry. No shortening or deformity. She has chronic degenerative changes of the right hand/wrist which she says is unchanged and chronic Spine/Back. Mildly tender to palpation in the lower back on the left mostly and towards the hip. No CVA tenderness. No pain with movement of the hips. Skin: Good turgor without rashes. Neurologic exam: Cranial nerves two through 12 are intact. Motor and sensation are intact and symmetrical throughout. Course Administered Medications Discontinued Medications Sodium Chloride (Nss) 500 mls @ 999 mls/hr IV .Q31M [facility] Stop: 03/08/20 18:45 Last Infusion: 03/08/20 19:36 Dose: 0 mls/hr Documented by: Admin: 03/08/20 18:30 Dose: 999 mls/hr Documented by: Magnesium Sulfate/Dextrose (Magnesium Sulfate / D5w) 1 gm in 100 mls @ 100 mls/hr IV Q1H [facility]NEL[facility] Stop: 03/08/20 21:07 Last Infusion: 03/08/20 22:00 Dose: 0 mls/hr Documented by: Admin: 03/08/20 21:00 Dose: 100 mls/hr Documented by: Infusion: 03/08/20 20:57 Dose: 100 mls/hr Documented by: [id number] Admin: 03/08/20 19:57 Dose: 100 mls/hr Documented by: [id number] Ioversol (Optiray 320 100ml) 93 ml IV ONCE ONE Stop: 03/08/20 19:33 Last Admin: 03/08/20 19:33 Dose: 93 ml Documented by: [id number] Medical Decision Making Differential Diagnosis Traumatic injuries, syncope, orthopedic injuries, spinal injuries, infection, internal bleeding, head injury, cervical spine injury, electrolyte or metabolic abnormality, COVID Medical Records Attestation: I reviewed the patient's medical records. Home Medications Current Medication List: was personally reviewed by me Laboratory Data Attestation: I reviewed the patient's lab results. Result diagrams: 03/08/20 18:30 03/08/20 18:30 Lab Results 03/08/20 03/08/20 03/08/20 Range/Units 18:30 18:30 18:30 WBC 17.30 H (4.8-10.8) K/uL RBC 4.17 L (4.2-5.4) M/uL Hgb 12.8 (12.0-16.0) g/dL POC Hgb (12.0-16.0) g/dl Hct 36.3 L (37-47) % POC Hct (37-47) % MCV 87.1 (80-100) fL MCH 30.7 (25-34) pg MCHC 35.3 (32-36) g/dL RDW Std Deviation 39.6 (36.4-46.3) fL RDW Coeff of Hawa 12.4 (11.5-14.5) % Plt Count 284 (130-400) K/uL MPV 8.6 (7.4-10.4) fL Immature Gran % (Auto) 0.8 % Neut % (Auto) 92.6 % Lymph % (Auto) 3.8 % [place] % (Auto) 2.7 % Eos % (Auto) 0.0 % Baso % (Auto) 0.1 % Neut # (Auto) 16.04 H (1.4-6.5) K/uL Lymph # (Auto) 0.66 L (1.2-3.4) K/uL [place] # (Auto) 0.46 (0.11-0.59) K/uL Eos # (Auto) 0.00 (0-0.5) K/uL Baso # (Auto) 0.01 (0-0.2) K/uL Immature Gran # (Auto) 0.13 H (0.00-0.02) K/uL PT 11.3 (9.0-12.0) Seconds INR 1.1 (0.9-1.1) APTT 25.1 (21.0-31.0) Seconds PTT Ratio 0.9 POC Sodium (135-144) mmol/L Sodium 127 L (136-145) mmol/L POC Potassium (3.3-5.0) mmol/L Potassium 2.9 L (3.5-5.1) mmol/L POC Chloride (101-112) mmol/L Chloride 91 L (98-107) mmol/L Carbon Dioxide 26 (21-32) mmol/L POC Total CO2 (24-31) mmol/L Anion Gap 11.0 (3-11) POC Anion Gap (16-25) mmol/L POC BUN (7-18) mg/dl BUN 16 (7-18) mg/dl Creatinine 0.95 (0.6-1.2) mg/dl POC Creatinine (0.6-1.3) mg/dl Est Cr Clr Drug Dosing Not Reportable Est GFR ( Amer) 64.6 Est GFR (Non-Af Amer) 55.8 BUN/Creatinine Ratio 17.3 (10-20) Glucose 150 H (70-99) mg/dl POC Glucose (other) (70-99) mg/dl Calcium 8.9 (8.5-10.1) mg/dl POC Ioniz Calcium Henok (1.12-1.32) mmol/l Magnesium 1.2 L (1.8-2.4) mg/dl Total Bilirubin 0.8 (0.2-1) mg/dl AST 32 (15-37) U/L ALT 29 (12-78) U/L Alkaline Phosphatase 132 H (45-117) U/L Troponin I < 0.015 (0-0.045) ng/ml Total Protein 7.6 (6.4-8.2) gm/dl Albumin 3.3 L (3.4-5.0) gm/dl Globulin 4.3 H (2.5-4.0) gm/dl Albumin/Globulin Ratio 0.8 L (0.9-2) TSH 0.494 (0.300-4.500) uIu/ml Urine Color Urine Appearance (Clear) Urine pH (4.5-7.5) Ur Specific [place] (1.000-1.030) Urine Protein (Negative) Urine Glucose (UA) (Negative) Urine Ketones (Negative) Urine Blood (Negative) Urine Nitrite (Negative) Urine Bilirubin (Negative) Urine Urobilinogen (Negative) Ur Leukocyte Esterase (Negative) Urine WBC (Auto) (0-5) /hpf Urine RBC (Auto) (0-4) /hpf U Hyaline Cast (Auto) (0-5) /lpf U Epithel Cells (Auto) (0-5) /lpf Urine Bacteria (Auto) (Negative) Calcium Oxalate Crystal (None Prsent) Urine Yeast 03/08/20 03/08/20 Range/Units 18:37 21:15 WBC (4.8-10.8) K/uL RBC (4.2-5.4) M/uL Hgb (12.0-16.0) g/dL POC Hgb 12.9 (12.0-16.0) g/dl Hct (37-47) % POC Hct 38 (37-47) % MCV (80-100) fL MCH (25-34) pg MCHC (32-36) g/dL RDW Std Deviation (36.4-46.3) fL RDW Coeff of Hawa (11.5-14.5) % Plt Count (130-400) K/uL MPV (7.4-10.4) fL Immature Gran % (Auto) % Neut % (Auto) % Lymph % (Auto) % [place] % (Auto) % Eos % (Auto) % Baso % (Auto) % Neut # (Auto) (1.4-6.5) K/uL Lymph # (Auto) (1.2-3.4) K/uL [place] # (Auto) (0.11-0.59) K/uL Eos # (Auto) (0-0.5) K/uL Baso # (Auto) (0-0.2) K/uL Immature Gran # (Auto) (0.00-0.02) K/uL PT (9.0-12.0) Seconds INR (0.9-1.1) APTT (21.0-31.0) Seconds PTT Ratio POC Sodium 127 L (135-144) mmol/L Sodium (136-145) mmol/L POC Potassium 3.0 L (3.3-5.0) mmol/L Potassium (3.5-5.1) mmol/L POC Chloride 88 L (101-112) mmol/L Chloride (98-107) mmol/L Carbon Dioxide (21-32) mmol/L POC Total CO2 26 (24-31) mmol/L Anion Gap (3-11) POC Anion Gap 18.0 (16-25) mmol/L POC BUN 15 (7-18) mg/dl BUN (7-18) mg/dl Creatinine (0.6-1.2) mg/dl POC Creatinine 0.7 (0.6-1.3) mg/dl Est Cr Clr Drug Dosing Est GFR ( Amer) Est GFR (Non-Af Amer) BUN/Creatinine Ratio (10-20) Glucose (70-99) mg/dl POC Glucose (other) 160 H (70-99) mg/dl Calcium (8.5-10.1) mg/dl POC Ioniz Calcium Henok 1.08 L (1.12-1.32) mmol/l Magnesium (1.8-2.4) mg/dl Total Bilirubin (0.2-1) mg/dl AST (15-37) U/L ALT (12-78) U/L Alkaline Phosphatase (45-117) U/L Troponin I (0-0.045) ng/ml Total Protein (6.4-8.2) gm/dl Albumin (3.4-5.0) gm/dl Globulin (2.5-4.0) gm/dl Albumin/Globulin Ratio (0.9-2) TSH (0.300-4.500) uIu/ml Urine Color Yellow Urine Appearance Cloudy A (Clear) Urine pH 7.0 (4.5-7.5) Ur Specific [place] 1.038 H (1.000-1.030) Urine Protein 1+ H (Negative) Urine Glucose (UA) Negative (Negative) Urine Ketones Negative (Negative) Urine Blood Trace H (Negative) Urine Nitrite Negative (Negative) Urine Bilirubin Negative (Negative) Urine Urobilinogen Negative (Negative) Ur Leukocyte Esterase Trace H (Negative) Urine WBC (Auto) 1-5 (0-5) /hpf Urine RBC (Auto) 0-4 (0-4) /hpf U Hyaline Cast (Auto) 1-5 (0-5) /lpf U Epithel Cells (Auto) >30 H (0-5) /lpf Urine Bacteria (Auto) 1+ H (Negative) Calcium Oxalate Crystal Present A (None Prsent) Urine Yeast Not Reportable Imaging Data Attestation: I personally reviewed and interpreted this imaging study as follows: Radiologist's Impression: CT head/brain wo con CLINICAL HISTORY: syncope COMPARISON STUDY: 02/07/2017 TECHNIQUE: Axial CT of the brain is performed from the vertex to the skull base. IV contrast was not administered for this examination. A dose lowering technique was utilized adhering to the principles of ALARA. CT DOSE: FINDINGS: No intra or extra-axial mass lesions are visualized. There is no CT evidence of acute cortical infarction. There is no evidence of midline shift. There is no acute hemorrhage. No calvarial fractures are visualized. There are patchy white matter hypodensities likely on a small vessel basis. There is mild ventricular dilatation likely secondary to volume loss There is no evidence of acute sinusitis IMPRESSION: No acute intracranial findings CT OF THE CHEST WITH IV CONTRAST CLINICAL HISTORY: Chest pain status post trauma COMPARISON STUDY: No previous studies for comparison. TECHNIQUE: Following the IV administration of 93 mL of Optiray-320, CT of the thorax was performed from the thoracic inlet to the lung bases. Images are reviewed in the axial, sagittal, and coronal planes. IV contrast was administered without complication. A dose lowering technique was utilized adhering to the principles of ALARA. CT DOSE: 1520.22 mGy.cm FINDINGS: Thyroid: There is a 4 mm right lobe thyroid nodule. No further workup is indicated. Thoracic aorta: The thoracic aorta is normal in course and caliber, noting standard 3-vessel arch anatomy. No aneurysm or dissection is seen. Pulmonary vasculature: The pulmonary trunk is normal in caliber. There are no central filling defects identified to suggest pulmonary embolus. Note that this examination was not protocoled for the evaluation of pulmonary emboli. HEART: There are coronary artery calcifications. There is no pericardial effusion. Lungs and pleural spaces: There are no pleural effusions. There is dependent atelectasis. There is no pneumothorax. There is no evidence of pulmonary contusion. There is a calcified right upper lobe granuloma Mediastinum: There is no evidence of pathologic mediastinal lymphadenopathy Amy: There is known to pathologic hilar lymphadenopathy Axilla: There is no evidence of pathologic axillary lymphadenopathy Upper abdomen: There is a moderate hiatal hernia. Skeletal structures: There are old right-sided rib fractures. No acute fractures are visualized IMPRESSION: 1. No acute intrathoracic findings. No evidence of acute intrathoracic injury CT OF THE CERVICAL SPINE CLINICAL HISTORY: Neck pain status post trauma COMPARISON STUDY: 02/04/2016 CT DOSE: TECHNIQUE: CT scan of the cervical spine was performed from the skull base to the thoracic inlet. Images are reviewed in the axial, sagittal, and coronal plan es. IV contrast was not administered for this examination. A dose lowering technique was utilized adhering to the principles of ALARA. FINDINGS: The visualized portions of the lung apices reveal no evidence of pneumothorax. The prevertebral soft tissues are normal. No fractures or traumatic mosquera bluxations are visualized. There are multilevel degenerative changes. There is mild anterolisthesis of C4 on C5 C7 on T1 T1 and T2 and T2 on T3. The findings are unchanged the prior study and are felt to be degenerative IMPRESSION: No evidence of acute fracture or traumatic subluxation. CT abd pelvis IV con only CLINICAL HISTORY: Abdominal pain status post trauma COMPARISON STUDY: None. TECHNIQUE: The patient was scanned in a dynamic fashion during intravenous and ministration of 93 cc of Optiray 320. A dose lowering technique was utilized adhering to the principles of ALARA. CT DOSE: FINDINGS: Lower chest: There are basilar atelectatic changes. Is a hiatal hernia Liver: The contrast-enhanced liver is normal in size, contour, and attenuation. There is no intrahepatic biliary ductal dilatation. The hepatic veins and portal veins are patent. Gallbladder: Unremarkable. Spleen: Normal in size and attenuation. Pancreas: Unremarkable. Adrenal glands: Unremarkable. Kidneys: There are subcentimeter renal cysts. No solid renal masses are visualized Bowel: There are no transition zones to indicate bowel obstruction. There are no extraluminal gas collections. Peritoneum: There is no free intraperitoneal air. There is trace fluid within the pelvis and tracking along the posterior peritoneum Vasculature: The abdominal aorta is normal in course and caliber. Adenopathy: None. Pelvic viscera: The uterus is surgically absent. There is a small right-sided bladder diverticulum. There is increased presacral soft tissue which is felt to be secondary to sacral fractures Skeletal structures: There are old right-sided rib fractures. There are acute bilateral sacral body fractures. There is avascular necrosis of the left femoral head. IMPRESSION: 1. No evidence of solid organ injury 2. Multiple sacral fractures 3. Avascular necrosis of the left femoral head 4. Minimal presacral soft tissue, likely secondary to sacral fractures. Trace pelvic fluid and trace fluid/stranding at the posterior margin of the peritoneum. CT lumbar spine wo con CT DOSE: CLINICAL HISTORY: Back pain status post trauma TECHNIQUE: Helical images were acquired in transverse plane. Reformatted sagittal and coronal images were reviewed. A dose lowering technique was utilized adhering to the principles of ALARA. CONTRAST: No contrast was administered COMPARISON STUDY: None. FINDINGS: No acute lumbar fractures are visualized. There is a grade 1 spondylolisthesis of L4 on L5. There are multiple sacral fractures which are only partially visualized on this study. IMPRESSION: 1. No lumbar fractures identified 2. Multiple sacral fractures including the sacral body and both sacral wings. ECG Data Attestation: I personally reviewed and interpreted this ECG as follows: Indication: + syncope Rate (beats per minute): 107 Rhythm: + sinus tachycardia ECG Intervals/blocks: + Normal QRS, + Normal QT and + Normal [place] ECG [place]: + Normal ECG ST segments: + Nonspecific ST abnormalities (She does have some ST/T wave nonspecific abnormalities anterior and laterally) ECG Findings: no Q waves and no PACs Comparison ECG Date: from (02/09/17-rate has increased) Change: the following changes noted (Rate has increased) Blood Pressure Blood Pressure Findings: Elevated blood pressure Blood Pressure Disposition: elevated BP felt to be situational MDM Narrative This patient comes in after suffering a fall several hours before arrival at 11:00. She has some mild dementia but seems to have really no complaints except from the low back pain may be going down her leg. She has no focal neurologic deficits. Her abdomen is benign. She is mildly tachycardic. IV access es tablished a full work-up was done to evaluate her for possible syncopal/cardiac etiology as well as a traumatic work-up. She was given a 500 cc normal saline bolus. Chest x-ray EKG and multiple blood testing was obtained. Also ordered CAT scans of the head neck abdomen and pelvis. She was reassessed frequently. Initially her was not in the room but when he did arrive I talked to him as well. She is had no recent illness. She did fall 2 days ago also and hit her head and she was not seen. She does have an elevated white count of 17 however talking to the patient as well as her she is had no fever or recent illness. She is afebrile here. She is not anemic. She does have a low sodium as well as low potassium and magnesium. She was hydrated with normal saline for the sodium. In regards to magnesium, she was given 1 g IV. Her troponin is negative. She has nothing to suggest acute liver, gallbladder, or pancreas disease. CAT scans were obtained and show multiple sacral fractures otherwise no acute injuries of the chest, abdomen, neck or head. I do think she needs to be admitted for pain management and further evaluation. Unclear whether she had a syncopal episode or not. I discussed this with the and he agrees. I have consulted Dr. Patel to see the patient in ER for these measures. Continuous cardiac monitoring: Due to the concern for syncope, an order was placed for continuous cardiac monitoring. The patient was noted to be in sinus tachycardia with a rate of 105. Impression & Plan Weakness, Dementia of the Alzheimer's type, with early onset, uncomplicated, Hypomagnesemia, Fall, Back pain, Sacral fracture Discharge Plan Visit Data *Final* Discharge Date/Time: 03/08/20 22:45 Chief Complaint: Fall Stated Complaint: FALL ED Provider: Christiano Schulte Discharge Problem: Weakness, Dementia of the Alzheimer's type, with early onset, uncomplicated, Hypomagnesemia, Fall, Back pain, Sacral fracture Patient Disposition: Admitted As Inpatient Discharge Instructions Interventions: ED Discharge Assessment Last Done: 03/08/20 22:45 Discharge Problem: Fall Qualifiers: Encounter type: initial encounter Qualified Code(s): W19.XXXA - Unspecified fall, initial encounter Back pain Qualifiers: Back pain location: low back pain Chronicity: acute Back pain laterality: left Sciatica presence: without sciatica Qualified Code(s): M54.5 - Low back pain Sacral fracture Qualifiers: Encounter type: initial encounter Fracture type: closed Fracture morphology: unspecified fracture morphology Qualified Code(s): S32.10XA - Unspecified fracture of sacrum, initial encounter for closed fracture
[2020-03-08 18:42] LABS: Basophils # (auto) 0.01 K/uL (0-0.2); Basophils % (auto) 0.1 %; Hematocrit (blood only) 36.3 % (37-47); Hemoglobin 12.8 g/dL (12.0-16.0); Immature Granulocytes # (auto) 0.13 K/uL (0.00-0.02); Immature Granulocytes % (auto) 0.8 %; Lymphocytes # (auto) 0.66 K/uL (1.2-3.4); Lymphocytes % (auto) 3.8 %; Mean Corpuscular Hemoglobin 30.7 pg (25-34); Mean Corpuscular Hgb Conc 35.3 g/dL (32-36); Mean Corpuscular Volume 87.1 fL (80-100); Mean Platelet Volume 8.6 fL (7.4-10.4); Monocytes # (auto) 0.46 K/uL (0.11-0.59); Monocytes % (auto) 2.7 %; Neutrophils # (auto) 16.04 K/uL (1.4-6.5); Neutrophils % (auto) 92.6 %; Platelet Count 284 K/uL (130-400); RDW Coefficient of Variation 12.4 % (11.5-14.5); RDW Standard Deviation 39.6 fL (36.4-46.3); Red Blood Count 4.17 M/uL (4.2-5.4)
[2020-03-08 18:53] LABS: INR 1.1 (0.9-1.1); Partial Thromboplastin Ratio 0.9; Partial Thromboplastin Time 25.1 Seconds (21.0-31.0); Prothrombin Time 11.3 Seconds (9.0-12.0)
[2020-03-08 18:58] LABS: Alanine Aminotransferase 29 U/L (12-78); Albumin Level 3.3 gm/dl (3.4-5.0); Aspartate Aminotransferase 32 U/L (15-37); BUN Creatinine Ratio 17.3 (10-20); Blood Urea Nitrogen 16 mg/dl (7-18); Calcium 8.9 mg/dl (8.5-10.1); Carbon Dioxide 26 mmol/L (21-32); Chloride 91 mmol/L (98-107); Est GFR (African American) 64.6; Est GFR (Non-African American) 55.8; Glucose 150 mg/dl (70-99); Magnesium 1.2 mg/dl (1.8-2.4); Potassium 2.9 mmol/L (3.5-5.1); Sodium 127 mmol/L (136-145)
[2020-03-08 19:00] LABS: iSTAT Creatinine 0.7 mg/dl (0.6-1.3); iSTAT Hemoglobin 12.9 g/dl (12.0-16.0); iSTAT Ionized Calcium 1.08 mmol/l (1.12-1.32)
[2020-03-08 19:09] LABS: Albumin Globulin Ratio 0.8 (0.9-2); Alkaline Phosphatase 132 U/L (45-117); Bilirubin,Total 0.8 mg/dl (0.2-1); Globulin 4.3 gm/dl (2.5-4.0); Thyroid Stimulating Hormone 0.494 uIu/ml (0.300-4.500); Total Protein 7.6 gm/dl (6.4-8.2); Troponin I < 0.015 ng/ml (0-0.045)
[2020-03-08] MEDS ORDERED: IOVERSOL 100ml IV ONE (19:32)
[2020-03-08] MEDS: MAGNESIUM SULFATE / D5W 1 GM/100 ML BAG IV SCH ×2 (19:57→21:00)
--- NOTE | 2020-03-08 19:59 | CT Scan Report ---
CT head/brain wo con CLINICAL HISTORY: syncope COMPARISON STUDY: 02/07/2017 TECHNIQUE: Axial CT of the brain is performed from the vertex to the skull base. IV contrast was not administered for this examination. A dose lowering technique was utilized adhering to the principles of ALARA. CT DOSE: FINDINGS: No intra or extra-axial mass lesions are visualized. There is no CT evidence of acute cortical infarc tion. There is no evidence of midline shift. There is no acute hemorrhage. No calvarial fractures ar e visualized. There are patchy white matter hypodensities likely on a small vessel basis. There is mild ventricular dilatation likely secondary to volume loss There is no evidence of acute sinusitis IMPRESSION: No acute intracranial findings ACT 112: Negative or not required by law. Electronically signed by: Willy Holliday M.D. 03/08/2020 7:57 PM
--- NOTE | 2020-03-08 20:02 | CT Scan Report ---
CT OF THE CERVICAL SPINE CLINICAL HISTORY: Neck pain status post trauma COMPARISON STUDY: 02/04/2016 CT DOSE: TECHNIQUE: CT scan of the cervical spine was performed from the skull base to the thoracic inlet. Dimple ges are reviewed in the axial, sagittal, and coronal planes. IV contrast was not administered for thi s examination. A dose lowering technique was utilized adhering to the principles of ALARA. FINDINGS: The visualized portions of the lung apices reveal no evidence of pneumothorax. The prevertebral soft tissues are normal. No fractures or traumatic subluxations are visualized. There are multilevel degenerative changes. There is mild anterolisthesis of C4 on C5 C7 on T1 T1 and T2 and T2 on T3. The findings are unchanged the prior study and are felt to be degenerative IMPRESSION: No evidence of acute fracture or traumatic subluxation. ACT 112: Negative or not required by law. Electronically signed by: Willy Holliday M.D. 03/08/2020 8:00 PM
--- NOTE | 2020-03-08 20:04 | CT Scan Report ---
CT OF THE CHEST WITH IV CONTRAST CLINICAL HISTORY: Chest pain status post trauma COMPARISON STUDY: No previous studies for comparison. TECHNIQUE: Following the IV administration of 93 mL of Optiray-320, CT of the thorax was performed f rom the thoracic inlet to the lung bases. Images are reviewed in the axial, sagittal, and coronal vera imani. IV contrast was administered without complication. A dose lowering technique was utilized adher ing to the principles of ALARA. CT DOSE: 1520.22 mGy.cm FINDINGS: Thyroid: There is a 4 mm right lobe thyroid nodule. No further workup is indicated. Thoracic aorta: The thoracic aorta is normal in course and caliber, noting standard 3-vessel arch kamar luis alberto. No aneurysm or dissection is seen. Pulmonary vasculature: The pulmonary trunk is normal in caliber. There are no central filling defects identified to suggest pulmonary embolus. Note that this examination was not protocoled for the evalu ation of pulmonary emboli. HEART: There are coronary artery calcifications. There is no pericardial effusion. Lungs and pleural spaces: There are no pleural effusions. There is dependent atelectasis. There is no pneumothorax. There is no evidence of pulmonary contusion. There is a calcified right upper lobe gra nuloma Mediastinum: There is no evidence of pathologic mediastinal lymphadenopathy Amy: There is known to pathologic hilar lymphadenopathy Axilla: There is no evidence of pathologic axillary lymphadenopathy Upper abdomen: There is a moderate hiatal hernia. Skeletal structures: There are old right-sided rib fractures. No acute fractures are visualized IMPRESSION: 1. No acute intrathoracic findings. No evidence of acute intrathoracic injury ACT 112: Negative or not required by law. Electronically signed by: Willy Holliday M.D. 03/08/2020 8:03 PM
--- NOTE | 2020-03-08 20:10 | CT Scan Report ---
CT abd pelvis IV con only CLINICAL HISTORY: Abdominal pain status post trauma COMPARISON STUDY: None. TECHNIQUE: The patient was scanned in a dynamic fashion during intravenous and ministration of 93 cc of Optiray 320. A dose lowering technique was utilized adhering to the principles of ALARA. CT DOSE: FINDINGS: Lower chest: There are basilar atelectatic changes. Is a hiatal hernia Liver: The contrast-enhanced liver is normal in size, contour, and attenuation. There is no intrahepa tic biliary ductal dilatation. The hepatic veins and portal veins are patent. Gallbladder: Unremarkable. Spleen: Normal in size and attenuation. Pancreas: Unremarkable. Adrenal glands: Unremarkable. Kidneys: There are subcentimeter renal cysts. No solid renal masses are visualized Bowel: There are no transition zones to indicate bowel obstruction. There are no extraluminal gas col lections. Peritoneum: There is no free intraperitoneal air. There is trace fluid within the pelvis and tracking along the posterior peritoneum Vasculature: The abdominal aorta is normal in course and caliber. Adenopathy: None. Pelvic viscera: The uterus is surgically absent. There is a small right-sided bladder diverticulum. T here is increased presacral soft tissue which is felt to be secondary to sacral fractures Skeletal structures: There are old right-sided rib fractures. There are acute bilateral sacral body f ractures. There is avascular necrosis of the left femoral head. IMPRESSION: 1. No evidence of solid organ injury 2. Multiple sacral fractures 3. Avascular necrosis of the left femoral head 4. Minimal presacral soft tissue, likely secondary to sacral fractures. Trace pelvic fluid and trace fluid/stranding at the posterior margin of the peritoneum. ACT 112: Negative or not required by law. Electronically signed by: Willy Holliday M.D. 03/08/2020 8:09 PM
--- NOTE | 2020-03-08 20:12 | CT Scan Report ---
CT lumbar spine wo con CT DOSE: CLINICAL HISTORY: Back pain status post trauma TECHNIQUE: Helical images were acquired in transverse plane. Reformatted sagittal and coronal images were reviewed. A dose lowering technique was utilized adhering to the principles of ALARA. CONTRAST: No contrast was administered COMPARISON STUDY: None. FINDINGS: No acute lumbar fractures are visualized. There is a grade 1 spondylolisthesis of L4 on L5. There are multiple sacral fractures which are only partially visualized on this study. IMPRESSION: 1. No lumbar fractures identified 2. Multiple sacral fractures including the sacral body and both sacral wings. ACT 112: Negative or not required by law. Electronically signed by: Willy Holliday M.D. 03/08/2020 8:11 PM
[2020-03-08 21:46] LABS: Appearance Urine Cloudy (Clear); Bacteria Urine Automated 1+ (Negative); Bilirubin Urine Negative (Negative); Blood Urine Trace (Negative); Color Urine Yellow; Epithelial Cell Urine Auto >30 /lpf (0-5); Glucose Urine UA Negative (Negative); Ketones Urine Negative (Negative); Leukocyte Esterase Urine Trace (Negative); Nitrite Urine Negative (Negative); Protein Urine 1+ (Negative); Specific Gravity Urine 1.038 (1.000-1.030); Urobilinogen Urine Negative (Negative)
--- NOTE | 2020-03-08 21:49 | History & Physical Report ---
Date of Service March 08, 2020 Assessment & Plan (1) Sacral fracture, closed: X-rays and CT note multiple sacral fractures including body and bilateral wings/left femoral head avascular necrosis/back pain with pain radiating down left leg- Admit to nonmonitored bed. Consult PT/OT. Consult orthopedic surgery. is very supportive, and would anticipate patient returning home in his care. The patient will be a full admission, as recommended in discussion with case management Present on Admission?: Yes (2) Fall: feels this has been a mechanical fall, as patient has not had any neurologic or cardiac precipitating symptoms. Present on Admission?: Yes (3) Hypertension: Hold HCTZ 50 mg daily due to significant laboratory electrolyte abnormalities: Hypo-natremia, hypokalemia, hypomagnesemia. Replace magnesium via IV. Place patient on NSS + KCl 20 mEq at 100 mils per hour. Continue atenolol 25 mg p.o. daily and aspirin 81 mg daily Repeat laboratories in a.m. Present on Admission?: Yes (4) Hypomagnesemia: Replace with IV magnesium, and repeat labs in a.m. Present on Admission?: Yes (5) Hypokalemia: See above Present on Admission?: Yes (6) Hyponatremia: See above Present on Admission?: Yes (7) Dementia of the Alzheimer's type, with early onset, uncomplicated: Patient is well taken care of by her , and anticipation is for patient to return home in his care. Present on Admission?: Yes (8) Familial hypercholesteremia: Continue atorvastatin 20 mg in evening Present on Admission?: Yes (9) Obstructive sleep apnea of adult: If necessary will supply CPAP at bedtime Present on Admission?: Yes (10) Macular degeneration: Noted. Present on Admission?: Yes (11) Rheumatoid arthritis: No overt treatment noted Present on Admission?: Yes History of Present Illness Chief Complaint: Patient presents to the emergency department after an unwitnessed fall, heard by her , that occurred around 11:00 AM. Primary Care Provider: Gurjit Garrett MD The patient is AN 84-year-old female with a past medical history including SDA T, familial hypercholesterolemia, hyperglycemia, hypertension, macular degeneration, KRISTA, osteoarthritis and rheumatoid arthritis. The patient complained of pain in her left lower back area and down her left leg accompanied by tingling, after the fall noted above. In the emergency department, work-up included x-rays and CT which showed multiple sacral fractures including the body and bilateral wings, and left femoral head avascular necrosis. Allergies Allergy/AdvReac Type Severity Reaction Status Date / Time No Known Allergies Allergy Unverified 03/08/20 21:11 Home Medications Home Medications Medication Instructions Recorded Confirmed Type cyanocobalamin (vitamin B-12) 100 50 mcg PO DAILY tab 03/30/19 03/08/20 History mcg tablet omeprazole 40 mg capsule,delayed 40 mg PO DAILY cap 03/30/19 03/08/20 History release atenolol 25 mg tablet 25 mg PO DAILY #90 tab 05/19/19 03/08/20 Rx escitalopram oxalate 10 mg tablet 10 mg PO DAILY #90 tab 05/19/19 03/08/20 Rx atorvastatin 20 mg tablet 20 mg PO QPM #90 tab 09/27/19 03/08/20 Rx alprazolam 0.25 mg tablet 0.25 mg PO DAILY #50 tab 02/15/20 03/08/20 Rx aspirin [Aspir-81] 81 mg PO DAILY 03/08/20 03/08/20 History hydrochlorothiazide 50 mg PO DAILY 03/08/20 03/08/20 History Past Med/Surg History Medical History Dementia of the Alzheimer's type, with early onset, uncomplicated (Chronic) Familial hypercholesteremia (Chronic) Hyperglycemia (Chronic) Hypertension (Chronic) Macular degeneration (Chronic) Obstructive sleep apnea of adult (Chronic) Osteoarthritis (Chronic) Osteoporosis (Chronic) Pain and swelling of right wrist (Chronic) Pain in right knee (Chronic) Right hip pain (Chronic) Social History Smoking Status: Former smoker Second Hand Exposure: No; Do You Dip or Chew Tobacco: No; Tobacco Cessation Education Requested by Patient: No Hx Alcohol Use: Yes Alcohol type: wine Hx Substance Use: No Preferred Language: [place] Communication Ability: Effective Grizz[place] Required: No Beliefs That Will Affect Care: None Current Living Situation: Spouse Other Information That Helps Us Care for You: No Feels Safe at Home: Yes Safety Concerns: Feels Safe At This Time Review of Systems Review of Systems: Unobtainable due to cognitive status The patient's provides all of the information for HPI and review of systems Physical Exam Physical Exam: The patient is awake, well developed and well nourished, normocephalic and atraumatic, lying in bed and in no acute distress. HEENT--PERRL, EOMI, mucous membranes and oropharynx normal. Neck--supple. No JVD. No bruits. Thyroid normal, trachea midline, no adenopathy. Heart--normal S1 and S2. No murmurs, rubs or gallops. Lungs--clear bilaterally, no respiratory distress, no accessory muscle use. Abdomen--normal bowel sounds and soft. Nontender. Nondistended. Extremities--no cyanosis or clubbing. No edema. Dermatologic--normal skin turgor, normal color. Neurologic--cranial nerves II through XII grossly intact. Rheumatologic--limited exam due to pain Psychiatric--dementia Results & Data Results & Data ([facility]) Vital Signs (Past 12 Hours) Vital Signs Temp Pulse Resp BP Pulse Ox 03/08/20 20:00 107 H 21 159/87 H 100 03/08/20 19:53 105 H 24 161/91 H 100 03/08/20 19:00 101 H 24 100 03/08/20 18:30 107 H 21 89 L 03/08/20 18:02 99.3 F 116 H 24 193/96 H 93 Laboratory Results Laboratory Results WBC 17.30 K/uL (4.8-10.8) H 03/08/20 18:30 RBC 4.17 M/uL (4.2-5.4) L 03/08/20 18:30 Hgb 12.8 g/dL (12.0-16.0) 03/08/20 18:30 POC Hgb 12.9 g/dl (12.0-16.0) 03/08/20 18:37 Hct 36.3 % (37-47) L 03/08/20 18:30 POC Hct 38 % (37-47) 03/08/20 18:37 MCV 87.1 fL (80-100) 03/08/20 18:30 MCH 30.7 pg (25-34) 03/08/20 18:30 MCHC 35.3 g/dL (32-36) 03/08/20 18:30 RDW Std Deviation 39.6 fL (36.4-46.3) 03/08/20 18:30 RDW Coeff of Hawa 12.4 % (11.5-14.5) 03/08/20 18: Plt Count 284 K/uL (130-400) 03/08/20 18:30 MPV 8.6 fL (7.4-10.4) 03/08/20 18:30 Immature Gran % (Auto) 0.8 % 03/08/20 18:30 Neut % (Auto) 92.6 % 03/08/20 18:30 Lymph % (Auto) 3.8 % 03/08/20 18:30 [place] % (Auto) 2.7 % 03/08/20 18:30 Eos % (Auto) 0.0 % 03/08/20 18:30 Baso % (Auto) 0.1 % 03/08/20 18:30 Neut # (Auto) 16.04 K/uL (1.4-6.5) H 03/08/20 18:30 Lymph # (Auto) 0.66 K/uL (1.2-3.4) L 03/08/20 18:30 [place] # (Auto) 0.46 K/uL (0.11-0.59) 03/08/20 18:30 Eos # (Auto) 0.00 K/uL (0-0.5) 03/08/20 18:30 Baso # (Auto) 0.01 K/uL (0-0.2) 03/08/20 18:30 Immature Gran # (Auto) 0.13 K/uL (0.00-0.02) H 03/08/20 18:30 PT 11.3 Seconds (9.0-12.0) 03/08/20 18:30 INR 1.1 (0.9-1.1) 03/08/20 18:30 APTT 25.1 Seconds (21.0-31.0) 03/08/20 18: PTT Ratio 0.9 03/08/20 18:30 POC Sodium 127 mmol/L (135-144) L 03/08/20 18:37 Sodium 127 mmol/L (136-145) L 03/08/20 18:30 POC Potassium 3.0 mmol/L (3.3-5.0) L 03/08/20 18:37 Potassium 2.9 mmol/L (3.5-5.1) L 03/08/20 18:30 POC Chloride 88 mmol/L (101-112) L 03/08/20 18:37 Chloride 91 mmol/L (98-107) L 03/08/20 18:30 Carbon Dioxide 26 mmol/L (21-32) 03/08/20 18:30 POC Total CO2 26 mmol/L (24-31) 03/08/20 18:37 Anion Gap 11.0 (3-11) 03/08/20 18:30 POC Anion Gap 18.0 mmol/L (16-25) 03/08/20 18:37 POC BUN 15 mg/dl (7-18) 03/08/20 18:37 BUN 16 mg/dl (7-18) 03/08/20 18:30 Creatinine 0.95 mg/dl (0.6-1.2) 03/08/20 18:30 POC Creatinine 0.7 mg/dl (0.6-1.3) 03/08/20 18:37 Est Cr Clr Drug Dosing Not Reportable 03/08/20 18:30 Est GFR ( Amer) 64.6 03/08/20 18:30 Est GFR (Non-Af Amer) 55.8 03/08/20 18:30 BUN/Creatinine Ratio 17.3 (10-20) 03/08/20 18:30 Glucose 150 mg/dl (70-99) H 03/08/20 18:30 POC Glucose (other) 160 mg/dl (70-99) H 03/08/20 18:37 Calcium 8.9 mg/dl (8.5-10.1) 03/08/20 18:30 POC Ioniz Calcium Henok 1.08 mmol/l (1.12-1.32) L 03/08/20 18:37 Magnesium 1.2 mg/dl (1.8-2.4) L 03/08/20 18:30 Total Bilirubin 0.8 mg/dl (0.2-1) 03/08/20 18:30 AST 32 U/L (15-37) 03/08/20 18:30 ALT 29 U/L (12-78) 03/08/20 18:30 Alkaline Phosphatase 132 U/L (45-117) H 03/08/20 18:30 Troponin I < 0.015 ng/ml (0-0.045) 03/08/20 18:30 Total Protein 7.6 gm/dl (6.4-8.2) 03/08/20 18:30 Albumin 3.3 gm/dl (3.4-5.0) L 03/08/20 18:30 Globulin 4.3 gm/dl (2.5-4.0) H 03/08/20 18:30 Albumin/Globulin Ratio 0.8 (0.9-2) L 03/08/20 18:30 TSH 0.494 uIu/ml (0.300-4.500) 03/08/20 18:30 Urine Color Yellow 03/08/20 21:15 Urine Appearance Cloudy (Clear) A 03/08/20 21:15 Urine pH 7.0 (4.5-7.5) 03/08/20 21:15 Ur Specific [place] 1.038 (1.000-1.030) H 03/08/20 21:15 Urine Protein 1+ (Negative) H 03/08/20 21:15 Urine Glucose (UA) Negative (Negative) 03/08/20 21:15 Urine Ketones Negative (Negative) 03/08/20 21:15 Urine Blood Trace (Negative) H 03/08/20 21:15 Urine Nitrite Negative (Negative) 03/08/20 21:15 Urine Bilirubin Negative (Negative) 03/08/20 21:15 Urine Urobilinogen Negative (Negative) 03/08/20 21:15 Ur Leukocyte Esterase Trace (Negative) H 03/08/20 21:15 Urine WBC (Auto) 1-5 /hpf (0-5) 03/08/20 21:15 Urine RBC (Auto) 0-4 /hpf (0-4) 03/08/20 21:15 U Hyaline Cast (Auto) 1-5 /lpf (0-5) 03/08/20 21:15 U Epithel Cells (Auto) >30 /lpf (0-5) H 03/08/20 21:15 Urine Bacteria (Auto) 1+ (Negative) H 03/08/20 21:15 Calcium Oxalate Crystal Present (None Prsent) A 03/08/20 21:15 Urine Yeast Not Reportable 03/08/20 21:15 Diagnostic Findings [place], [place] [phone] CT Scan Report Patient: NUBIA IRAHETAAdmit Date: 03/08/20 MR#: [id number]: [address] Acct ID:[id number]: Date: [address] Zip: [place] [address] Age: 84Location: ED Sex: F Room/Bed: Att Phy:Diagnosis: FALL Dania Phy: Gurjit Garrett MDService Date: 03/08/20 Fam Phy:Interpreting Phy: Willy Holliday MD Admit Phy: Ordering Phy: Christiano Schulte M.D. cc: ~ CT abd pelvis IV con only CLINICAL HISTORY: Abdominal pain status post trauma COMPARISON STUDY: None. TECHNIQUE: The patient was scanned in a dynamic fashion during intravenous and ministration of 93 cc of Optiray 320. A dose lowering technique was utilized adhering to the principles of ALARA. CT DOSE: FINDINGS: Lower chest: There are basilar atelectatic changes. Is a hiatal hernia Liver: The contrast-enhanced liver is normal in size, contour, and attenuation. There is no intrahepatic biliary ductal dilatation. The hepatic veins and portal veins are patent. Gallbladder: Unremarkable. Spleen: Normal in size and attenuation. Pancreas: Unremarkable. Adrenal glands: Unremarkable. Kidneys: There are subcentimeter renal cysts. No solid renal masses are visualized Bowel: There are no transition zones to indicate bowel obstruction. There are no extraluminal gas collections. Peritoneum: There is no free intraperitoneal air. There is trace fluid within the pelvis and tracking along the posterior peritoneum Vasculature: The abdominal aorta is normal in course and caliber. Adenopathy: None. Pelvic viscera: The uterus is surgically absent. There is a small right-sided bladder diverticulum. There is increased presacral soft tissue which is felt to be secondary to sacral fractures Skeletal structures: There are old right-sided rib fractures. There are acute bilateral sacral body fractures. There is avascular necrosis of the left femoral head. IMPRESSION: 1. No evidence of solid organ injury 2. Multiple sacral fractures 3. Avascular necrosis of the left femoral head 4. Minimal presacral soft tissue, likely secondary to sacral fractures. Trace pelvic fluid and trace fluid/stranding at the posterior margin of the peritoneum. ACT 112: Negative or not required by law. Electronically signed by: Willy Holliday M.D. 03/08/2020 8:09 PM Dictated: 03/08/202002 Transcribed: 03/08/202002 [place], [place] [phone] CT Scan Report Patient: NUBIA IRAHETAAdmit Date: 03/08/20 MR#: [id number]: [address] Acct ID:[id number]: Date: 1935City Zip: [place] [address] Age: 84Location: ED Sex: F Room/Bed: Att Phy:Diagnosis: FALL Dania Phy: Gurjit Garrett MDService Date: 03/08/20 Fam Phy:Interpreting Phy: Willy Holliday MD Admit Phy: Ordering Phy: Christiano Schulte M.D. cc: ~ CT OF THE CERVICAL SPINE CLINICAL HISTORY: Neck pain status post trauma COMPARISON STUDY: 02/04/2016 CT DOSE: TECHNIQUE: CT scan of the cervical spine was performed from the skull base to the thoracic inlet. Images are reviewed in the axial, sagittal, and coronal planes. IV contrast was not administered for this examination. A dose lowering technique was utilized adhering to the principles of ALARA. FINDINGS: The visualized portions of the lung apices reveal no evidence of pneumothorax. The prevertebral soft tissues are normal. No fractures or traumatic subluxations are visualized. There are multilevel degenerative changes. There is mild anterolisthesis of C4 on C5 C7 on T1 T1 and T2 and T2 on T3. The findings are unchanged the prior study and are felt to be degenerative IMPRESSION: No evidence of acute fracture or traumatic subluxation. ACT 112: Negative or not required by law. Electronically signed by: Willy Holliday M.D. 03/08/2020 8:00 PM Dictated: 03/08/201956 Transcribed: 03/08/201956 [place], [place] [phone] CT Scan Report Patient: NUBIA IRAHETAAdmit Date: 03/08/20 MR#: [id number]: [address] ID:[id number]: Date: 1935[facility] Zip: [place] [address] Age: 84Location: ED Sex: F Room/Bed: Att Phy:Diagnosis: FALL Dania Phy: Gurjit Garrett MDService Date: 03/08/20 Fam Phy:Interpreting Phy: Willy Holliday MD Admit Phy: Ordering Phy: Christiano Schulte M.D. cc: ~ CT lumbar spine wo con CT DOSE: CLINICAL HISTORY: Back pain status post trauma TECHNIQUE: Helical images were acquired in transverse plane. Reformatted sagittal and coronal images were reviewed. A dose lowering technique was utilized adhering to the principles of ALARA. CONTRAST: No contrast was administered COMPARISON STUDY: None. FINDINGS: No acute lumbar fractures are visualized. There is a grade 1 spondylolisthesis of L4 on L5. There are multiple sacral fractures which are only partially visualized on this study. IMPRESSION: 1. No lumbar fractures identified 2. Multiple sacral fractures including the sacral body and both sacral wings. ACT 112: Negative or not required by law. Electronically signed by: Willy Holliday M.D. 03/08/2020 8:11 PM Dictated: 03/08/202008 Transcribed: 03/08/202008 [place], [place] [phone] CT Scan Report Patient: NUBIA IRAHETAAdmit Date: 03/08/20 MR#: [id number]: [address] Acct ID:[id number]: Date: 1935[facility] Zip: [place] [address] Age: 84Location: ED Sex: F Room/Bed: Att Phy:Diagnosis: FALL Dania Phy: Gurjit Garrett MDService Date: 03/08/20 Fam Phy:Interpreting Phy: Willy Holliday MD Admit Phy: Ordering Phy: Christiano Schulte M.D. cc: ~ CT head/brain wo con CLINICAL HISTORY: syncope COMPARISON STUDY: 02/07/2017 TECHNIQUE: Axial CT of the brain is performed from the vertex to the skull base. IV contrast was not administered for this examination. A dose lowering technique was utilized adhering to the principles of ALARA. CT DOSE: FINDINGS: No intra or extra-axial mass lesions are visualized. There is no CT evidence of acute cortical infarction. There is no evidence of midline shift. There is no acute hemorrhage. No calvarial fractures are visualized. There are patchy white matter hypodensities likely on a small vessel basis. There is mild ventricular dilatation likely secondary to volume loss There is no evidence of acute sinusitis IMPRESSION: No acute intracranial findings ACT 112: Negative or not required by law. Electronically signed by: Willy Holliday M.D. 03/08/2020 7:57 PM Dictated: 03/08/201955 Transcribed: 03/08/201955 [place], [place] [phone] CT Scan Report Patient: NUBIA IRAHETAAdmit Date: 03/08/20 MR#: [id number]: [facility] [facility] Acct ID:[id number]: Date: 1935[facility] Zip: [place] [address] Age: 84Location: ED Sex: F Room/Bed: Att Phy:Diagnosis: FALL Dania Phy: Gurjit Garrett MDService Date: 03/08/20 Fam Phy:Interpreting Phy: Willy Holliday MD Admit Phy: Ordering Phy: Christiano Schulte M.D. cc: ~ CT OF THE CHEST WITH IV CONTRAST CLINICAL HISTORY: Chest pain status post trauma COMPARISON STUDY: No previous studies for comparison. TECHNIQUE: Following the IV administration of 93 mL of Optiray-320, CT of the thorax was performed from the thoracic inlet to the lung bases. Images are reviewed in the axial, sagittal, and coronal planes. IV contrast was administered without complication. A dose lowering technique was utilized adhering to the principles of ALARA. CT DOSE: 1520.22 mGy.cm FINDINGS: Thyroid: There is a 4 mm right lobe thyroid nodule. No further workup is indicated. Thoracic aorta: The thoracic aorta is normal in course and caliber, noting standard 3-vessel arch anatomy. No aneurysm or dissection is seen. Pulmonary vasculature: The pulmonary trunk is normal in caliber. There are no central filling defects identified to suggest pulmonary embolus. Note that this examination was not protocoled for the evaluation of pulmonary emboli. HEART: There are coronary artery calcifications. There is no pericardial effusion. Lungs and pleural spaces: There are no pleural effusions. There is dependent atelectasis. There is no pneumothorax. There is no evidence of pulmonary contusion. There is a calcified right upper lobe granuloma Mediastinum: There is no evidence of pathologic mediastinal lymphadenopathy Amy: There is known to pathologic hilar lymphadenopathy Axilla: There is no evidence of pathologic axillary lymphadenopathy Upper abdomen: There is a moderate hiatal hernia. Skeletal structures: There are old right-sided rib fractures. No acute fractures are visualized IMPRESSION: 1. No acute intrathoracic findings. No evidence of acute intrathoracic injury ACT 112: Negative or not required by law. Electronically signed by: Willy Holliday M.D. 03/08/2020 8:03 PM Dictated: 03/08/201999 Transcribed: 03/08/201999 Code Status & VTE Plan Code Status Full code VTE Prophylaxis Plan VTE Prophylaxis will be ordered: Yes PG Care Time/CCT Total # of Minutes Spent Total Time Spent with Patient: Total time spent is greater than 50% in coordination of care (as documented) at patient's floor/unit and/or counseling patient: Coding Level of Care Code 19429 Initial Inpt Care Lvl 3 Diagnoses Sacral fracture, closed S32.10XA Fall W19.XXXA Encounter type: initial encounter Hypertension I10 Hypomagnesemia E83.42 Hypokalemia E87.6 Hyponatremia E87.1 Dementia of the Alzheimer's type, with early onset, uncomplicated G30.0; F02.80 Familial hypercholesteremia E78.01 Obstructive sleep apnea of adult G47.33 Macular degeneration H35.30 Rheumatoid arthritis M06.9 (1) Fall Encounter type: initial encounter Qualified Code(s): W19.XXXA - Unspecified fall, initial encounter
[2020-03-08 22:06] LABS: Calcium Oxalate Crystals Urine Present (None Prsent)
[2020-03-08 22:07] LABS: RBC Urine Automated 0-4 /hpf (0-4)
[2020-03-08] MEDS ORDERED: MAGNESIUM HYDROXIDE SUSP 30 ML UDC PO PRN (23:15)
[2020-03-08] MEDS ORDERED: ONDANSETRON INJ 2 MG/ML 2 ML VIAL IV PRN (23:15)
[2020-03-08] MEDS ORDERED: ALUMINUM/MAGNESIUM SUSP 30 ML UDC PO PRN (23:15)
[2020-03-09] MEDS: NSS + 20MEQ KCL 20 MEQ/1,000 ML BAG IV SCH ×3 (00:22→19:44)
[2020-03-09] MEDS: MAGNESIUM SULFATE / D5W 1 GM/100 ML BAG IV SCH ×2 (00:22→02:28)
[2020-03-09] MEDS: ACETAMINOPHEN 325 MG TAB PO PRN ×3 (06:28→17:37)
[2020-03-09 07:52] LABS: Basophils # (auto) 0.01 K/uL (0-0.2); Basophils % (auto) 0.1 %; Hemoglobin 11.1 g/dL (12.0-16.0); Immature Granulocytes # (auto) 0.03 K/uL (0.00-0.02); Immature Granulocytes % (auto) 0.3 %; Lymphocytes # (auto) 0.49 K/uL (1.2-3.4); Lymphocytes % (auto) 4.9 %; Mean Corpuscular Hemoglobin 31.6 pg (25-34); Mean Corpuscular Hgb Conc 35.8 g/dL (32-36); Mean Corpuscular Volume 88.3 fL (80-100); Mean Platelet Volume 8.3 fL (7.4-10.4); Neutrophils # (auto) 8.71 K/uL (1.4-6.5); Neutrophils % (auto) 87.7 %; Platelet Count 202 K/uL (130-400); RDW Coefficient of Variation 12.6 % (11.5-14.5); RDW Standard Deviation 40.1 fL (36.4-46.3); Red Blood Count 3.51 M/uL (4.2-5.4); White Blood Count 9.94 K/uL (4.8-10.8)
--- NOTE | 2020-03-09 08:06 | Consultation Report ---
DATE OF CONSULTATION: 03/09/2020 ORTHOPEDIC CONSULTATION CHIEF COMPLAINT: The patient has back pain. HISTORY OF PRESENT ILLNESS: The patient had an unwitnessed fall by reports. She states that it occurred 2 days ago, but she came in yesterday. She was admitted through the ER after obtaining multiple studies. She denies any recent illness or exposure to COVID and denies any upper respiratory complaints. She denies any headache or neck pain. She notes that her hands are without any gross change and/or deformities are baseline. MEDICATIONS: Include omeprazole, atenolol, escitalopram, atvorstatin, alprazolam, aspirin, hydrochlorothiazide. ALLERGIES: None. PAST SURGICAL/PAST MEDICAL HISTORY: Remarkable for Alzheimer's type dementia, hypercholesterolemia, hyperglycemia, hypertension, macular degeneration, COPD, osteoarthritis, osteoporosis, chronic rheumatoid disease, pain and swelling of multiple joints. SOCIAL HISTORY: Reveals she is , former smoker, speaks [place] well. Lives with her spouse. REVIEW OF SYSTEMS: Reveals no chest pain, shortness of breath, fever, chills, nausea, vomiting or headache. I reviewed all of her CT scans which revealed a sacral ala fractures with minimal displacement. AVN of both hips. PHYSICAL EXAMINATION: Reveals no tenderness over the sternum, has a chronic deformity in both upper extremities, right greater than left. Has significant bursa on the right wrist. These are secondary to rheumatoid the destructive arthritis. She can move her shoulders and elbows and her neck without any pain. She has no abdominal pain. She has pain with movement of her hip, but it is in the back. There is no groin pain. Neurovascular check distally is grossly normal. Knee, foot and ankle exam other than rheumatoid deformity revealed no finding. ASSESSMENT: Bilateral sacral ala fractures. At this point in time, the patient is an extremely high fall risk for multiple reasons including her dementia, her visual issues and her rheumatoid disease. Suggest PT, OT with a platform type walker to help protect her wrists, elbows and shoulders from her rheumatoid disease. She will need case management assessment MARIZA. Likely will need placement based on risk of falling and need for assistance. Orders placed for PT, OT and case management. DIMITRIS
[2020-03-09 08:23] LABS: BUN Creatinine Ratio 15.6 (10-20); Calcium 8.3 mg/dl (8.5-10.1); Creatinine Clr Calc Pharmacy 49.6 ml/min; Est GFR (African American) 90.4; Magnesium 2.4 mg/dl (1.8-2.4); Phosphorus 2.7 mg/dl (2.5-4.9); Potassium 2.9 mmol/L (3.5-5.1)
[2020-03-09] MEDS: CYANOCOBALAMIN (VITAMIN B-12) 100 MCG TABLET PO SCH (09:34)
[2020-03-09] MEDS: ASPIRIN 81 MG ECTAB PO SCH (09:35)
[2020-03-09] MEDS: ESCITALOPRAM OXALATE 10 MG TAB PO SCH (09:35)
[2020-03-09] MEDS: PANTOprazole 40 MG TAB PO SCH (09:35)
[2020-03-09] MEDS: ATENOLOL 25 MG TABLET PO SCH (09:35)
[2020-03-09] MEDS: HEPARIN SOD 5,000 UNIT/0.5 ML VIAL SQ SCH ×2 (09:36→21:01)
[2020-03-09] MEDS: ALPRAZolam 0.25 MG TABLET PO SCH (09:40)
--- NOTE | 2020-03-09 17:27 | Electrocardiogram Report ---
Test Reason : Blood Pressure : / mmHG Vent. Rate : 107 BPM Atrial Rate : 107 BPM P-R Int : 162 ms QRS Dur : 082 ms QT Int : 340 ms P-R-T Axes : 052 -25 082 degrees QTc Int : 453 ms Sinus tachycardia Possible Left atrial enlargement Incomplete right bundle branch block Left ventricular hypertrophy with repolarization abnormality Abnormal ECG When compared with ECG of 09-FEB-2017 07:16, ST more depressed Lateral leads T wave inversion now evident in Lateral leads Confirmed by Jerod Arreaga ([id number]) on 03/09/2020 5:27:24 PM Referred By: REFERRED SELF Confirmed By:Rajat Arreaga
--- NOTE | 2020-03-09 17:59 | Hospitalist Progress Note ---
Date of Service March 09, 2020 Assessment & Plan (1) Sacral fracture, closed: X-rays and CT note multiple sacral fractures including body and bilateral wings/left femoral head avascular necrosis/back pain. - Pain control - Seen by orthopedics - No surgical intervention warranted. - PT/OT/CM - is very supportive and would anticipate patient returning home in his care. (2) Fall: feels this has been a mechanical fall, as patient has not had any neurologic or cardiac precipitating symptoms. (3) Hypertension: BP presently at 150/75. - Holding HCTZ 50 mg daily due to significant laboratory electrolyte abnormalities - Continue atenolol 25 mg p.o. daily and aspirin 81 mg daily (4) Dementia of the Alzheimer's type, with early onset, uncomplicated: At baseline for me, the patient was AAOx2 and knew the year and the president. Just not to the date/month. - Monitor (5) Familial hypercholesteremia: - Continue atorvastatin 20 mg in evening (6) Obstructive sleep apnea of adult: If necessary, will supply CPAP at bedtime. (7) Rheumatoid arthritis: No overt treatment noted. (8) DVT prophylaxis: Heparin 5000 units Q12h Admission and Anticipated Discharge Date Admission Date: March 08, 2020 Subjective Not in much pain actually when not shifting or moving. Reports no fevers/chills, chest pain, shortness of breath, abdominal pain, nausea, or vomiting. Physical Exam Constitutional: WD/WN, vitals as above Eyes: EOM intact bilaterally; no conjunctival abnormality ENMT: external ear and nose normal, oropharynx normal Neck: trachea midline, no thyromegaly normal visual inspection Respiratory: normal respiratory effort, lungs clear to auscultation no respiratory distress Cardiovascular: RRR, no murmur, no edema Gastrointestinal (Abdomen): Inspection/Auscultation: abdomen normal to inspection; abdomen not distended Musculoskeletal: Extremities: + extremities abnormal to inspection (Bilateral wrist deformities.) Skin: no rashes, warm and dry Neurologic: moves all extremities and awake Psychiatric: Orientation: alert, oriented to person and cooperative Results & Data Results & Data ([facility]) Vital Signs (Past 12 Hours) Vital Signs Temp Pulse Resp BP Pulse Ox 03/09/20 15:20 36.9 C 76 20 148/76 H 100 03/09/20 12:24 75 146/78 H 97 03/09/20 07:55 36.9 C 91 H 18 170/80 H 97 03/09/20 06:23 178/84 H PG Care Time/CCT Total # of Minutes Spent Total Time Spent with Patient: Total time spent is greater than 50% in coordination of care (as documented) at patient's floor/unit and/or counseling patient: Coding Level of Care Code 81527 Subseq Hosp Care Lvl 2 Diagnoses Sacral fracture, closed S32.10XA Fall W19.XXXA Encounter type: initial encounter Hypertension I10 Dementia of the Alzheimer's type, with early onset, uncomplicated G30.0; F02.80 Familial hypercholesteremia E78.01 Obstructive sleep apnea of adult G47.33 Rheumatoid arthritis M06.9 DVT prophylaxis Z29.9 (1) Fall Encounter type: initial encounter Qualified Code(s): W19.XXXA - Unspecified fall, initial encounter
[2020-03-09] MEDS ORDERED: POTASSIUM CHLORIDE 20 MEQ TABCR PO STA (18:14)
[2020-03-09] MEDS: ATORVASTATIN 20 MG TAB PO SCH (21:01)
[2020-03-10 05:30] LABS: Hematocrit (blood only) 31.7 % (37-47); Hemoglobin 10.5 g/dL (12.0-16.0); Mean Corpuscular Hemoglobin 30.1 pg (25-34); Mean Corpuscular Hgb Conc 33.1 g/dL (32-36); Mean Corpuscular Volume 90.8 fL (80-100); Mean Platelet Volume 8.7 fL (7.4-10.4); Platelet Count 222 K/uL (130-400); RDW Coefficient of Variation 12.9 % (11.5-14.5); RDW Standard Deviation 42.4 fL (36.4-46.3); Red Blood Count 3.49 M/uL (4.2-5.4); White Blood Count 9.18 K/uL (4.8-10.8)
[2020-03-10] MEDS: NSS + 20MEQ KCL 20 MEQ/1,000 ML BAG IV SCH (05:59)
[2020-03-10 06:02] LABS: BUN Creatinine Ratio 18.4 (10-20); Creatinine Clr Calc Pharmacy 58.5 ml/min; Est GFR (African American) 97.8; Est GFR (Non-African American) 84.4; Magnesium 1.7 mg/dl (1.8-2.4); Potassium 3.5 mmol/L (3.5-5.1)
[2020-03-10 06:05] LABS: Phosphorus 1.5 mg/dl (2.5-4.9)
[2020-03-10] MEDS ORDERED: POTASSIUM PHOS 3 MMOL/1 ML INFUSION IV STA ×2 (06:19→07:31)
[2020-03-10] MEDS ORDERED: POTASSIUM PHOSPHATE 21 MMOL in SODIUM CHLORIDE 0.9% 500 ML IV ONE (06:30)
[2020-03-10] MEDS ORDERED: MAGNESIUM SULFATE / D5W 1 GM/100 ML BAG IV ONE (06:30)
[2020-03-10] MEDS ORDERED: POTASSIUM PHOSPHATE 30 MMOL in SODIUM CHLORIDE 0.9% 500 ML IV ONE (07:45)
[2020-03-10] MEDS: CYANOCOBALAMIN (VITAMIN B-12) 100 MCG TABLET PO SCH (08:38)
[2020-03-10] MEDS: ASPIRIN 81 MG ECTAB PO SCH (08:38)
[2020-03-10] MEDS: ESCITALOPRAM OXALATE 10 MG TAB PO SCH (08:38)
[2020-03-10] MEDS: PANTOprazole 40 MG TAB PO SCH (08:39)
[2020-03-10] MEDS: ATENOLOL 25 MG TABLET PO SCH (08:43)
[2020-03-10] MEDS: ALPRAZolam 0.25 MG TABLET PO SCH (08:47)
--- NOTE | 2020-03-10 09:01 | Progress Notes ---
DATE: 03/10/2020 Based on the poor response to her trying to be moved, it is clear that her debility from her sacral ala fractures and her comorbidities from her rheumatoid arthritis will prevent her from being safely placed at home. She will require inpatient admission to other facility such as a [place] [facility] or limited rehab program. She will require roughly 1-2 weeks for her to get comfortable enough to be mobilized. Her comorbidities of poor vision and impaired mentation also make her status to transfer to home very challenging and not appropriate at this point in time. We will require placement.
[2020-03-10] MEDS: MAGNESIUM SULFATE / D5W 1 GM/100 ML BAG IV SCH ×3 (09:09→13:12)
[2020-03-10] MEDS: HEPARIN SOD 5,000 UNIT/0.5 ML VIAL SQ SCH ×2 (09:10→21:30)
[2020-03-10] MEDS ORDERED: POTASSIUM PHOSPHATE 9 MMOL in SODIUM CHLORIDE 0.9% 250 ML IV ONE (10:00)
--- NOTE | 2020-03-10 16:13 | Hospitalist Progress Note ---
Date of Service March 10, 2020 Assessment & Plan (1) Sacral fracture, closed: X-rays and CT note multiple sacral fractures including body and bilateral wings/left femoral head avascular necrosis/back pain. - Pain control -> Controlled today. - Seen by orthopedics - No surgical intervention warranted. - PT/OT/CM - Plan for [place] on Friday when bed available. (2) Fall: feels this has been a mechanical fall, as patient has not had any neurologic or cardiac precipitating symptoms. (3) Hypertension: BP presently at 150/75. - Holding HCTZ 50 mg daily due to significant laboratory electrolyte abnormalities (low sodium, low potassium, low phosphorus) - Continue atenolol 25 mg p.o. daily and aspirin 81 mg daily (4) Dementia of the Alzheimer's type, with early onset, uncomplicated: At baseline for me on 03/09, the patient was AAOx2 and knew the year and the president. Just not to the date/month. On 03/10, more confused and thought we were on the [facility]. However, was present and reports near baseline. - Continue escitalopram & alprazolam for anxiety and depression - Monitor (5) Familial hypercholesteremia: - Continue atorvastatin 20 mg in evening (6) Obstructive sleep apnea of adult: If necessary, will supply CPAP at bedtime. (7) Rheumatoid arthritis: No overt treatment noted. (8) DVT prophylaxis: Heparin 5000 units Q12h Admission and Anticipated Discharge Date Admission Date: March 08, 2020 Subjective More confused today. No major concerns with minimal pain. Today she believes we are on the [facility]. Reports no fevers/chills, chest pain, shortness of breath, abdominal pain, nausea, or vomiting. Physical Exam Constitutional: WD/WN, vitals as above Eyes: EOM intact bilaterally; no conjunctival abnormality ENMT: external ear and nose normal, oropharynx normal Neck: trachea midline, no thyromegaly normal visual inspection Respiratory: normal respiratory effort, lungs clear to auscultation no respiratory distress Cardiovascular: RRR, no murmur, no edema Gastrointestinal (Abdomen): Inspection/Auscultation: abdomen normal to inspection; abdomen not distended Musculoskeletal: Extremities: + extremities abnormal to inspection (Bilateral wrist deformities.) Skin: no rashes, warm and dry Neurologic: moves all extremities and awake Psychiatric: Orientation: alert, oriented to person and cooperative Results & Data Results & Data ([facility]) Vital Signs (Past 12 Hours) Vital Signs Temp Pulse Resp BP Pulse Ox 03/10/20 15:08 36.8 C 75 16 152/76 H 92 03/10/20 09:42 142/77 H 03/10/20 08:40 95 H 184/93 H 03/10/20 07:07 37.1 C 83 14 163/77 H 92 PG Care Time/CCT Total # of Minutes Spent Total Time Spent with Patient: Total time spent is greater than 50% in coordination of care (as documented) at patient's floor/unit and/or counseling patient: Coding Level of Care Code 38236 Subseq Hosp Care Lvl 2 Diagnoses Sacral fracture, closed S32.10XA Fall W19.XXXA Encounter type: initial encounter Hypertension I10 Dementia of the Alzheimer's type, with early onset, uncomplicated G30.0; F02.80 Familial hypercholesteremia E78.01 Obstructive sleep apnea of adult G47.33 Rheumatoid arthritis M06.9 DVT prophylaxis Z29.9 (1) Fall Encounter type: initial encounter Qualified Code(s): W19.XXXA - Unspecified fall, initial encounter
[2020-03-10] MEDS: ATORVASTATIN 20 MG TAB PO SCH (21:30)
[2020-03-11 05:58] LABS: Hematocrit (blood only) 29.3 % (37-47); Hemoglobin 10.2 g/dL (12.0-16.0); Mean Corpuscular Hemoglobin 31.8 pg (25-34); Mean Corpuscular Hgb Conc 34.8 g/dL (32-36); Mean Corpuscular Volume 91.3 fL (80-100); Mean Platelet Volume 8.7 fL (7.4-10.4); Platelet Count 223 K/uL (130-400); RDW Coefficient of Variation 12.8 % (11.5-14.5); RDW Standard Deviation 42.6 fL (36.4-46.3); Red Blood Count 3.21 M/uL (4.2-5.4); White Blood Count 9.09 K/uL (4.8-10.8)
[2020-03-11 06:22] LABS: BUN Creatinine Ratio 21.3 (10-20); Calcium 8.3 mg/dl (8.5-10.1); Creatinine Clr Calc Pharmacy 54.9 ml/min; Est GFR (African American) 95.8; Est GFR (Non-African American) 82.7; Magnesium 2.2 mg/dl (1.8-2.4); Potassium 3.8 mmol/L (3.5-5.1)
[2020-03-11 06:25] LABS: Phosphorus 2.6 mg/dl (2.5-4.9)
[2020-03-11] MEDS: ATENOLOL 25 MG TABLET PO SCH (08:32)
[2020-03-11] MEDS: PANTOprazole 40 MG TAB PO SCH (08:32)
[2020-03-11] MEDS: ASPIRIN 81 MG ECTAB PO SCH (08:33)
[2020-03-11] MEDS: CYANOCOBALAMIN (VITAMIN B-12) 100 MCG TABLET PO SCH (08:33)
[2020-03-11] MEDS: ESCITALOPRAM OXALATE 10 MG TAB PO SCH (08:34)
[2020-03-11] MEDS: ALPRAZolam 0.25 MG TABLET PO SCH (08:35)
[2020-03-11] MEDS: HEPARIN SOD 5,000 UNIT/0.5 ML VIAL SQ SCH ×2 (08:36→21:37)
--- NOTE | 2020-03-11 13:20 | Hospitalist Progress Note ---
Date of Service March 11, 2020 Assessment & Plan (1) Sacral fracture, closed: X-rays and CT note multiple sacral fractures including body and bilateral wings/left femoral head avascular necrosis/back pain. - Pain control -> Controlled today. - Seen by orthopedics - No surgical intervention warranted. - PT/OT/CM - Plan for [place] on Friday when bed available. Stable today. No pain. (2) Fall: feels this has been a mechanical fall, as patient has not had any neurologic or cardiac precipitating symptoms. (3) Hypertension: BP presently at 150/75. Overall has been mildly high up to 170/90. - Holding HCTZ 50 mg daily due to significant laboratory electrolyte abnormalities (low sodium, low potassium, low phosphorus) - Continue atenolol 25 mg p.o. daily and aspirin 81 mg daily (4) Dementia of the Alzheimer's type, with early onset, uncomplicated: At baseline for me on 03/09, the patient was AAOx2 and knew the year and the president. Just not to the date/month. On 03/10, more confused and thought we were on the [facility]. However, was present and reports near baseline. - Continue escitalopram & alprazolam for anxiety and depression - Monitor (5) Familial hypercholesteremia: - Continue atorvastatin 20 mg in evening (6) Obstructive sleep apnea of adult: If necessary, will supply CPAP at bedtime. (7) Rheumatoid arthritis: No overt treatment noted. (8) DVT prophylaxis: Heparin 5000 units Q12h Admission and Anticipated Discharge Date Admission Date: March 08, 2020 Subjective No change today. No pain. Reports no fevers/chills, chest pain, shortness of breath, abdominal pain, nausea, or vomiting. Physical Exam Constitutional: WD/WN, vitals as above Eyes: EOM intact bilaterally; no conjunctival abnormality ENMT: external ear and nose normal, oropharynx normal Neck: trachea midline, no thyromegaly normal visual inspection Respiratory: normal respiratory effort, lungs clear to auscultation no respiratory distress Cardiovascular: RRR, no murmur, no edema Gastrointestinal (Abdomen): Inspection/Auscultation: abdomen normal to inspection; abdomen not distended Musculoskeletal: Extremities: + extremities abnormal to inspection (Bilateral wrist deformities.) Skin: no rashes, warm and dry Neurologic: moves all extremities and awake Psychiatric: Orientation: alert, oriented to person and cooperative Results & Data Results & Data ([facility]) Vital Signs (Past 12 Hours) Vital Signs Temp Pulse Resp BP Pulse Ox 03/11/20 07:56 37.1 C 76 14 148/77 H 92 PG Care Time/CCT Total # of Minutes Spent Total Time Spent with Patient: Total time spent is greater than 50% in coor dination of care (as documented) at patient's floor/unit and/or counseling patient: Coding Level of Care Code 11541 Subseq Hosp Care Lvl 2 Diagnoses Sacral fracture, closed S32.10XA Fall W19.XXXA Encounter type: initial encounter Hypertension I10 Dementia of the Alzheimer's type, with early onset, uncomplicated G30.0; F02.80 Familial hypercholesteremia E78.01 Obstructive sleep apnea of adult G47.33 Rheumatoid arthritis M06.9 DVT prophylaxis Z29.9 (1) Fall Encounter type: initial encounter Qualified Code(s): W19.XXXA - Unspecified fall, initial encounter
[2020-03-11] MEDS: ATORVASTATIN 20 MG TAB PO SCH (21:37)
[2020-03-12 06:18] LABS: Hematocrit (blood only) 30.6 % (37-47); Hemoglobin 10.5 g/dL (12.0-16.0); Mean Corpuscular Hgb Conc 34.3 g/dL (32-36); Mean Corpuscular Volume 90.3 fL (80-100); Platelet Count 291 K/uL (130-400); RDW Coefficient of Variation 12.8 % (11.5-14.5); RDW Standard Deviation 41.6 fL (36.4-46.3); Red Blood Count 3.39 M/uL (4.2-5.4); White Blood Count 11.81 K/uL (4.8-10.8)
[2020-03-12 07:01] LABS: BUN Creatinine Ratio 27.5 (10-20); Calcium 8.9 mg/dl (8.5-10.1); Creatinine Clr Calc Pharmacy 54.1 ml/min; Est GFR (African American) 95.3; Est GFR (Non-African American) 82.3; Magnesium 1.6 mg/dl (1.8-2.4); Phosphorus 3.3 mg/dl (2.5-4.9)
[2020-03-12] MEDS ORDERED: SODIUM CHLORIDE 0.9% 1000ML 500 ML IV ONE (07:29)
[2020-03-12] MEDS: POTASSIUM CHLORIDE / WTR 10 MEQ/100 ML PLCT IV SCH ×4 (08:36→11:51)
[2020-03-12] MEDS: MAGNESIUM SULFATE / D5W 1 GM/100 ML BAG IV SCH ×2 (08:36→09:24)
[2020-03-12] MEDS: ASPIRIN 81 MG ECTAB PO SCH (08:37)
[2020-03-12] MEDS: PANTOprazole 40 MG TAB PO SCH (08:38)
[2020-03-12] MEDS: ATENOLOL 25 MG TABLET PO SCH (08:38)
[2020-03-12] MEDS: ESCITALOPRAM OXALATE 10 MG TAB PO SCH (08:38)
[2020-03-12] MEDS: CYANOCOBALAMIN (VITAMIN B-12) 100 MCG TABLET PO SCH (08:39)
[2020-03-12] MEDS: ALPRAZolam 0.25 MG TABLET PO SCH (08:47)
[2020-03-12] MEDS: HEPARIN SOD 5,000 UNIT/0.5 ML VIAL SQ SCH ×2 (08:48→21:29)
--- NOTE | 2020-03-12 14:16 | Hospitalist Progress Note ---
Date of Service March 12, 2020 Assessment & Plan (1) COVID-19 virus detected: Routine screening done on 03/10 for placement to [facility] came back positive on 03/11. - Presently asymptomatic. - If changes in respiratory status, would consider repeat CXR and consideration of plasma, dexamethasone, remdesivir, etc. - Will closely monitor. At this point, placement plans are likely scrapped, and she will be with us at least a few more days while we determine options. (2) Sacral fracture, closed: X-rays and CT note multiple sacral fractures including body and bilateral wings/left femoral head avascular necrosis/back pain. - Pain control -> Controlled today. - Seen by orthopedics - No surgical intervention warranted. - PT/OT/CM - Plan had been for [facility] on Friday, but this is obviously off due to Covid positive. (3) Fall: feels this has been a mechanical fall, as patient has not had any neurologic or cardiac precipitating symptoms. (4) Hypertension: BP presently at 180/75. Overall has been normal to high. - Held HCTZ 50 mg daily due to significant laboratory electrolyte abnormalities (low sodium, low potassium, low phosphorus) - Continue atenolol 25 mg p.o. daily and aspirin 81 mg daily - Added amlodipine on 03/12 (5) Dementia of the Alzheimer's type, with early onset, uncomplicated: At baseline for me on 03/09, the patient was AAOx2 and knew the year and the president. Just not to the date/month. On 03/10, more confused and thought we were on the [facility]. However, was present and reports near baseline. - Continue escitalopram & alprazolam for anxiety and depression - Monitor (6) Familial hypercholesteremia: - Continue atorvastatin 20 mg in evening (7) Obstructive sleep apnea of adult: If necessary, will supply CPAP at bedtime. (8) Rheumatoid arthritis: No overt treatment noted. (9) DVT prophylaxis: Heparin 5000 units Q12h Admission and Anticipated Discharge Date Admission Date: March 08, 2020 Subjective Seemed much more restless to me on initial entry to the room. Rustling around, grabbing at hip and slumped sideways. However, after some time to settle down, she presented as calm and more close to her baseline from prior days. Overall, she reports some hip pain, but otherwise reports no fevers/chills, chest pain, shortness of breath, abdominal pain, nausea, or vomiting. Physical Exam Constitutional: WD/WN, vitals as above Eyes: EOM intact bilaterally; no conjunctival abnormality ENMT: external ear and nose normal, oropharynx normal Neck: trachea midline, no thyromegaly normal visual inspection Respiratory: no respiratory distress Auscultation: + diminished lung sounds and + rhonchi Cardiovascular: RRR, no murmur, no edema Gastrointestinal (Abdomen): Inspection/Auscultation: abdomen normal to inspection; abdomen not distended Musculoskeletal: Extremities: + extremities abnormal to inspection (Bilateral wrist deformities.) Skin: no rashes, warm and dry Neurologic: moves all extremities and awake Psychiatric: Orientation: alert, oriented to person and cooperative Results & Data Results & Data ([facility]) Vital Signs (Past 12 Hours) Vital Signs Temp Pulse Resp BP Pulse Ox 03/12/20 08:21 36.4 C L 94 H 16 180/75 H 94 03/12/20 02:20 36.8 C 82 22 162/92 H 94 PG Care Time/CCT Total # of Minutes Spent Total Time Spent with Patient: Total time spent is greater than 50% in coordination of care (as documented) at patient's floor/unit and/or counseling patient: Coding Level of Care Code 67555 Subseq Hosp Care Lvl 3 Diagnoses COVID-19 virus detected U07.1 Sacral fracture, closed S32.10XA Fall W19.XXXA Encounter type: initial encounter Hypertension I10 Dementia of the Alzheimer's type, with early onset, uncomplicated G30.0; F02.80 Familial hypercholesteremia E78.01 Obstructive sleep apnea of adult G47.33 Rheumatoid arthritis M06.9 DVT prophylaxis Z29.9 (1) Fall Encounter type: initial encounter Qualified Code(s): W19.XXXA - Unspecified fall, initial encounter
[2020-03-12] MEDS: AMLODIPINE BESYLATE 5 MG TAB PO SCH (15:52)
--- NOTE | 2020-03-12 17:15 | XRay Report ---
XR chest 1V portable HISTORY: Shortness of breath COMPARISON: Chest CT 03/08/2020. Chest x-ray 02/07/2017. FINDINGS: Punctate calcified granuloma within the right lung apex. No pneumothorax. No pleural effusi ons. Linear density at the left lung base favors subsegmental atelectasis. Trace bilateral pleural ef fusions. The heart is borderline enlarged. There is mild central pulmonary vascular congestion withou t overt edema. Rotated study. IMPRESSION: 1. Mild central pulmonary vascular congestion without overt edema. 2. Trace bilateral pleural effusions. ACT 112: Negative or not required by law. Electronically signed by: Zoran Hooks M.D. 03/12/2020 5:14 PM
--- NOTE | 2020-03-12 17:57 | Billing Data ---
Date of Service March 12, 2020 Coding Level of Care Code 00128 Prolonged Care (int'l) Comment In the room from 9:00am - 9:15am, then 4:40pm - 5:00pm.
[2020-03-12] MEDS: FLUTICASONE PROPIONATE NA SPR 16 GM BTL SCH ×2 (18:23→21:29)
[2020-03-12 18:51] LABS: BUN Creatinine Ratio 26.6 (10-20); Calcium 8.5 mg/dl (8.5-10.1); Est GFR (African American) 93.5; Est GFR (Non-African American) 80.7; Potassium 3.3 mmol/L (3.5-5.1)
[2020-03-12] MEDS: OXYMETAZOLINE 0.05% 30 ML BTL SCH (21:29)
[2020-03-12] MEDS: ATORVASTATIN 20 MG TAB PO SCH (21:31)
[2020-03-12] MEDS: SODIUM CHLORIDE 0.65% NA SOLN 45 ML (OCEAN) SCH (21:36)
[2020-03-13 05:08] LABS: Hematocrit (blood only) 32.5 % (37-47); Hemoglobin 11.2 g/dL (12.0-16.0); Mean Corpuscular Hgb Conc 34.5 g/dL (32-36); Mean Platelet Volume 8.7 fL (7.4-10.4); Platelet Count 287 K/uL (130-400); RDW Coefficient of Variation 12.8 % (11.5-14.5); RDW Standard Deviation 41.7 fL (36.4-46.3); Red Blood Count 3.61 M/uL (4.2-5.4); White Blood Count 12.89 K/uL (4.8-10.8)
[2020-03-13 05:34] LABS: BUN Creatinine Ratio 26.9 (10-20); Calcium 9.1 mg/dl (8.5-10.1); Creatinine Clr Calc Pharmacy 49.6 ml/min; Est GFR (African American) 90.4; Magnesium 1.9 mg/dl (1.8-2.4); Potassium 3.2 mmol/L (3.5-5.1)
--- NOTE | 2020-03-13 09:11 | Hospitalist Progress Note ---
Date of Service March 13, 2020 Assessment & Plan (1) COVID-19 virus detected: Routine screening done on 03/10 for placement to [facility] came back positive on 03/11. -Patient is tachypneic but not hypoxic. She is not febrile repeat serology testing in the morning for inflammatory markers LFTs repeat chest x-ray on 03/13 -If chest x-ray changes are inflammatory markers are elevated would be consideration of plasma, dexamethasone, remdesivir, etc. -Disposition is in question confirmatory testing is sent to the [facility] (2) Sacral fracture, closed: X-rays and CT note multiple sacral fractures including body and bilateral wings/left femoral head avascular necrosis/back pain. - Pain control -> Controlled except when patient is repositioned - Seen by orthopedics - No surgical intervention warranted. (3) Fall: feels this has been a mechanical fall, as patient has not had any neurologic or cardiac precipitating symptoms. (4) Hypertension: BP presently at 180/75. Overall has been normal to high. - Held HCTZ 50 mg patient appears clinically dehydrated - Continue atenolol 25 mg p.o. daily and aspirin 81 mg daily - Added amlodipine on 03/12 we will add additional hydralazine as needed (5) Dementia of the Alzheimer's type, with early onset, uncomplicated: At baseline for me on 03/09, the patient was AAOx2 and knew the year and the president. Just not to the date/month. Since 03/10, more confused and over the last few days patient is had more garbled speech - Continue escitalopram to progressive confusion we will hold alprazolam at this point time (6) Familial hypercholesteremia: - Continue atorvastatin 20 mg in evening (7) Obstructive sleep apnea of adult: Will avoid noninvasive positive pressure ventilation due to aerosolization of COVID unless absolutely required (8) Rheumatoid arthritis: No overt treatment noted. Patient with marked physical changes (9) DVT prophylaxis: Heparin 5000 units Q12h Admission and Anticipated Discharge Date Admission Date: March 08, 2020 Subjective Patient is tachypneic looks uncomfortable is garbled speech. Reportedly this is different from her initial presenting intake situation. She is not hypoxic on room air I did personally test her. Her chest x-ray from 03/12/2020 did not look significantly suspicious for infectious etiologies. She did have a COVID test that was abnormal subacute rehab due to her sacral fracture. that was performed for screening prior to placement Review of Systems Review of Systems: Moderate respiratory distress and fatigue no headache, blurry or double vision Rapid speech patient able to swallow water upon my bedside evaluation no complaints of chest pain, pressure or palpitations Patient is tachypneic but not having any coughing or audible wheezing no abdominal pain, denies nausea or vomiting, diarrhea or constipation He is incontinent of urine Has focal joint abnormalities consistent with her history of arthritis no focal signs of weakness or numbness or altered sensation Physical Exam Physical Exam: The patient appeared chronically ill [place] prior to presenting Vital signs as documented. Not hypoxic yet but tachypneic Head exam is normocephalic atraumatic no scleral icterus Oropharynx is with dry mucous membranes no exudates no thrush Neck is without JVD, thyromegaly, or carotid bruits. Lungs are clear to auscultation, no focal loss of breath sounds Cardiac exam, tachycardic systolic ejection murmur is heard rubs or gallops. Abdominal exam reveals normal bowel sounds, soft non tender, no masses Extremities are nonedematous and both pedal pulses are normal. Joint abnormalities consistent with longstanding arthritic change Neurologic exam is alert and oriented, his garbled speech can spontaneously move extremities has a contracture of her right hand Skin is without bruises or rashes Results & Data Results & Data ([facility]) Vital Signs (Past 12 Hours) Vital Signs Temp Pulse Resp BP Pulse Ox 03/13/20 08:15 98.8 F 86 32 H 180/70 H 94 03/13/20 00:00 99.9 F H 73 20 180/76 H 93 PG Care Time/CCT Total # of Minutes Spent Total Time Spent with Patient: Total time spent is greater than 50% in coordination of care (as documented) at patient's floor/unit and/or counseling patient: Coding Level of Care Code 25268 Subseq Hosp Care Lvl 3 Diagnoses COVID-19 virus detected U07.1 Sacral fracture, closed S32.10XA Fall W19.XXXA Encounter type: initial encounter Hypertension I10 Dementia of the Alzheimer's type, with early onset, uncomplicated G30.0; F02.80 Familial hypercholesteremia E78.01 Obstructive sleep apnea of adult G47.33 Rheumatoid arthritis M06.9 DVT prophylaxis Z29.9 (1) Fall Encounter type: initial encounter Qualified Code(s): W19.XXXA - Unspecified fall, initial encounter
[2020-03-13] MEDS: ALPRAZolam 0.25 MG TABLET PO SCH (09:44)
[2020-03-13] MEDS: ACETAMINOPHEN 325 MG TAB PO PRN (09:44)
[2020-03-13] MEDS: AMLODIPINE BESYLATE 5 MG TAB PO SCH (09:45)
[2020-03-13] MEDS: PANTOprazole 40 MG TAB PO SCH (09:45)
[2020-03-13] MEDS: CYANOCOBALAMIN (VITAMIN B-12) 100 MCG TABLET PO SCH (09:46)
[2020-03-13] MEDS: ATENOLOL 25 MG TABLET PO SCH (09:46)
[2020-03-13] MEDS: ESCITALOPRAM OXALATE 10 MG TAB PO SCH (09:46)
[2020-03-13] MEDS: FLUTICASONE PROPIONATE NA SPR 16 GM BTL SCH (09:47)
[2020-03-13] MEDS: OXYMETAZOLINE 0.05% 30 ML BTL SCH ×2 (09:47→21:10)
[2020-03-13] MEDS: ASPIRIN 81 MG ECTAB PO SCH (09:47)
[2020-03-13] MEDS: HEPARIN SOD 5,000 UNIT/0.5 ML VIAL SQ SCH (10:07)
[2020-03-13] MEDS: SODIUM CHLORIDE 0.65% NA SOLN 45 ML (OCEAN) SCH ×3 (12:57→21:12)
[2020-03-13] MEDS ORDERED: HydrALAZINE HCL 20 MG/ML VIAL IV PRN (18:00)
--- NOTE | 2020-03-13 19:03 | XRay Report ---
XR chest 1V portable CLINICAL HISTORY: worsening symptoms , covid positive COMPARISON STUDY: 03/12/2020 FINDINGS: The heart is enlarged. There is no lobar consolidation. There is slight elevation of inters titium. This could be secondary to mild congestive failure or interstitial inflammatory process. Clin ical and radiographic follow-up is recommended.[ IMPRESSION: 1. Mildly elevated interstitium. This could be secondary to mild pulmonary vascular congestion or int erstitial inflammatory process. ACT 112: Negative or not required by law. Electronically signed by: Willy Holliday M.D. 03/13/2020 7:01 PM
[2020-03-13] MEDS: POTASSIUM CHLORIDE 40 MEQ in SODIUM CHLORIDE 0.9% 1000ML 1,000 ML IV SCH (19:12)
[2020-03-13 19:23] LABS: D Dimer 5120 ug/L FEU (0-500)
[2020-03-13] MEDS ORDERED: PIPERACILL/TAZOBAC CONSULT ACTIVE PRN (19:51)
[2020-03-13 20:38] LABS: D Dimer 5130 ug/L FEU (0-500)
[2020-03-13] MEDS ORDERED: PIPERACILLIN/TAZOBACTAM 3.375 GM in DEXTROSE 5% 100 ML IV ONE (20:45)
[2020-03-13] MEDS ORDERED: dexAMETHasone 6 MG in SYRINGE 0 ML IV SCH (21:00)
[2020-03-13] MEDS: ENOXAPARIN INJ 30 MG/0.3 ML SYR SQ SCH (21:10)
[2020-03-13] MEDS: ATORVASTATIN 20 MG TAB PO SCH (21:11)
[2020-03-13] MEDS ORDERED: OPTIRAY 320 125ml IV ONE (22:31)
[2020-03-14] MEDS: PIPERACILLIN/TAZOBACTAM 3.375 GM in DEXTROSE 5% 100 ML IV SCH ×3 (01:18→17:59)
[2020-03-14 02:40] LABS: Base Excess ABG -2.8 mEq/L (-9-1.8); HCO3 ABG 24 mmol/L (19-24); Oxygen Saturation ABG 96.8 % (90-95); PCO2 ABG 49 mmHg (35-46); PO2 ABG 96 mmHg (80-95); pH ABG 7.31 (7.35-7.45)
[2020-03-14 02:44] LABS: Allen Test Pos (Pos)
[2020-03-14 02:57] LABS: Albumin Level 2.4 gm/dl (3.4-5.0); BUN Creatinine Ratio 36.3 (10-20); Bilirubin Direct 0.7 mg/dl (0-0.2); Calcium 8.8 mg/dl (8.5-10.1); Creatinine Clr Calc Pharmacy 53.3 ml/min; Est GFR (African American) 94.9; Est GFR (Non-African American) 81.9; Hematocrit (blood only) 33.6 % (37-47); Hemoglobin 11.5 g/dL (12.0-16.0); Mean Corpuscular Hemoglobin 31.3 pg (25-34); Mean Corpuscular Hgb Conc 34.2 g/dL (32-36); Mean Corpuscular Volume 91.3 fL (80-100); Mean Platelet Volume 8.7 fL (7.4-10.4); Platelet Count 416 K/uL (130-400); Potassium 3.6 mmol/L (3.5-5.1); RDW Coefficient of Variation 12.8 % (11.5-14.5); RDW Standard Deviation 42.6 fL (36.4-46.3); Red Blood Count 3.68 M/uL (4.2-5.4)
[2020-03-14 03:00] LABS: Bilirubin,Total 1.2 mg/dl (0.2-1); Total Protein 7.3 gm/dl (6.4-8.2)
[2020-03-14 03:02] LABS: Basophils # (auto) 0.01 K/uL (0-0.2); Immature Granulocytes # (auto) 0.21 K/uL (0.00-0.02); Immature Granulocytes % (auto) 0.9 %; Lymphocytes # (auto) 0.48 K/uL (1.2-3.4); Lymphocytes % (auto) 2.1 %; Monocytes # (auto) 0.77 K/uL (0.11-0.59); Monocytes % (auto) 3.4 %; Neutrophils # (auto) 21.03 K/uL (1.4-6.5); Neutrophils % (auto) 93.6 %; RBC Morphology Unremarkable
[2020-03-14] MEDS ORDERED: VANCOMYCIN CONSULT ACTIVE PRN (03:16)
--- NOTE | 2020-03-14 03:20 | Communication Note ---
Date of Service: March 14, 2020 Pt with increasing work of breathing, shallow breathing overnight. Ddimer repeat elevated. CTA shows No PE, but evidence of bibasilar consolidation. Pt tachypneic, ABG obtained which showed mixed acidosis with pH 7.31. Pt transferred to PCU, given additional decadron x1, vanco/azithro added for atypical/MRSA coverage with MRSA nare pending. Discussed with respiratory, given COVID concern and aerosolization will trial vapotherm prior to BiPAP.
[2020-03-14] MEDS ORDERED: AZITHROMYCIN 500 MG in DEXTROSE 5% 250 ML IV ONE (03:30)
[2020-03-14] MEDS ORDERED: DEXAMETHASONE SOD PHOSPHATE 6 MG in SYRINGE 0 ML IV ONE (03:30)
[2020-03-14] MEDS ORDERED: VANCOMYCIN HCL 1,500 MG in SODIUM CHLORIDE 0.9% 500 ML IV ONE (03:30)
--- NOTE | 2020-03-14 05:41 | Communication Note ---
Date of Service: March 14, 2020 Patient on PCU, reassessment is with increased work of breathing, accessory muscles of breathing, minimal benefit from vapotherm. COncern for quickly det eriorating respiratory status without PPV, given acidoses, increased WoB, and failure to improve on vapotherm NIV-PPV is necessary at minimum. Discussed with respiratory, will trial -07/08 based on TV and reassess, ABG in 1 hr
[2020-03-14] MEDS ORDERED: FUROSEMIDE 40 MG in SYRINGE 0 ML IV ONE (06:00)
[2020-03-14] MEDS: ALBUMIN 25% 50 ML IV SCH ×3 (06:29→09:07)
[2020-03-14] MEDS ORDERED: RAPID SEQUENCE INDUCTION BAG ONE (06:36)
--- NOTE | 2020-03-14 07:20 | Anesthesiology Progress Note ---
Date of Service March 14, 2020 Assessment & Plan (1) COVID-19 virus detected: asked to emergently intubate the patient. patient is obtunded. hx obtained from icu staff. pt preoxygenated on bipap. 100 mg IV succynicholine and 10 mg etomidate were given. visualized with glidescope. tube passed. + etco2. tube secured by RT. care turned over to primary team Subjective Patient is tachypneic looks uncomfortable is garbled speech. Reportedly this is different from her initial presenting intake situation. She is not hypoxic on room air I did personally test her. Her chest x-ray from 03/12/2020 did not look significantly suspicious for infectious etiologies. She did have a COVID test that was abnormal subacute rehab due to her sacral fracture. that was performed for screening prior to placement Review of Systems Constitutional: no fever and no chills Respiratory: no cough and no dyspnea Cardiovascular: no chest pain and no dyspnea on exertion Physical Exam Vital Signs: Last Vital Signs Temp 36.4 C L 03/14/20 05:34 Pulse 86 03/14/20 06:13 Resp 22 03/14/20 06:13 BP 112/61 03/14/20 06:13 Pulse Ox 100 03/14/20 06:13 ENMT: Mouth: no TMJ abnormality and no dentition abnormality Thyromental Distance: > or= 3.5 Finger Breadths Mallampati Class: II Neck: neck extension not limited Respiratory: normal respiratory effort; no respiratory distress Auscultation: lungs clear to auscultation bilaterally Cardiovascular: Rate/Rhythm: regular rate and regular rhythm Neurologic: moves all extremities Psychiatric: Orientation: alert and oriented x 3 Results & Data Medications Administered Acetaminophen (Tylenol) 650 mg PO Q4H PRN PRN Reason: pain/fever Stop: 04/07/20 23:14 Last Admin: 03/13/20 09:44 Dose: 650 mg Documented by: [id number] Admin: 03/09/20 17:37 Dose: 650 mg Documented by: [id number] Admin: 03/09/20 11:39 Dose: 650 mg Documented by: [id number] Admin: 03/09/20 06:28 Dose: 650 mg Documented by: [id number] Alprazolam (Xanax) 0.25 mg PO DAILY [facility] Stop: 04/08/20 08:59 Last Admin: 03/13/20 09:44 Dose: 0.25 mg Documented by: [id number] Admin: 03/12/20 08:47 Dose: 0.25 mg Documented by: [id number] Admin: 03/11/20 08:35 Dose: 0.25 mg Documented by: [id number] Admin: 03/10/20 08:47 Dose: 0.25 mg Documented by: [id number] Admin: 03/09/20 09:40 Dose: 0.25 mg Documented by: [id number] Amlodipine Besylate (Norvasc) 5 mg PO QAM [facility] Stop: 04/11/20 14:29 Last Admin: 03/13/20 09:45 Dose: 5 mg Documented by: [id number] Admin: 03/12/20 15:52 Dose: 5 mg Documented by: [id number] Aspirin (Ecotrin Ectab) 81 mg PO DAILY [facility] Stop: 04/08/20 08:59 Last Admin: 03/13/20 09:47 Dose: 81 mg Documented by: [id number] Admin: 03/12/20 08:37 Dose: 81 mg Documented by: [id number] Admin: 03/11/20 08:33 Dose: 81 mg Documented by: [id number] Admin: 03/10/20 08:38 Dose: 81 mg Documented by: [id number] Admin: 03/09/20 09:35 Dose: 81 mg Documented by: [id number] Atenolol (Tenormin) 25 mg PO DAILY [facility] Stop: 04/08/20 08:59 Last Admin: 03/13/20 09:46 Dose: 25 mg Documented by: [id number] Admin: 03/12/20 08:38 Dose: 25 mg Documented by: [id number] Admin: 03/11/20 08:32 Dose: 25 mg Documented by: [id number] Admin: 03/10/20 08:43 Dose: 25 mg Documented by: [id number] Admin: 03/09/20 09:35 Dose: 25 mg Documented by: [id number] Atorvastatin Calcium (Lipitor) 20 mg PO QPM [facility] Stop: 04/08/20 20:59 Last Admin: 03/13/20 21:11 Dose: 20 mg Documented by: [id number] Admin: 03/12/20 21:31 Dose: 20 mg Documented by: [id number] Admin: 03/11/20 21:37 Dose: Not Given Documented by: [id number] Admin: 03/10/20 21:30 Dose: 20 mg Documented by: [id number] Admin: 03/09/20 21:01 Dose: 20 mg Documented by: [id number] Cyanocobalamin (Vitamin B-12) 50 mcg PO DAILY [facility] Stop: 04/08/20 08:59 Last Admin: 03/13/20 09:46 Dose: 50 mcg Documented by: [id number] Admin: 03/12/20 08:39 Dose: 50 mcg Documented by: [id number] Admin: 03/11/20 08:33 Dose: 50 mcg Documented by: [id number] Admin: 03/10/20 08:38 Dose: 50 mcg Documented by: [id number] Admin: 03/09/20 09:34 Dose: 50 mcg Documented by: [id number] Enoxaparin Sodium (Lovenox) 30 mg SQ Q12H [facility] Stop: 04/12/20 20:59 Last Admin: 03/13/20 21:10 Dose: 30 mg Documented by: [id number] Escitalopram Oxalate (Lexapro Tab) 10 mg PO DAILY [facility] Stop: 04/08/20 08:59 Last Admin: 03/13/20 09:46 Dose: 10 mg Documented by: [id number] Admin: 03/12/20 08:38 Dose: 10 mg Documented by: [id number] Admin: 03/11/20 08:34 Dose: 10 mg Documented by: [id number] Admin: 03/10/20 08:38 Dose: 10 mg Documented by: [id number] Admin: 03/09/20 09:35 Dose: 10 mg Documented by: [id number] Fluticasone Propionate (Flonase) 1 sprays NA BID [facility] Stop: 04/11/20 17:29 Last Admin: 03/13/20 09:47 Dose: 1 sprays Documented by: [id number] Admin: 03/12/20 21:29 Dose: 1 sprays Documented by: [id number] Admin: 03/12/20 18:23 Dose: 1 sprays Documented by: [id number] Hydralazine HCl (Hydralazine Hcl) 10 mg IV Q8 PRN PRN Reason: Blood Pressure - High Stop: 04/12/20 17:59 Last Admin: 03/14/20 01:31 Dose: 10 mg Documented by: [id number] Dexamethasone 6 mg/ Syringe 1.5 mls @ 1 mls/min IV Q24H [facility] Stop: 04/12/20 19:59 Last Admin: 03/13/20 22:26 Dose: 1 mls/min Documented by: [id number] Piperacillin Sod/Tazobactam (Sod 3.375 gm/ Dextrose) 115 mls @ 28.75 mls/hr IV Q8H [facility]; Protocol Stop: 03/21/20 01:59 Last Infusion: 03/14/20 05:05 Dose: 0 mls/hr Documented by: [id number] Admin: 03/14/20 01:18 Dose: 28.8 mls/hr Documented by: [id number] Oxymetazoline HCl (Afrin 0.05%) 1 sprays NA BID [facility] Stop: 03/14/20 20:59 Last Admin: 03/13/20 21:10 Dose: 1 sprays Documented by: [id number] Admin: 03/13/20 09:47 Dose: 1 sprays Documented by: [id number] Admin: 03/12/20 21:29 Dose: 1 sprays Documented by: [id number] Pantoprazole Sodium (Protonix) 40 mg PO DAILY [facility] Stop: 04/08/20 08:59 Last Admin: 03/13/20 09:45 Dose: 40 mg Documented by: [id number] Admin: 03/12/20 08:38 Dose: 40 mg Documented by: [id number] Admin: 03/11/20 08:32 Dose: 40 mg Documented by: [id number] Admin: 03/10/20 08:39 Dose: 40 mg Documented by: [id number] Admin: 03/09/20 09:35 Dose: 40 mg Documented by: [id number] Sodium Chloride ([place] Nasal) 2 sprays NA TID [facility] Stop: 04/11/20 20:59 Last Admin: 03/13/20 21:12 Dose: 2 sprays Documented by: [id number] Admin: 03/13/20 14:56 Dose: 2 sprays Documented by: [id number] Admin: 03/13/20 12:57 Dose: Not Given Documented by: [id number] Admin: 03/12/20 21:36 Dose: Not Given Documented by: [id number]
--- NOTE | 2020-03-14 08:01 | XRay Report ---
XR chest 1V portable [facility] COMPAR[facility]UD[facility]: Chest radiograph and chest CT March 13, 2020. FINDINGS: Tip of endotracheal tube is 2.5 cm above the carol. Tip of right internal jugular central line projects over the distal SVC. There is no pneumothorax. There is a possible trace left pleural e ffusion. Mild cardiomegaly is noted without evidence for pulmonary edema. Left basilar opacity persis ts. IMPRESSION: 1. Satisfactory positioning of the endotracheal tube. 2. Increase in left basilar opacity which may reflect atelectasis or pneumonia. Possible trace left p leural effusion. 3. Cardiomegaly without evidence of pulmonary edema. ACT 112: Negative or not required by law. Electronically signed by: Rito Fulton M.D. 03/14/2020 7:59 AM
--- NOTE | 2020-03-14 08:10 | CT Scan Report ---
CHEST CTA for PULMONARY ARTERIES CT DOSE: 230.08 mGy.cm HISTORY: Shortness of breath. COVID Positive. TECHNIQUE: Multiaxial CT images of the chest were performed following the intravenous administration of contrast to evaluate the pulmonary arteries. Maximal intensity projection images were also obtaine d. A dose lowering technique was utilized adhering to the principles of ALARA. COMPARISON STUDY: Chest 03/13/2020. Chest CT 03/08/2020. FINDINGS: Mild motion artifact. The heart is mildly enlarged. No pericardial effusions. Trace pericar dial effusion. Normal caliber thoracic aorta with no evidence for dissection. Suboptimal evaluation o f the segmental and subsegmental pulmonary arteries due to the respiratory motion. However, no defini te filling defects identified within the pulmonary arteries to suggest pulmonary embolus. Limited vie ws of the upper abdomen demonstrate a normal liver and spleen. Normal caliber esophagus. No mediastin al or hilar lymphadenopathy. No suspicious lytic or blastic osseous lesions. No pneumothorax. The fredy tral airways are patent. Calcified granuloma within the right lung apex. Bilateral lower lobe linear densities, left greater the right. This favors atelectasis. Otherwise, lungs are clear. Small right a drenal gland nodule. IMPRESSION: 1. Motion artifact. No definite evidence for pulmonary embolus with limitations as described above. 2. Bilateral lower lobe linear densities favor atelectasis. A pneumonia could also have a similar kirti earance but is considered less likely. 3. Mild cardiomegaly and a trace pericardial effusion. ACT 112: Negative or not required by law. Electronically signed by: Zoran Hooks M.D. 03/14/2020 8:09 AM
[2020-03-14] MEDS ORDERED: STAT IV Infusion **Titration per Protocol STA ×3 (08:14→08:24)
[2020-03-14] MEDS ORDERED: ACETAMINOPHEN 1,000 MG/100 ML VIAL IV PRN (08:14)
[2020-03-14] MEDS ORDERED: PROPOFOL BOLUS FROM BAG IV PRN (08:14)
[2020-03-14] MEDS ORDERED: fentaNYL citrate 100 MCG/2 ML VIAL IV PRN ×2 (08:14→08:24)
[2020-03-14] MEDS ORDERED: ICU PROTOCOL FOR HYPERGLYCEMIA PRN (08:14)
[2020-03-14] MEDS ORDERED: FENTANYL BOLUS FROM BAG IV PRN (08:24)
--- NOTE | 2020-03-14 08:37 | Critical Care Consultation ---
Date of Consultation March 14, 2020 Assessment & Plan (1) Admitted to intensive care unit: Reason Critically Ill: 84-year-old female admitted to this facility after sacral fracture sustained from fall from height who had asymptomatic COVID-19 positive serologic testing. Patient with acute hypoxic respiratory failure and altered mental status throughout the night progressively worsening requiring endotracheal intubation. NEURO - * CAM ICU: Unable to assess secondary to current mental status. * Altered mental status: * Of uncertain ideology at this point. Apparently, the patient is demented at baseline, however she is obtunded on exam. * Certainly this could be related to the patient's significant respiratory distress for the last several hours in association with COVID-19 infection. * Additionally, would be concerned for possibility of thromboembolic event of which the patient certainly would be at risk in the setting of COVID-19 infection. * Considered CT of the head, however patient too unstable at this point. CARDIAC/VASCULAR - * Hypotension: * Transient during respiratory distress. * Possibly secondary to anesthetic medications. * Pressors as needed. * Avoid significant amounts of IV fluids. * Monitor on telemetry. RESPIRATORY - * Respiratory failure: * In the setting of COVID-19 infection as well as new finding of LEFT lower lobe infiltrative change. * Currently covered with azithromycin and Zosyn. * Being treated with IV Decadron as well. * Patient required endotracheal intubation for respiratory failure. * Per hospitalist service, was comfortable with temporary trial of intubation while receiving current treatment for COVID-19 infection. GI/NUTRITION - * N.p.o. * To place OG tube. * Prophylaxis: Protonix RENAL/LYTES - * No significant electrolyte derangements * IVF: Hold on IV fluids at this time. - * Cruz in place - Strict I&Os. ENDO - * No history of diabetes or thyroid disease. * BSGs per unit protocol. ISS --> gtt per unit policy. HEME - * Stable H&H. ID - * COVID-19 infection: * Initially, the patient was asymptomatic and tested as a form of screening prior to placement in nursing facility. * Patient has had rapidly progressing symptoms of respiratory distress. * Her chest x-ray does not show significant multifocal infiltrative changes, however. * She does appear to have an LEFT lower lobe infiltrate which is covered with Zosyn. Receiving azithromycin as well. * While chest x-ray does not appear as consistent with COVID-19 pathology, certainly that is where he would be aggressively managed given the patient's current clinical state. * Will check lactate. * Procalcitonin negative. LINES/IV ACCESS - * PIVs x1 * RIGHT IJ * LEFT radial art line * ET tube DVT PROPHYLAXIS - * Currently receiving Lovenox subcu. Possibly consider full dose anticoagulation in the COVID-19 positive patient with severe respiratory symptoms. * SCDs I have personally spent 65 minutes of critical care time in the direct management of this patient. This is a life/limb threatening event. This includes time spent evaluating patient, direct bedside care, chart review, placing orders, interpretation of diagnostic studies, discussion with consultants, patient, and family members, as well as other required patient management activities. This time is exclusive of all separately billable procedures, and teaching time and separate from and in addition to any other critical care service time. Thank you for allowing us to participate in the care of this patient. Please refer to my attending physician's documentation for any further recommendations. (2) Respiratory failure: (3) Left lower lobe pneumonia: (4) Altered mental status: (5) COVID-19: (6) Sacral fracture, closed: (7) Fall: (8) Dementia of the Alzheimer's type, with early onset, uncomplicated: History of Present Illness Attending Physician: Dewayne Polo MD History of Present Illness Patient is an 84-year-old female with a significant past medical history of osteoporosis, KRISTA, macular degeneration, hypertension, hyperlipidemia, Alzheime r's disease with dementia. The patient was recently admitted this facility after sustaining a mechanical fall resulting in sacral fracture. The patient had a routine COVID test performed for placement in a nursing care facility. This was found to be positive. Patient reportedly developed increasing tachypnea and oxygen requirement over the last few hours. CTA of the chest demonstrates no acute PE. She does appear to have a LEFT lower lobe consolidation as well as area of pleural effusion. I was contacted by hospitalist staff as the patient is being transferred to telemetry floor seconda ry to increasing oxygen requirement. She was placed on high flow oxygen with poor respiratory drive. While on BiPAP, the patient remained with a respiratory rate in the mid 20s. Her tidal volumes were approximately 400. She was saturating well, but appeared labored and dyssynchronous with her breaths. Patient is unable to provide information for history of present illness. Per hospitalist staff, patient's is comfortable with temporary intubation with hopes for administration of room does appear and short trial for intubation. Apparently would not want prolonged intubation. Allergies Allergy/AdvReac Type Severity Reaction Status Date / Time No Known Allergies Allergy Unverified 03/08/20 21:11 Home Medications Home Medications Medication Instructions Recorded Confirmed Type cyanocobalamin (vitamin B-12) 100 50 mcg PO DAILY tab 03/30/19 03/08/20 History mcg tablet omeprazole 40 mg capsule,delayed 40 mg PO DAILY cap 03/30/19 03/08/20 History release atenolol 25 mg tablet 25 mg PO DAILY #90 tab 05/19/19 03/08/20 Rx escitalopram oxalate 10 mg tablet 10 mg PO DAILY #90 tab 05/19/19 03/08/20 Rx atorvastatin 20 mg tablet 20 mg PO QPM #90 tab 09/27/19 03/08/20 Rx alprazolam 0.25 mg tablet 0.25 mg PO DAILY #50 tab 02/15/20 03/08/20 Rx aspirin [Aspir-81] 81 mg PO DAILY 03/08/20 03/08/20 History hydrochlorothiazide 50 mg PO DAILY 03/08/20 03/08/20 History Patient History Medical History Dementia of the Alzheimer's type, with early onset, uncomplicated (Chronic) Familial hypercholesteremia (Chronic) Hyperglycemia (Chronic) Hypertension (Chronic) Macular degeneration (Chronic) Obstructive sleep apnea of adult (Chronic) Osteoarthritis (Chronic) Osteoporosis (Chronic) Pain and swelling of right wrist (Chronic) Pain in right knee (Chronic) Right hip pain (Chronic) Social History Smoking Status: Former smoker Second Hand Exposure: No; Hx Alcohol Use: Yes Alcohol type: wine Hx Substance Use: No Preferred Language: Faroese Communication Ability: Effective Tenant Relations Coordinator Required: No Beliefs That Will Affect Care: None marital status: Current Living Situation: Spouse Feels Safe at Home: Yes Review of Systems Review of Systems: Unobtainable due to cognitive status Physical Exam Physical Exam: VITAL SIGNS - Vital signs and nursing notes were reviewed. GENERAL - 84-year-old female appearing her stated age who is in significant respiratory distress. She is completely obtunded and is unarousable to painful stimuli. HEAD - NC/AT. EYES - PERRL with EOMI bilaterally. Sclera anicteric. EARS - No deformities of external structures noted on gross examination bilaterally. NOSE - Midline and without cyanosis. No epistaxis or purulent drainage noted. MOUTH/OROPHARYNX - Without perioral cyanosis. NECK - Supple to palpation. LUNGS -tachypneic. Significant accessory muscle use. Respiratory distress. CARDIAC - RRR with S1/S2. No murmur, rubs, or gallops appreciated. ABDOMEN - Abdominal contour without pulsations or visible masses. BS normoactive all four quadrants. No tenderness, palpable masses, hepatosplenomegaly, or ascites noted. EXTREMITIES - No clubbing or peripheral cyanosis. No pretibial edema present. +2/5 radial and dorsalis pedis pulses palpated throughout. Significant nodular irregularities consistent with history of osteoporosis/osteoarthritis. NEUROLOGIC -no focal neurological deficits. Patient is obtunded. She is in respiratory distress. No focal neurological deficits appreciated on exam. Un able to fully assess secondary to current mental status. Results & Data Results & Data ([facility]) Vital Signs (Past 12 Hours) Vital Signs Temp Pulse Pulse Pulse Resp BP Pulse Ox 03/14/20 07:24 87 25 H 99 03/14/20 06:43 82 18 129/72 100 03/14/20 06:13 86 22 112/61 100 03/14/20 05:50 85 22 98 03/14/20 05:42 85 126/72 98 03/14/20 05:35 66 03/14/20 05:34 36.4 C L 85 24 133/64 97 03/14/20 05:27 87 24 96 03/14/20 04:39 36.6 C 85 25 H 132/78 96 03/14/20 04:04 36.5 C 97 H 25 H 150/78 H 97 03/14/20 03:05 36.6 C 87 30 H 150/78 H 97 03/14/20 01:52 89 166/99 H 99 03/14/20 01:23 36.6 C 83 30 H 177/119 H 92 03/13/20 22:55 37.3 C 91 H 41 H 170/90 H 95 03/14/20 02:29 03/14/20 02:29 Coding Level of Care Code Critical Care 1st 30-74 mins Diagnoses Admitted to intensive care unit Z78.9 Respiratory failure J96.90 Left lower lobe pneumonia J18.9 Altered mental status R41.82 COVID-19 U07.1 Sacral fracture, closed S32.10XA Fall W19.XXXA Encounter type: initial encounter Dementia of the Alzheimer's type, with early onset, uncomplicated G30.0; F02.80 Time Spent (min) 80 (1) Fall Encounter type: initial encounter Qualified Code(s): W19.XXXA - Unspecified fall, initial encounter
--- NOTE | 2020-03-14 08:39 | Procedure Note ---
Procedure Note Date of Service March 14, 2020 Procedure: Internal Jugular Central Line Placement Attending: Dr. Hunt APC: Ferdinand Moon PA-C Indication: Central Drug Administration, Poor Venous Access, Multiple Lab Draws Necessary, etc. Anesthesia: Lidocaine 1% Emergent consent implied in the setting of clinical decline and need for central access in the patient and active extremities. Patient's agreeable to any life-sustaining procedures necessary at this time including intubation, central line, arterial line. A time-out was completed verifying correct patient, procedure, site, positioning, and implants(s) or special equipment if applicable. Patients RIGHT Neck was cleansed and draped in the typical sterile fashion using Chloraprep. The Internal Jugular Vein and Carotid Artery were identified using ultrasound. The superficial tissue was anesthetized using 3.0 mL of 1% lidocaine without epinephrine under direct visualization with the ultrasound. After adequate anesthetization was achieved, the Internal Jugular vein was cannulated under direct ultrasound guidance using an introducer needle on a syringe. Good venous blood return was maintained prior to removal of syringe from introducer needle. Using Seldinger Technique, a guide wire was advanced through the introducer needle without resistance. The introducer needle was removed and ultrasound images were obtained of the guide wire within the Internal Jugular Vein and saved to the patients medical record. The dilator was advanced to the vessel without resistance. The dilator was exchanged for the triple lumen catheter which was advanced into the vessel without resistance. The guide wire was removed intact from the catheter without issue. Claves were placed on each catheter tip with confirmation of good blood flow from each lumen. Each port was easily flushed with sterile saline. The catheter was placed at 15 cm and sutured in place. BioPatch was applied to the catheter and a sterile Tegaderm dressing was applied over the catheter with careful attention to sterility. Patient tolerated procedure well. No immediate complications were met. Post procedure x-ray was completed, placement was appropriate and no pneumothorax was noted. Images obtained are saved for permanent record Procedural Ultrasound Guidance: Procedure Date: 03/14/2020 Indication: Pressors, poor peripheral access, multiple medications. Attending: Dr. Hunt APC: Ferdinand Moon PA-C Artery AND Vein visualized: YES Compressible Vein: YES Guidewire or Short Catheter seen in vein prior to dilation: YES Line confirmed in Vein with ultrasound: YES Images obtained are saved for permanent record. Coding CPT Codes Tubes, Drains, and Vasc Access - Tubes, Drains, and Vasc Access: [id number] Insertion Of Non-tunneled Catheter Age 5 Yrs> ([id number]) Tubes, Drains, and Vasc Access - Tubes, Drains, and Vasc Access: [id number] Ultrasound Guidance For Vascular ([id number]) [facility] [place] Procedure Codes (Charges) Tubes, Drains, and Vasc Access Procedure 1: Tubes, Drains, and Vasc Access: [id number] Insertion Of Non-tunneled Catheter Age 5 Yrs> Procedure 2: Tubes, Drains, and Vasc Access: [id number] Ultrasound Guidance For Vascular
--- NOTE | 2020-03-14 08:41 | Procedure Note ---
Procedure Note Date of Service March 14, 2020 Procedure: Arterial Line Placement Attending: Dr. Hunt APC: Ferdinand Moon PA-C Indication: Monitoring on Pressors Anesthesia: Lidocaine 1% Emergent consent implied in the setting of clinical decline and need for central access in the patient and active extremities. Patient's agreeable to any life-sustaining procedures necessary at this time including intubation, central line, arterial line. A time-out was completed verifying correct patient, procedure, site, positioning, and implant(s) or special equipment if applicable. Allens test was performed to ensure adequate perfusion. Patients LEFT wrist was prepped and draped in the usual sterile fashion. Ultrasound guidance was used to aid needle placement. A 20g Arrow arterial line was introduced into the LEFT Radial artery. Catheter was threaded, and the needle was removed with appropriate blood return. Good waveform was observed. The patient tolerated the procedure well. Confirmation of placement with ultrasound. Blood Loss: Minimal Complications: None Procedural Ultrasound Guidance: Procedure Date: 03/14/2020 Indication: Pressors, Frequent ABGs, multiple lab draws. Attending: Dr. Hunt APC: Ferdinand Moon PA-C Artery Identified: YES Line confirmed in Artery with ultrasound: YES Complications: NONE Patient tolerated procedure: WELL Coding CPT Codes Tubes, Drains, and Vasc Access - Tubes, Drains, and Vasc Access: [id number] Place Catheter In Artery ([id number]) [facility] Procedure Codes (Charges) Tubes, Drains, and Vasc Access Procedure 3: Tubes, Drains, and Vasc Access: [id number] Place Catheter In Artery
[2020-03-14] MEDS: fentaNYL DRIP 1,250 MCG/250 ML BAG IV SCH (09:05)
[2020-03-14] MEDS: propofoL 1,000 MG/100 ML VIAL IV SCH (09:07)
[2020-03-14] MEDS: AMLODIPINE BESYLATE 5 MG TAB PO SCH (09:41)
[2020-03-14] MEDS: ASPIRIN 81 MG ECTAB PO SCH (09:41)
[2020-03-14] MEDS: OXYMETAZOLINE 0.05% 30 ML BTL SCH (09:41)
[2020-03-14] MEDS: PANTOprazole 40 MG TAB PO SCH (09:42)
[2020-03-14] MEDS: SODIUM CHLORIDE 0.65% NA SOLN 45 ML (OCEAN) SCH ×3 (09:42→20:23)
[2020-03-14] MEDS: ATENOLOL 25 MG TABLET PO SCH (09:42)
[2020-03-14] MEDS: CYANOCOBALAMIN (VITAMIN B-12) 100 MCG TABLET PO SCH (09:42)
[2020-03-14 09:45] LABS: Base Excess ABG -1.2 mEq/L (-9-1.8); HCO3 ABG 23 mmol/L (19-24); Oxygen Saturation ABG 97.7 % (90-95); PCO2 ABG 38 mmHg (35-46); PO2 ABG 99 mmHg (80-95); pH ABG 7.41 (7.35-7.45)
[2020-03-14] MEDS: ENOXAPARIN INJ 30 MG/0.3 ML SYR SQ SCH ×2 (09:45→21:54)
[2020-03-14 09:47] LABS: Allen Test ALINE (Pos)
[2020-03-14 10:14] LABS: C Reactive Protein 15.9 mg/dl (0-0.29); Ferritin 185.1 ng/ml (8-388)
[2020-03-14 10:20] LABS: iSTAT Arterial Blood Gas pH 7.39 (7.35-7.45); iSTAT Hematocrit 30 % (37-47); iSTAT Hemoglobin 10.2 g/dl (12.0-16.0); iSTAT Potassium 3.5 mmol/L (3.3-5.0); iSTAT Sodium 135 mmol/L (135-144)
[2020-03-14 10:21] LABS: iSTAT Allen Test Acceptable; iSTAT Art Bld Gas pCO2 Correct 39 mmHg (35-46); iSTAT Art Bld Gas pH Corrected 7.394 (7.35-7.45); iSTAT Arterial Blood Gas HCO3 25 meg/L (19-24); iSTAT Arterial Blood Gas pCO2 39 mmHg (35-46); iSTAT Arterial Blood Gas pO2 147 mmHg (80-95); iSTAT Arterial Blood Gas pO2 C 147; iSTAT Carbon Dioxide 25 mmol/L (24-31)
[2020-03-14 10:22] LABS: iSTAT FiO2 80 %; iSTAT Sample Type Arterial
[2020-03-14] MEDS: POTASSIUM CHLORIDE 40 MEQ in SODIUM CHLORIDE 0.9% 1000ML 1,000 ML IV SCH (10:33)
--- NOTE | 2020-03-14 15:09 | CT Scan Report ---
CT SCAN OF THE BRAIN WITHOUT IV CONTRAST CLINICAL HISTORY: Change in mental status. COMPARISON STUDY: CT of the brain dated 03/08/2020. TECHNIQUE: Unenhanced axial CT scan of the brain is performed from the vertex to the skull base. A do se lowering technique was utilized adhering to the principles of ALARA. CT DOSE: 614.27 mGy.cm FINDINGS: An endotracheal tube is noted on the ice cream server tomogram. Brain parenchyma: There are age-related involutional changes noting moderate subcortical and periven tricular microangiopathic change. There is no hemorrhage, mass effect, or evidence of acute territori al ischemia by CT criteria. Mackay-white matter differentiation is preserved. No extra-axial fluid clementine ection is seen. Ventricles, sulci, cisterns: Prominent secondary to involutional change. Intracranial vasculature: There is atherosclerotic calcification of the cavernous carotid and vertebr al arteries. Calvarium: Unremarkable. Sinuses and mastoids: Mild mucosal thickening is noted in the left frontal sinus. The remaining visua lized paranasal sinuses are clear. The mastoid air cells are well pneumatized. Orbits: The bony orbits are grossly intact. There are bilateral ocular lens implants. IMPRESSION: There is no hemorrhage, mass effect, or evidence of acute territorial ischemia by CT tejal kincaid. ACT 112: Negative or not required by law. Electronically signed by: Javon Pearson M.D. 03/14/2020 3:08 PM
--- NOTE | 2020-03-14 17:23 | Hospitalist Progress Note ---
Date of Service March 14, 2020 Assessment & Plan (1) Respiratory failure: Patient progressive respiratory failure due to tachypnea. She was urgently intubated and ventilated the morning hours of 03/14. Post intubation x- rays show clear lungs. I personally discussion with intensive care physician is concern for central cause of her decline CT scan was ordered but has been delayed due to her COVID positive status Patient is being treated for pneumonia with Zosyn therapy and was put on azithromycin to cover atypicals she did have a leukocytosis however this could be related to dexamethasone use she does have a negative procalcitonin but high inflammatory markers which could be consistent with her cover testing issues (2) D-dimer, elevated: D-dimer elevated to the 5000 range patient has negative PE study with CT angiogram was placed on twice daily Lovenox feeling that the D Dimer elevation was due to Covid (3) COVID-19 virus detected: Routine screening done on 03/10 for placement to [place] came back positive on 03/11. -Disposition is in question confirmatory testing is sent to the [facility] (4) Sacral fracture, closed: X-rays and CT note multiple sacral fractures including body and bilateral wings/left femoral head avascular necrosis/back pain. - Pain control -> Controlled except when patient is repositioned - Seen by orthopedics - No surgical intervention warranted. (5) Fall: feels this has been a mechanical fall, as patient has not had any neurologic or cardiac precipitating symptoms. (6) Hypertension: pt will be given antihypertension medication via og tube (7) Dementia of the Alzheimer's type, with early onset, uncomplicated: At baseline for wv on 03/09, the patient was AAOx2 and knew the year and the president. Just not to the date/month. Since 03/10, more confused and over the last few days patient is had more garbled speech - Continue escitalopram to progressive confusion we will hold alprazolam at this point time (8) Familial hypercholesteremia: - Continue atorvastatin 20 mg in evening (9) Obstructive sleep apnea of adult: (10) Rheumatoid arthritis: No overt treatment noted. Patient with marked physical changes (11) DVT prophylaxis: lovenox 30 mg sc bid Admission and Anticipated Discharge Date Admission Date: March 08, 2020 Subjective Patient is sedated and ventilated she appears comfortable she is ventilating easily Review of Systems Review of Systems: Unobtainable due to endotracheal tube Physical Exam Physical Exam: The patient appeared ill Vital signs as documented. Lungs are clear to auscultation coarse consistent with ventilation Cardiac exam, Rhythm is regular.. No murmurs, rubs or gallops. Abdominal exam reveals normal bowel sounds, soft non tender, Extremities are nonedematous and both pedal pulses are normal. Neurologic exam is sedate Skin attention made by nursing to small areas of red dots on her left gluteus area not quite consistent with zoster at this time we will continue to watch she is on airborne isolation due to her [employer] testing Results & Data Results [facility]) Vital Signs (Past 12 Hours) Vital Signs Temp Pulse Pulse Pulse Resp BP BP 03/14/20 17:00 97.5 F L 69 13 151/59 H 03/14/20 16:00 97.5 F L 58 L 13 164/64 H 03/14/20 15:55 66 17 03/14/20 14:00 97.5 F L 67 16 138/46 L 03/14/20 13:00 97.5 F L 73 16 133/49 L 03/14/20 12:29 97.5 F L 68 122/54 L 03/14/20 11:36 60 18 03/14/20 11:00 97.5 F L 68 90/54 L 03/14/20 10:00 97.3 F L 72 136/52 L 03/14/20 09:15 20 03/14/20 09:00 97.3 F L 71 20 123/72 03/14/20 08:00 71 20 146/68 H 03/14/20 07:24 87 25 H 03/14/20 06:43 82 18 129/72 03/14/20 06:13 86 22 112/61 03/14/20 05:50 85 22 03/14/20 05:42 85 126/72 03/14/20 05:35 66 03/14/20 05:34 97.5 F L 85 24 133/64 03/14/20 05:27 87 24 BP Pulse Ox 03/14/20 17:00 120/70 94 03/14/20 16:00 148/78 H 92 03/14/20 15:55 94 03/14/20 14:00 99 03/14/20 13:00 111/65 100 03/14/20 12:29 108/70 03/14/20 11:36 100 03/14/20 11:00 101/51 L 03/14/20 10:00 122/71 03/14/20 09:15 03/14/20 09:00 100 03/14/20 08:00 100 03/14/20 07:24 99 03/14/20 06:43 100 03/14/20 06:13 100 03/14/20 05:50 98 03/14/20 05:42 98 03/14/20 05:35 03/14/20 05:34 97 03/14/20 05:27 96 PG Care Time/CCT Total # of Minutes Spent Total Time Spent with Patient: Total time spent is greater than 50% in coordination of care (as documented) at patient's floor/unit and/or counseling patient: Coding Level of Care Code 51429 Subseq Hosp Care Lvl 3 Diagnoses Respiratory failure J96.90 D-dimer, elevated R79.89 COVID-19 virus detected U07.1 Sacral fracture, closed S32.10XA Fall W19.XXXA Encounter type: initial encounter Hypertension I10 Dementia of the Alzheimer's type, with early onset, uncomplicated G30.0; F02.80 Familial hypercholesteremia E78.01 Obstructive sleep apnea of adult G47.33 Rheumatoid arthritis M06.9 DVT prophylaxis Z29.9 (1) Fall Encounter type: initial encounter Qualified Code(s): W19.XXXA - Unspecified fall, initial encounter
--- NOTE | 2020-03-14 18:25 | Communication Note ---
Date of Service: March 14, 2020 Critical CARE addendum: Patient had a CT head done to rule out any neurological reason for her respiratory failure. It was negative for any stroke, hemorrhage or mass-effect. -- VDRF Likely secondary to ventilatory failure, I do not think hypoxia was [address] head is negative for any neurological reasons Patient does have Covid-19 positive on 03/10/2020, patient had another test sent to [facility] on 03/12/2020 which apparently says Covid-19 PCR not detected. Patient did not have any seizure-like episodes. CT chest personally reviewed there is no groundglass opacities appreciated. There is left lower lobe opacity which looks more like atelectasis. No PE Continue with empiric antibiotics for the time being. Continue with ventilatory support Keep RASS -1 Daily sedation holidays and SBT's Chlorhexidine mouthwash Procalcitonin 0.36, ferritin 185, CRP 15.9, ESR 69, d-dimer greater than 5000 --Elevated WBC count Likely secondary to dexamethasone which was given for Covid-19 positivity Patient was never hypoxic when she presented. Looking at the clinical presentation of the patient I highly doubt that the patient has Covid-19 pneumonia as there are no groundglass opacities appreciated in the left lower lobe is mostly opacities most likely atelectasis I do not think the need for remdesivir right now. Especially given that the Covid-19 PCR from [facility] is negative. --Undisplaced sacral fracture Status post unwitnessed fall --History of Alzheimer's dementia with early onset --Hypertension Hold blood pressure medications for the time being --Prophylaxis VTE: Lovenox GI: Pantoprazole Lines: Right IJ, left radial arterial line, peripheral, positive Cruz Diet: N.p.o. Plan: CT head is negative. Etiology of respiratory failure still unclear I do not think the consolidation that the patient had is 1 of the reason. No signs of aspiration during intubation as per the note from anesthesia. Patient got 1 dose of vancomycin but her nasal MRSA is negative would just see vancomycin. I will discontinue dexamethasone. Elevated ESR, CRP as well as d-dimer can be explained from the sacral fracture that the patient has. Transient hypotension likely secondary to medication use during intubation. Patient did not need any vasopressor support. I I spent additional 23 minutes of critical care time in the direct management of this patient. This is a life/limb threatening event. This includes time spent evaluating patient, direct bedside care, chart review, placing orders, interpretation of diagnostic studies, discussion with consultants, patient, and family members, as well as other required patient management activities. This time is exclusive of all separately billable procedures, and teaching time and separate from and in addition to any other critical care service time. Please note the above document was generated using voice recognition software. It may contain grammatical, syntax or spelling errors. Coding Level of Care Code Critical Care theresa [email or web address] 30 min Time Spent (min) 23
[2020-03-14 20:33] LABS: D Dimer 2030 ug/L FEU (0-500)
[2020-03-15] MEDS: PIPERACILLIN/TAZOBACTAM 3.375 GM in DEXTROSE 5% 100 ML IV SCH ×3 (01:49→17:52)
[2020-03-15] MEDS: propofoL 1,000 MG/100 ML VIAL IV SCH (01:50)
[2020-03-15 06:49] LABS: Hematocrit (blood only) 24.4 % (37-47); Hemoglobin 8.5 g/dL (12.0-16.0); Immature Granulocytes # (auto) 0.08 K/uL (0.00-0.02); Immature Granulocytes % (auto) 0.8 %; Lymphocytes # (auto) 0.66 K/uL (1.2-3.4); Lymphocytes % (auto) 6.5 %; Mean Corpuscular Hemoglobin 31.5 pg (25-34); Mean Corpuscular Hgb Conc 34.8 g/dL (32-36); Mean Corpuscular Volume 90.4 fL (80-100); Mean Platelet Volume 8.8 fL (7.4-10.4); Monocytes # (auto) 0.79 K/uL (0.11-0.59); Monocytes % (auto) 7.8 %; Neutrophils # (auto) 8.64 K/uL (1.4-6.5); Neutrophils % (auto) 84.9 %; Platelet Count 339 K/uL (130-400); White Blood Count 10.17 K/uL (4.8-10.8)
[2020-03-15 07:12] LABS: Albumin Level 2.2 gm/dl (3.4-5.0); BUN Creatinine Ratio 36.8 (10-20); Bilirubin Direct 0.3 mg/dl (0-0.2); C Reactive Protein 9.94 mg/dl (0-0.29); Calcium 8.6 mg/dl (8.5-10.1); Creatinine Clr Calc Pharmacy 44.4 ml/min; Est GFR (African American) 78.4; Est GFR (Non-African American) 67.6; Magnesium 1.5 mg/dl (1.8-2.4); Potassium 2.2 mmol/L (3.5-5.1)
[2020-03-15 07:16] LABS: Bilirubin,Total 0.6 mg/dl (0.2-1); Ferritin 186.7 ng/ml (8-388); Total Protein 5.7 gm/dl (6.4-8.2)
[2020-03-15] MEDS: PANTOprazole 40 MG TAB PO SCH (07:40)
[2020-03-15] MEDS: ASPIRIN 81 MG ECTAB PO SCH (07:40)
[2020-03-15] MEDS: SODIUM CHLORIDE 0.65% NA SOLN 45 ML (OCEAN) SCH ×3 (07:41→22:25)
[2020-03-15] MEDS: NOREPINEPHRINE BIT INJ 8 MG in DEXTROSE 5% 500 ML IV SCH ×2 (07:42→09:41)
[2020-03-15] MEDS: MAGNESIUM SULFATE / D5W 1 GM/100 ML BAG IV SCH ×2 (08:07→10:13)
[2020-03-15] MEDS: POTASSIUM CHLORIDE / WTR 20 MEQ/100 ML PLCT IV SCH ×5 (08:07→22:22)
--- NOTE | 2020-03-15 09:09 | Critical Care Progress Note ---
Date of Service March 15, 2020 Assessment & Plan (1) Admitted to intensive care unit: Reason Critically Ill: 84-year-old female admitted to this facility after sacral fracture sustained from fall from height who had asymptomatic COVID-19 positive serologic testing. Patient with acute hypoxic respiratory failure and altered mental status throughout the night progressively worsening requiring endotracheal intubation. -- VDRF Likely secondary to ventilatory failure, I do not think hypoxia was one of the reasons CT head is negative for any neurological reasons Patient does have Covid-19 positive on 03/10/2020, patient had another test sent to [facility] on 03/12/2020 which apparently says Covid-19 PCR not detected. Patient did not have any seizure-like episodes. CT chest personally reviewed there is no groundglass opacities appreciated. There is left lower lobe opacity which looks more like atelectasis. No PE Continue with empiric antibiotics for the time being. Continue with ventilatory support Keep RASS -1 Daily sedation holidays and SBT's Chlorhexidine mouthwash Procalcitonin 0.36, ferritin 185, CRP 15.9, ESR 69, d-dimer greater than 5000 Elevated ESR, CRP as well as d-dimer can be explained from the sacral fracture that the patient has. --Acute blood loss anemia Unclear source, could be from upper airway from failed OGT placement trial Patient also was on Lovenox 30 mg twice daily Monitor H&H Transfuse if hemoglobin less than 7 --s/p Elevated WBC count Likely secondary to dexamethasone which was given for Covid-19 positivity Patient was never hypoxic when she presented. Looking at the clinical presentation of the patient I highly doubt that the patient has Covid-19 pneumonia as there are no groundglass opacities appreciated in the left lower lobe is mostly opacities most likely atelectasis I do not think the need for remdesivir right now. Especially given that the Covid-19 PCR from [facility] is negative. --Undisplaced sacral fracture Status post unwitnessed fall --History of Alzheimer's dementia with early onset --Hypertension Hold blood pressure medications for the time being --Prophylaxis VTE: Lovenox GI: Pantoprazole --Hypokalemia, hypomagnesemia Being replaced Lines: Right IJ, left radial arterial line, peripheral, positive Cruz Diet: N.p.o. Plan: In/out: Positive for 139, urine output 1823 Patient was stable overnight. No seizure-like activity. Afebrile. Patient has been bradycardic this could be from sedation on top of atenolol that the patient has been getting. Hemodynamically she has been stable. There has been drop in hemoglobin of 3 g compared to yesterday. There is no active signs of bleeding except from the subglottic suction. Patient had difficult time having OGT placed and she was on 30 mg twice daily of Lovenox. No other acute signs abrupt bleeding. Keep an eye on stool to see if they are melanotic. Hold Lovenox. Repeat H&H at 12. Transfuse if hemoglobin goes down less than 7. Trial of extubation today. With BiPAP standby on extubation. Continue with antibiotics for the time being. I would recommend repeating Covid-19 test if the repeat is also negative then I think the patient could be taken off isolation. I I spent additional 39 minutes of critical care time in the direct management of this patient. This is a life/limb threatening event. This includes time spent evaluating patient, direct bedside care, chart review, placing orders, interpretation of diagnostic studies, discussion with consultants, patient, and family members, as well as other required patient management activities. This time is exclusive of all separately billable procedures, and teaching time and separate from and in addition to any other critical care service time. Please note the above document was generated using voice recognition software. It may contain grammatical, syntax or spelling errors. (2) Respiratory failure: (3) Left lower lobe pneumonia: (4) Altered mental status: (5) COVID-19: (6) Sacral fracture, closed: (7) Fall: (8) Dementia of the Alzheimer's type, with early onset, uncomplicated: Admission and Anticipated Discharge Date Admission Date: March 08, 2020 Subjective Patient seen and examined at bedside. No acute distress, no adverse events overnight. Blood pressure has been stable. Patient was on fentanyl 50, propofol 15 at the time of examination. She was breathing over the vent. Afebrile. Patient has been bradycardic while being intubated but hemodynamically she is stable. Review of Systems Review of Systems: Unobtainable due to cognitive status and Unobtainable due to endotracheal tube Physical Exam Physical Exam: Constitutional: No acute distress HEENT: EOMI, PERRLA, positive ETT Respiratory system: Decreased air entry bilaterally, no wheeze, no rhonchi, mild crackles bilateral lower lobes CVS: S1-S2 positive, no murmurs or gallops, bradycardia Abdomen: Soft, nontender, nondistended, positive bowel sounds x4 Extremities: +2 pulses bilaterally radialis/ dorsalis pedis, no cyanosis, no edema Neuro: RASS -1, patient following simple commands, positive pupillary and corneal Psych: Sedated G/U: Positive Cruz Results & Data Results & Data ([facility]) Vital Signs (Past 12 Hours) Vital Signs Temp Pulse Pulse Resp BP BP BP 03/15/20 08:00 36.4 C L 59 L 14 135/49 L 133/60 03/15/20 07:38 49 L 12 03/15/20 07:00 36.4 C L 48 L 14 126/41 L 115/51 L 03/15/20 06:00 47 L 12 129/49 L 03/15/20 05:10 49 L 12 03/15/20 05:00 48 L 12 104/38 L 03/15/20 04:15 36.4 C L 64 12 132/48 L 03/15/20 04:00 132/48 L 03/15/20 02:04 61 12 03/15/20 01:53 63 13 128/49 L 03/15/20 01:00 67 12 102/42 L 03/15/20 00:45 77 18 146/72 H 03/15/20 00:00 36.9 C 60 60 12 120/82 120/82 03/14/20 23:11 53 L 03/14/20 23:00 58 L 12 136/54 L 03/14/20 22:46 48 L 12 03/14/20 22:01 36 C L 51 L 12 118/44 L 03/14/20 21:00 52 L 12 99/36 L 110/46 L Pulse Ox 03/15/20 08:00 100 03/15/20 07:38 100 03/15/20 07:00 100 03/15/20 06:00 100 03/15/20 05:10 98 03/15/20 05:00 100 03/15/20 04:15 99 03/15/20 04:00 03/15/20 02:04 97 03/15/20 01:53 97 03/15/20 01:00 98 03/15/20 00:45 98 03/15/20 00:00 98 03/14/20 23:11 03/14/20 23:00 97 03/14/20 22:46 99 03/14/20 22:01 100 03/14/20 21:00 100 03/15/20 06:17 03/15/20 06:17 Coding Level of Care Code Critical Care 1st 30-74 mins Diagnoses Admitted to intensive care unit Z78.9 Respiratory failure J96.90 Left lower lobe pneumonia J18.9 Altered mental status R41.82 COVID-19 U07.1 Sacral fracture, closed S32.10XA Fall W19.XXXA Encounter type: initial encounter Dementia of the Alzheimer's type, with early onset, uncomplicated G30.0; F02.80 Time Spent (min) 39 (1) Fall Encounter type: initial encounter Qualified Code(s): W19.XXXA - Unspecified fall, initial encounter
[2020-03-15] MEDS: fentaNYL DRIP 1,250 MCG/250 ML BAG IV SCH (10:54)
[2020-03-15 12:16] LABS: Hematocrit (blood only) 27.6 % (37-47); Hemoglobin 9.4 g/dL (12.0-16.0)
[2020-03-15 12:20] LABS: Base Excess ABG 1.1 mEq/L (-9-1.8); HCO3 ABG 25 mmol/L (19-24); Oxygen Saturation ABG 94.5 % (90-95); PCO2 ABG 34 mmHg (35-46); PO2 ABG 72 mmHg (80-95); pH ABG 7.48 (7.35-7.45)
[2020-03-15 12:23] LABS: Allen Test Pos (Pos)
[2020-03-15 13:41] LABS: iSTAT Arterial Blood Gas HCO3 27 meg/L (19-24); iSTAT Arterial Blood Gas pCO2 35 mmHg (35-46); iSTAT Arterial Blood Gas pH 7.49 (7.35-7.45); iSTAT Arterial Blood Gas pO2 98 mmHg (80-95); iSTAT Carbon Dioxide 28 mmol/L (24-31)
--- NOTE | 2020-03-15 17:49 | Hospitalist Progress Note ---
Date of Service March 15, 2020 Assessment & Plan (1) Respiratory failure: Patient progressive respiratory failure due to tachypnea. She was urgently intubated and ventilated the morning hours of 03/14. Post intubation x- rays have shown clear lungs. Patient is being treated for pneumonia with Zosyn therapy and was put on azithromycin to cover atypicals but was stopped with negative cxr she does have a negative procalcitonin but high inflammatory markers which could be consistent with her cover testing issues (2) D-dimer, elevated: D-dimer elevated to the 5000 range patient has negative PE study with CT angiogram was placed on twice daily Lovenox feeling that the D Dimer elevation was due to Covid, however with a drop in hgb this was stopped (3) COVID-19 virus detected: Routine screening done on 03/10 for placement to [place] came back positive on 03/11. -repeat to the [facility] was negative, the inital test was [facility] in [place]. additional testing was done 03/15, CXR findings are not consitent with covid pulmonary infection (4) Anemia: this pt did have hgb drop from 11 gm range to 8 grm range without signs of acute blood loss, did stop lovenox, consider acute blood loss from sacral fractures, if blood loss persists perhaps a CT to eval for retro-peritoneal or pelvic bleed (5) Sacral fracture, closed: X-rays and CT note multiple sacral fractures including body and bilateral wings/left femoral head avascular necrosis/back pain. - Pain control -> Controlled except when patient is repositioned - Seen by orthopedics - No surgical intervention warranted. (6) Fall: feels this has been a mechanical fall, as patient has not had any neurologic or cardiac precipitating symptoms. (7) Hypertension: pt will be given antihypertension medication via og tube (8) Dementia of the Alzheimer's type, with early onset, uncomplicated: At baseline for me on 03/09, the patient was AAOx2 and knew the year and the president. Just not to the date/month. Since 03/10, more confused and over the last few days patient is had more garbled speech - Continue escitalopram to progressive confusion we will hold alprazolam at this point time (9) Familial hypercholesteremia: - Continue atorvastatin 20 mg in evening (10) Obstructive sleep apnea of adult: Will avoid noninvasive positive pressure ventilation due to aerosolization of COVID unless absolutely required (11) Rheumatoid arthritis: No overt treatment noted. Patient with marked physical changes (12) DVT prophylaxis: lovenox 30 mg sc bid Admission and Anticipated Discharge Date Admission Date: March 08, 2020 Subjective this pt is now extubated but is fatigued and only reacts with moans and groans Review of Systems Review of Systems: pt is not alert enough to complete full ROS Physical Exam Physical Exam: The patient continues to appear ill Vital signs as documented. Lungs are coarse but has even bilateral breath sounds Cardiac exam, Rhythm is regular.. No murmurs, rubs or gallops. Abdominal exam reveals normal bowel sounds, soft non tender, Extremities are nonedematous and both pedal pulses are normal. Neurologic exam is sedate Skin attention made by nursing to small areas of red dots on her left gluteus area, have not progressed, isolation continues due to initial Covid testing Results & Data Results & Data ([facility]) Vital Signs (Past 12 Hours) Vital Signs Temp Pulse Pulse Resp BP BP Pulse Ox 03/15/20 17:00 67 18 126/45 L 132/54 L 100 03/15/20 16:00 97.9 F 78 18 142/50 H 137/78 98 03/15/20 15:08 83 03/15/20 15:00 77 20 142/56 H 135/72 03/15/20 14:00 77 20 144/55 H 144/61 H 100 03/15/20 13:00 75 22 144/51 H 153/58 H 03/15/20 12:00 96.4 F L 73 20 156/61 H 145/82 H 97 03/15/20 11:00 74 03/15/20 10:54 75 20 132/49 L 132/79 93 03/15/20 10:00 79 22 157/52 H 129/92 95 03/15/20 09:00 79 149/57 H 146/66 H 03/15/20 08:00 97.5 F L 59 L 14 135/49 L 133/60 100 03/15/20 07:38 49 L 12 100 03/15/20 07:00 97.5 F L 48 L 14 126/41 L 115/51 L 100 03/15/20 06:00 47 L 12 129/49 L 100 PG Care Time/CCT Total # of Minutes Spent Total Time Spent with Patient: Total time spent is greater than 50% in coordination of care (as documented) at patient's floor/unit and/or counseling patient: Coding Level of Care Code 06325 Subseq Hosp Care Lvl 3 Diagnoses Respiratory failure J96.90 D-dimer, elevated R79.89 COVID-19 virus detected U07.1 Anemia D64.9 Sacral fracture, closed S32.10XA Fall W19.XXXA Encounter type: initial encounter Hypertension I10 Dementia of the Alzheimer's type, with early onset, uncomplicated G30.0; F02.80 Familial hypercholesteremia E78.01 Obstructive sleep apnea of adult G47.33 Rheumatoid arthritis M06.9 DVT prophylaxis Z29.9 (1) Fall Encounter type: initial encounter Qualified Code(s): W19.XXXA - Unspecified fall, initial encounter
[2020-03-15 19:48] LABS: D Dimer 2390 ug/L FEU (0-500)
[2020-03-15 19:51] LABS: BUN Creatinine Ratio 36.8 (10-20); Calcium 8.3 mg/dl (8.5-10.1); Creatinine Clr Calc Pharmacy 51.3 ml/min; Est GFR (African American) 93.5; Est GFR (Non-African American) 80.7
[2020-03-15 19:53] LABS: Phosphorus 2.1 mg/dl (2.5-4.9)
[2020-03-15 21:09] LABS: Potassium 3.2 mmol/L (3.5-5.1)
[2020-03-15] MEDS ORDERED: POTASSIUM PHOS 3 MMOL/1 ML INFUSION IV STA (21:19)
[2020-03-15] MEDS ORDERED: POTASSIUM PHOSPHATE 21 MMOL in SODIUM CHLORIDE 0.9% 500 ML IV ONE (21:45)
[2020-03-15] MEDS: PANTOprazole 40 MG in SYRINGE 0 ML IV SCH (22:42)
[2020-03-16] MEDS: POTASSIUM CHLORIDE / WTR 20 MEQ/100 ML PLCT IV SCH ×2 (00:22→02:23)
[2020-03-16] MEDS: PIPERACILLIN/TAZOBACTAM 3.375 GM in DEXTROSE 5% 100 ML IV SCH ×3 (02:08→17:02)
[2020-03-16] MEDS: propofoL 1,000 MG/100 ML VIAL IV SCH (03:20)
[2020-03-16 04:37] LABS: Basophils # (auto) 0.01 K/uL (0-0.2); Basophils % (auto) 0.1 %; Eosinophils # (auto) 0.01 K/uL (0-0.5); Eosinophils % (auto) 0.1 %; Hematocrit (blood only) 28.3 % (37-47); Hemoglobin 9.4 g/dL (12.0-16.0); Immature Granulocytes % (auto) 0.9 %; Lymphocytes # (auto) 1.59 K/uL (1.2-3.4); Lymphocytes % (auto) 14.7 %; Mean Corpuscular Hemoglobin 30.5 pg (25-34); Mean Corpuscular Hgb Conc 33.2 g/dL (32-36); Mean Corpuscular Volume 91.9 fL (80-100); Mean Platelet Volume 8.8 fL (7.4-10.4); Monocytes # (auto) 1.18 K/uL (0.11-0.59); Monocytes % (auto) 10.9 %; Neutrophils % (auto) 73.3 %; Platelet Count 485 K/uL (130-400); RDW Coefficient of Variation 13.1 % (11.5-14.5); RDW Standard Deviation 44.1 fL (36.4-46.3); Red Blood Count 3.08 M/uL (4.2-5.4); White Blood Count 10.79 K/uL (4.8-10.8)
[2020-03-16 05:30] LABS: Albumin Level 2.2 gm/dl (3.4-5.0); BUN Creatinine Ratio 35.3 (10-20); Bilirubin Direct 0.4 mg/dl (0-0.2); Bilirubin,Total 0.7 mg/dl (0.2-1); C Reactive Protein 5.77 mg/dl (0-0.29); Calcium 8.2 mg/dl (8.5-10.1); Creatinine Clr Calc Pharmacy 52.1 ml/min; Est GFR (Non-African American) 81.1; Magnesium 1.6 mg/dl (1.8-2.4); Phosphorus 2.9 mg/dl (2.5-4.9); Potassium 4.6 mmol/L (3.5-5.1); Total Protein 6.1 gm/dl (6.4-8.2)
[2020-03-16] MEDS ORDERED: MAGNESIUM SULFATE / D5W 1 GM/100 ML BAG IV ONE ×2 (05:32→08:08)
[2020-03-16] MEDS: ASPIRIN 81 MG ECTAB PO SCH (08:10)
[2020-03-16] MEDS: SODIUM CHLORIDE 0.65% NA SOLN 45 ML (OCEAN) SCH ×3 (08:11→21:38)
[2020-03-16] MEDS: PANTOprazole 40 MG in SYRINGE 0 ML IV SCH ×2 (08:14→21:37)
--- NOTE | 2020-03-16 08:58 | Critical Care Progress Note ---
Date of Service March 16, 2020 Assessment & Plan (1) Admitted to intensive care unit: Reason Critically Ill: 84-year-old female admitted to this facility after sacral fracture sustained from fall from height who had asymptomatic COVID-19 positive serologic testing. Patient with acute hypoxic respiratory failure and altered mental status throughout the night progressively worsening requiring endotracheal intubation. --Status post VDRF Likely secondary to ventilatory failure, I do not think hypoxia was one of the reasons CT head is negative for any neurological reasons Patient does have Covid-19 positive on 03/10/2020, patient had another test sent to [facility] on 03/12/2020 which apparently says Covid-19 PCR not detected. Patient did not have any seizure-like episodes. CT chest personally reviewed there is no groundglass opacities appreciated. There is left lower lobe opacity which looks more like atelectasis. No PE Continue with empiric antibiotics for the time being. Procalcitonin 0.36--> 0.27, ferritin 185, CRP 15.9, ESR 69, d-dimer greater than 5000 Elevated ESR, CRP as well as d-dimer can be explained from the sacral fracture that the patient has. --Acute blood loss anemia H&H has been stable Unclear source, could be from upper airway from failed OGT placement trial Patient also was on Lovenox 30 mg twice daily Monitor H&H Transfuse if hemoglobin less than 7 --s/p Elevated WBC count Likely secondary to dexamethasone which was given for Covid-19 positivity Patient was never hypoxic when she presented. Looking at the clinical presentation of the patient I highly doubt that the patient has Covid-19 pneumonia as there are no groundglass opacities appreciated in the left lower lobe is mostly opacities most likely atelectasis I do not think the need for remdesivir right now. Especially given that the Covid-19 PCR from [facility] is negative. --Undisplaced sacral fracture Status post unwitnessed fall --History of Alzheimer's dementia with early onset --Hypertension Resume atenolol --Prophylaxis VTE: IPC's GI: Pantoprazole --Hypomagnesemia Being replaced Lines: Right IJ, left radial arterial line, peripheral, positive Cruz Diet: N.p.o. we will get swallow eval today and start diet Plan: In/out: +922, urine output 830 Patient successfully extubated on 03/15/2020. Currently saturating well on room air. Hypomagnesemia has been replaced. Procalcitonin trending down from 0.6 to 0.27 Defer PT OT till COVID is negative. Swallow eval. Continue with antibiotics. Repeat Covid-19 test has been done on 03/15/2020, awaiting results Patient is hemodynamically stable as is her respiratory status. We will downgrade the patient to medical floor. I I spent additional 32 minutes of critical care time in the direct management of this patient. This is a life/limb threatening event. This includes time spent evaluating patient, direct bedside care, chart review, placing orders, interpretation of diagnostic studies, discussion with consultants, patient, and family members, as well as other required patient management activities. This time is exclusive of all separately billable procedures, and teaching time and separate from and in addition to any other critical care service time. Please note the above document was generated using voice recognition software. It may contain grammatical, syntax or spelling errors. (2) Respiratory failure: (3) Left lower lobe pneumonia: (4) Altered mental status: (5) COVID-19: (6) Sacral fracture, closed: (7) Fall: (8) Dementia of the Alzheimer's type, with early onset, uncomplicated: Admission and Anticipated Discharge Date Admission Date: March 08, 2020 Subjective Patient seen and examined at bedside. No acute distress, no adverse events ov ernight. Patient has been successfully extubated on 03/15/2020. She is saturating well on room air. Denies any complaints. She has Alzheimer's dementia she is not able to answer all the questions but does answer simple questions. Review of Systems Review of Systems: All systems reviewed & are unremarkable except as noted in HPI & below Physical Exam Physical Exam: Constitutional: No acute distress HEENT: EOMI, PERRLA Respiratory system: Decreased air entry bilaterally, no wheeze, no rhonchi, mild crackles bilateral lower lobes CVS: S1-S2 positive, no murmurs or gallops Abdomen: Soft, nontender, nondistended, positive bowel sounds x4 Extremities: +2 pulses bilaterally radialis/ dorsalis pedis, no cyanosis, no edema Neuro: Patient is answering simple questions moving all extremities Psych: Normal mood and affect G/U: Positive Cruz Results & Data Results & Data ([place]) Vital Signs (Past 12 Hours) Vital Signs Temp Pulse Resp BP Pulse Ox 03/16/20 06:21 78 20 166/78 H 93 03/16/20 06:00 77 24 97 03/16/20 05:44 75 18 150/58 H 97 03/16/20 05:21 77 19 153/112 H 92 03/16/20 04:21 36.6 C 78 23 147/65 H 93 03/16/20 03:20 74 26 H 149/70 H 96 03/16/20 02:21 72 21 138/110 H 96 03/16/20 01:21 77 15 102/72 99 03/16/20 00:22 36.6 C 75 17 148/59 H 97 03/16/20 00:00 74 03/15/20 23:20 71 16 146/76 H 96 03/15/20 22:20 73 21 134/76 94 03/15/20 21:20 73 17 141/79 H 97 03/16/20 04:27 03/16/20 04:27 Coding Level of Care Code Critical Care 1st 30-74 mins Diagnoses Admitted to intensive care unit Z78.9 Respiratory failure J96.90 Left lower lobe pneumonia J18.9 Altered mental status R41.82 COVID-19 U07.1 Sacral fracture, closed S32.10XA Fall W19.XXXA Encounter type: initial encounter Dementia of the Alzheimer's type, with early onset, uncomplicated G30.0; F02.80 Time Spent (min) 32 (1) Fall Encounter type: initial encounter Qualified Code(s): W19.XXXA - Unspecified fall, initial encounter
[2020-03-16] MEDS: ATENOLOL 25 MG TABLET PO SCH (11:02)
[2020-03-16] MEDS: DOCUSATE SODIUM 100 MG CAP PO SCH ×2 (11:02→22:04)
--- NOTE | 2020-03-16 18:06 | Hospitalist Progress Note ---
Date of Service March 16, 2020 Assessment & Plan (1) Respiratory failure: Patient progressive respiratory failure due to tachypnea. She was urgently intubated and ventilated the morning hours of 03/14. Post intubation x- rays have shown clear lungs. Patient is being treated for pneumonia with Zosyn therapy and was put on azithromycin to cover atypicals but was stopped with negative cxr she does have a negative procalcitonin but high inflammatory markers which could be consistent with her cover testing issues (2) D-dimer, elevated: D-dimer elevated to the 5000 range patient has negative PE study with CT angiogram was placed on twice daily Lovenox feeling that the D Dimer elevation was due to Covid, however with a drop in hgb this was stopped (3) COVID-19 virus detected: Routine screening done on 03/10 for placement to [place] came back positive on 03/11. -repeat to the [facility] was negative, the inital test was [facility] in [place]. additional testing was done 03/15, CXR findings are not consitent with covid pulmonary infection (4) Anemia: this pt did have hgb drop from 11 gm range to 8 grm range without signs of acute blood loss, did stop lovenox, consider acute blood loss from sacral fractures, if blood loss persists perhaps a CT to eval for retro-peritoneal or pelvic bleed (5) Sacral fracture, closed: X-rays and CT note multiple sacral fractures including body and bilateral wings/left femoral head avascular necrosis/back pain. - Pain control -> Controlled except when patient is repositioned - Seen by orthopedics - No surgical intervention warranted. (6) Fall: feels this has been a mechanical fall, as patient has not had any neurologic or cardiac precipitating symptoms. (7) Hypertension: pt will be given antihypertension medication via og tube (8) Dementia of the Alzheimer's type, with early onset, uncomplicated: At baseline for me on 03/09, the patient was AAOx2 and knew the year and the president. Just not to the date/month. Since 03/10, more confused and over the last few days patient is had more garbled speech - Continue escitalopram to progressive confusion we will hold alprazolam at this point time (9) Familial hypercholesteremia: - Continue atorvastatin 20 mg in evening (10) Obstructive sleep apnea of adult: Will avoid noninvasive positive pressure ventilation due to aerosolization of COVID unless absolutely required (11) Rheumatoid arthritis: No overt treatment noted. Patient with marked physical changes (12) DVT prophylaxis: lovenox 30 mg sc bid Admission and Anticipated Discharge Date Admission Date: March 08, 2020 Subjective Patient is much more appropriate today she is asking questions she is slightly confused she is not with respiratory distress Review of Systems Review of Systems: To systems is clouded by the fact of her dementia. She however denies any specific focal complaints but she is not completely clear is only oriented x2 mild distress and fatigue no headache, blurry or double vision no speech or swallowing issues no chest pain, pressure or palpitations no shortness of breath, cough or wheezes no abdominal pain, nausea or vomiting, diarrhea or constipation no dysuria, hematuria or frequency no focal joint pain or swelling no back pain, CVA tenderness or radicular pain no bruising, bleeding or rashes no focal signs of weakness or numbness or altered sensation no complaints or anxiety or depression. Physical Exam Physical Exam: The patient continues to appear ill Vital signs as documented. Lungs are coarse but continue with even bilateral breath sounds Cardiac exam, Rhythm is regular.. No murmurs, rubs or gallops. Abdominal exam reveals normal bowel sounds, soft non tender, Extremities are nonedematous and both pedal pulses are normal. Neurologic exam and oriented x2 she is globally weak difficulty raising her arms Skin attention made by nursing to small areas of red dots on her left gluteus area, continues to remain stable and not evolved towards the vesicular lesions in any way isolation continues due to initial Covid testing Results & Data Results & Data ([facility]) Vital Signs (Past 12 Hours) Vital Signs Temp Pulse Resp BP Pulse Ox 03/16/20 06:21 78 20 166/78 H 93 03/16/20 06:00 77 24 97 03/16/20 05:44 75 18 150/58 H 97 03/16/20 05:21 77 19 153/112 H 92 03/16/20 04:21 97.9 F 78 23 147/65 H 93 03/16/20 03:20 74 26 H 149/70 H 96 03/16/20 02:21 72 21 138/110 H 96 03/16/20 01:21 77 15 102/72 99 03/16/20 00:22 97.9 F 75 17 148/59 H 97 03/16/20 00:00 74 03/15/20 23:20 71 16 146/76 H 96 03/15/20 22:20 73 21 134/76 94 03/15/20 21:20 73 17 141/79 H 97 PG Care Time/CCT Total # of Minutes Spent Total Time Spent with Patient: Total time spent is greater than 50% in coordination of care (as documented) at patient's floor/unit and/or counseling patient: Coding Level of Care Code 96967 Subseq Hosp Care Lvl 3 Diagnoses Respiratory failure J96.90 D-dimer, elevated R79.89 COVID-19 virus detected U07.1 Anemia D64.9 Sacral fracture, closed S32.10XA Fall W19.XXXA Encounter type: initial encounter Hypertension I10 Dementia of the Alzheimer's type, with early onset, uncomplicated G30.0; F02.80 Familial hypercholesteremia E78.01 Obstructive sleep apnea of adult G47.33 Rheumatoid arthritis M06.9 DVT prophylaxis Z29.9 (1) Fall Encounter type: initial encounter Qualified Code(s): W19.XXXA - Unspecified fall, initial encounter
[2020-03-16] MEDS: SENNA 8.6 MG TAB PO SCH (22:04)
[2020-03-17] MEDS: PIPERACILLIN/TAZOBACTAM 3.375 GM in DEXTROSE 5% 100 ML IV SCH ×3 (02:53→19:32)
[2020-03-17 07:03] LABS: Eosinophils # (auto) 0.04 K/uL (0-0.5); Eosinophils % (auto) 0.5 %; Hematocrit (blood only) 31.2 % (37-47); Hemoglobin 10.6 g/dL (12.0-16.0); Immature Granulocytes # (auto) 0.09 K/uL (0.00-0.02); Immature Granulocytes % (auto) 1.1 %; Lymphocytes # (auto) 1.26 K/uL (1.2-3.4); Lymphocytes % (auto) 15.4 %; Mean Corpuscular Volume 91.2 fL (80-100); Mean Platelet Volume 8.9 fL (7.4-10.4); Monocytes # (auto) 0.98 K/uL (0.11-0.59); Platelet Count 516 K/uL (130-400); RDW Coefficient of Variation 12.9 % (11.5-14.5); RDW Standard Deviation 42.9 fL (36.4-46.3); Red Blood Count 3.42 M/uL (4.2-5.4); White Blood Count 8.17 K/uL (4.8-10.8)
[2020-03-17 07:32] LABS: Albumin Level 2.3 gm/dl (3.4-5.0); Bilirubin Direct 0.3 mg/dl (0-0.2); Bilirubin,Total 0.7 mg/dl (0.2-1); C Reactive Protein 3.62 mg/dl (0-0.29); Magnesium 1.8 mg/dl (1.8-2.4); Phosphorus 2.6 mg/dl (2.5-4.9); Total Protein 6.2 gm/dl (6.4-8.2)
[2020-03-17] MEDS: PANTOprazole 40 MG in SYRINGE 0 ML IV SCH (09:38)
[2020-03-17] MEDS: ATENOLOL 25 MG TABLET PO SCH (09:38)
[2020-03-17] MEDS: ASPIRIN 81 MG ECTAB PO SCH (09:38)
[2020-03-17] MEDS: DOCUSATE SODIUM 100 MG CAP PO SCH ×2 (09:52→20:42)
[2020-03-17] MEDS: SODIUM CHLORIDE 0.65% NA SOLN 45 ML (OCEAN) SCH ×3 (12:56→20:42)
[2020-03-17] MEDS: ENOXAPARIN INJ 40 MG/0.4 ML SYR SQ SCH (15:29)
--- NOTE | 2020-03-17 16:37 | Hospitalist Progress Note ---
Date of Service March 17, 2020 Assessment & Plan (1) Respiratory failure: Patient progressive respiratory failure due to tachypnea. She was urgently intubated and ventilated the morning hours of 03/14. Post intubation x- rays have shown clear lungs. she remains stable now without respiratory distress or oxygen supplementation Patient is being treated for pneumonia with Zosyn therapy and was put on azithromycin to cover atypicals but was stopped with negative cxr she does have a negative procalcitonin but high inflammatory markers which could be consistent with her cover testing issues will consider 5 day treatment for pneumonia stopping 03/18 (2) D-dimer, elevated: D-dimer elevated to the 5000 range patient has negative PE study with CT angiogram was placed on twice daily Lovenox feeling that the D Dimer elevation was due to Covid, however with a drop in hgb this was stopped, restarting lovenox now that hgb has stablilized (3) COVID-19 virus detected: Routine screening done on 03/10 for placement to [place] came back positive on 03/11. -repeat to the [facility] was negative, the inital test was [facility] in [place]. additional testing was done 03/15 remains pending , CXR findings are not consitent with covid pulmonary infection (4) Anemia: this pt did have hgb drop from 11 gm range to 8 grm range without signs of acute blood loss, did stop lovenox, consider acute blood loss from sacral fractures, hgb has rebounded without explanation (5) Sacral fracture, closed: X-rays and CT note multiple sacral fractures including body and bilateral wings/left femoral head avascular necrosis/back pain. - Pain control -> good even with movement - Seen by orthopedics - No surgical intervention warranted. (6) Fall: feels this has been a mechanical fall, as patient has not had any neurologic or cardiac precipitating symptoms. (7) Hypertension: continues on atenolol (8) Dementia of the Alzheimer's type, with early onset, uncomplicated: Since pt was more confused stopped lexapro and alprozolam with intubation episode and not restarted pt remains clear - (9) Familial hypercholesteremia: - Continue atorvastatin 20 mg at time of discharge (10) Obstructive sleep apnea of adult: (11) Rheumatoid arthritis: No overt treatment noted. Patient with marked physical changes (12) DVT prophylaxis: lovenox 40 mg daily Admission and Anticipated Discharge Date Admission Date: March 08, 2020 Subjective Patient is continued to improve showing no additional signs or symptoms of respiratory distress Review of Systems Review of Systems: To systems is clouded by the fact of her dementia. She however denies any specific focal complaints mild distress and fatigue no headache, blurry or double vision no speech or swallowing issues no chest pain, pressure or palpitations no shortness of breath, cough or wheezes no abdominal pain, nausea or vomiting, diarrhea or constipation no dysuria, hematuria or frequency no focal joint pain or swelling no back pain, CVA tenderness or radicular pain no bruising, bleeding or rashes no focal signs of weakness or numbness or altered sensation no complaints or anxiety or depression continues with mild confusion. Physical Exam Physical Exam: The patient continues to appear ill Vital signs as documented. Lungs are coarse but continue with even bilateral breath sounds Cardiac exam, Rhythm is regular.. No murmurs, rubs or gallops. Abdominal exam reveals normal bowel sounds, soft non tender, Extremities are nonedematous and both pedal pulses are normal. Neurologic exam and oriented x2 she is globally weak difficulty raising her arms Skin attention made by nursing to small areas of red dots on her left gluteus area, continues to remain stable and not evolved towards the vesicular lesions in any way isolation continues due to initial Covid testing Results & Data Results & Data ([facility]) Vital Signs (Past 12 Hours) Vital Signs Temp Pulse Pulse Resp BP BP Pulse Ox 03/17/20 07:51 98.6 F 75 20 170/98 H 95 03/17/20 07:00 67 71 L 03/17/20 06:49 66 196/64 H 73 L 03/17/20 06:00 68 100 03/17/20 05:00 72 100 PG Care Time/CCT Total # of Minutes Spent Total Time Spent with Patient: Total time spent is greater than 50% in coordination of care (as documented) at patient's floor/unit and/or counseling patient: Coding Level of Care Code 10738 Subseq Hosp Care Lvl 3 Diagnoses Respiratory failure J96.90 D-dimer, elevated R79.89 COVID-19 virus detected U07.1 Anemia D64.9 Sacral fracture, closed S32.10XA Fall W19.XXXA Encounter type: initial encounter Hypertension I10 Dementia of the Alzheimer's type, with early onset, uncomplicated G30.0; F02.80 Familial hypercholesteremia E78.01 Obstructive sleep apnea of adult G47.33 Rheumatoid arthritis M06.9 DVT prophylaxis Z29.9 (1) Fall Encounter type: initial encounter Qualified Code(s): W19.XXXA - Unspecified fall, initial encounter
[2020-03-17] MEDS: PANTOprazole 40 MG TAB PO SCH (20:41)
[2020-03-17] MEDS: SENNA 8.6 MG TAB PO SCH (20:41)
[2020-03-18] MEDS: PIPERACILLIN/TAZOBACTAM 3.375 GM in DEXTROSE 5% 100 ML IV SCH ×3 (00:54→17:59)
[2020-03-18] MEDS: ASPIRIN 81 MG ECTAB PO SCH (09:33)
[2020-03-18] MEDS: ATENOLOL 25 MG TABLET PO SCH (09:33)
[2020-03-18] MEDS: SODIUM CHLORIDE 0.65% NA SOLN 45 ML (OCEAN) SCH ×3 (09:34→22:38)
[2020-03-18] MEDS: PANTOprazole 40 MG TAB PO SCH ×2 (09:34→22:37)
[2020-03-18] MEDS: DOCUSATE SODIUM 100 MG CAP PO SCH ×2 (09:35→22:39)
[2020-03-18] MEDS: ENOXAPARIN INJ 40 MG/0.4 ML SYR SQ SCH (15:29)
--- NOTE | 2020-03-18 16:39 | Hospitalist Progress Note ---
Date of Service March 18, 2020 Assessment & Plan (1) Respiratory failure: Patient progressive respiratory failure due to tachypnea. She was urgently intubated and ventilated the morning hours of 03/14. Post intubation x- rays have shown clear lungs. she remains stable now without respiratory distress or oxygen supplementation Patient is being treated for pneumonia with Zosyn therapy and was put on azithromycin to cover atypicals but was stopped with negative cxr she does have a negative procalcitonin but high inflammatory markers which could be consistent with her cover testing issues will consider 5 day treatment for pneumonia stopping 03/18 (2) D-dimer, elevated: D-dimer elevated to the 5000 range patient has negative PE study with CT angiogram was placed on twice daily Lovenox feeling that the D Dimer elevation was due to Covid, however with a drop in hgb this was stopped, restarting lovenox now that hgb has stablilized (3) COVID-19 virus detected: Routine screening done on 03/10 for placement to [place] came back positive on 03/11. -repeat to the [facility] was negative, the inital test was [facility] in [place]. additional testing was done 03/15 remains pending , CXR findings are not consitent with covid pulmonary infection (4) Anemia: this pt did have hgb drop from 11 gm range to 8 grm range without signs of acute blood loss, did stop lovenox, consider acute blood loss from sacral fractures, hgb has rebounded without explanation (5) Sacral fracture, closed: X-rays and CT note multiple sacral fractures including body and bilateral wings/left femoral head avascular necrosis/back pain. - Pain control -> good even with movement - Seen by orthopedics - No surgical intervention warranted. (6) Fall: feels this has been a mechanical fall, as patient has not had any neurologic or cardiac precipitating symptoms. (7) Hypertension: continues on atenolol (8) Dementia of the Alzheimer's type, with early onset, uncomplicated: Since pt was more confused stopped lexapro and alprozolam with intubation episode and not restarted pt remains clear - (9) Familial hypercholesteremia: - Continue atorvastatin 20 mg at time of discharge (10) Obstructive sleep apnea of adult: Will avoid noninvasive positive pressure ventilation due to aerosolization of COVID unless absolutely required (11) Rheumatoid arthritis: No overt treatment noted. Patient with marked physical changes (12) DVT prophylaxis: lovenox 40 mg daily Admission and Anticipated Discharge Date Admission Date: March 08, 2020 Subjective Patient is continued to improve showing no additional signs or symptoms of respiratory distress Review of Systems Review of Systems: To systems is clouded by the fact of her dementia. She however denies any specific focal complaints mild distress and fatigue no headache, blurry or double vision no speech or swallowing issues no chest pain, pressure or palpitations no shortness of breath, cough or wheezes no abdominal pain, nausea or vomiting, diarrhea or constipation no dysuria, hematuria or frequency no focal joint pain or swelling no back pain, CVA tenderness or radicular pain no bruising, bleeding or rashes no focal signs of weakness or numbness or altered sensation no complaints or anxiety or depression continues with mild confusion. Physical Exam Physical Exam: The patient continues to appear ill Vital signs as documented. Lungs are coarse but continue with even bilateral breath sounds Cardiac exam, Rhythm is regular.. No murmurs, rubs or gallops. Abdominal exam reveals normal bowel sounds, soft non tender, Extremities are nonedematous and both pedal pulses are normal. Neurologic exam and oriented x2 she is globally weak difficulty raising her arms Skin attention made by nursing to small areas of red dots on her left gluteus area, continues to remain stable and not evolved towards the vesicular lesions in any way isolation continues due to initial Covid testing Results & Data Results & Data ([facility]) Vital Signs (Past 12 Hours) Vital Signs Temp Pulse Pulse Resp BP BP Pulse Ox 03/18/20 14:20 79 03/18/20 12:00 98.2 F 80 18 140/72 97 03/18/20 08:00 97.7 F 87 22 175/72 H 97 03/18/20 07:24 98.6 F 62 16 152/82 H 98 03/18/20 05:00 97.9 F 69 14 163/74 H 98 PG Care Time/CCT Total # of Minutes Spent Total Time Spent with Patient: Total time spent is greater than 50% in coordination of care (as documented) at patient's floor/unit and/or counseling patient: Coding Level of Care Code 90673 Subseq Hosp Care Lvl 2 Diagnoses Respiratory failure J96.90 D-dimer, elevated R79.89 COVID-19 virus detected U07.1 Anemia D64.9 Sacral fracture, closed S32.10XA Fall W19.XXXA Encounter type: initial encounter Hypertension I10 Dementia of the Alzheimer's type, with early onset, uncomplicated G30.0; F02.80 Familial hypercholesteremia E78.01 Obstructive sleep apnea of adult G47.33 Rheumatoid arthritis M06.9 DVT prophylaxis Z29.9 (1) Fall Encounter type: initial encounter Qualified Code(s): W19.XXXA - Unspecified fall, initial encounter
[2020-03-18] MEDS: SENNA 8.6 MG TAB PO SCH (22:37)
[2020-03-19] MEDS: PIPERACILLIN/TAZOBACTAM 3.375 GM in DEXTROSE 5% 100 ML IV SCH ×2 (00:06→11:49)
[2020-03-19] MEDS: ASPIRIN 81 MG ECTAB PO SCH (08:01)
[2020-03-19] MEDS: ATENOLOL 25 MG TABLET PO SCH (08:01)
[2020-03-19] MEDS: PANTOprazole 40 MG TAB PO SCH (08:01)
[2020-03-19] MEDS: ACETAMINOPHEN 325 MG TAB PO PRN ×2 (08:09→20:46)
[2020-03-19] MEDS: DOCUSATE SODIUM 100 MG CAP PO SCH ×2 (08:16→20:45)
[2020-03-19] MEDS: SODIUM CHLORIDE 0.65% NA SOLN 45 ML (OCEAN) SCH ×3 (08:16→20:45)
[2020-03-19 09:42] LABS: Creatinine Clr Calc Pharmacy 53.6 ml/min; Est GFR (African American) 94.4; Est GFR (Non-African American) 81.5
--- NOTE | 2020-03-19 12:50 | Hospitalist Progress Note ---
Date of Service March 19, 2020 Assessment & Plan (1) Respiratory failure: Patient progressive respiratory failure due to tachypnea. She was urgently intubated and ventilated the morning hours of 03/14. Post intubation x- rays have shown clear lungs. she remains stable now without respiratory distress or oxygen supplementation Patient is being treated for pneumonia with Zosyn therapy and was put on azithromycin to cover atypicals but was stopped with negative cxr she does have a negative procalcitonin but high inflammatory markers which could be consistent with her cover testing issues will consider 5 day treatment for pneumonia stopping 03/18 (2) D-dimer, elevated: D-dimer elevated to the 5000 range patient has negative PE study with CT angiogram was placed on twice daily Lovenox feeling that the D Dimer elevation was due to Covid, however with a drop in hgb this was stopped, restarting lovenox now that hgb has stablilized (3) COVID-19 virus detected: Routine screening done on 03/10 for placement to [place] came back positive on 03/11. -repeat to the [facility] was negative, the inital test was CSI in [place]. additional testing was done 03/15 remains pending, ordered an in house test 03/19/20 , CXR findings are not consitent with covid pulmonary infection (4) Anemia: this pt did have hgb drop from 11 gm range to 8 grm range without signs of acute blood loss, did stop lovenox, consider acute blood loss from sacral fractures, hgb has rebounded without explanation (5) Sacral fracture, closed: X-rays and CT note multiple sacral fractures including body and bilateral wings/left femoral head avascular necrosis/back pain. - Pain control -> good even with movement - Seen by orthopedics - No surgical intervention warranted. (6) Fall: feels this has been a mechanical fall, as patient has not had any neurologic or cardiac precipitating symptoms. (7) Hypertension: continues on atenolol, blood pressure is slightly elevated will follow (8) Dementia of the Alzheimer's type, with early onset, uncomplicated: Since pt was more confused stopped lexapro and alprozolam with intubation episode and not restarted pt remains with clear mentation but confused - (9) Familial hypercholesteremia: - Continue atorvastatin 20 mg at time of discharge (10) Obstructive sleep apnea of adult: Will avoid noninvasive positive pressure ventilation due to aerosolization of COVID unless absolutely required (11) Rheumatoid arthritis: No overt treatment noted. Patient with marked physical changes (12) DVT prophylaxis: lovenox 40 mg daily Admission and Anticipated Discharge Date Admission Date: March 08, 2020 Subjective Patient is continued to improve showing no additional signs or symptoms of respiratory distress, this pt has pleasant dementia, but is in no distress Review of Systems Review of Systems: To systems is clouded by the fact of her dementia. She however denies any specific focal complaints mild distress and fatigue no headache, blurry or double vision no speech or swallowing issues no chest pain, pressure or palpitations no shortness of breath, cough or wheezes no abdominal pain, nausea or vomiting, diarrhea or constipation no dysuria, hematuria or frequency no focal joint pain or swelling no back pain, CVA tenderness or radicular pain no bruising, bleeding or rashes no focal signs of weakness or numbness or altered sensation no complaints or anxiety or depression continues with mild confusion. Physical Exam Physical Exam: The patient continues to appear ill Vital signs as documented. Lungs are coarse but continue with even bilateral breath sounds Cardiac exam, Rhythm is regular.. No murmurs, rubs or gallops. Abdominal exam reveals normal bowel sounds, soft non tender, Extremities are nonedematous and both pedal pulses are normal. Neurologic exam and oriented x2 she is globally weak difficulty raising her arms Skin attention made by nursing to small areas of red dots on her left gluteus area, continues to remain stable and not evolved towards the vesicular lesions in any way isolation continues due to initial Covid testing Results & Data Results & Data ([facility]) Vital Signs (Past 12 Hours) Vital Signs Temp Pulse Pulse Resp BP BP BP 03/19/20 11:50 98.4 F 68 20 154/86 H 03/19/20 08:00 75 03/19/20 07:50 98.1 F 77 149/90 H 03/19/20 07:48 98.2 F 108 H 16 165/107 H 03/19/20 04:00 97.5 F L 74 16 161/56 H Pulse Ox 03/19/20 11:50 95 03/19/20 08:00 03/19/20 07:50 100 03/19/20 07:48 98 03/19/20 04:00 100 PG Care Time/CCT Total # of Minutes Spent Total Time Spent with Patient: Total time spent is greater than 50% in coordination of care (as documented) at patient's floor/unit and/or counseling patient: Coding Level of Care Code 43333 Subseq Hosp Care Lvl 2 Diagnoses Respiratory failure J96.90 D-dimer, elevated R79.89 COVID-19 virus detected U07.1 Anemia D64.9 Sacral fracture, closed S32.10XA Fall W19.XXXA Encounter type: initial encounter Hypertension I10 Dementia of the Alzheimer's type, with early onset, uncomplicated G30.0; F02.80 Familial hypercholesteremia E78.01 Obstructive sleep apnea of adult G47.33 Rheumatoid arthritis M06.9 DVT prophylaxis Z29.9 (1) Fall Encounter type: initial encounter Qualified Code(s): W19.XXXA - Unspecified fall, initial encounter
[2020-03-19] MEDS: ENOXAPARIN INJ 40 MG/0.4 ML SYR SQ SCH (12:59)
[2020-03-19] MEDS: SENNA 8.6 MG TAB PO SCH (20:45)
[2020-03-20 07:06] LABS: Creatinine Clr Calc Pharmacy 63.9 ml/min; Est GFR (African American) 100.1; Est GFR (Non-African American) 86.3
[2020-03-20] MEDS: ASPIRIN 81 MG ECTAB PO SCH (09:41)
[2020-03-20] MEDS: DOCUSATE SODIUM 100 MG CAP PO SCH ×2 (09:41→17:44)
[2020-03-20] MEDS: PANTOprazole 40 MG TAB PO SCH (09:42)
[2020-03-20] MEDS: SODIUM CHLORIDE 0.65% NA SOLN 45 ML (OCEAN) SCH ×4 (09:55→21:51)
[2020-03-20] MEDS: ATENOLOL 25 MG TABLET PO SCH (09:55)
[2020-03-20] MEDS: ACETAMINOPHEN 325 MG TAB PO PRN ×2 (09:55→17:38)
[2020-03-20] MEDS: ENOXAPARIN INJ 40 MG/0.4 ML SYR SQ SCH (14:30)
--- NOTE | 2020-03-20 15:11 | Hospitalist Progress Note ---
Date of Service March 20, 2020 Assessment & Plan (1) Respiratory failure: Resolved Previously had progressive respiratory failure due to tachypnea. She was urgently intubated and ventilated the morning hours of 03/14. Post intubation x- rays have shown clear lungs. she remains stable now without respiratory distress or oxygen supplementation Patient is being treated for pneumonia with Zosyn therapy and was put on azithromycin to cover atypicals but was stopped with negative cxr she does have a negative procalcitonin but high inflammatory markers which could be consistent Initial COVID screening test done at [facility] was positive subsequent testing remains negative x2 with one pending test on [facility]. An additional cover test was sent on 03/20 for [facility] placement as it has to be collected 48 hours prior to going and she is scheduled to be transferred on 03/22 will consider 5 day treatment for pneumonia stopping 03/18 (2) D-dimer, elevated: D-dimer elevated to the 5000 range patient has negative PE study with CT angiogram was placed on twice daily Lovenox feeling that the D Dimer elevation was due to Covid, however with a drop in hgb this was stopped, restarting lovenox now that hgb has stablilized (3) COVID-19 virus detected: Routine screening done on 03/10 for placement to [place] came back positive on 03/11. -repeat to the [facility] was negative, the inital test was CSI in [place]. additional testing was done 03/15 remains pending, ordered an in house test 03/19/20 which resulted negative , CXR findings are not consitent with covid pulmonary infection (4) Anemia: this pt did have hgb drop from 11 gm range to 8 grm range without signs of acute blood loss, did stop lovenox, consider acute blood loss from sacral fractures, hgb has rebounded without explanation (5) Sacral fracture, closed: X-rays and CT note multiple sacral fractures including body and bilateral wings/left femoral head avascular necrosis/back pain. - Pain control -> good even with movement - Seen by orthopedics - No surgical intervention warranted. (6) Fall: feels this has been a mechanical fall, as patient has not had any neurologic or cardiac precipitating symptoms. (7) Hypertension: continues on atenolol, blood pressure is slightly elevated will follow (8) Dementia of the Alzheimer's type, with early onset, uncomplicated: Since pt was more confused stopped lexapro and alprozolam with intubation episode and not restarted pt remains with clear mentation but confused - (9) Familial hypercholesteremia: - Continue atorvastatin 20 mg at time of discharge (10) Obstructive sleep apnea of adult: Patient typically not on any type of supportive ventilation, a nocturnal oximetry study will be ordered for 03/1718 (11) Rheumatoid arthritis: No overt treatment noted. Patient with marked physical changes (12) DVT prophylaxis: lovenox 40 mg daily Admission and Anticipated Discharge Date Admission Date: March 08, 2020 Subjective She does have some mouth breathing which creates a dry mouth which does garbled her speech a bit she otherwise has no focus complaints or problems Review of Systems Review of Systems: To systems remans clouded by the fact of her dementia. She however denies any specific focal complaints mild distress and fatigue no headache, blurry or double vision Garbled speech at time nursing reports no swallowing issues no chest pain, pressure or palpitations no shortness of breath, cough or wheezes no abdominal pain, nausea or vomiting, diarrhea or constipation no dysuria, hematuria or frequency no focal joint pain or swelling Sacral back pain, CVA tenderness or radicular pain no bruising, bleeding or rashes no focal signs of weakness or numbness or altered sensation marked difficulty ambulating and transitioning of position no complaints or anxiety or depression continues with mild confusion. Physical Exam Physical Exam: The patient continues remain chronically ill concerns for eventual rehab improvement is warranted Vital signs as documented. Mouth breathing and garbled speech Lungs are coarse bilateral breath sounds Cardiac exam, Rhythm is regular.. No murmurs, rubs or gallops. Abdominal exam reveals normal bowel sounds, soft non tender, Extremities are nonedematous and both pedal pulses are normal. Neurologic exam and oriented x2 she is globally weak difficulty raising her arms Patient is painful to movement Results & Data Results & Data ([facility]) Vital Signs (Past 12 Hours) Vital Signs Temp Pulse Resp BP Pulse Ox 03/20/20 10:26 156/81 H 03/20/20 08:46 97.9 F 84 16 176/77 H 98 PG Care Time/CCT Total # of Minutes Spent Total Time Spent with Patient: Total time spent is greater than 50% in coordination of care (as documented) at patient's floor/unit and/or counseling patient: Coding Level of Care Code 58011 Subseq Hosp Care Lvl 2 Diagnoses Respiratory failure J96.90 D-dimer, elevated R79.89 COVID-19 virus detected U07.1 Anemia D64.9 Sacral fracture, closed S32.10XA Fall W19.XXXA Encounter type: initial encounter Hypertension I10 Dementia of the Alzheimer's type, with early onset, uncomplicated G30.0; F02.80 Familial hypercholesteremia E78.01 Obstructive sleep apnea of adult G47.33 Rheumatoid arthritis M06.9 DVT prophylaxis Z29.9 (1) Fall Encounter type: initial encounter Qualified Code(s): W19.XXXA - Unspecified fall, initial encounter
[2020-03-20] MEDS: SENNA 8.6 MG TAB PO SCH (17:44)
[2020-03-21 06:41] LABS: Creatinine Clr Calc Pharmacy 59.7 ml/min; Est GFR (African American) 97.8; Est GFR (Non-African American) 84.4
[2020-03-21 08:35] LABS: Basophils # (auto) 0.02 K/uL (0-0.2); Basophils % (auto) 0.1 %; Eosinophils # (auto) 0.18 K/uL (0-0.5); Eosinophils % (auto) 1.3 %; Hematocrit (blood only) 31.8 % (37-47); Hemoglobin 10.5 g/dL (12.0-16.0); Immature Granulocytes # (auto) 0.19 K/uL (0.00-0.02); Immature Granulocytes % (auto) 1.4 %; Lymphocytes # (auto) 1.52 K/uL (1.2-3.4); Lymphocytes % (auto) 11.1 %; Mean Corpuscular Hemoglobin 30.6 pg (25-34); Mean Corpuscular Volume 92.7 fL (80-100); Mean Platelet Volume 8.7 fL (7.4-10.4); Monocytes # (auto) 0.66 K/uL (0.11-0.59); Monocytes % (auto) 4.8 %; Neutrophils # (auto) 11.15 K/uL (1.4-6.5); Neutrophils % (auto) 81.3 %; Platelet Count 556 K/uL (130-400); RDW Coefficient of Variation 13.4 % (11.5-14.5); RDW Standard Deviation 44.6 fL (36.4-46.3); Red Blood Count 3.43 M/uL (4.2-5.4); White Blood Count 13.72 K/uL (4.8-10.8)
[2020-03-21] MEDS: ASPIRIN 81 MG ECTAB PO SCH (08:49)
[2020-03-21] MEDS: DOCUSATE SODIUM 100 MG CAP PO SCH ×2 (08:49→20:29)
[2020-03-21] MEDS: PANTOprazole 40 MG TAB PO SCH (08:49)
[2020-03-21] MEDS: SODIUM CHLORIDE 0.65% NA SOLN 45 ML (OCEAN) SCH ×3 (08:49→20:30)
[2020-03-21 08:54] LABS: Albumin Level 2.5 gm/dl (3.4-5.0); Calcium 9.1 mg/dl (8.5-10.1); Creatinine Clr Calc Pharmacy 53.6 ml/min; Est GFR (African American) 94.4; Est GFR (Non-African American) 81.5; Magnesium 1.6 mg/dl (1.8-2.4)
[2020-03-21 08:57] LABS: Albumin Globulin Ratio 0.6 (0.9-2); Bilirubin,Total 0.4 mg/dl (0.2-1); Total Protein 6.5 gm/dl (6.4-8.2)
[2020-03-21] MEDS: ATENOLOL 25 MG TABLET PO SCH (10:08)
[2020-03-21] MEDS ORDERED: POTASSIUM CHLORIDE 20 MEQ TABCR PO STA (11:26)
[2020-03-21] MEDS: MAGNESIUM SULFATE / D5W 1 GM/100 ML BAG IV SCH ×2 (11:51→13:54)
[2020-03-21] MEDS: ENOXAPARIN INJ 40 MG/0.4 ML SYR SQ SCH (13:06)
--- NOTE | 2020-03-21 13:59 | Hospitalist Progress Note ---
Date of Service March 21, 2020 Assessment & Plan (1) Respiratory failure: Resolved Previously had progressive respiratory failure due to tachypnea. She was urgently intubated and ventilated the morning hours of 03/14. Post intubation x- rays have shown clear lungs. Respiratory status stable, on room air Zosyn and azithromycin had been used to treat her pneumonia which stopped on 03/18 after a five day treatement. Initial COVID screening test done at [facility] was positive subsequent testing remains negative x 4 (2) D-dimer, elevated: D-dimer elevated 5100 03/13 CTA negative for PE Was initially placed on Lovenox BID to cover for elevation secondary to COVID but after a subsequent drop in hgb lovenox was held and restarted at once per day (3) COVID-19 virus detected: Routine screening done on 03/10 for placement to [place] came back positive on 03/11. -The initial test was CSI in [place]. Subsequent tests were all negative, CXR findings not consistent with COVID pulmonary infection (4) Leukocytosis: Had resolved but today on labwork was WBCs were 13.7 Unclear source, urine appears clear in catheter, lungs are clear, no wounds per nursing. Afebrile Will hold off on discharging today and recheck am (5) Anemia: Hgb dropped from 11 gm range to 8.5 on 03/15 without signs of acute blood loss - resolved spontaneously without any clear source - Lovenox resumed as above (6) Sacral fracture, closed: X-rays and CT note multiple sacral fractures including body and bilateral wings/left femoral head avascular necrosis/back pain. - Pain control -> good even with movement - Seen by orthopedics - No surgical intervention warranted. (7) Fall: feels this has been a mechanical fall, as patient has not had any neurologic or cardiac precipitating symptoms. (8) Hypertension: Continue atenolol, blood pressure is slightly elevated, continue to monitor (9) Dementia of the Alzheimer's type, with early onset, uncomplicated: Increased confusion so lexapro and alprozolam stopped (10) Familial hypercholesteremia: - Continue atorvastatin 20 mg at time of discharge (11) Obstructive sleep apnea of adult: Patient typically not on any type of supportive ventilation, a nocturnal oximetry study was ordered showing 4 minutes of desaturation Recommend oxygen at night when discharged to Outpatient sleep study (12) Rheumatoid arthritis: No overt treatment noted. Patient with marked physical changes (13) DVT prophylaxis: lovenox 40 mg daily updated over the phone Admission and Anticipated Discharge Date Admission Date: March 08, 2020 Subjective Ms. Dudley is pleasantly confused today. She denies any pain or specific discomfort but reports that she doesn't feel well. Physical Exam Physical Exam: General: no distress Eyes: normal inspection, PERLL Respiratory: chest non tender, clear to auscultation, normal breath sounds, no respiratory distress, no accessory muscle use Cardiac: regular rate and rhythm, no rub or gallop, no murmur, no edema, no jvd GI/: active bowel sounds, no abd pain or tenderness, soft, non distended Extremities: normal range of motion, normal strength, non tender Neuro/Psych: alert and oriented x 3, normal mood and affect Skin: normal color, dry Results & Data Results & Data ([place]) Vital Signs (Past 12 Hours) Vital Signs Temp Pulse Pulse Resp BP Pulse Ox Pulse Ox 03/21/20 07:36 36.6 C 91 H 16 163/80 H 97 03/21/20 03:38 80 98 PG Care Time/CCT Total # of Minutes Spent Total Time Spent with Patient: Total time spent is greater than 50% in coordin ation of care (as documented) at patient's floor/unit and/or counseling patient: Coding Level of Care Code 42142 Subseq Hosp Care Lvl 3 Diagnoses Respiratory failure J96.90 D-dimer, elevated R79.89 COVID-19 virus detected U07.1 Leukocytosis D72.829 Anemia D64.9 Sacral fracture, closed S32.10XA Fall W19.XXXA Encounter type: initial encounter Hypertension I10 Dementia of the Alzheimer's type, with early onset, uncomplicated G30.0; F02.80 Familial hypercholesteremia E78.01 Obstructive sleep apnea of adult G47.33 Rheumatoid arthritis M06.9 DVT prophylaxis Z29.9 (1) Fall Encounter type: initial encounter Qualified Code(s): W19.XXXA - Unspecified fall, initial encounter
[2020-03-21] MEDS ORDERED: POTASSIUM CHLORIDE 20 MEQ TABCR PO ONE (14:30)
[2020-03-21] MEDS: SODIUM CHLORIDE 0.9% 1000ML 1,000 ML IV SCH (14:48)
[2020-03-21] MEDS: SENNA 8.6 MG TAB PO SCH (20:29)
[2020-03-22] MEDS: SODIUM CHLORIDE 0.9% 1000ML 1,000 ML IV SCH ×2 (02:46→16:24)
[2020-03-22 06:24] LABS: Basophils # (auto) 0.02 K/uL (0-0.2); Basophils % (auto) 0.2 %; Eosinophils # (auto) 0.18 K/uL (0-0.5); Eosinophils % (auto) 1.5 %; Hematocrit (blood only) 29.9 % (37-47); Hemoglobin 9.8 g/dL (12.0-16.0); Immature Granulocytes # (auto) 0.21 K/uL (0.00-0.02); Immature Granulocytes % (auto) 1.8 %; Lymphocytes # (auto) 0.72 K/uL (1.2-3.4); Lymphocytes % (auto) 6.1 %; Mean Corpuscular Hemoglobin 30.6 pg (25-34); Mean Corpuscular Hgb Conc 32.8 g/dL (32-36); Mean Corpuscular Volume 93.4 fL (80-100); Mean Platelet Volume 9.1 fL (7.4-10.4); Monocytes % (auto) 13.6 %; Neutrophils # (auto) 9.05 K/uL (1.4-6.5); Neutrophils % (auto) 76.8 %; Platelet Count 602 K/uL (130-400); RDW Coefficient of Variation 13.5 % (11.5-14.5); RDW Standard Deviation 46.1 fL (36.4-46.3); White Blood Count 11.78 K/uL (4.8-10.8)
[2020-03-22 06:57] LABS: Albumin Level 2.2 gm/dl (3.4-5.0); BUN Creatinine Ratio 21.3 (10-20); Creatinine Clr Calc Pharmacy 51.3 ml/min; Est GFR (Non-African American) 81.1; Potassium 3.8 mmol/L (3.5-5.1)
[2020-03-22 07:01] LABS: Albumin Globulin Ratio 0.5 (0.9-2); Bilirubin,Total 0.4 mg/dl (0.2-1); Globulin 4.1 gm/dl (2.5-4.0); Total Protein 6.3 gm/dl (6.4-8.2)
[2020-03-22] MEDS: ATENOLOL 25 MG TABLET PO SCH (08:39)
[2020-03-22] MEDS: ASPIRIN 81 MG ECTAB PO SCH (08:39)
[2020-03-22] MEDS: SODIUM CHLORIDE 0.65% NA SOLN 45 ML (OCEAN) SCH ×3 (08:39→20:42)
[2020-03-22] MEDS: PANTOprazole 40 MG TAB PO SCH (08:40)
[2020-03-22] MEDS: DOCUSATE SODIUM 100 MG CAP PO SCH ×2 (09:05→20:45)
[2020-03-22] MEDS ORDERED: VANCOMYCIN CONSULT ACTIVE PRN (12:17)
[2020-03-22] MEDS ORDERED: PIPERACILL/TAZOBAC CONSULT ACTIVE PRN (12:17)
[2020-03-22] MEDS ORDERED: VANCOMYCIN HCL 1,000 MG in SODIUM CHLORIDE 0.9% 250 ML IV ONE (13:00)
[2020-03-22] MEDS ORDERED: PIPERACILLIN/TAZOBACTAM 3.375 GM in DEXTROSE 5% 100 ML IV ONE (13:00)
--- NOTE | 2020-03-22 13:02 | Hospitalist Progress Note ---
Date of Service March 22, 2020 Assessment & Plan (1) Respiratory failure: Resolved Previously had progressive respiratory failure due to tachypnea. She was urgently intubated and ventilated the morning hours of 03/14. Post intubation x- rays have shown clear lungs. Respiratory status stable, on room air Zosyn and azithromycin had been used to treat her pneumonia which stopped on 03/18 after a five day treatement. Initial COVID screening test done at [facility] was positive subsequent testing remains negative x 4 (2) D-dimer, elevated: D-dimer elevated 5100 03/13 CTA negative for PE Was initially placed on Lovenox BID to cover for elevation secondary to COVID but after a subsequent drop in hgb lovenox was held and restarted at once per day (3) COVID-19 virus detected: Routine screening done on 03/10 for placement to [place] came back positive on 03/11. -The initial test was CSI in [place]. Subsequent tests were all negative, CXR findings not consistent with COVID pulmonary infection (4) Leukocytosis: Had resolved but had renewed leukocytosis on 03/21, trending back down today. Patient also has increasing platelets which is likely an acute phase reactant. She is tachycardic with hyperetnsion Unclear source, urine appears clear in catheter, lungs are clear, no wounds per nursing. Afebrile. Removed IJ today, catheter to be culture, blood cultures drawn. Will start empiric Zosyn and Vancomycin (5) Anemia: Hgb dropped from 11 gm range to 8.5 on 03/15 without signs of acute blood l oss - resolved spontaneously without any clear source - Lovenox resumed as above (6) Sacral fracture, closed: X-rays and CT note multiple sacral fractures including body and bilateral wings/left femoral head avascular necrosis/back pain. - Pain control -> good even with movement - Seen by orthopedics - No surgical intervention warranted. (7) Fall: feels this has been a mechanical fall, as patient has not had any neurologic or cardiac precipitating symptoms. (8) Hypertension: Continue atenolol, blood pressure is slightly elevated, continue to monitor (9) Dementia of the Alzheimer's type, with early onset, uncomplicated: Increased confusion so lexapro and alprozolam stopped (10) Familial hypercholesteremia: - Continue atorvastatin 20 mg at time of discharge (11) Obstructive sleep apnea of adult: Patient typically not on any type of supportive ventilation, a nocturnal oximetry study was ordered showing 4 minutes of desaturation Recommend oxygen at night when discharged to [facility] Outpatient sleep study (12) Rheumatoid arthritis: No overt treatment noted. Patient with marked physical changes (13) DVT prophylaxis: lovenox 40 mg daily Nursing reporting pocketing and difficulty swallowing. Will reconsult speech updated again over the phone Admission and Anticipated Discharge Date Admission Date: March 08, 2020 Subjective Ms. Dudley has no specific complaints but is very confused. She denies pain. Her speech is garbled at times. Physical Exam Physical Exam: General: no distress Eyes: normal inspection, PERLL Respiratory: chest non tender, clear to auscultation, normal breath sounds, no respiratory distress, no accessory muscle use Cardiac: regular rate and rhythm, no rub or gallop, no murmur, no edema, no jvd GI/: active bowel sounds, no abd pain or tenderness, soft, non distended Extremities: normal range of motion, normal strength, non tender Neuro/Psych: alert and oriented to person, normal mood and affect, CN II -XII intact Skin: normal color, dry Results & Data Results & Data ([facility]) Vital Signs (Past 12 Hours) Vital Signs Temp Pulse Pulse Pulse Resp BP BP 03/22/20 12:38 37.0 C 107 H 18 178/87 H 03/22/20 12:00 113 H 18 196/101 H 03/22/20 11:49 94 H 16 177/96 H 03/22/20 07:24 37.3 C 114 H 20 174/74 H 03/22/20 06:00 96 H 154/86 H Pulse Ox 03/22/20 12:38 99 03/22/20 12:00 94 03/22/20 11:49 92 03/22/20 07:24 99 03/22/20 06:00 PG Care Time/CCT Total # of Minutes Spent Total Time Spent with Patient: Total time spent is greater than 50% in coordination of care (as documented) at patient's floor/unit and/or counseling patient: Coding Level of Care Code 24522 Subseq Hosp Care Lvl 3 Diagnoses Respiratory failure J96.90 D-dimer, elevated R79.89 COVID-19 virus detected U07.1 Leukocytosis D72.829 Anemia D64.9 Sacral fracture, closed S32.10XA Fall W19.XXXA Encounter type: initial encounter Hypertension I10 Dementia of the Alzheimer's type, with early onset, uncomplicated G30.0; F02.80 Familial hypercholesteremia E78.01 Obstructive sleep apnea of adult G47.33 Rheumatoid arthritis M06.9 DVT prophylaxis Z29.9 (1) Fall Encounter type: initial encounter Qualified Code(s): W19.XXXA - Unspecified fall, initial encounter
[2020-03-22] MEDS: ENOXAPARIN INJ 40 MG/0.4 ML SYR SQ SCH (14:09)
--- NOTE | 2020-03-22 14:22 | Pharmacy Report ---
Pharmacy Abx Dose Short Note - Date of Service March 22, 2020 - Assessment & Plan Assessment 84 year old F receiving vancomycin/Zosyn for treatment of empiric treatment --- patient currently hypertensive, tachycardic, with white count Day # 1 of antimicrobial therapy. Received 5 days of Zosyn earlier in hospitalization. Plan Vancomycin * Patient meets criteria for vancomycin AUC dosing nomogram * AUC/JCARLOS is the preferred PK/PD target for vancomycin * Target AUC/JCARLOS = 400-600 * AUC guided dosing is effective and associated with decreased risk of nephrotoxicity Pharmacy will continue to follow and will adjust dose/frequency as necessary. Thank you.
[2020-03-22] MEDS ORDERED: ETOMIDATE 2 MG/ML 20 ML VIAL IV ONE (16:25)
[2020-03-22] MEDS ORDERED: MIDAZOLAM HCL 5 MG/ML VIAL IV ONE (16:25)
[2020-03-22] MEDS ORDERED: fentaNYL citrate 100 MCG/2 ML VIAL IV ONE (16:25)
--- NOTE | 2020-03-22 16:25 | Electrocardiogram Report ---
Test Reason : Blood Pressure : / mmHG Vent. Rate : 108 BPM Atrial Rate : 108 BPM P-R Int : 116 ms QRS Dur : 072 ms QT Int : 328 ms P-R-T Axes : 054 004 030 degrees QTc Int : 439 ms Sinus tachycardia Nonspecific ST and T wave abnormality Abnormal ECG When compared with ECG of 08-MAR-2020 18:22, Criteria for Inferior infarct are no longer Present Nonspecific T wave abnormality now evident in Inferior leads T wave inversion no longer evident in Anterior leads Confirmed by Kostas Zabala ([id number]) on 03/22/2020 4:25:40 PM Referred By: REFERRED SELF Confirmed By:Kostas Zabala
[2020-03-22 17:09] LABS: Basophils # (auto) 0.02 K/uL (0-0.2); Basophils % (auto) 0.1 %; Eosinophils # (auto) 0.13 K/uL (0-0.5); Eosinophils % (auto) 0.9 %; Hematocrit (blood only) 28.1 % (37-47); Hemoglobin 9.3 g/dL (12.0-16.0); Immature Granulocytes # (auto) 0.17 K/uL (0.00-0.02); Immature Granulocytes % (auto) 1.2 %; Lymphocytes # (auto) 1.11 K/uL (1.2-3.4); Lymphocytes % (auto) 7.6 %; Mean Corpuscular Hemoglobin 31.2 pg (25-34); Mean Corpuscular Hgb Conc 33.1 g/dL (32-36); Mean Corpuscular Volume 94.3 fL (80-100); Mean Platelet Volume 8.7 fL (7.4-10.4); Monocytes # (auto) 1.66 K/uL (0.11-0.59); Monocytes % (auto) 11.3 %; Neutrophils # (auto) 11.59 K/uL (1.4-6.5); Neutrophils % (auto) 78.9 %; Platelet Count 630 K/uL (130-400); RDW Coefficient of Variation 13.7 % (11.5-14.5); RDW Standard Deviation 46.7 fL (36.4-46.3); Red Blood Count 2.98 M/uL (4.2-5.4); White Blood Count 14.68 K/uL (4.8-10.8)
[2020-03-22 17:25] LABS: BUN Creatinine Ratio 20.8 (10-20); Calcium 8.5 mg/dl (8.5-10.1); Creatinine Clr Calc Pharmacy 47.2 ml/min; Est GFR (Non-African American) 74.2; Potassium 3.7 mmol/L (3.5-5.1)
[2020-03-22 17:28] LABS: Albumin Globulin Ratio 0.5 (0.9-2); Bilirubin,Total 0.4 mg/dl (0.2-1); Globulin 3.9 gm/dl (2.5-4.0); Total Protein 5.9 gm/dl (6.4-8.2)
[2020-03-22 18:19] LABS: Appearance Urine Turbid (Clear); Bacteria Urine Automated Negative (Negative); Bilirubin Urine Negative (Negative); Blood Urine 3+ (Negative); Color Urine Yellow; Glucose Urine UA Negative (Negative); Ketones Urine Negative (Negative); Leukocyte Esterase Urine 2+ (Negative); Nitrite Urine Negative (Negative); Protein Urine 2+ (Negative); RBC Urine Automated >30 /hpf (0-4); Specific Gravity Urine 1.021 (1.000-1.030); Urobilinogen Urine Negative (Negative); WBC Urine Automated >30 /hpf (0-5)
[2020-03-22] MEDS: SENNA 8.6 MG TAB PO SCH (20:42)
[2020-03-22] MEDS: PIPERACILLIN/TAZOBACTAM 3.375 GM in DEXTROSE 5% 100 ML IV SCH (20:45)
[2020-03-23] MEDS: VANCOMYCIN HCL 750 MG in SODIUM CHLORIDE 0.9% 250 ML IV SCH ×2 (01:45→13:57)
[2020-03-23] MEDS: PIPERACILLIN/TAZOBACTAM 3.375 GM in DEXTROSE 5% 100 ML IV SCH ×3 (03:51→20:20)
[2020-03-23 06:48] LABS: Hematocrit (blood only) 29.3 % (37-47); Hemoglobin 9.6 g/dL (12.0-16.0); Mean Corpuscular Hemoglobin 30.6 pg (25-34); Mean Corpuscular Hgb Conc 32.8 g/dL (32-36); Mean Corpuscular Volume 93.3 fL (80-100); Mean Platelet Volume 8.9 fL (7.4-10.4); Platelet Count 620 K/uL (130-400); RDW Coefficient of Variation 13.6 % (11.5-14.5); RDW Standard Deviation 46.3 fL (36.4-46.3); Red Blood Count 3.14 M/uL (4.2-5.4); White Blood Count 12.91 K/uL (4.8-10.8)
[2020-03-23 07:17] LABS: BUN Creatinine Ratio 16.8 (10-20); Calcium 8.6 mg/dl (8.5-10.1); Creatinine Clr Calc Pharmacy 47.9 ml/min; Est GFR (African American) 87.4; Est GFR (Non-African American) 75.4; Potassium 3.5 mmol/L (3.5-5.1)
[2020-03-23] MEDS: DOCUSATE SODIUM 100 MG CAP PO SCH ×2 (08:50→20:21)
[2020-03-23] MEDS: SODIUM CHLORIDE 0.65% NA SOLN 45 ML (OCEAN) SCH ×3 (08:51→20:21)
[2020-03-23] MEDS: ATENOLOL 25 MG TABLET PO SCH (08:52)
[2020-03-23] MEDS: PANTOprazole 40 MG TAB PO SCH (08:52)
[2020-03-23] MEDS: ASPIRIN 81 MG ECTAB PO SCH (08:52)
--- NOTE | 2020-03-23 12:51 | Hospitalist Progress Note ---
Date of Service March 23, 2020 Assessment & Plan (1) Leukocytosis: Had resolved but had renewed leukocytosis on 03/21 which peaked at 14.9 on 03/22 and was febrile that afternoon. Patient also has increasing platelets which is likely an acute phase reactant. She is tachycardic with hypertension Unclear source, urine appears clear in catheter, lungs are clear, no wounds per nursing. Removed IJ 03/22 and cultured catheter, BC x 2 - ngtd after 24 hours. UC with pinpoint growth and reincubating Continue empiric Zosyn and Vancomycin (2) Respiratory failure: Resolved Previously had progressive respiratory failure due to tachypnea. She was ur gently intubated and ventilated the morning hours of 03/14. Post intubation x- rays have shown clear lungs. Respiratory status stable, on room air Zosyn and azithromycin had been used to treat her pneumonia which stopped on 03/18 after a five day treatement. Initial COVID screening test done at [facility] was positive subsequent testing remains negative x 4 (3) D-dimer, elevated: D-dimer elevated 5100 03/13 CTA negative for PE Was initially placed on Lovenox BID to cover for elevation secondary to COVID but after a subsequent drop in hgb lovenox was held and restarted at once per day (4) COVID-19 virus detected: Routine screening done on 03/10 for placement to [place] came back positive on 03/11. -The initial test was CSI in [place]. Subsequent tests were all negative, CXR findings not consistent with COVID pulmonary infection (5) Anemia: Hgb dropped from 11 gm range to 8.5 on 03/15 without signs of acute blood loss - resolved spontaneously without any clear source - Lovenox resumed as above (6) Sacral fracture, closed: X-rays and CT note multiple sacral fractures including body and bilateral wings/left femoral head avascular necrosis/back pain. - Pain control -> good even with movement - Seen by orthopedics - No surgical intervention warranted. (7) Fall: feels this has been a mechanical fall, as patient has not had any neurologic or cardiac precipitating symptoms. (8) Hypertension: Continue atenolol, continues to run hypertensive with systolic bp in the 160s - 170s (9) Dementia of the Alzheimer's type, with early onset, uncomplicated: Increased confusion so lexapro and alprozolam stopped (10) Familial hypercholesteremia: - Continue atorvastatin 20 mg at time of discharge (11) Obstructive sleep apnea of adult: Patient typically not on any type of supportive ventilation, a nocturnal oximetry study was ordered showing 4 minutes of desaturation Recommend oxygen at night when discharged to SNF 2L HS Outpatient sleep study (12) Rheumatoid arthritis: No overt treatment noted. Patient with marked physical changes (13) DVT prophylaxis: lovenox 40 mg daily Nursing reporting pocketing and difficulty swallowing. Speech reconsulted and diet adjusted to puree. Will recheck CXR to assess for aspiration pna given wbcs updated Admission and Anticipated Discharge Date Admission Date: March 08, 2020 Subjective Ms. Dudley denies any specific complaints except for some discomfort in her feet. She is able to tell me that she is in the hospital today. She is unable to otherwise participate in ROS Physical Exam Physical Exam: General: no distress Eyes: normal inspection, PERLL Respiratory: chest non tender, clear to auscultation, normal breath sounds, no respiratory distress, no accessory muscle use Cardiac: regular rate and rhythm, no rub or gallop, no murmur, no edema, no jvd GI/: active bowel sounds, no abd pain or tenderness, soft, non distended Extremities: normal range of motion, normal strength, non tender Neuro/Psych: alert and oriented to person and place, normal mood and affect Skin: normal color, dry Results & Data Results & Data ([facility]) Vital Signs (Past 12 Hours) Vital Signs Temp Pulse Resp BP Pulse Ox 03/23/20 07:40 37.1 C 99 H 22 163/77 H 98 03/23/20 03:41 37.4 C PG Care Time/CCT Total # of Minutes Spent Total Time Spent with Patient: Total time spent is greater than 50% in coordination of care (as documented) at patient's floor/unit and/or counseling patient: Coding Level of Care Code 65405 Subseq Hosp Care Lvl 3 Diagnoses Leukocytosis D72.829 Respiratory failure J96.90 D-dimer, elevated R79.89 COVID-19 virus detected U07.1 Anemia D64.9 Sacral fracture, closed S32.10XA Fall W19.XXXA Encounter type: initial encounter Hypertension I10 Dementia of the Alzheimer's type, with early onset, uncomplicated G30.0; F02.80 Familial hypercholesteremia E78.01 Obstructive sleep apnea of adult G47.33 Rheumatoid arthritis M06.9 DVT prophylaxis Z29.9 (1) Fall Encounter type: initial encounter Qualified Code(s): W19.XXXA - Unspecified fall, initial encounter
[2020-03-23] MEDS ORDERED: VANCOMYCIN TROUGH ONE (13:30)
[2020-03-23] MEDS: ENOXAPARIN INJ 40 MG/0.4 ML SYR SQ SCH (13:42)
--- NOTE | 2020-03-23 14:13 | XRay Report ---
XR chest 1V portable CLINICAL HISTORY: aspiration COMPARISON STUDY: Chest CT March 13, 2020. Chest radiograph March 14, 2020. FINDINGS: Lung volumes are normal. Left basilar opacity has improved since exam of March 14, 2020. T here is no pneumothorax or pleural effusion. Cardiac size is normal. Mediastinal contours are normal. There is no evidence for pulmonary edema. IMPRESSION: Interval improvement in left lower lung airspace opacity. The appearance favors atelecta sis or resolving pneumonia. ACT 112: Negative or not required by law. Electronically signed by: Rito Fulton M.D. 03/23/2020 2:12 PM
--- NOTE | 2020-03-23 14:53 | Pharmacy Report ---
Pharmacy Abx Dose Short Note - Date of Service March 23, 2020 - Assessment & Plan Assessment 84 year old F receiving empiric vancomycin and zosyn for leukocytosis and fever * IJ was removed on 03/22. Catheter tip culture reported no growth. Preliminary BC also reported no growth to date. * previously on zosyn this admission (03/13-03/19) for respiratory failure, pneumonia Vancomycin * Trough level of 13.8 mcg/mL is therapeutic * Continue dose of 750 mg IV every 12 hours * Repeat levels will be ordered if therapy is continued (currently ordered x 48 hours) Pharmacy will continue to follow and will adjust dose/frequency as necessary. Thank you.
[2020-03-23] MEDS: SENNA 8.6 MG TAB PO SCH (20:21)
[2020-03-24] MEDS: ACETAMINOPHEN 325 MG TAB PO PRN
[2020-03-24] MEDS: VANCOMYCIN HCL 750 MG in SODIUM CHLORIDE 0.9% 250 ML IV SCH ×2 (01:42→14:09)
[2020-03-24] MEDS: PIPERACILLIN/TAZOBACTAM 3.375 GM in DEXTROSE 5% 100 ML IV SCH ×2 (04:05→11:52)
[2020-03-24 06:44] LABS: Creatinine Clr Calc Pharmacy 50.6 ml/min; Est GFR (African American) 93.5; Est GFR (Non-African American) 80.7
[2020-03-24] MEDS: DOCUSATE SODIUM 100 MG CAP PO SCH ×2 (09:14→21:22)
[2020-03-24] MEDS: ASPIRIN 81 MG ECTAB PO SCH (09:15)
[2020-03-24] MEDS: ATENOLOL 25 MG TABLET PO SCH (09:15)
[2020-03-24] MEDS: PANTOprazole 40 MG TAB PO SCH (09:15)
[2020-03-24] MEDS: SODIUM CHLORIDE 0.65% NA SOLN 45 ML (OCEAN) SCH ×3 (09:15→21:39)
[2020-03-24 09:18] LABS: Basophils # (auto) 0.04 K/uL (0-0.2); Basophils % (auto) 0.4 %; Eosinophils % (auto) 1.8 %; Hematocrit (blood only) 28.4 % (37-47); Hemoglobin 9.3 g/dL (12.0-16.0); Immature Granulocytes # (auto) 0.11 K/uL (0.00-0.02); Lymphocytes # (auto) 1.01 K/uL (1.2-3.4); Lymphocytes % (auto) 9.3 %; Mean Corpuscular Hemoglobin 30.7 pg (25-34); Mean Corpuscular Hgb Conc 32.7 g/dL (32-36); Mean Corpuscular Volume 93.7 fL (80-100); Monocytes # (auto) 1.24 K/uL (0.11-0.59); Monocytes % (auto) 11.4 %; Neutrophils % (auto) 76.1 %; Platelet Count 631 K/uL (130-400); RDW Coefficient of Variation 13.6 % (11.5-14.5); RDW Standard Deviation 46.1 fL (36.4-46.3); Red Blood Count 3.03 M/uL (4.2-5.4)
[2020-03-24 10:13] LABS: BUN Creatinine Ratio 18.2 (10-20); Calcium 8.4 mg/dl (8.5-10.1); Creatinine Clr Calc Pharmacy 48.5 ml/min; Est GFR (African American) 88.9; Est GFR (Non-African American) 76.7; Potassium 3.5 mmol/L (3.5-5.1)
--- NOTE | 2020-03-24 10:22 | Hospitalist Progress Note ---
Date of Service March 24, 2020 Assessment & Plan (1) Urinary tract infection: Urine culture sent (patient with carr) and grew sandra albicans/dubliniensis (azole susceptible and can also be treated with fluconazole as the albicans) Will place on Fluconazole for urine --> full first dose and then 50% decrease for subsequent doses given renal function CM assisting with transport to [facility] once updated OT notes received Remove carr catheter (2) Leukocytosis: Had resolved but had renewed leukocytosis on 03/21 which peaked at 14.9 on 03/22 and was febrile that afternoon. Patient also has increasing platelets which is likely an acute phase reactant. She was tachycardic with hypertension Empirically covered with Zosyn/Vanco -- to be completed today IJ removed 03/22 -- culture without growth. Blood cultures have been negative at 48 hours -- follow See urine as above (3) Respiratory failure: Resolved Previously had progressive respiratory failure due to tachypnea. She was urgently intubated and ventilated the morning hours of 03/14. Post intubation x- rays have shown clear lungs. Respiratory status stable, on room air Zosyn and azithromycin had been used to treat her pneumonia which stopped on 03/18 after a five day treatment -- to complete 48 empiric today Initial COVID screening test done at [facility] was positive subsequent testing remains negative x 4 REPEAT CXR with interval improvement in LLL airspace opacity, favoring atelectasis vs resolving pneumonia Encouraged incentive spirometer Lung clear on auscultation today and patient 96% on RA currently (4) D-dimer, elevated: D-dimer elevated 5100 03/13 CTA negative for PE Was initially placed on Lovenox BID to cover for elevation secondary to COVID but after a subsequent drop in hgb lovenox was held and restarted at once per day (5) COVID-19 virus detected: Routine screening done on 03/10 for placement to [place] came back positive on 03/11. -The initial test was [facility] in [place]. Subsequent tests were all negative, CXR findings not consistent with COVID pulmonary infection (6) Anemia: Hgb dropped from 11 gm range to 8.5 on 03/15 without signs of acute blood loss - resolved spontaneously without any clear source - Lovenox resumed as above h/h stable 9.3/28.4 Cbc in AM (7) Sacral fracture, closed: X-rays and CT note multiple sacral fractures including body and bilateral wings/left femoral head avascular necrosis/back pain. Pain control -> good even with movement Seen by orthopedics - No surgical intervention warranted. (8) Fall: feels this has been a mechanical fall, as patient has not had any neurologic or cardiac precipitating symptoms. (9) Hypertension: BP much improved today -- 123/72 Continue atenolol Continue to monitor (10) Dementia of the Alzheimer's type, with early onset, uncomplicated: Increased confusion so lexapro and alprozolam stopped (11) Familial hypercholesteremia: Continue atorvastatin 20 mg at time of discharge (12) Obstructive sleep apnea of adult: Patient typically not on any type of supportive ventilation, a nocturnal oximetry study was ordered showing 4 minutes of desaturation Recommend oxygen at night when discharged to SNF at 2L via [place] and will need outpatient sleep study (13) Rheumatoid arthritis: No overt treatment noted. Patient with marked physical changes (14) DVT prophylaxis: Lovenox 40 mg daily Nursing reporting pocketing and difficulty swallowing. Speech reconsulted and diet adjusted to puree. Dispo: CM assisting with placement. Has been accepted to [facility] and OT notes faxed. CM to reapply for SNF authorization and confirmation that they are able to accept patient over the weekend. Admission and Anticipated Discharge Date Admission Date: March 08, 2020 Subjective Patient evaluated this morning. Denies pain at this time outside of some mild aches/pains in her feet. Denies chest pain, shortness of breath, abdominal pain, dysphagia at this time but has limited ability to participate in much of a full ROS due to cognitive status. Review of Systems Review of Systems: Unobtainable due to cognitive status Physical Exam Constitutional: well developed; no acute distress Eyes: + anicteric sclerae and PERRL ENMT: Ears: no EAC abnormality Nose: no external nose abnormality poor dentition Neck: normal visual inspection Respiratory: normal respiratory effort, lungs clear to auscultation Cardiovascular: RRR, no murmur, no edema Gastrointestinal (Abdomen): normal bowel sounds, soft, nontender, no hepatosplenomegaly Musculoskeletal: moves all extremities tender to palpation coccyx Skin: warm, dry Neurologic: patellar DTR's 2+ bilat, sensation intact Psychiatric: Orientation: alert, oriented to person and cooperative Genitourinary: carr draining cloudy yellow urine Lymphatic: no cervical or axillary lymphadenopathy Results & Data Results & Data ([facility]) Vital Signs (Past 12 Hours) Vital Signs Temp Pulse Resp BP Pulse Ox 03/24/20 08:03 36.7 C 98 H 22 133/78 94 03/23/20 23:30 37.1 C 97 H 22 154/75 H 94 PG Care Time/CCT Total # of Minutes Spent Total Time Spent with Patient: Total time spent is greater than 50% in coordination of care (as documented) at patient's floor/unit and/or counseling patient: Coding Level of Care Code 38392 Subseq Hosp Care Lvl 3 Diagnoses Urinary tract infection N39.0 Leukocytosis D72.829 Respiratory failure J96.90 D-dimer, elevated R79.89 COVID-19 virus detected U07.1 Anemia D64.9 Sacral fracture, closed S32.10XA Fall W19.XXXA Encounter type: initial encounter Hypertension I10 Dementia of the Alzheimer's type, with early onset, uncomplicated G30.0; F02.80 Familial hypercholesteremia E78.01 Obstructive sleep apnea of adult G47.33 Rheumatoid arthritis M06.9 DVT prophylaxis Z29.9 (1) Fall Encounter type: initial encounter Qualified Code(s): W19.XXXA - Unspecified fall, initial encounter
[2020-03-24 11:07] LABS: Estimated Average Glucose 105 mg/dl; Hemoglobin A1C 5.3 % (4.5-5.6)
[2020-03-24] MEDS: ENOXAPARIN INJ 40 MG/0.4 ML SYR SQ SCH (14:09)
[2020-03-24] MEDS ORDERED: FLUCONAZOLE 200 MG/100 ML BAG IV ONE (16:00)
[2020-03-24] MEDS: SENNA 8.6 MG TAB PO SCH (21:22)
[2020-03-25] MEDS: SODIUM CHLORIDE 0.65% NA SOLN 45 ML (OCEAN) SCH ×3 (08:12→19:49)
[2020-03-25] MEDS: DOCUSATE SODIUM 100 MG CAP PO SCH ×2 (08:13→19:32)
[2020-03-25] MEDS ORDERED: SODIUM CHLORIDE 0.9% 1000ML 1,000 ML IV SCH (08:45)
[2020-03-25 09:05] LABS: Basophils # (auto) 0.02 K/uL (0-0.2); Basophils % (auto) 0.2 %; Eosinophils # (auto) 0.42 K/uL (0-0.5); Eosinophils % (auto) 4.6 %; Hematocrit (blood only) 24.4 % (37-47); Hemoglobin 8.1 g/dL (12.0-16.0); Immature Granulocytes # (auto) 0.07 K/uL (0.00-0.02); Immature Granulocytes % (auto) 0.8 %; Lymphocytes # (auto) 1.02 K/uL (1.2-3.4); Lymphocytes % (auto) 11.1 %; Mean Corpuscular Hemoglobin 30.6 pg (25-34); Mean Corpuscular Hgb Conc 33.2 g/dL (32-36); Mean Corpuscular Volume 92.1 fL (80-100); Mean Platelet Volume 8.5 fL (7.4-10.4); Monocytes # (auto) 0.74 K/uL (0.11-0.59); Monocytes % (auto) 8.1 %; Neutrophils # (auto) 6.92 K/uL (1.4-6.5); Neutrophils % (auto) 75.2 %; Platelet Count 613 K/uL (130-400); RDW Coefficient of Variation 13.4 % (11.5-14.5); RDW Standard Deviation 45.1 fL (36.4-46.3); Red Blood Count 2.65 M/uL (4.2-5.4); White Blood Count 9.19 K/uL (4.8-10.8)
[2020-03-25 09:21] LABS: BUN Creatinine Ratio 17.6 (10-20); Calcium 8.4 mg/dl (8.5-10.1); Creatinine Clr Calc Pharmacy 53.7 ml/min; Creatinine Clr Calc Pharmacy 56.2 ml/min; Est GFR (African American) 95.3; Est GFR (African American) 96.8; Est GFR (Non-African American) 82.3; Est GFR (Non-African American) 83.5; Potassium 3.1 mmol/L (3.5-5.1)
[2020-03-25] MEDS: ASPIRIN 81 MG ECTAB PO SCH (10:00)
[2020-03-25] MEDS: PANTOprazole 40 MG TAB PO SCH (10:00)
[2020-03-25] MEDS: ATENOLOL 25 MG TABLET PO SCH (10:00)
--- NOTE | 2020-03-25 14:00 | Hospitalist Progress Note ---
Date of Service March 25, 2020 Assessment & Plan (1) Urinary tract infection: Urine culture sent (patient with carr) and grew sandra albicans/dubliniensis (azole susceptible and can also be treated with fluconazole as the albicans) Will place on Fluconazole for urine --> full first dose and then 50% decrease for subsequent doses given renal function CM assisting with transport to [facility] once updated OT notes received Removed carr catheter 03/24 (2) Leukocytosis: Had resolved but had renewed leukocytosis on 03/21 which peaked at 14.9 on 03/22 and was febrile that afternoon. Patient also has increasing platelets which is likely an acute phase reactant. She was tachycardic with hypertension Empirically covered with Zosyn/Vanco -- completed 03/24 IJ removed 03/22 -- culture without growth. Blood cultures ngtd See urine as above (3) Respiratory failure: Resolved Previously had progressive respiratory failure due to tachypnea. She was urgently intubated and ventilated the morning hours of 03/14. Post intubation x- rays have shown clear lungs. Respiratory status stable, on room air Zosyn and azithromycin had been used to treat her pneumonia which stopped on 03/18 after a five day treatment -- to complete 48 empiric today Initial COVID screening test done at [facility] was positive subsequent testing remains negative x 4 REPEAT CXR with interval improvement in LLL airspace opacity, favoring atelectasis vs resolving pneumonia Encouraged incentive spirometer (4) D-dimer, elevated: D-dimer elevated 5100 03/13 CTA negative for PE Was initially placed on Lovenox BID to cover for elevation secondary to COVID but after a subsequent drop in hgb lovenox was held and restarted at once per day (5) COVID-19 virus detected: Routine screening done on 03/10 for placement to [place] came back positive on 03/11. -The initial test was [facility] in [place]. Subsequent tests were all negative, CXR findings not consistent with COVID pulmonary infection (6) Anemia: Hgb dropped from 11 gm range to 8.5 on 03/15 without signs of acute blood loss - resolved spontaneously without any clear source - Lovenox resumed as above Today hgb is 8.1. Will repeat this afternoon to trend (7) Sacral fracture, closed: X-rays and CT note multiple sacral fractures including body and bilateral wings/left femoral head avascular necrosis/back pain. Pain control -> good even with movement Seen by orthopedics - No surgical intervention warranted. (8) Fall: feels this has been a mechanical fall, as patient has not had any neurologic or cardiac precipitating symptoms. (9) Hypertension: BP improving Continue atenolol Continue to monitor (10) Dementia of the Alzheimer's type, with early onset, uncomplicated: Increased confusion so lexapro and alprozolam stopped (11) Familial hypercholesteremia: Continue atorvastatin 20 mg at time of discharge (12) Obstructive sleep apnea of adult: Patient typically not on any type of supportive ventilation, a nocturnal oximetry study was ordered showing 4 minutes of desaturation Recommend oxygen at night when discharged to SNF at 2L via [place] and will need outpatient sleep study (13) Rheumatoid arthritis: No overt treatment noted. Patient with marked physical changes (14) DVT prophylaxis: Lovenox 40 mg daily Nursing reporting pocketing and difficulty swallowing. Speech reconsulted and diet adjusted to puree. Dispo: CM assisting with placement. Has been accepted to [facility] and OT notes faxed. CM to reapply for SNF authorization and confirmation that they are able to accept patient over the weekend. updated by phone Admission and Anticipated Discharge Date Admission Date: March 08, 2020 Subjective Ms. Dudley continues to be confused and unable to give a ROS. She appears comfortable. Physical Exam Physical Exam: General: no distress Eyes: normal inspection, PERLL Respiratory: chest non tender, clear to auscultation, normal breath sounds, no respiratory distress, no accessory muscle use Cardiac: regular rate and rhythm, no rub or gallop, no murmur, no edema, no jvd GI/: active bowel sounds, no abd pain or tenderness, soft, non distended Extremities: normal range of motion, normal strength, non tender Neuro/Psych: alert and oriented to person, normal mood and affect Skin: normal color, dry Results & Data Results & Data ([facility]) Vital Signs (Past 12 Hours) Vital Signs Temp Pulse Resp BP Pulse Ox 03/25/20 07:52 36.9 C 93 H 18 145/72 H 97 PG Care Time/CCT Total # of Minutes Spent Total Time Spent with Patient: Total time spent is greater than 50% in coordination of care (as documented) at patient's floor/unit and/or counseling patient: Coding Level of Care Code 46713 Subseq Hosp Care Lvl 2 Diagnoses Urinary tract infection N39.0 Leukocytosis D72.829 Respiratory failure J96.90 D-dimer, elevated R79.89 COVID-19 virus detected U07.1 Anemia D64.9 Sacral fracture, closed S32.10XA Fall W19.XXXA Encounter type: initial encounter Hypertension I10 Dementia of the Alzheimer's type, with early onset, uncomplicated G30.0; F02.80 Familial hypercholesteremia E78.01 Obstructive sleep apnea of adult G47.33 Rheumatoid arthritis M06.9 DVT prophylaxis Z29.9 (1) Fall Encounter type: initial encounter Qualified Code(s): W19.XXXA - Unspecified fall, initial encounter
[2020-03-25] MEDS: ENOXAPARIN INJ 40 MG/0.4 ML SYR SQ SCH (14:47)
[2020-03-25] MEDS: FLUCONAZOLE 100 MG/50 ML BAG IV SCH (16:42)
[2020-03-25] MEDS ORDERED: POTASSIUM CHLORIDE 40 MEQ in SODIUM CHLORIDE 0.9% 1000ML 1,000 ML IV SCH (18:00)
[2020-03-25] MEDS: POTASSIUM CHLORIDE 20 MEQ/15 ML UDC PO SCH (18:32)
[2020-03-25] MEDS: SENNA 8.6 MG TAB PO SCH (19:32)
[2020-03-26 05:44] LABS: Basophils # (auto) 0.03 K/uL (0-0.2); Basophils % (auto) 0.3 %; Eosinophils % (auto) 5.7 %; Hematocrit (blood only) 25.9 % (37-47); Hemoglobin 8.6 g/dL (12.0-16.0); Immature Granulocytes # (auto) 0.11 K/uL (0.00-0.02); Immature Granulocytes % (auto) 1.3 %; Lymphocytes # (auto) 1.18 K/uL (1.2-3.4); Lymphocytes % (auto) 13.5 %; Mean Corpuscular Hemoglobin 30.6 pg (25-34); Mean Corpuscular Hgb Conc 33.2 g/dL (32-36); Mean Corpuscular Volume 92.2 fL (80-100); Mean Platelet Volume 8.4 fL (7.4-10.4); Monocytes % (auto) 6.8 %; Neutrophils # (auto) 6.35 K/uL (1.4-6.5); Neutrophils % (auto) 72.4 %; Platelet Count 583 K/uL (130-400); RDW Coefficient of Variation 13.5 % (11.5-14.5); RDW Standard Deviation 45.4 fL (36.4-46.3); Red Blood Count 2.81 M/uL (4.2-5.4); White Blood Count 8.77 K/uL (4.8-10.8)
[2020-03-26 06:20] LABS: Albumin Globulin Ratio 0.4 (0.9-2); Albumin Level 1.8 gm/dl (3.4-5.0); BUN Creatinine Ratio 13.6 (10-20); Bilirubin,Total 0.3 mg/dl (0.2-1); Calcium 7.9 mg/dl (8.5-10.1); Creatinine Clr Calc Pharmacy 53.7 ml/min; Est GFR (African American) 95.3; Est GFR (Non-African American) 82.3; Globulin 4.1 gm/dl (2.5-4.0); Potassium 3.7 mmol/L (3.5-5.1); Total Protein 5.9 gm/dl (6.4-8.2)
[2020-03-26] MEDS: ASPIRIN 81 MG ECTAB PO SCH (08:33)
[2020-03-26] MEDS: DOCUSATE SODIUM 100 MG CAP PO SCH ×2 (08:33→20:34)
[2020-03-26] MEDS: POTASSIUM CHLORIDE 20 MEQ/15 ML UDC PO SCH (08:33)
[2020-03-26] MEDS: ATENOLOL 25 MG TABLET PO SCH (08:33)
[2020-03-26] MEDS: SODIUM CHLORIDE 0.65% NA SOLN 45 ML (OCEAN) SCH ×3 (08:34→20:37)
[2020-03-26] MEDS: PANTOprazole 40 MG TAB PO SCH (08:34)
--- NOTE | 2020-03-26 12:42 | Hospitalist Progress Note ---
Date of Service March 26, 2020 Assessment & Plan (1) Urinary tract infection: Urine culture sent (patient with carr) and grew sandra albicans/dubliniensis (azole susceptible and can also be treated with fluconazole as the albicans) Will place on Fluconazole for urine --> full first dose and then 50% decrease for subsequent doses given renal function CM assisting with transport to [facility] once updated OT notes received Removed carr catheter 03/24 (2) Leukocytosis: Resolved Had resolved but had renewed leukocytosis on 03/21 which peaked at 14.9 on 03/22 and was febrile that afternoon. Patient also has increasing platelets which is likely an acute phase reactant. She was tachycardic with hypertension Empirically covered with Zosyn/Vanco -- completed 03/24 IJ removed 03/22 -- culture without growth. Blood cultures ngtd See urine as above (3) Respiratory failure: Resolved Previously had progressive respiratory failure due to tachypnea. She was urgently intubated and ventilated the morning hours of 03/14. Post intubation x- rays have shown clear lungs. Respiratory status stable, on room air Zosyn and azithromycin had been used to treat her pneumonia which stopped on 03/18 after a five day treatment Initial COVID screening test done at [facility] was positive subsequent testing remains negative x 4 REPEAT CXR with interval improvement in LLL airspace opacity, favoring atelectasis vs resolving pneumonia Encouraged incentive spirometer (4) D-dimer, elevated: D-dimer elevated 5100 03/13 CTA negative for PE Was initially placed on Lovenox BID to cover for elevation secondary to COVID but after a subsequent drop in hgb lovenox was held and restarted at once per day (5) COVID-19 virus detected: Routine screening done on 03/10 for placement to [place] came back positive on 03/11. -The initial test was [facility] in [place]. Subsequent tests were all negative, CXR findings not consistent with COVID pulmonary infection (6) Anemia: Hgb dropped from 11 gm range to 8.5 on 03/15 without signs of acute blood loss - resolved spontaneously without any clear source - Lovenox resumed as above Today hgb is 8.1. Will repeat this afternoon to trend (7) Sacral fracture, closed: X-rays and CT note multiple sacral fractures including body and bilateral wings/left femoral head avascular necrosis/back pain. Pain control -> good even with movement Seen by orthopedics - No surgical intervention warranted. (8) Fall: feels this has been a mechanical fall, as patient has not had any neurologic or cardiac precipitating symptoms. (9) Hypertension: BP improving Continue atenolol Continue to monitor (10) Dementia of the Alzheimer's type, with early onset, uncomplicated: Increased confusion so lexapro and alprozolam stopped (11) Familial hypercholesteremia: Continue atorvastatin 20 mg at time of discharge (12) Obstructive sleep apnea of adult: Patient typically not on any type of supportive ventilation, a nocturnal oximetry study was ordered showing 4 minutes of desaturation Recommend oxygen at night when discharged to SNF at 2L via [place] and will need outpatient sleep study (13) Rheumatoid arthritis: No overt treatment noted. Patient with marked physical changes (14) DVT prophylaxis: Lovenox 40 mg daily Nursing reporting pocketing and difficulty swallowing. Speech reconsulted and diet adjusted to puree. Dispo: CM assisting with placement. Has been accepted to [facility] and OT notes faxed. CM to reapply for SNF authorization. Patient can likely discharge t omorrow if bed available Admission and Anticipated Discharge Date Admission Date: March 08, 2020 Subjective Ms. Dudley continues to be somewhat drowsy. She answers my questions but only opens eyes briefly. No complaints. Continues to be confused with garbled speech at times but better today and her mouth appears less dry. ROS Constitutional: no chills, aches, sweats or fever Respiratory: no sob,cough, sputum, or wheezing Cardiac: no chest pain, palpitations, edema, orthopnea or lightheadedness GI: no abdominal pain, nausea, vomiting, diarrhea or constipation : no dysuria or hesitancy Extremities: no joint pain or weakness Skin: no rash All other systems reviewed and negative Physical Exam Physical Exam: General: no distress Eyes: normal inspection, PERLL Respiratory: chest non tender, clear to auscultation, normal breath sounds, no respiratory distress, no accessory muscle use Cardiac: regular rate and rhythm, no rub or gallop, no murmur, no edema, no jvd GI/: active bowel sounds, no abd pain or tenderness, soft, non distended Extremities: normal range of motion, normal strength, non tender Neuro/Psych: alert and oriented to person and place, normal mood and affect Skin: normal color, dry Results & Data Results & Data ([facility]) Vital Signs (Past 12 Hours) Vital Signs Temp Pulse Resp BP Pulse Ox 03/26/20 07:19 36.9 C 89 17 161/78 H 98 PG Care Time/CCT Total # of Minutes Spent Total Time Spent with Patient: Total time spent is greater than 50% in coordination of care (as documented) at patient's floor/unit and/or counseling patient: Coding Level of Care Code 39840 Subseq Hosp Care Lvl 2 Diagnoses Urinary tract infection N39.0 Leukocytosis D72.829 Respiratory failure J96.90 D-dimer, elevated R79.89 COVID-19 virus detected U07.1 Anemia D64.9 Sacral fracture, closed S32.10XA Fall W19.XXXA Encounter type: initial encounter Hypertension I10 Dementia of the Alzheimer's type, with early onset, uncomplicated G30.0; F02.80 Familial hypercholesteremia E78.01 Obstructive sleep apnea of adult G47.33 Rheumatoid arthritis M06.9 DVT prophylaxis Z29.9 (1) Fall Encounter type: initial encounter Qualified Code(s): W19.XXXA - Unspecified fall, initial encounter
[2020-03-26] MEDS: ENOXAPARIN INJ 40 MG/0.4 ML SYR SQ SCH (14:25)
[2020-03-26] MEDS: FLUCONAZOLE 100 MG/50 ML BAG IV SCH (16:06)
[2020-03-26] MEDS: SENNA 8.6 MG TAB PO SCH (20:34)
[2020-03-27 06:09] LABS: Hematocrit (blood only) 26.1 % (37-47); Hemoglobin 8.7 g/dL (12.0-16.0); Mean Corpuscular Hemoglobin 30.7 pg (25-34); Mean Corpuscular Hgb Conc 33.3 g/dL (32-36); Mean Corpuscular Volume 92.2 fL (80-100); Mean Platelet Volume 8.5 fL (7.4-10.4); Platelet Count 595 K/uL (130-400); RDW Coefficient of Variation 13.5 % (11.5-14.5); RDW Standard Deviation 45.4 fL (36.4-46.3); Red Blood Count 2.83 M/uL (4.2-5.4)
[2020-03-27 06:18] LABS: BUN Creatinine Ratio 13.6 (10-20); Creatinine Clr Calc Pharmacy 52.1 ml/min; Est GFR (African American) 94.4; Est GFR (Non-African American) 81.5; Potassium 3.6 mmol/L (3.5-5.1)
[2020-03-27] MEDS: ATENOLOL 25 MG TABLET PO SCH (08:52)
[2020-03-27] MEDS: ASPIRIN 81 MG ECTAB PO SCH (08:52)
[2020-03-27] MEDS: PANTOprazole 40 MG TAB PO SCH (08:52)
[2020-03-27] MEDS: POTASSIUM CHLORIDE 20 MEQ/15 ML UDC PO SCH (08:53)
[2020-03-27] MEDS: ENOXAPARIN INJ 40 MG/0.4 ML SYR SQ SCH (08:53)
[2020-03-27] MEDS: SODIUM CHLORIDE 0.65% NA SOLN 45 ML (OCEAN) SCH ×3 (08:54→20:45)
[2020-03-27] MEDS: DOCUSATE SODIUM 100 MG CAP PO SCH ×2 (09:08→20:17)
--- NOTE | 2020-03-27 11:00 | Hospitalist Progress Note ---
Date of Service March 27, 2020 Assessment & Plan (1) Urinary tract infection: Urine culture sent (patient with carr) and grew sandra albicans/dubliniensis (azole susceptible and can also be treated with fluconazole as the albicans) Removed carr catheter 03/[address] on Fluconazole for urine --> full first dose and then 50% decrease for subsequent doses given renal function. -To complete treatment 04/07 at 50% dose. CM assisting with transport to [facility] once updated therapy notes (2) Hypomagnesemia: * Mag added to AM labs as patient with continued hypokalemia * Mag low at 1.1 -- > ordered 3gm IV now and will repeat this evening --> replace as needed. Will also order mag oxide BID -- likely to be continued at discharge * Repeat mag in AM (3) Leukocytosis: Resolved Had resolved but had renewed leukocytosis on 03/21 which peaked at 14.9 on 03/22 and was febrile that afternoon. Patient also has increasing platelets which is likely an acute phase reactant. She was tachycardic with hypertension Empirically covered with Zosyn/Vanco -- completed 03/24 IJ removed 03/22 -- culture without growth. Blood cultures ngtd See urine as above (4) Respiratory failure: Resolved Previously had progressive respiratory failure due to tachypnea. She was urgently intubated and ventilated the morning hours of 03/14. Post intubation x-rays have shown clear lungs. Respiratory status stable, 93% on RA Initial COVID screening test done at [facility] was positive subsequent testing remains negative x 4 Zosyn and azithromycin had been used to treat her pneumonia which stopped on 03/18 after a five day treatment REPEAT CXR with interval improvement in LLL airspace opacity, favoring atelectasis vs resolving pneumonia Encouraged incentive spirometer (5) D-dimer, elevated: D-dimer elevated 5100 03/13 CTA negative for PE Was initially placed on Lovenox BID to cover for elevation secondary to COVID but after a subsequent drop in hgb lovenox was held and restarted at once per day (6) COVID-19 virus detected: Routine screening done on 03/10 for placement to [place] came back positive on 03/11. -The initial test was [facility] in [place]. Subsequent tests were all negative, CXR findings not consistent with COVID pulmonary infection (7) Anemia: Hgb dropped from 11 gm range to 8.5 on 03/15 without signs of acute blood loss - resolved spontaneously without any clear source - Lovenox resumed as above Today hgb is up to 8.7 (8) Sacral fracture, closed: X-rays and CT note multiple sacral fractures including body and bilateral wings/left femoral head avascular necrosis/back pain. Pain control -> good even with movement Seen by orthopedics - No surgical intervention warranted. (9) Fall: feels this has been a mechanical fall, as patient has not had any neurologic or cardiac precipitating symptoms. (10) Hypertension: Elevated secondary to pain -- 166/79, acceptable Continue atenolol (11) Dementia of the Alzheimer's type, with early onset, uncomplicated: Increased confusion during admission initially, so lexapro and alprozolam stopped (12) Familial hypercholesteremia: Continue atorvastatin 20 mg at time of discharge (13) Obstructive sleep apnea of adult: Patient typically not on any type of supportive ventilation, a nocturnal oximetry study was ordered showing 4 minutes of desaturation Recommend oxygen at night when discharged to SNF at 2L via [place] and will need outpatient sleep study (14) Rheumatoid arthritis: No overt treatment noted. Patient with marked physical changes (15) DVT prophylaxis: Lovenox 40 mg daily Nursing reporting pocketing and difficulty swallowing. Speech reconsulted and diet adjusted to puree. Dispo: CM assisting with placement. Has been accepted to [facility] and OT notes faxed. Awaiting re-eval OT/PT -- patient initially declined to work with them. I went back up to speak with patient and address that we need these evaluations prior to being able to get her to rehab. Agreeable to medicate with tylenol and work with therapy in her room this afternoon. Given low mag as added to AM labs -- will keep overnight and discharge tomorrow Admission and Anticipated Discharge Date Admission Date: March 08, 2020 Supervising Physician Co-Signing Physician Notes Pt d/w Ms. Mcelroy, PAC Agree with plan as outlined above Awaiting rehab placement for sacral fx COVID + x1, neg x3 (done initially as screening for facility d/c) UTI, fungal Subjective Patient evaluated this morning. Much more alert and oriented. Ate breakfast this morning. On bedpan on my arrival to the room. Smiling, asking "when am I getting out of here?". Denies pain currently, although does have some with movement which has been tolerable. She denies fevers, chills, chest pain, shortness of breath, nausea, vomiting, abdominal pain, diarrhea, constipation or dysuria at this time. Hopeful for discharge to [facility] this afternoon once insurance auth obtained. Review of Systems Review of Systems: All systems reviewed & are unremarkable except as noted in HPI & below Physical Exam Constitutional: well developed; no acute distress Eyes: + anicteric sclerae and PERRL ENMT: Ears: no EAC abnormality Nose: no external nose abnormality Neck: normal visual inspection Respiratory: normal respiratory effort, lungs clear to auscultation Cardiovascular: RRR, no murmur, no edema Gastrointestinal (Abdomen): normal bowel sounds, soft, nontender, no hepatosplenomegaly Musculoskeletal: painful with movement global weakness although improved strength to b/l UE Neurologic: patellar DTR's 2+ bilat, sensation intact Psychiatric: Orientation: alert, oriented to person and cooperative Lymphatic: no cervical or axillary lymphadenopathy Results & Data Results & Data ([facility]) Vital Signs (Past 12 Hours) Vital Signs Temp Pulse Pulse Resp BP Pulse Ox 03/27/20 07:19 36.5 C 93 H 16 166/79 H 93 03/26/20 23:14 90 14 97 Laboratory Results 03/27/20 03/27/20 03/27/20 Range/Units 12:20 12:20 05:18 WBC (4.8-10.8) K/uL RBC (4.2-5.4) M/uL Hgb (12.0-16.0) g/dL Hct (37-47) % MCV (80-100) fL MCH (25-34) pg MCHC (32-36) g/dL RDW Std Deviation (36.4-46.3) fL RDW Coeff of Hawa (11.5-14.5) % Plt Count (130-400) K/uL MPV (7.4-10.4) fL Sodium 139 (136-145) mmol/L Potassium 3.6 (3.5-5.1) mmol/L Chloride 108 H (98-107) mmol/L Carbon Dioxide 25 (21-32) mmol/L Anion Gap 6.0 (3-11) BUN 9 (7-18) mg/dl Creatinine 0.68 (0.6-1.2) mg/dl Est Cr Clr Drug Dosing 52.1 ml/min Est GFR ( Amer) 94.4 Est GFR (Non-Af Amer) 81.5 BUN/Creatinine Ratio 13.6 (10-20) Glucose 95 (70-99) mg/dl Calcium 8.0 L (8.5-10.1) mg/dl Magnesium (1.8-2.4) mg/dl Iron 16 L (35-150) mcg/dl TIBC 230 L (250-450) mcg/dl Transferrin 131 L (200-360) mg/dl Ferritin 113.0 (8-388) ng/ml COVID-19 Eval [facility] SARS-CoV-2, RNA, NAAT NEGATIVE (NEGATIVE) 03/27/20 03/27/20 Range/Units 05:18 05:10 WBC 8.50 (4.8-10.8) K/uL RBC 2.83 L (4.2-5.4) M/uL Hgb 8.7 L (12.0-16.0) g/dL Hct 26.1 L (37-47) % MCV 92.2 (80-100) fL MCH 30.7 (25-34) pg MCHC 33.3 (32-36) g/dL RDW Std Deviation 45.4 (36.4-46.3) fL RDW Coeff of Hawa 13.5 (11.5-14.5) % Plt Count 595 H (130-400) K/uL MPV 8.5 (7.4-10.4) fL Sodium (136-145) mmol/L Potassium (3.5-5.1) mmol/L Chloride (98-107) mmol/L Carbon Dioxide (21-32) mmol/L Anion Gap (3-11) BUN (7-18) mg/dl Creatinine (0.6-1.2) mg/dl Est Cr Clr Drug Dosing ml/min Est GFR ( Amer) Est GFR (Non-Af Amer) BUN/Creatinine Ratio (10-20) Glucose (70-99) mg/dl Calcium (8.5-10.1) mg/dl Magnesium 1.1 L (1.8-2.4) mg/dl Iron (35-150) mcg/dl TIBC (250-450) mcg/dl Transferrin (200-360) mg/dl Ferritin (8-388) ng/ml COVID-19 Eval Order SARS-CoV-2, RNA, NAAT (NEGATIVE) PG Care Time/CCT Total # of Minutes Spent Total Time Spent with Patient: Total time spent is greater than 50% in coordination of care (as documented) at patient's floor/unit and/or counseling patient: Coding Level of Care Code 76038 Subseq Hosp Care Lvl 3 Diagnoses Urinary tract infection N39.0 Hypomagnesemia E83.42 Leukocytosis D72.829 Respiratory failure J96.90 D-dimer, elevated R79.89 COVID-19 virus detected U07.1 Anemia D64.9 Sacral fracture, closed S32.10XA Fall W19.XXXA Encounter type: initial encounter Hypertension I10 Dementia of the Alzheimer's type, with early onset, uncomplicated G30.0; F02.80 Familial hypercholesteremia E78.01 Obstructive sleep apnea of adult G47.33 Rheumatoid arthritis M06.9 DVT prophylaxis Z29.9 (1) Fall Encounter type: initial encounter Qualified Code(s): W19.XXXA - Unspecified fall, initial encounter
[2020-03-27] MEDS: ACETAMINOPHEN 325 MG TAB PO PRN (14:22)
[2020-03-27] MEDS: MAGNESIUM SULFATE / D5W 1 GM/100 ML BAG IV SCH ×3 (16:22→20:16)
[2020-03-27] MEDS: FLUCONAZOLE 100 MG TAB PO SCH (16:31)
[2020-03-27] MEDS: SENNA 8.6 MG TAB PO SCH (20:18)
[2020-03-27] MEDS: MAGNESIUM OXIDE 400 MG TAB PO SCH (20:44)
[2020-03-28 06:01] LABS: Hematocrit (blood only) 26.9 % (37-47); Hemoglobin 8.9 g/dL (12.0-16.0); Mean Corpuscular Hemoglobin 30.3 pg (25-34); Mean Corpuscular Hgb Conc 33.1 g/dL (32-36); Mean Corpuscular Volume 91.5 fL (80-100); Mean Platelet Volume 8.6 fL (7.4-10.4); Platelet Count 571 K/uL (130-400); RDW Coefficient of Variation 13.4 % (11.5-14.5); Red Blood Count 2.94 M/uL (4.2-5.4); White Blood Count 9.08 K/uL (4.8-10.8)
[2020-03-28 06:31] LABS: BUN Creatinine Ratio 16.7 (10-20); Calcium 8.4 mg/dl (8.5-10.1); Creatinine Clr Calc Pharmacy 46.8 ml/min; Est GFR (African American) 84.7; Est GFR (Non-African American) 73.1; Magnesium 1.9 mg/dl (1.8-2.4); Potassium 3.8 mmol/L (3.5-5.1)
[2020-03-28] MEDS: ASPIRIN 81 MG ECTAB PO SCH (08:16)
[2020-03-28] MEDS: MAGNESIUM OXIDE 400 MG TAB PO SCH ×2 (08:16→21:35)
[2020-03-28] MEDS: PANTOprazole 40 MG TAB PO SCH (08:16)
[2020-03-28] MEDS: ENOXAPARIN INJ 40 MG/0.4 ML SYR SQ SCH (08:17)
[2020-03-28] MEDS: SODIUM CHLORIDE 0.65% NA SOLN 45 ML (OCEAN) SCH ×3 (08:17→21:36)
[2020-03-28] MEDS: POTASSIUM CHLORIDE 20 MEQ/15 ML UDC PO SCH (08:17)
[2020-03-28] MEDS: ATENOLOL 25 MG TABLET PO SCH (08:21)
[2020-03-28] MEDS ORDERED: hydroCHLOROthiazide 25 MG TAB PO STA (08:24)
[2020-03-28] MEDS: DOCUSATE SODIUM 100 MG CAP PO SCH ×2 (08:39→21:33)
--- NOTE | 2020-03-28 11:15 | XRay Report ---
XR chest 1V portable CLINICAL HISTORY: f/u pneumonia, tachypneic COMPARISON STUDY: 03/23/2020 FINDINGS: The cardiac and mediastinal contours remain stable. There is been further improvement in th e previously identified left basilar airspace opacities. There is no lobar consolidation. There is no failure. There are no significant pleural effusions.[ IMPRESSION: Further interval improvement in the previously identified left basilar airspace opacity ACT 112: Negative or not required by law. Electronically signed by: Willy Holliday M.D. 03/28/2020 11:14 AM
--- NOTE | 2020-03-28 11:17 | XRay Report ---
XR pelvis 1-2V routine CLINICAL HISTORY: follow up sacral fracture COMPARISON: CT scan dated 03/08/2020 DISCUSSION: Sclerotic changes involve the subchondral portion of the left femoral head consistent wit h avascular necrosis. The sacral fractures visualized the prior CT scan are difficult to visualize. IMPRESSION: 1. Avascular necrosis left hip 2. Osteopenia 3. The sacral fractures described on CT scanning are difficult to visualize on conventional radiograp hic imaging ACT 112: Negative or not required by law. Electronically signed by: Willy Holliday M.D. 03/28/2020 11:15 AM
--- NOTE | 2020-03-28 15:16 | Hospitalist Progress Note ---
Date of Service March 28, 2020 Assessment & Plan (1) Urinary tract infection: Urine culture sent (patient with carr) and grew sandra albicans/dubliniensis (azole susceptible and can also be treated with fluconazole as the albicans) Removed carr catheter 03/[address] on Fluconazole for urine --> full first dose and then 50% decrease for subsequent doses given renal function. To complete treatment 04/07 at 50% dose CM assisting with transport to [facility] once updated therapy notes (2) Obstructive sleep apnea of adult: Patient typically not on any type of supportive ventilation, a nocturnal oximetry study was ordered showing 4 minutes of desaturation Recommend oxygen at night when discharged to SNF at 2L via [place] and will need outpatient sleep study --> Ordered overnight 2L as patient has not been getting and has had increased daytime sleepiness (3) Sacral fracture, closed: X-rays and CT note multiple sacral fractures including body and bilateral wings/left femoral head avascular necrosis/back pain. Pain control -> will schedule tylenol Q8H to see if improvement as therapy notes worsened pain with movement Seen by orthopedics - No surgical intervention warranted. Repeat pelvis xray difficult to visualize sacral fractures described on previous CT -- will speak with ortho regarding repeat imaging in future (4) Hypomagnesemia: Mag added to AM labs as patient with continued hypokalemia Mag low at 1.1 -- > ordered 3gm IV RESOLVED -- Mag 1.9 Continue mag oxide BID Repeat in AM (5) Leukocytosis: Resolved Had resolved but had renewed leukocytosis on 03/21 which peaked at 14.9 on 03/22 and was febrile that afternoon. Patient also has increasing platelets which is likely an acute phase reactant. She was tachycardic with hypertension Empirically covered with Zosyn/Vanco -- completed 03/24 IJ removed 03/22 -- culture without growth. Blood cultures ngtd See urine as above (6) Respiratory failure: Resolved Previously had progressive respiratory failure due to tachypnea. She was urgently intubated and ventilated the morning hours of 03/14. Post intubation x- rays have shown clear lungs. Respiratory status stable, 96% on RA Initial COVID screening test done at [facility] was positive subsequent testing remains negative x 4 Zosyn and azithromycin had been used to treat her pneumonia which stopped on 03/18 after a five day treatment REPEAT CXR with continued improvement Encouraged incentive spirometer (7) D-dimer, elevated: D-dimer elevated 5100 03/13 CTA negative for PE Was initially placed on Lovenox BID to cover for elevation secondary to COVID but after a subsequent drop in hgb lovenox was held and restarted at once per day (8) COVID-19 virus detected: Routine screening done on 03/10 for placement to [place] came back positive on 03/11. The initial test was [facility] in [place]. Subsequent tests were all negative (x3) CXR findings not consistent with COVID pulmonary infection (9) Anemia: Hgb dropped from 11 gm range to 8.5 on 03/15 without signs of acute blood loss - resolved spontaneously without any clear source - Lovenox resumed as above Today hgb is up to 8.9 (10) Fall: feels this has been a mechanical fall, as patient has not had any neurologic or cardiac precipitating symptoms. 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 Patient with marked physical changes (15) DVT prophylaxis: Lovenox 40 mg daily Nursing reporting pocketing and difficulty swallowing. Speech reconsulted and diet adjusted to puree. Dispo: CM assisting with placement. Has been accepted to [facility]. Information faxed this morning but [facility] unable to have evening admission per CM. Insurance requesting pre-peer to peer as therapy notes stating patient crying out in pain and unsure if patient able to tolerate therapy. Ordered Tylenol scheduled, as she had only received 1 650mg dose on 03/27 and nothing prior to that since 03/24 and 03/20 prior to that. Admission and Anticipated Discharge Date Admission Date: March 08, 2020 Supervising Physician Co-Signing Physician Notes Pt d/w Ms. Mcelroy, PAC Agree with plan as outlined above Awaiting rehab placement for sacral fx COVID + x1, neg x4 (done initially as screening for facility d/c) UTI, fungal Ongoing placement issues. Facility states they cannot accept for evening admission. Plan for d/c tomorrow Subjective Patient evaluated this morning. Denies pain but does have pain with movement. Tolerated diet. Resting comfortably in bed. Falls back asleep easily when asked questions although she had just been up working with therapy. Denies fevers, chills, chest pain, shortness of breath, abdominal pain. Noted snoring while sleeping, although patient has not been on oxygen while sleeping. Review of Systems Review of Systems: All systems reviewed & are unremarkable except as noted in HPI & below and Unobtainable due to cognitive status Physical Exam Constitutional: well developed; no acute distress Eyes: + anicteric sclerae and PERRL ENMT: Ears: no EAC abnormality Nose: no external nose abnormality Neck: normal visual inspection Respiratory: normal respiratory effort, lungs clear to auscultation Cardiovascular: RRR, no murmur, no edema Gastrointestinal (Abdomen): normal bowel sounds, soft, nontender, no hepatosplenomegaly Musculoskeletal: painful with movement global weakness although improved strength to b/l UE Neurologic: patellar DTR's 2+ bilat, sensation intact Psychiatric: Orientation: alert, oriented to person and cooperative Lymphatic: no cervical or axillary lymphadenopathy Results & Data Results & Data ([facility]) Vital Signs (Past 12 Hours) Vital Signs Temp Pulse Resp BP Pulse Ox 03/28/20 13:34 93 H 163/78 H 96 03/28/20 11:05 97 03/28/20 08:20 36.6 C 108 H 22 174/82 H 95 Laboratory Results 03/28/20 03/28/20 03/27/20 Range/Units 05:29 05:29 22:35 WBC 9.08 (4.8-10.8) K/uL RBC 2.94 L (4.2-5.4) M/uL Hgb 8.9 L (12.0-16.0) g/dL Hct 26.9 L (37-47) % MCV 91.5 (80-100) fL MCH 30.3 (25-34) pg MCHC 33.1 (32-36) g/dL RDW Std Deviation 45.0 (36.4-46.3) fL RDW Coeff of Hawa 13.4 (11.5-14.5) % Plt Count 571 H (130-400) K/uL MPV 8.6 (7.4-10.4) fL Sodium 137 (136-145) mmol/L Potassium 3.8 (3.5-5.1) mmol/L Chloride 105 (98-107) mmol/L Carbon Dioxide 26 (21-32) mmol/L Anion Gap 6.0 (3-11) BUN 13 (7-18) mg/dl Creatinine 0.76 (0.6-1.2) mg/dl Est Cr Clr Drug Dosing 46.8 ml/min Est GFR ( Amer) 84.7 Est GFR (Non-Af Amer) 73.1 BUN/Creatinine Ratio 16.7 (10-20) Glucose 107 H (70-99) mg/dl Calcium 8.4 L (8.5-10.1) mg/dl Magnesium 1.9 2.4 (1.8-2.4) mg/dl Diagnostic Findings CXR IMPRESSION: Further interval improvement in the previously identified left basilar airspace opacity XR Pelvis 1-2V IMPRESSION: 1. Avascular necrosis left hip 2. Osteopenia 3. The sacral fractures described on CT scanning are difficult to visualize on conventional radiographic imaging PG Care Time/CCT Total # of Minutes Spent Total Time Spent with Patient: Total time spent is greater than 50% in coordination of care (as documented) at patient's floor/unit and/or counseling patient: Coding Level of Care Code 39854 Subseq Hosp Care Lvl 2 Diagnoses Urinary tract infection N39.0 Obstructive sleep apnea of adult G47.33 Sacral fracture, closed S32.10XA Hypomagnesemia E83.42 Leukocytosis D72.829 Respiratory failure J96.90 D-dimer, elevated R79.89 COVID-19 virus detected U07.1 Anemia D64.9 Fall W19.XXXA Encounter type: initial encounter Hypertension I10 Dementia of the Alzheimer's type, with early onset, uncomplicated G30.0; F02.80 Familial hypercholesteremia E78.01 Rheumatoid arthritis M06.9 DVT prophylaxis Z29.9 (1) Fall Encounter type: initial encounter Qualified Code(s): W19.XXXA - Unspecified fall, initial encounter
[2020-03-28] MEDS: ACETAMINOPHEN 325 MG TAB PO SCH ×2 (16:06→21:36)
[2020-03-28] MEDS: FLUCONAZOLE 100 MG TAB PO SCH (16:07)
[2020-03-28] MEDS: SENNA 8.6 MG TAB PO SCH (21:33)
[2020-03-28] MEDS: FLUTICASONE PROPIONATE NA SPR 16 GM BTL SCH (21:36)
[2020-03-29] MEDS: ACETAMINOPHEN 325 MG TAB PO SCH ×2 (06:35→13:19)
[2020-03-29 07:28] LABS: Basophils # (auto) 0.02 K/uL (0-0.2); Basophils % (auto) 0.3 %; Eosinophils # (auto) 0.73 K/uL (0-0.5); Eosinophils % (auto) 10.2 %; Hematocrit (blood only) 28.3 % (37-47); Immature Granulocytes # (auto) 0.12 K/uL (0.00-0.02); Immature Granulocytes % (auto) 1.7 %; Lymphocytes # (auto) 1.14 K/uL (1.2-3.4); Mean Corpuscular Hemoglobin 29.8 pg (25-34); Mean Corpuscular Hgb Conc 31.8 g/dL (32-36); Mean Corpuscular Volume 93.7 fL (80-100); Mean Platelet Volume 8.6 fL (7.4-10.4); Monocytes # (auto) 0.59 K/uL (0.11-0.59); Monocytes % (auto) 8.3 %; Neutrophils # (auto) 4.54 K/uL (1.4-6.5); Neutrophils % (auto) 63.5 %; Platelet Count 549 K/uL (130-400); RDW Coefficient of Variation 13.7 % (11.5-14.5); RDW Standard Deviation 46.7 fL (36.4-46.3); Red Blood Count 3.02 M/uL (4.2-5.4); White Blood Count 7.14 K/uL (4.8-10.8)
[2020-03-29 07:55] LABS: BUN Creatinine Ratio 18.8 (10-20); Calcium 8.7 mg/dl (8.5-10.1); Creatinine Clr Calc Pharmacy 44.3 ml/min; Est GFR (African American) 79.6; Est GFR (Non-African American) 68.7; Magnesium 1.5 mg/dl (1.8-2.4); Potassium 4.1 mmol/L (3.5-5.1)
[2020-03-29] MEDS ORDERED: hydroCHLOROthiazide 25 MG TAB PO SCH (09:00)
[2020-03-29] MEDS: DOCUSATE SODIUM 100 MG CAP PO SCH (09:01)
[2020-03-29] MEDS: ENOXAPARIN INJ 40 MG/0.4 ML SYR SQ SCH (09:02)
[2020-03-29] MEDS: SODIUM CHLORIDE 0.65% NA SOLN 45 ML (OCEAN) SCH ×2 (09:03→13:19)
[2020-03-29] MEDS: FLUTICASONE PROPIONATE NA SPR 16 GM BTL SCH (09:03)
[2020-03-29] MEDS: ASPIRIN 81 MG ECTAB PO SCH (09:04)
[2020-03-29] MEDS: POTASSIUM CHLORIDE 20 MEQ/15 ML UDC PO SCH (09:04)
[2020-03-29] MEDS: MAGNESIUM OXIDE 400 MG TAB PO SCH (09:04)
[2020-03-29] MEDS: PANTOprazole 40 MG TAB PO SCH (09:04)
[2020-03-29] MEDS: ATENOLOL 25 MG TABLET PO SCH (09:04)
[2020-03-29] MEDS: MAGNESIUM SULFATE / D5W 1 GM/100 ML BAG IV SCH ×2 (10:05→11:11)
--- NOTE | 2020-03-29 11:13 | Discharge Summary ---
Date of Service March 29, 2020 Admission HPI Per Admitting Provider The patient is AN 84-year-old female with a past medical history including SDAT, familial hypercholesterolemia, hyperglycemia, hypertension, macular degeneration, KRISTA, osteoarthritis and rheumatoid arthritis. The patient complained of pain in her left lower back area and down her left leg accompanied by tingling, after the fall noted above. In the emergency department, work-up included x-rays and CT which showed multiple sacral fractures including the body and bilateral wings, and left femoral head avascular necrosis. Admission Exam Per Admitting Provider Physical Exam: The patient is awake, well developed and well nourished, normocephalic and atraumatic, lying in bed and in no acute distress. HEENT--PERRL, EOMI, mucous membranes and oropharynx normal. Neck--supple. No JVD. No bruits. Thyroid normal, trachea midline, no adenopathy. Heart--normal S1 and S2. No murmurs, rubs or gallops. Lungs--clear bilaterally, no respiratory distress, no accessory muscle use. Abdomen--normal bowel sounds and soft. Nontender. Nondistended. Extremities--no cyanosis or clubbing. No edema. Dermatologic--normal skin turgor, normal color. Neurologic--cranial nerves II through XII grossly intact. Rheumatologic--limited exam due to pain Psychiatric--dementia Principal Diagnosis Sacral Fractures, Pneumonia, Respiratory Failure Discharge Exam Constitutional well developed, + physical limitations and + frail appearing; no acute distress Eyes + anicteric sclerae and PERRL ENMT Ears: no EAC abnormality Nose: no external nose abnormality Neck normal visual inspection previous IJ site noted Respiratory normal respiratory effort, lungs clear to auscultation Auscultation: + crackles (bibasilar crackles) Cardiovascular RRR, no murmur, no edema Gastrointestinal (Abdomen) normal bowel sounds, soft, nontender, no hepatosplenomegaly Musculoskeletal Head/Neck/Chest: normocephalic and head atraumatic painful with movement b/l LE. good dorsiflexion/plantar flexion with ROM global weakness, although improved strength to b/l UE large 4-5cm mobile cyst to R wrist Skin warm, dry Neurologic patellar DTR's 2+ bilat, sensation intact Psychiatric Orientation: alert, oriented to person, oriented to place and cooperative garbled speech at times but able to comprehend Lymphatic no cervical or axillary lymphadenopathy Discharge Data Allergies Allergy/AdvReac Type Severity Reaction Status Date / Time No Known Allergies Allergy Unverified 03/08/20 21:11 Consultations 03/08/20 20:39 ED Decision to Admit Stat 03/08/20 23:15 Consult Case Management - Discharge Planning Routine Consult Orthopedic Surgery Routine 03/09/20 07:12 Consult Case Management - Discharge Planning Routine 03/14/20 08:55 Consult Director Financial Systems Routine Ordered Studies 03/08/20 18:12 CT abd pelvis IV con only Stat CT cervical spine wo con Stat CT lumbar spine wo con Stat 03/08/20 18:13 CT head/brain wo con Stat 03/08/20 18:33 CT chest w con Stat 03/12/20 CXR 03/13/20 21:[address] angio chest PE protocol Urgent 03/14/20 CT head/brain wo con Urgent CXR 03/23 CXR 03/28 CXR Pelvis X-RAY Hospital Course (1) Sacral fracture, closed: X-rays and CT note multiple sacral fractures including body and bilateral wings/left femoral head avascular necrosis/back pain. Patient tested with COVID-19 screening prior to discharge which was initially positive. Developed pneumonia and worsening respiratory failure requiring int ubation and transfer to ICU. CT Chest NEGATIVE for PE. All subsequent testing has been negative and pneumonia not typical of a covid infection. Antibodies testing sent prior to discharge. Was evaluated by orthopedics who confirm conservative treatment. PT/OT evaluation were completed with recommendation for SNF at discharge. Subsequent evaluations with increased pain and inability to participate, although further evaluation of tylenol prn revealed it had only been given once on 03/20 and 03/24 prior to dose on 03/27 and then scheduled Q8H with vast improvement of Mrs. Dudley's pain and ability to participate in therapy. Repeat pelvis xray 03/28 difficult to visualize sacral fractures described on previous CT -- rec repeat images outpatient in one MONTH per discussion with ortho on 03/28 Patient discharged to rehab to [facility] but may require oil heaterman care based on her progress (2) Urinary tract infection: Leukocytosis without initial source found. CXR with improved pneumonia and completed treatment prior. UA collected which appeared infected (patient had carr catheter) Urine culture sent and grew sandra albicans/dubliniensis (azole susceptible and can also be treated with fluconazole as the albicans) and lilly was subsequently removed on 03/24 Placed on fluconazole at full dose for first dose and then 50% decrease subsequently for renal function to complete course on 04/07 (3) Obstructive sleep apnea of adult: Patient typically not on any type of supportive ventilation, a nocturnal o ximetry study was ordered showing 4 minutes of desaturation during acute phase of recovery from pneumonia. Recommended oxygen HS at 2L via NC and outpatient sleep study at follow up. Repeat sleep study prior to discharge did not demonstrate current need, however given increased daytime somnolence and periods of apnea witness during examination, would still recommend outpatient sleep study for KRISTA (4) Hypomagnesemia: Periods of low magnesium with drop to 1.1 and replaced with IV and slightly low on AM labs. Ordered additional 2gm IV and ordered mag oxide 400mg BID to be continued at discharge Repeat labs to be drawn outpatient (5) Leukocytosis: Resolved Had resolved but had renewed leukocytosis on 03/21 which peaked at 14.9 on 03/22 and was febrile that afternoon. Patient also has increasing platelets which is likely an acute phase reactant. She was tachycardic with hypertension Empirically covered with Zosyn/Vanco -- completed 03/24 IJ removed 03/22 -- culture without growth. Blood cultures ngtd See urine as above (6) Respiratory failure: Resolved Previously had progressive respiratory failure due to tachypnea. She was urgently intubated and ventilated the morning hours of 03/14. Post intubation x- rays have shown clear lungs. Initial COVID screening test done at [facility] was positive subsequent testing remains negative x 4. Antibody testing sent prior to discharge Zosyn and azithromycin had been used to treat her pneumonia which stopped on 03/18 after a five day treatment REPEAT CXR with continued improvement Encouraged incentive spirometer 97% on RA prior to discharge (7) D-dimer, elevated: D-dimer elevated 5100 03/13 CTA negative for PE Was initially placed on Lovenox BID to cover for elevation secondary to COVID but after a subsequent drop in hgb lovenox was held and restarted at once per day (8) COVID-19 virus detected: Routine screening done on 03/10 for placement to [facility] came back positive on 03/11. The initial test was [facility] in [place]. Subsequent tests were all negative CXR findings not consistent with COVID pulmonary infection (9) Anemia: Hgb dropped from 11 gm range to 8.5 on 03/15 without signs of acute blood loss - resolved spontaneously without any clear source - Lovenox resumed as above Today hgb up from prior values Repeat cbc outpatient (10) Fall: felt this has been a mechanical fall, as patient has not had any neurologic or cardiac precipitating symptoms. (11) Hypertension: Elevated secondary to pain but improved with pain control with scheduled Tylenol and restarting of her hydrochlorothiazide at 12.5mg daily BP 134/88 prior to discharge Continued home atenolol (12) Dementia of the Alzheimer's type, with early onset, uncomplicated: Increased confusion during admission initially, so lexapro and alprozolam stopped (13) Familial hypercholesteremia: Continued atorvastatin 20 mg at time of discharge (14) Rheumatoid arthritis: No overt treatment noted. Patient with marked physical changes Also with ganglion type cyst to right wrist -- per patient and , has been there for years. f/u outpatient with PCP (15) DVT prophylaxis: Lovenox 40 mg daily Nursing reporting pocketing and difficulty swallowing. Speech reconsulted and diet adjusted to puree. Ordered Tylenol scheduled, as she had only received 1 650mg dose on 03/27 and nothing prior to that since 03/24 and 03/20 prior to that and patient has had significant improvement in her pain control. Dispo: discharged to [facility] via liter van Total Time Total Time Spent Total Time Spent (In Minutes): 200 Discharge Plan Discharge Items Patient Disposition: Transfer [facility] Fac Reason For Visit: MULTIPLE SACRAL FX Discharge Diagnosis: Sacral Fractures Goals: You have been hospitalized for an acute medical problem. During your stay at [facility], we have made an effort to correct the problem that brought you to the hospital while keeping you as comfortable as possible. Medications were used to bring your condition under control and your discharge instructions will include directions for any medications you should take after leaving the hospital. Please make sure you see your Primary Care Provider as part of your follow up plan. Activity: As commented below Activity Comment: out of bed with assistance with walker Weightbearing Comment: weightbearing as tolerated Non-emergency contact: Primary Care Provider Call non-emergency contact if: you have any medication questions, your symptoms worsen and your pain is concerning for you Follow-up/Referrals: Gurjit Garrett MD [Primary Care Provider] - Diet: Heart Healthy Diet Texture: Pureed (blended smooth) Ambulatory Orders: Basic Metabolic Panel (Routine) Timeframe: 3 Days Location: Determined by Patient Ordered By: Charito Mcelroy Basic Metabolic Panel (Routine) Timeframe: 3 Days Location: Determined by Patient Ordered By: Charito Mcelroy Complete Blood Count no Diff (Timed) Timeframe: 3 Days Location: Determined by Patient Ordered By: Charito Mcelroy Complete Blood Count no Diff (Timed) Timeframe: 3 Days Location: Determined by Patient Ordered By: Charito Mcelroy Magnesium (Routine) Timeframe: 3 Days Location: Determined by Patient Ordered By: Charito Mcelroy Addtl Attending Provider Instructions: You have been hospitalized following a fall and were found to have multiple sacral fractures. Orthopedics was consulted and this is to be managed conservatively. You were placed recently on scheduled tylenol which seems to have better control your pain rather than "as needed" and you should continue to utilize three times daily to ensure proper analgesia/pain relief. Narcotic pain medications are to be avoided if possible given underlying dementia. You have also been ordered senna to help keep your bowels regular. Discussion with Dr. Aguillon with recommendations for repeat imaging of pelvis/sacrum in one month to ensure proper healing. You were treated for pneumonia and respiratory failure with antibiotics and assistance with ventilation, and your respiratory status has improved and is stable. While initial COVID-19 screening was positive, subsequent testing has all been negative and chest xrays are not consistent with covid-19 pulmonary infection. Blood has been sent to test for antibodies to see if you possibly were exposed at some point and have since cleared this. During this time you had respiratory failure and required assistance with your breathing and it has been determined that you will require supplemental oxygen at night at a rate of 2 liters/minute via nasal cannula at night or when sleeping on a previous study but this was repeated now that your pneumonia is resolving and you did not require supplemental oxygen on repeat study. --Given daytime somnolence and improvement with oxygen while sleeping, you should have an official sleep study as an outpatient to determine if you need a CPAP or other. You were found to recently have a "yeast" infection and have been started on Diflucan which will be continued to complete course of 14 days. You have been set up for rehab at [facility]. Given your dementia and increased confusion, Lexapro and alprazolam were stopped during this admission and not restarted. Due to dehydration, your hydrochlorothiazide (for blood pressure) was discontinued but restarted at a lower dose of 12.5mg daily. Your magnesium levels have been found to be low on multiple occasions during this admission and potassium and magnesium were replaced, but you still have a low magnesium level. You have been started and continued on oral supplementation twice daily at discharge. You have been given lab slips to monitor your blood counts and electrolytes in the next week to monitor your status. Please follow up with your primary care provider in the next week to monitor your progress and if blood pressure remain elevated it may be a good idea to increase your hydrochlorothiazide vs initiating additional antihypertensive agents to prevent further dehydration. Please return to the emergency department with any chest pain, shortness of breath, increased pain or for any other symptoms that are concerning for you. It has been a pleasure being a part of the medical team providing for you while you have been in the hospital. Take care! Pending Studies at Discharge: Yes Studies:: Covid-19 antibodies Stand-Alone Forms: My [facility] Skilled Items Patient informed of condition?: Yes DNR: No Discharge Level of Care: Skilled Communicable Disease: No Discharge Prognosis: Stable Lines: None Urinary Catheter: No Medications and DC Order Prescriptions: New sennosides [Senokot] 8.6 mg Tablet 17.2 mg PO HS 30 Days Qty: 60 RF: 0 potassium chloride 40 mEq/15 mL liquid 20 meq PO DAILY Qty: 473 RF: 0 hydrochlorothiazide 25 mg Tablet 12.5 mg PO QAM 30 Days Qty: 15 RF: 0 acetaminophen [Tylenol 8 Hour] 650 mg tablet extended release 650 mg PO Q8H Qty: 90 RF: 0 magnesium oxide 400 mg (241.3 mg magnesium) Tablet 400 mg PO BID 30 Days Qty: 60 RF: 0 Continued atenolol 25 mg tablet 25 mg PO DAILY Qty: 90 RF: 3 atorvastatin 20 mg tablet 20 mg PO QPM Qty: 90 RF: 3 omeprazole 40 mg capsule,delayed release(DR/EC) 40 mg PO DAILY RF: 0 cyanocobalamin (vitamin B-12) 100 mcg tablet 50 mcg PO DAILY RF: 0 aspirin [Aspir-81] 81 mg Tablet,Delayed Release (Dr/Ec) 81 mg PO DAILY RF: 0 Discontinued escitalopram oxalate 10 mg tablet 10 mg PO DAILY Qty: 90 RF: 3 alprazolam 0.25 mg tablet 0.25 mg PO DAILY Qty: 50 RF: 0 hydrochlorothiazide 50 mg tablet 50 mg PO DAILY RF: 0 Discharge Orders: Discharge Order (Routine); Ordered 03/29/20 Ordered By: Charito Mcelroy Admission Data Admit Date/Time: 03/08/20 21:48 Attending Provider: Gurjit Sylvester Admit Provider: Charles Matthew Primary Care Provider: Gurjit Garrett Other Providers: Earl Ingram ; Xiao Hunt Other Interventions: Discharge Summary Assessment (RN) Last Done: 03/29/20 14:38 Supervising Physician Co-Signing Physician Notes Attending Attestation & Discharge Note: PT seen/examined, chart reviewed, care plan d/w PA Charito Mcelroy. I agree w/ the hunt components of her documentation. 84yo female with Alzheimer's dementia who presented after a fall with resulting back and left buttock/leg pain. Multiple sacral fractures found on imaging. Hospital course was protracted 2nd to a COVID-19 test that was positive and acute respiratory failure 2nd to pneumonia. The latter required ICU treatment and [facility] ventilation. The initial COVID-19 test that was positive was ultimately felt to be FALSELY POSITIVE ALL OTHER COVID-19 MODEL MAKER FIREARMS SWAB TESTS (MULTIPLE) WERE NEGATIVE. Additionally a COVID-19 serum antibody test was NEGATIVE. Sacral fractures were treated conservatively while here. Received ~5 days of antibiotic Rx for her pneumonia. Stable in room air at discharge. Discharge exam: gen - nad, pleasantly confused mouth - no thrush heart - RRR, s1 s2 lungs - minimal crackles b/l bases abd - soft NT ext - large cystic structure over dorsum right hand/wrist; b/l ankles w/o edema Gurjit Sylvester MD Coding Level of Care Code D/C Day Management >30 mins Diagnoses Sacral fracture, closed S32.10XA Urinary tract infection N39.0 Obstructive sleep apnea of adult G47.33 Hypomagnesemia E83.42 Leukocytosis D72.829 Respiratory failure J96.90 D-dimer, elevated R79.89 COVID-19 virus detected U07.1 Anemia D64.9 Fall W19.XXXA Encounter type: initial encounter Hypertension I10 Dementia of the Alzheimer's type, with early onset, uncomplicated G30.0; F02.80 Familial hypercholesteremia E78.01 Rheumatoid arthritis M06.9 DVT prophylaxis Z29.9
[2020-03-29] MEDS: FLUCONAZOLE 100 MG TAB PO SCH (16:17)
[2020-03-30 07:42] LABS: CoV2 Total Antibody Negative (Negative)
== END 2020-03-29 17:11 | DRG 208 ==
LOC: ED 17:52 → SUATTDRO 21:48 → 3E 21:48 → 2E 03-14 04:13 → 1E 03-15 19:04 → 2E 03-16 11:58 → 3E 03-19 17:18

== ENCOUNTER 2021-01-09 01:11 | Observation (INO) ==
[2021-01-09] MEDS ORDERED: SODIUM CHLORIDE 0.9% 500 ML IV ONE (01:19)
[2021-01-09 01:45] LABS: Basophils # (auto) 0.02 K/uL (0-0.2); Basophils % (auto) 0.3 %; Eosinophils # (auto) 0.71 K/uL (0-0.5); Eosinophils % (auto) 10.5 %; Hematocrit (blood only) 33.6 % (37-47); Hemoglobin 11.2 g/dL (12.0-16.0); Immature Granulocytes # (auto) 0.03 K/uL (0.00-0.02); Immature Granulocytes % (auto) 0.4 %; Lymphocytes # (auto) 1.47 K/uL (1.2-3.4); Lymphocytes % (auto) 21.8 %; Mean Corpuscular Hemoglobin 30.3 pg (25-34); Mean Corpuscular Hgb Conc 33.3 g/dL (32-36); Mean Corpuscular Volume 90.8 fL (80-100); Mean Platelet Volume 8.4 fL (7.4-10.4); Monocytes # (auto) 0.52 K/uL (0.11-0.59); Monocytes % (auto) 7.7 %; Neutrophils # (auto) 3.98 K/uL (1.4-6.5); Neutrophils % (auto) 59.3 %; Platelet Count 345 K/uL (130-400); RDW Standard Deviation 43.1 fL (36.4-46.3); White Blood Count 6.73 K/uL (4.8-10.8)
[2021-01-09 02:00] LABS: Alanine Aminotransferase 18 U/L (12-78); Albumin Level 2.9 gm/dl (3.4-5.0); Aspartate Aminotransferase 20 U/L (15-37); BUN Creatinine Ratio 17.6 (10-20); Blood Urea Nitrogen 21 mg/dl (7-18); Calcium 8.6 mg/dl (8.5-10.1); Carbon Dioxide 25 mmol/L (21-32); Chloride 106 mmol/L (98-107); Creatinine Clr Calc Pharmacy 27.2 ml/min; Est GFR (African American) 47.4 ml/min; Est GFR (Non-African American) 40.9 ml/min; Glucose 100 mg/dl (70-99); Potassium 4.2 mmol/L (3.5-5.1); Sodium 140 mmol/L (136-145)
[2021-01-09 02:10] LABS: Albumin Globulin Ratio 0.8 (0.9-2); Alkaline Phosphatase 84 U/L (45-117); Bilirubin,Total 0.3 mg/dl (0.2-1); Globulin 3.7 gm/dl (2.5-4.0); Total Protein 6.6 gm/dl (6.4-8.2); Troponin I < 0.015 ng/ml (0-0.045)
[2021-01-09 02:11] LABS: Appearance Urine Clear (Clear); Bacteria Urine Automated Negative (Negative); Bilirubin Urine Negative (Negative); Blood Urine Negative (Negative); Color Urine Yellow; Epithelial Cell Urine Auto 20-30 /lpf (0-5); Glucose Urine UA Negative (Negative); Ketones Urine Trace (Negative); Leukocyte Esterase Urine Trace (Negative); Nitrite Urine Negative (Negative); Protein Urine Negative (Negative); RBC Urine Automated 0-4 /hpf (0-4); Specific Gravity Urine 1.022 (1.000-1.030); Urobilinogen Urine Negative (Negative)
[2021-01-09] MEDS ORDERED: cefTRIAXone SODIUM 2,000 MG/70 ML BAG IV STA (02:30)
--- NOTE | 2021-01-09 03:56 | History & Physical Report ---
Date of Service January 09, 2021 Assessment & Plan (1) Fall: Patient with possible fall at [facility]. She denies that she fell. No complaints. Question underlying dementia playing role in confusion. -Delirium prevention strategies -Fall precautions -Tylenol PRN pain Present on Admission?: Yes (2) Dehydration: Patient appears to be slightly dehydrated -dry on clinical exam, some hemoconcentration on CBC, ketones on urine and slight elevation in BUN and Cr -LR -Repeat labs in AM F/E/N - LR, electrolytes WNL, regular diet as tolerated Ppx - SCDs Code - Full Dispo - Observation to medical Present on Admission?: Yes History of Present Illness Chief Complaint: AMS Primary Care Provider: [facility] Ila Dudley is an 85yo female presenting from [facility] with concerns for AMS. Patient is a poor historian. No family at bedside at present. History obtained through chart review, discussion with patient and ER staff. Patient was found on the floor this AM crawling around. She states that she was trying to get something off the floor. She denies falling. Denies pain or head trauma. Denies chest pain/palpitations/SOB/cough. Denies abdominal pain/nausea/vomiting/diarrhea or constipation. Patient had similar event on 01/02 and was seen in the ER. She had a CT head at that time which was unremarkable. No additional complaints at this time. ER Course: Cetriaxone, NSS Allergies Allergy/AdvReac Type Severity Reaction Status Date / Time No Known Allergies Allergy Verified 01/09/21 01:34 Home Medications Medication Instructions Recorded Confirmed Type acetaminophen 650 mg 325 mg PO Q4H #30 tab MDD 3 04/26/20 01/09/21 Rx tablet,extended release GRAMS/24 HOURS sennosides 8.6 mg tablet 17.2 mg PO HS #60 tab 04/26/20 01/09/21 Rx ferrous sulfate 325 mg (65 mg 325 mg PO BID17 tab 04/27/20 01/09/21 History iron) tablet aspirin 81 mg PO QAM 05/27/20 01/09/21 History atenolol 25 mg PO QAM 05/27/20 01/09/21 History atorvastatin 20 mg PO HS 05/27/20 01/09/21 History cyanocobalamin (vitamin B-12) 50 mcg PO QAM 05/27/20 01/09/21 History diphenhydramine HCl [Banophen] 50 mg PO TID PRN 05/27/20 01/09/21 History magnesium oxide 400 mg PO BID17 05/27/20 01/09/21 History omeprazole 40 mg PO QAM 05/27/20 01/09/21 History potassium chloride 20 meq PO QAM 05/27/20 01/09/21 History vit C,H-Uh-koofx-lutein-zeaxan 1 tab PO QAM 05/27/20 01/09/21 History [PreserVision AREDS-2] triamcinolone acetonide 0.1 % See Rx Instructions .ROUTE 12/06/20 01/09/21 Rx topical cream .COMPLEX #80 g hydrochlorothiazide 12.5 mg PO QAM 01/09/21 01/09/21 History Past Med/Surg History Medical History (Updated 01/09/21 @ 02:58 by Vernon Siegel MD) Dementia of the Alzheimer's type, with early onset, uncomplicated Fall Familial hypercholesteremia Hyperglycemia Hypertension Hypokalemia Macular degeneration Obstructive sleep apnea of adult Osteoarthritis Osteoporosis Pain and swelling of right wrist Pain in right knee Right hip pain Social History Smoking Status: Never smoker Second Hand Exposure: No; Hx Alcohol Use: Yes Alcohol type: wine Hx Substance Use: No Preferred Language: Luxembourger Communication Ability: Effective Entry Writer Required: No Beliefs That Will Affect Care: None marital status: Current Living Situation: Spouse Feels Safe at Home: Yes Assistive Devices: None Review of Systems Review of Systems: All systems reviewed & are unremarkable except as noted in HPI & below Physical Exam Physical Exam: General: patient resting comfortably, NAD, non-toxic in appearance, AA&O x 3, appropriate Skin: warm, dry, intact, no rashes or lesions HEENT: NC/AT, PERRL, EOMI, anicteric sclera, conjunctiva without injection, external ear normal to inspection and nontender, nares patent, dry mucus membranes, dentition intact, no oropharyngeal lesions, neck supple, trachea midline, no LAD, no thyromegaly, no JVD Heart: +S1/S2, regular, no m/r/g Lungs: equal air entry bilaterally, no rales/rhonchi/wheezes Abd: +BS, soft, NT/ND, no masses/organomegaly/ascites Ext: warm, 2+ pulses in UE/LE bilaterally, no clubbing/cyanosis or edema Neuro: nonfocal, patient AA&O x 4, speech intact, no facial droop, moving all extremities on command with equal strength 5/5 Results & Data Results & Data ([facility]) Vital Signs (Past 12 Hours) Vital Signs Temp Pulse Pulse Resp BP BP Pulse Ox 01/09/21 02:42 77 20 142/74 H 98 01/09/21 01:42 98 01/09/21 01:39 36.5 C 80 20 145/68 H 98 Laboratory Results Laboratory Results WBC 6.73 K/uL (4.8-10.8) 01/09/21 01:36 RBC 3.70 M/uL (4.2-5.4) L 01/09/21 01:36 Hgb 11.2 g/dL (12.0-16.0) L 01/09/21 01:36 Hct 33.6 % (37-47) L 01/09/21 01:36 MCV 90.8 fL (80-100) 01/09/21 01:36 MCH 30.3 pg (25-34) 01/09/21 01:36 MCHC 33.3 g/dL (32-36) 01/09/21 01:36 RDW Std Deviation 43.1 fL (36.4-46.3) 01/09/21 01:36 RDW Coeff of Hawa 13.0 % (11.5-14.5) 01/09/21 01:36 Plt Count 345 K/uL (130-400) 01/09/21 01:36 MPV 8.4 fL (7.4-10.4) 01/09/21 01:36 Immature Gran % (Auto) 0.4 % 01/09/21 01:36 Neut % (Auto) 59.3 % 01/09/21 01:36 Lymph % (Auto) 21.8 % 01/09/21 01:36 [place] % (Auto) 7.7 % 01/09/21 01:36 Eos % (Auto) 10.5 % 01/09/21 01:36 Baso % (Auto) 0.3 % 01/09/21 01:36 Neut # (Auto) 3.98 K/uL (1.4-6.5) 01/09/21 01:36 Lymph # (Auto) 1.47 K/uL (1.2-3.4) 01/09/21 01:36 [place] # (Auto) 0.52 K/uL (0.11-0.59) 01/09/21 01:36 Eos # (Auto) 0.71 K/uL (0-0.5) H 01/09/21 01:36 Baso # (Auto) 0.02 K/uL (0-0.2) 01/09/21 01:36 Immature Gran # (Auto) 0.03 K/uL (0.00-0.02) H 01/09/21 01:36 Sodium 140 mmol/L (136-145) 01/09/21 01:36 Potassium 4.2 mmol/L (3.5-5.1) 01/09/21 01:36 Chloride 106 mmol/L (98-107) 01/09/21 01:36 Carbon Dioxide 25 mmol/L (21-32) 01/09/21 01:36 Anion Gap 9.0 (3-11) 01/09/21 01:36 BUN 21 mg/dl (7-18) H 01/09/21 01:36 Creatinine 1.22 mg/dl (0.6-1.2) H 01/09/21 01:36 Est Cr Clr Drug Dosing 27.2 ml/min 01/09/21 01:36 Est GFR ( Amer) 47.4 ml/min 01/09/21 01:36 Est GFR (Non-Af Amer) 40.9 ml/min 01/09/21 01:36 BUN/Creatinine Ratio 17.6 (10-20) 01/09/21 01:36 Glucose 100 mg/dl (70-99) H 01/09/21 01:36 Calcium 8.6 mg/dl (8.5-10.1) 01/09/21 01:36 Total Bilirubin 0.3 mg/dl (0.2-1) 01/09/21 01:36 AST 20 U/L (15-37) 01/09/21 01:36 ALT 18 U/L (12-78) 01/09/21 01:36 Alkaline Phosphatase 84 U/L (45-117) 01/09/21 01:36 Troponin I < 0.015 ng/ml (0-0.045) 01/09/21 01:36 Total Protein 6.6 gm/dl (6.4-8.2) 01/09/21 01:36 Albumin 2.9 gm/dl (3.4-5.0) L 01/09/21 01:36 Globulin 3.7 gm/dl (2.5-4.0) 01/09/21 01:36 Albumin/Globulin Ratio 0.8 (0.9-2) L 01/09/21 01:36 TSH 1.030 uIu/ml (0.300-4.500) 01/09/21 01:36 Urine Color Yellow 01/09/21 01:34 Urine Appearance Clear (Clear) 01/09/21 01:34 Urine pH 8.0 (4.5-7.5) H 01/09/21 01:34 Ur Specific [place] 1.022 (1.000-1.030) 01/09/21 01:34 Urine Protein Negative (Negative) 01/09/21 01:34 Urine Glucose (UA) Negative (Negative) 01/09/21 01:34 Urine Ketones Trace (Negative) H 01/09/21 01:34 Urine Blood Negative (Negative) 01/09/21 01:34 Urine Nitrite Negative (Negative) 01/09/21 01:34 Urine Bilirubin Negative (Negative) 01/09/21 01:34 Urine Urobilinogen Negative (Negative) 01/09/21 01:34 Ur Leukocyte Esterase Trace (Negative) H 01/09/21 01:34 Urine WBC (Auto) 10-30 /hpf (0-5) H 01/09/21 01:34 Urine RBC (Auto) 0-4 /hpf (0-4) 01/09/21 01:34 U Hyaline Cast (Auto) 1-5 /lpf (0-5) 01/09/21 01:34 U Epithel Cells (Auto) 20-30 /lpf (0-5) H 01/09/21 01:34 Urine Bacteria (Auto) Negative (Negative) 01/09/21 01:34 COVID-19 Eval Order Covid19 at [facility] 01/09/21 03:20 SARS-CoV-2 (PCR) NEGATIVE (Negative) 01/09/21 03:20 Code Status & VTE Plan VTE Prophylaxis Plan VTE Prophylaxis will be ordered: Yes PG Care Time/CCT Total # of Minutes Spent Total Time Spent with Patient: Total time spent is greater than 50% in coordination of care (as documented) at patient's floor/unit and/or counseling patient: Coding Level of Care Code 83328 OBS Care - Level 2 Diagnoses Fall W19.XXXA Encounter type: initial encounter Dehydration E86.0 (1) Fall Encounter type: initial encounter Qualified Code(s): W19.XXXA - Unspecified fall, initial encounter
--- NOTE | 2021-01-09 04:06 | Emergency Department Note ---
Impression & Plan Altered mental status, Dehydration, Acute UTI ED Provider Note NAME: NUBIA IRAHETA AGE: 85 SEX: F : 1935 ARRIVES VIA: Ambulance INFORMANT: Patient, , EMS ED PROVIDER(S): Vernon Siegel MD CHIEF COMPLAINT: Fall HPI: This is an 85-year-old female sent in from the longterm over concerns of the patient had an altered mental status. Per report the patient was found on the floor this morning. The patient herself has no complaints and denies any falls though she does have a history of dementia. She denies any pain including chest pain abdominal pain or any sort of extremity pain. She knows she is in the hospital and knows it is the month of January. The patient herself reports that she thought she saw something on the floor and that is how she ended up on the floor. ROS: See above HPI for pertinent positives & negatives. A total of 10 systems reviewed and were otherwise negative. PAST MEDICAL HISTORY: See Below PAST SURGICAL HISTORY: See Below FAMILY HISTORY: See Below SOCIAL HISTORY: See Below HOME MEDICATIONS: See Below ALLERGIES: See Below VITALS: See Below PHYSICAL EXAMINATION: VITAL SIGNS - Vital signs and nursing notes were reviewed. GENERAL - 85-year-old female appearing stated age who is in no acute distress. Communicates well with provider and answers questions appropriately. SKIN - Without rashes. HEAD - NC/AT. EYES - PERRL with EOMI bilaterally. Sclera anicteric. Palpebral conjunctiva pink and moist with no injection noted. EARS - No deformities of external structures noted on gross examination bilaterally. NOSE - Midline and without cyanosis. No epistaxis or purulent drainage noted. Septum midline without deviation or septal hematoma noted. MOUTH/OROPHARYNX - Without perioral cyanosis. Buccal mucosa pink and moist and without leukoplakia. Tongue midline with equal elevation of palate bilaterally. No tonsillar hypertrophy, erythema, or exudates noted. NECK - Neck with FROM. Supple to palpation. No nuchal rigidity. LUNGS - Chest wall symmetric without accessory muscle use, intercostals retractions, or central cyanosis. Normal vesicular breath sounds CTA B/L. No wheezes, rales, or rhonchi appreciated. CARDIAC - RRR with S1/S2. No murmur, rubs, or gallops appreciated. ABDOMEN - Abdominal contour without pulsations or visible masses. BS normoactive all four quadrants. No tenderness, palpable masses, hepato splenomegaly, or ascites noted. EXTREMITIES - No clubbing or peripheral cyanosis. No pretibial edema present. +3/5 radial, posterior tibial, and dorsalis pedis pulses palpated throughout. +5/5 strength noted in UE/LE bilaterally. NEUROLOGIC - Cranial nerves II through XII grossly intact. Sensory intact to light touch throughout. Patellar reflexes +2/4. PSYCH - A&Ox3 and cooperates fully with examiner. Pt is very pleasant and interacts well with examiner. MEDICAL DECISION MAKING: Patient was seen and evaluated as above in room A11B. Review was performed of nursing notes and vital signs. I did review pertinent previous visits and patient history. After obtaining a thorough history and physical examination the above work up was performed. This is an 85-year-old female who presents emergency department complaining of altered mental status. The patient herself has no complaints. She does appear to be dehydrated with elevation in her BUN and creatinine and does appear to have a urinary tract infection. She was started on IV Rocephin and given normal saline bolus here in the emergency department. I did discuss the case with the patient's who is requesting that the patient be admitted to the hospital. I did discuss the case with internal medicine who did agree to admit the patient. An order was placed for continuous cardiac monitoring. The monitor shows a rate of 77 with Normal SInus rhythm. The patient was evaluated during a period of high volume and high acuity during the global COVID-19 pandemic, and that diagnosis was suspected/considered upon their initial presentation. Their evaluation, treatment and testing was consistent with current guidelines for patients who present with complaints or symptoms that may be related to COVID-19. Patient was seen while provider was wearing PPE. Triage Nursing notes reviewed. Prior medical records reviewed Vital Signs: reviewed and remarkable for no significant abnormalities Differential diagnosis: Infection, dehydration, metabolic abnormality, hypo/hyperglycemia, electrolyte disturbance, anemia, hypoxia, cardiac sources, intracerebral event, toxicologic, neurologic, as well as other pathologies. ER treatment provided: See below Diagnostics interpreted by me: ECG: Normal sinus rhythm normal EKG QTC is 442 ventricular rate of 78. EKG is compared to 05/27/2020 no significant change noted. Laboratory studies: As stated above and show below. Imaging studies: CT of the head: No ICH mass-effect or edema. No evidence of acute cortical stroke or significant alteration from the examination 01/02/2021. Stable cerebral atrophy and periventricular chronic microvascular changes. Visualized sinuses and mastoid air cells are clear. 1 view the chest was interpreted by me does not show any evidence pneumonia congestion or pneumothorax. Consultation(s): Internal Medicine Past Med/Surg History Medical History (Updated 01/09/21 @ 02:58 by Vernon Siegel MD) Dementia of the Alzheimer's type, with early onset, uncomplicated Fall Familial hypercholesteremia Hyperglycemia Hypertension Hypokalemia Macular degeneration Obstructive sleep apnea of adult Osteoarthritis Osteoporosis Pain and swelling of right wrist Pain in right knee Right hip pain Social History Smoking Status: Never smoker Second Hand Exposure: No; Hx Alcohol Use: Yes Alcohol type: wine Hx Substance Use: No Preferred Language: Tanzanian Communication Ability: Effective Craft Superintendent Required: No Beliefs That Will Affect Care: None marital status: Current Living Situation: Spouse Feels Safe at Home: Yes Assistive Devices: None Allergies Allergies Allergy/AdvReac Type Severity Reaction Status Date / Time No Known Allergies Allergy Verified 01/09/21 01:34 Home Meds Home Medications Medication Instructions Recorded Confirmed ferrous sulfate 325 mg (65 mg 325 mg PO BID17 tab 04/27/20 01/09/21 iron) tablet aspirin 81 mg PO QAM 05/27/20 01/09/21 atenolol 25 mg PO QAM 05/27/20 01/09/21 atorvastatin 20 mg PO HS 05/27/20 01/09/21 cyanocobalamin (vitamin B-12) 50 mcg PO QAM 05/27/20 01/09/21 diphenhydramine HCl [Banophen] 50 mg PO TID PRN 05/27/20 01/09/21 magnesium oxide 400 mg PO BID17 05/27/20 01/09/21 omeprazole 40 mg PO QAM 05/27/20 01/09/21 potassium chloride 20 meq PO QAM 05/27/20 01/09/21 vit C,P-Hp-yjrcj-lutein-zeaxan 1 tab PO QAM 05/27/20 01/09/21 [PreserVision AREDS-2] hydrochlorothiazide 12.5 mg PO QAM 01/09/21 01/09/21 Previous Rx's Medication Instructions Recorded acetaminophen 650 mg 325 mg PO Q4H #30 tab MDD 3 04/26/20 tablet,extended release GRAMS/24 HOURS sennosides 8.6 mg tablet 17.2 mg PO HS #60 tab 04/26/20 triamcinolone acetonide 0.1 % See Rx Instructions .ROUTE 12/06/20 topical cream .COMPLEX #80 g Results & Data (ED) Vital Signs Vital Signs - 24 hr 01/09/21 01:39 01/09/21 01:42 01/09/21 02:42 Temperature 36.5 C Temperature Source Oral Pulse Rate 80 Pulse Rate [Bilateral Apical] 77 Respiratory Rate 20 20 Respiratory Effort / Characteristics Non-Labored Respiratory Depth Normal Blood Pressure 145/68 H Blood Pressure [Left Arm] 142/74 H Blood Pressure Mean 93 Blood Pressure Mean [Left Arm] 96 Pulse Oximetry 98 98 98 Oxygen Delivery Method Room Air Room Air Room Air Sepsis Recent Fever Within 48 Hours No Sepsis New/Unexplained Change in Mental Status N/A Sepsis Action Taken by Nursing No Action Required Home Medications Current Medication List: was personally reviewed by me Laboratory Data Attestation: I reviewed the patient's lab results. Result diagrams: 01/09/21 01:36 01/09/21 01:36 Lab Results 01/09/21 01/09/21 01/09/21 Range/Units 01:34 01:36 01:36 WBC 6.73 (4.8-10.8) K/uL RBC 3.70 L (4.2-5.4) M/uL Hgb 11.2 L (12.0-16.0) g/dL Hct 33.6 L (37-47) % MCV 90.8 (80-100) fL MCH 30.3 (25-34) pg MCHC 33.3 (32-36) g/dL RDW Std Deviation 43.1 (36.4-46.3) fL RDW Coeff of [place] 13.0 (11.5-14.5) % Plt Count 345 (130-400) K/uL MPV 8.4 (7.4-10.4) fL Immature Gran % (Auto) 0.4 % Neut % (Auto) 59.3 % Lymph % (Auto) 21.8 % [place] % (Auto) 7.7 % Eos % (Auto) 10.5 % Baso % (Auto) 0.3 % Neut # (Auto) 3.98 (1.4-6.5) K/uL Lymph # (Auto) 1.47 (1.2-3.4) K/uL [place] # (Auto) 0.52 (0.11-0.59) K/uL Eos # (Auto) 0.71 H (0-0.5) K/uL Baso # (Auto) 0.02 (0-0.2) K/uL Immature Gran # (Auto) 0.03 H (0.00-0.02) K/uL Sodium 140 (136-145) mmol/L Potassium 4.2 (3.5-5.1) mmol/L Chloride 106 (98-107) mmol/L Carbon Dioxide 25 (21-32) mmol/L Anion Gap 9.0 (3-11) BUN 21 H (7-18) mg/dl Creatinine 1.22 H (0.6-1.2) mg/dl Est Cr Clr Drug Dosing 27.2 ml/min Est GFR ( Amer) 47.4 ml/min Est GFR (Non-Af Amer) 40.9 ml/min BUN/Creatinine Ratio 17.6 (10-20) Glucose 100 H (70-99) mg/dl Calcium 8.6 (8.5-10.1) mg/dl Total Bilirubin 0.3 (0.2-1) mg/dl AST 20 (15-37) U/L ALT 18 (12-78) U/L Alkaline Phosphatase 84 (45-117) U/L Troponin I < 0.015 (0-0.045) ng/ml Total Protein 6.6 (6.4-8.2) gm/dl Albumin 2.9 L (3.4-5.0) gm/dl Globulin 3.7 (2.5-4.0) gm/dl Albumin/Globulin Ratio 0.8 L (0.9-2) TSH 1.030 (0.300-4.500) uIu/ml Urine Color Yellow Urine Appearance Clear (Clear) Urine pH 8.0 H (4.5-7.5) Ur Specific [place] 1.022 (1.000-1.030) Urine Protein Negative (Negative) Urine Glucose (UA) Negative (Negative) Urine Ketones Trace H (Negative) Urine Blood Negative (Negative) Urine Nitrite Negative (Negative) Urine Bilirubin Negative (Negative) Urine Urobilinogen Negative (Negative) Ur Leukocyte Esterase Trace H (Negative) Urine WBC (Auto) 10-30 H (0-5) /hpf Urine RBC (Auto) 0-4 (0-4) /hpf U Hyaline Cast (Auto) 1-5 (0-5) /lpf U Epithel Cells (Auto) 20-30 H (0-5) /lpf Urine Bacteria (Auto) Negative (Negative) COVID-19 Eval Order 01/09/21 Range/Units 03:20 WBC (4.8-10.8) K/uL RBC (4.2-5.4) M/uL Hgb (12.0-16.0) g/dL Hct (37-47) % MCV (80-100) fL MCH (25-34) pg MCHC (32-36) g/dL RDW Std Deviation (36.4-46.3) fL RDW Coeff of [place] (11.5-14.5) % Plt Count (130-400) K/uL MPV (7.4-10.4) fL Immature Gran % (Auto) % Neut % (Auto) % Lymph % (Auto) % [place] % (Auto) % Eos % (Auto) % Baso % (Auto) % Neut # (Auto) (1.4-6.5) K/uL Lymph # (Auto) (1.2-3.4) K/uL [place] # (Auto) (0.11-0.59) K/uL Eos # (Auto) (0-0.5) K/uL Baso # (Auto) (0-0.2) K/uL Immature Gran # (Auto) (0.00-0.02) K/uL Sodium (136-145) mmol/L Potassium (3.5-5.1) mmol/L Chloride (98-107) mmol/L Carbon Dioxide (21-32) mmol/L Anion Gap (3-11) BUN (7-18) mg/dl Creatinine (0.6-1.2) mg/dl Est Cr Clr Drug Dosing ml/min Est GFR ( Amer) ml/min Est GFR (Non-Af Amer) ml/min BUN/Creatinine Ratio (10-20) Glucose (70-99) mg/dl Calcium (8.5-10.1) mg/dl Total Bilirubin (0.2-1) mg/dl AST (15-37) U/L ALT (12-78) U/L Alkaline Phosphatase (45-117) U/L Troponin I (0-0.045) ng/ml Total Protein (6.4-8.2) gm/dl Albumin (3.4-5.0) gm/dl Globulin (2.5-4.0) gm/dl Albumin/Globulin Ratio (0.9-2) TSH (0.300-4.500) uIu/ml Urine Color Urine Appearance (Clear) Urine pH (4.5-7.5) Ur Specific [place] (1.000-1.030) Urine Protein (Negative) Urine Glucose (UA) (Negative) Urine Ketones (Negative) Urine Blood (Negative) Urine Nitrite (Negative) Urine Bilirubin (Negative) Urine Urobilinogen (Negative) Ur Leukocyte Esterase (Negative) Urine WBC (Auto) (0-5) /hpf Urine RBC (Auto) (0-4) /hpf U Hyaline Cast (Auto) (0-5) /lpf U Epithel Cells (Auto) (0-5) /lpf Urine Bacteria (Auto) (Negative) COVID-19 Eval Order Covid19 at [facility] Administered Medications Discontinued Medications Sodium Chloride (Nss) 500 mls @ 999 mls/hr IV .Q31M ONE Stop: 01/09/21 01:49 Last Infusion: 01/09/21 02:19 Dose: 0 mls/hr Documented by: [id number] Admin: 01/09/21 01:31 Dose: 999 mls/hr Documented by: [id number] Ceftriaxone Sodium (Rocephin) 2,000 mg in 70 mls @ 140 mls/hr IV NOW STA Stop: 01/09/21 02:59 Last Infusion: 01/09/21 03:24 Dose: 0 mls/hr Documented by: [id number] Admin: 01/09/21 02:48 Dose: 140 mls/hr Documented by: [id number] Discharge Plan Visit Data Chief Complaint: Altered Mental Status Stated Complaint: ALTERED MENTAL STATUS ED Provider: Vernon Siegel Discharge Problem: Altered mental status, Dehydration, Acute UTI Forms Stand Alone Forms: [facility] Prescriptions Prescriptions: No Action acetaminophen [Tylenol 8 Hour] 650 mg tablet extended release 325 mg PO Q4H MDD 3 GRAMS/24 HOURS Qty: 30 RF: 11 sennosides [Senokot] 8.6 mg tablet 17.2 mg PO HS Qty: 60 RF: 11 triamcinolone acetonide 0.1 % cream See Rx Instructions .ROUTE .COMPLEX Qty: 80 RF: 0 ferrous sulfate 325 mg (65 mg iron) tablet 325 mg PO BID17 RF: 0 diphenhydramine HCl [Banophen] 50 mg Capsule 50 mg PO TID PRN (Reason: Itching) RF: 0 aspirin 81 mg Tablet,Chewable 81 mg PO QAM RF: 0 PreserVision AREDS-2 [id number] Capsule 1 tab PO QAM RF: 0 atorvastatin 20 mg tablet 20 mg PO HS RF: 0 cyanocobalamin (vitamin B-12) 100 mcg tablet 50 mcg PO QAM RF: 0 atenolol 25 mg tablet 25 mg PO QAM RF: 0 omeprazole 40 mg capsule,delayed release(DR/EC) 40 mg PO QAM RF: 0 magnesium oxide 400 mg (241.3 mg magnesium) tablet 400 mg PO BID17 RF: 0 potassium chloride 20 mEq tablet extended release 20 meq PO QAM RF: 0 hydrochlorothiazide 12.5 mg capsule 12.5 mg PO QAM RF: 0 Referrals Referrals: Annamarie [Primary Care Provider] - Discharge Problem: Altered mental status Qualifiers: Altered mental status type: unspecified Qualified Code(s): R41.82 - Altered mental status, unspecified
[2021-01-09] MEDS ORDERED: ONDANSETRON INJ 2 MG/ML 2 ML VIAL IV PRN (05:33)
[2021-01-09] MEDS ORDERED: ACETAMINOPHEN 325 MG TAB PO PRN (05:33)
[2021-01-09] MEDS: LACTATED RINGER'S 1,000 ML IV SCH ×2 (06:07→17:56)
--- NOTE | 2021-01-09 07:02 | CT Scan Report ---
CT head/brain wo con CLINICAL HISTORY: 85 years-old Female with Pt c/o Fall. Acute head injury status post fall TECHNIQUE: Multiple axial CT images of the head were obtained without contrast. A dose lowering tech nique was utilized adhering to the principles of ALARA. CT DOSE: 614.27 mGy.cm COMPARISON: Head CT 01/02/2021 FINDINGS: No acute intracranial hemorrhage, midline shift, intracranial mass, hydrocephalus, territorial ischem ia or abnormal extra-axial collection. Age-related involutional changes with ex vacuo ventriculomegal y. White matter hypodensities redemonstrated suggestive of chronic microvascular ischemic disease. Ce rebral vascular calcifications. The calvarium is intact. Prior bilateral lens repair. The paranasal sinuses, mastoid air cells, and m iddle ear cavities are clear. IMPRESSION: No acute intracranial abnormality or calvarial fracture. ACT 112: Negative or not required by law. The above report was generated using voice recognition software. It may contain grammatical, syntax o r spelling errors. Electronically signed by: Raymond Mejia M.D. 01/09/2021 7:01 AM
--- NOTE | 2021-01-09 07:10 | XRay Report ---
XR chest 1V portable CLINICAL HISTORY: weakness COMPARISON STUDY: 05/27/2020 FINDINGS: The heart is at the upper limits of normal in size. There is no failure. There is no focal pulmonary consolidation. There are no pleural effusions.[ IMPRESSION: No active disease in the chest. ACT 112: Negative or not required by law. Electronically signed by: Willy Holliday M.D. 01/09/2021 7:08 AM
[2021-01-09] MEDS: ASPIRIN 81 MG CHEW PO SCH (08:17)
[2021-01-09] MEDS: PANTOprazole 40 MG TAB PO SCH (08:17)
[2021-01-09] MEDS: MAGNESIUM OXIDE 400 MG TAB PO SCH ×2 (08:17→17:47)
[2021-01-09] MEDS: ATENOLOL 25 MG TABLET PO SCH (08:17)
[2021-01-09] MEDS: POTASSIUM CHLORIDE CRTAB 20 MEQ TABCR PO SCH (08:17)
[2021-01-09] MEDS: TRIAMCINOLONE ACET 0.1% CR 15 GM TUBE EXT SCH ×2 (08:18→21:52)
[2021-01-09] MEDS ORDERED: hydroCHLOROthiazide 25 MG TAB PO SCH (09:00)
--- NOTE | 2021-01-09 11:44 | History & Physical Bridge Note ---
Date of Service January 09, 2021 History & Physical Bridge Note I have examined the patient, reviewed the History & Physical and in the interval since the performance of the History & Physical I have noted the following changes of clinical significance: patient is pleasant, her is at the bedside he says she has been at [facility] for the past 9 months, he has not been able to get her home she has been working with therapy but not getting strong enough to come home he says she typically eats and drinks whatever she is given, he was not aware of her being dehydrated reviewed chart, BUN and Cr up compared to baseline UA with possible UTI, given ceftriaxone in the ED will repeat labs, get PT/OT to evaluate d/w , keep her here overnight and try to discharge tomorrow
[2021-01-09 12:55] LABS: BUN Creatinine Ratio 18.3 (10-20); Calcium 8.5 mg/dl (8.5-10.1); Est GFR (African American) 53.2 ml/min; Est GFR (Non-African American) 45.9 ml/min; Potassium 4.8 mmol/L (3.5-5.1)
[2021-01-09] MEDS: ATORVASTATIN 20 MG TAB PO SCH (21:52)
[2021-01-09] MEDS: SENNA 8.6 MG TAB PO SCH (21:52)
--- NOTE | 2021-01-10 05:47 | Electrocardiogram Report ---
Test Reason : Blood Pressure : / mmHG Vent. Rate : 078 BPM Atrial Rate : 078 BPM P-R Int : 140 ms QRS Dur : 080 ms QT Int : 388 ms P-R-T Axes : 060 -08 049 degrees QTc Int : 442 ms Poor data quality, interpretation may be adversely affected Normal sinus rhythm Normal ECG When compared with ECG of 27-MAY-2020 00:21, No significant change Confirmed by Donaldo Cardenas ([id number]) on 01/10/2021 5:47:24 AM Referred By: Annamarie Confirmed By:Donaldo Cardenas
[2021-01-10 06:14] LABS: Basophils # (auto) 0.03 K/uL (0-0.2); Basophils % (auto) 0.5 %; Eosinophils # (auto) 0.68 K/uL (0-0.5); Eosinophils % (auto) 10.5 %; Hematocrit (blood only) 32.3 % (37-47); Hemoglobin 10.4 g/dL (12.0-16.0); Immature Granulocytes # (auto) 0.03 K/uL (0.00-0.02); Immature Granulocytes % (auto) 0.5 %; Lymphocytes # (auto) 1.64 K/uL (1.2-3.4); Lymphocytes % (auto) 25.4 %; Mean Corpuscular Hgb Conc 32.2 g/dL (32-36); Mean Corpuscular Volume 93.1 fL (80-100); Mean Platelet Volume 8.4 fL (7.4-10.4); Monocytes # (auto) 0.49 K/uL (0.11-0.59); Monocytes % (auto) 7.6 %; Neutrophils # (auto) 3.59 K/uL (1.4-6.5); Neutrophils % (auto) 55.5 %; Platelet Count 362 K/uL (130-400); RDW Coefficient of Variation 12.9 % (11.5-14.5); RDW Standard Deviation 43.7 fL (36.4-46.3); Red Blood Count 3.47 M/uL (4.2-5.4); White Blood Count 6.46 K/uL (4.8-10.8)
[2021-01-10 06:51] LABS: BUN Creatinine Ratio 17.3 (10-20); Calcium 8.5 mg/dl (8.5-10.1); Creatinine Clr Calc Pharmacy 32.5 ml/min; Est GFR (African American) 61.1 ml/min; Est GFR (Non-African American) 52.7 ml/min; Potassium 4.1 mmol/L (3.5-5.1)
[2021-01-10] MEDS: MAGNESIUM OXIDE 400 MG TAB PO SCH ×2 (11:48→17:06)
[2021-01-10] MEDS: ATENOLOL 25 MG TABLET PO SCH (11:49)
[2021-01-10] MEDS: POTASSIUM CHLORIDE CRTAB 20 MEQ TABCR PO SCH (11:49)
[2021-01-10] MEDS: PANTOprazole 40 MG TAB PO SCH (11:49)
[2021-01-10] MEDS: TRIAMCINOLONE ACET 0.1% CR 15 GM TUBE EXT SCH ×2 (11:50→21:42)
[2021-01-10] MEDS: ASPIRIN 81 MG CHEW PO SCH (11:50)
--- NOTE | 2021-01-10 13:51 | Discharge Summary ---
Date of Service January 11, 2021 Admission HPI Per Admitting Provider Ila Dudley is an 85yo female presenting from [facility] with concerns for AMS. Patient is a poor historian. No family at bedside at present. History obtained through chart review, discussion with patient and ER staff. Patient was found on the floor this AM crawling around. She states that she was trying to get something off the floor. She denies falling. Denies pain or head trauma. Denies chest pain/palpitations/SOB/cough. Denies abdominal pain/nausea/vomiting/diarrhea or constipation. Patient had similar event on 01/02 and was seen in the ER. She had a CT head at that time which was unremarkable. No additional complaints at this time. ER Course: Cetriaxone, NSS Principal Diagnosis Dehydration, fall at [facility] Discharge Exam Constitutional well developed, + thin, + frail appearing and + lethargic; no acute distress ENMT Mouth: + poor dentition Neck trachea midline, no thyromegaly Respiratory normal respiratory effort, lungs clear to auscultation Cardiovascular RRR, no murmur, no edema Gastrointestinal (Abdomen) normal bowel sounds, soft, nontender, no hepatosplenomegaly Musculoskeletal Head/Neck/Chest: normocephalic, head atraumatic and neck supple Extremities: extremities normal to inspection and + abnormal strength (generalized, cannot get OOB independently) Skin no rashes, warm and dry Neurologic CN's II-XI intact bilaterally and moves all extremities; no focal motor deficits and + not awake (sleepy but wakes up and answers questions appropriately) Psychiatric Orientation: oriented to person and cooperative; + not oriented to place and + not oriented to time Lymphatic no cervical or axillary lymphadenopathy Discharge Data Allergies Allergy/AdvReac Type Severity Reaction Status Date / Time No Known Allergies Allergy Verified 01/09/21 01:34 Consultations 01/09/21 03:07 ED Decision to Admit Stat Ordered Studies 01/09/21 01:19 CT head/brain wo con Urgent Hospital Course (1) Fall: Patient with possible fall at [facility]. She denies that she fell. No complaints. Question underlying dementia playing role in confusion. per , she was trying to get out of bed and fell beside the bed even at baseline she is in wheelchair, cannot transfer independently will continue therapy at [facility] (2) Dehydration: Patient appears to be slightly dehydrated -dry on clinical exam, some hemoconcentration on CBC, ketones on urine and slight elevation in BUN and Cr provided with maintenance fluid Cr down to 1.1, BUN down as well encourage PO intake hold HCTZ, would discontinue this on discharge as oral intake fluctuates per hus band (3) Dementia of the Alzheimer's type, with early onset, uncomplicated: issues with confusion, can be impulsive per she has been at [facility] now for 9 months Total Time Total Time Spent Total Time Spent (In Minutes): 20 Total Time Includes: Examination of the Patient, Discharge Planning and Medication Reconciliation Discharge Plan Discharge Items Patient Disposition: Personal Residential Reason For Visit: CONFUSION, DEHYDRATION Discharge Diagnosis: Dehydration - resolved mild acute kidney injury - resolved Condition on Discharge: Good Goals: stay well hydrated continue with physical therapy Activity: Resume your previous activity Non-emergency contact: Primary Care Provider Call non-emergency contact if: you have any medication questions Follow-up/Referrals: [facility], [Primary Care Provider] - (one week) Diet: Regular Addtl Attending Provider Instructions: Medications: - HYDROCHLOROTHIAZIDE: stop taking this medication as it makes you more prone to dehydration and acute kidney injury Dehydration, acute kidney injury, weakness, fall, confusion improved with IV fluids urine was tested -- no growth on urine culture, thus no evidence of UTI recommend that you continue with therapy at [facility] focus on staying well hydrated, well nourished Pending Studies at Discharge: No Stand-Alone Forms: My [facility] [employer], Smoking Cessation Skilled Items Patient informed of condition?: Yes DNR: No Discharge Level of Care: Other Communicable Disease: No Discharge Prognosis: Stable Lines: None Urinary Catheter: No Medications and DC Order Prescriptions: Continued acetaminophen [Tylenol 8 Hour] 650 mg tablet extended release 325 mg PO Q4H MDD 3 GRAMS/24 HOURS Qty: 30 RF: 11 sennosides [Senokot] 8.6 mg tablet 17.2 mg PO HS Qty: 60 RF: 11 triamcinolone acetonide 0.1 % cream See Rx Instructions .ROUTE .COMPLEX Qty: 80 RF: 0 ferrous sulfate 325 mg (65 mg iron) tablet 325 mg PO BID17 RF: 0 diphenhydramine HCl [Banophen] 50 mg Capsule 50 mg PO TID PRN (Reason: Itching) RF: 0 aspirin 81 mg Tablet,Chewable 81 mg PO QAM RF: 0 PreserVision AREDS-2 [id number] Capsule 1 tab PO QAM RF: 0 atorvastatin 20 mg tablet 20 mg PO HS RF: 0 cyanocobalamin (vitamin B-12) 100 mcg tablet 50 mcg PO QAM RF: 0 atenolol 25 mg tablet 25 mg PO QAM RF: 0 omeprazole 40 mg capsule,delayed release(DR/EC) 40 mg PO QAM RF: 0 magnesium oxide 400 mg (241.3 mg magnesium) tablet 400 mg PO BID17 RF: 0 potassium chloride 20 mEq tablet extended release 20 meq PO QAM RF: 0 Discontinued hydrochlorothiazide 12.5 mg capsule 12.5 mg PO QAM RF: 0 Discharge Orders: Discharge Order (Routine); Ordered 01/11/21 Ordered By: [place]/Other Patient Handouts: ED Dehydration (Adult) Admission Data Admit Date/Time: 01/10/21 14:03 Attending Provider: Cesar Buchanan Admit Provider: [place] Primary Care Provider: Patrick De Luna Providers: [place] Other Interventions: Discharge Summary Assessment (RN) Last Done: 01/11/21 14:58 Coding Level of Care Code D/C Day Management <30 mins Diagnoses Fall W19.XXXA Encounter type: initial encounter Dehydration E86.0 Dementia of the Alzheimer's type, with early onset, uncomplicated G30.0; F02.80
--- NOTE | 2021-01-10 14:02 | Hospitalist Progress Note ---
Date of Service January 10, 2021 Assessment & Plan (1) Fall: Patient with possible fall at [facility]. She denies that she fell. No complaints. Question underlying dementia playing role in confusion. per , she was trying to get out of bed and fell beside the bed even at baseline she is in wheelchair, cannot transfer independently will continue therapy at [facility] (2) Dehydration: Patient appears to be slightly dehydrated -dry on clinical exam, some hemoconcentration on CBC, ketones on urine and slight elevation in BUN and Cr provided with maintenance fluid Cr down to 0.99, BUN down as well encourage PO intake hold HCTZ (3) Dementia of the Alzheimer's type, with early onset, uncomplicated: issues with confusion, can be impulsive per she has been at [facility] now for 9 months Admission and Anticipated Discharge Date Admission Date: January 09, 2021 Subjective Cr improved to 0.99 no growth on urine culture so UTI ruled out however she is more lethargic and not eating anything will continue to monitor for improvement d/w at bedside, try to d/c tomorrow Review of Systems Review of Systems: All systems reviewed & are unremarkable except as noted in Subjective Constitutional: + fatigue and + weakness; no fever Respiratory: no cough and no dyspnea Cardiovascular: no chest pain Gastrointestinal: no abdominal pain, no nausea, no vomiting, no constipation and no diarrhea/loose stools Genitourinary: no dysuria Physical Exam Constitutional: well developed, + thin, + frail appearing and + lethargic; no acute distress ENMT: Mouth: + poor dentition Neck: trachea midline, no thyromegaly Respiratory: normal respiratory effort, lungs clear to auscultation Cardiovascular: RRR, no murmur, no edema Gastrointestinal (Abdomen): normal bowel sounds, soft, nontender, no hepatosplenomegaly Musculoskeletal: Head/Neck/Chest: normocephalic, head atraumatic and neck supple Extremities: extremities normal to inspection and + abnormal strength (generalized, cannot get OOB independently) Skin: no rashes, warm and dry Neurologic: CN's II-XI intact bilaterally and moves all extremities; no focal motor deficits and + not awake (sleepy but wakes up and answers questions appropriately) Psychiatric: Orientation: oriented to person and cooperative; + not oriented to place and + not oriented to time Lymphatic: no cervical or axillary lymphadenopathy Results & Data Results & Data ([facility]) Vital Signs (Past 12 Hours) Vital Signs Temp Pulse Resp BP Pulse Ox 01/10/21 10:48 36.6 C 82 16 111/61 97 Laboratory Results Laboratory Results - last 24 hr 01/10/21 01/10/21 05:33 05:33 WBC 6.46 RBC 3.47 L Hgb 10.4 L Hct 32.3 L MCV 93.1 MCH 30.0 MCHC 32.2 RDW Std Deviation 43.7 RDW Coeff of Hawa 12.9 Plt Count 362 MPV 8.4 Immature Gran % (Auto) 0.5 Neut % (Auto) 55.5 Lymph % (Auto) 25.4 Drew % (Auto) 7.6 Eos % (Auto) 10.5 Baso % (Auto) 0.5 Neut # (Auto) 3.59 Lymph # (Auto) 1.64 Drew # (Auto) 0.49 Eos # (Auto) 0.68 H Baso # (Auto) 0.03 Immature Gran # (Auto) 0.03 H Sodium 138 Potassium 4.1 Chloride 106 Carbon Dioxide 27 Anion Gap 5.0 BUN 17 Creatinine 0.99 Est Cr Clr Drug Dosing 32.5 Est GFR ( Amer) 61.1 Est GFR (Non-Af Amer) 52.7 BUN/Creatinine Ratio 17.3 Glucose 77 Calcium 8.5 Medications Administered Current Inpatient Medications Acetaminophen (Acetaminophen 325 Mg Tab) 650 mg PO Q4H PRN PRN Reason: pain/fever Stop: 02/08/21 05:32 Aspirin (Aspirin 81 Mg Chew) 81 mg PO [facility] Stop: 02/08/21 08:59 Last Admin: 01/10/21 11:50 Dose: 81 mg Documented by: Atenolol (Atenolol 25 Mg Tablet) [facility] Stop: 02/08/21 08:59 Last Admin: 01/10/21 11:49 Dose: 25 mg Documented by: Atorvastatin Calcium (Atorvastatin 20 Mg Tab) 20 mg PO [facility] Stop: 02/08/21 20:59 Last Admin: 01/09/21 21:52 Dose: 20 mg Documented by: Magnesium Oxide (Magnesium Oxide 400 Mg Tab) 400 mg PO BID17 [facility] Stop: 02/08/21 08:59 Last Admin: 01/10/21 17:06 Dose: 400 mg Documented by: Ondansetron HCl (Ondansetron Inj 2 Mg/Ml 2 Ml Vial) 4 mg IV Q6H PRN PRN Reason: Nausea Stop: 02/08/21 05:32 Pantoprazole Sodium (Pantoprazole 40 Mg Tab) 40 mg PO QAM [facility]; Protocol Stop: 02/08/21 08:59 Last Admin: 01/10/21 11:49 Dose: 40 mg Documented by: Potassium Chloride (Potassium Chloride Crtab 20 Meq Tabcr) 20 meq PO QAM [facility] Stop: 02/08/21 08:59 Last Admin: 01/10/21 11:49 Dose: 20 meq Documented by: Sennosides (Senna 8.6 Mg Tab) 17.2 mg PO HS [facility] Stop: 02/08/21 20:59 Last Admin: 01/09/21 21:52 Dose: 17.2 mg Documented by: Triamcinolone Acetonide (Triamcinolone Acet 0.1% Cr 15 Gm Tube) 1 appln EXT BID CORNELIO Stop: 02/08/21 08:59 Last Admin: 01/10/21 11:50 Dose: 1 appln Documented by: PG Care Time/CCT Total # of Minutes Spent Total Time Spent with Patient: Total time spent is greater than 50% in coordination of care (as documented) at patient's floor/unit and/or counseling patient: Coding Level of Care Code 53292 Subseq Hosp Care Lvl 2 Diagnoses Fall W19.XXXA Encounter type: initial encounter Dehydration E86.0 Dementia of the Alzheimer's type, with early onset, uncomplicated G30.0; F02.80 (1) Fall Encounter type: initial encounter Qualified Code(s): W19.XXXA - Unspecified fall, initial encounter
[2021-01-10] MEDS: ATORVASTATIN 20 MG TAB PO SCH (21:42)
[2021-01-10] MEDS: SENNA 8.6 MG TAB PO SCH (21:42)
[2021-01-11 07:43] LABS: BUN Creatinine Ratio 17.1 (10-20); Calcium 8.5 mg/dl (8.5-10.1); Creatinine Clr Calc Pharmacy 27.7 ml/min; Est GFR (African American) 50.4 ml/min; Est GFR (Non-African American) 43.5 ml/min; Potassium 3.6 mmol/L (3.5-5.1)
[2021-01-11] MEDS: MAGNESIUM OXIDE 400 MG TAB PO SCH (08:25)
[2021-01-11] MEDS: PANTOprazole 40 MG TAB PO SCH (08:26)
[2021-01-11] MEDS: ATENOLOL 25 MG TABLET PO SCH (08:26)
[2021-01-11] MEDS: TRIAMCINOLONE ACET 0.1% CR 15 GM TUBE EXT SCH (08:27)
[2021-01-11] MEDS: POTASSIUM CHLORIDE CRTAB 20 MEQ TABCR PO SCH (09:49)
[2021-01-11] MEDS: ASPIRIN 81 MG CHEW PO SCH (09:49)
== END 2021-01-11 15:29 | disposition home or self-care (01) ==
LOC: ED 01:11 → 3N 01:11 → SUATTDRO 03:54 → 3N 05:03